=== PATIENT | male | born 1960 | race Caucasian/White ===

== ENCOUNTER 2023-08-21 11:34 | Inpatient (IN) | payer MEDICAID, MEDICARE, OTHER ==
--- NOTE | 2023-08-21 12:28 | ED ---
General Adult HPI - General Source: police Mode of arrival: ambulatory Limitations: no limitations <Rob Rey - Last Filed: 08/21/23 20:02> <Faraz Harvey - Last Filed: 08/24/23 04:43> - General Chief complaint: Psychiatric Symptoms Stated complaint: Petition Time Seen by Provider: 08/21/23 12:13 - History of Present Illness Initial comments: Dictation was produced using [employer] dictation software. please excuse any grammatical, word or spelling errors. Chief Complaint: 63-year-old male presents to the emergency department with for EPS evaluation History of Present Illness: Patient 63-year-old male he is an unreliable historian. Patient allegedly has history of psychiatric illness. He was picked up from a shelter by brought to the emergency department for psychiatric evaluation. Patient denies any complaints. According to petition signed by a dip unit operator patient has not been compliant with his psychiatric medications and has been displaying bizarre behavior. Patient [place] any complaints. The ROS documented in this emergency department record has been reviewed and confirmed by me. Those systems with pertinent positive or negative responses have been documented in the HPI. All other systems are other negative and/or noncontributory. (Rob Rey) - Related Data Home Medications Medication Instructions Recorded Confirmed Atorvastatin [Lipitor] 20 mg PO HS@209908/21/23 08/22/23 Carbidopa/Levodopa 2 tab PO TID@0800,1400,209908/21/23 08/22/23 [Carbidopa-Levodopa 25-100 Tab] Cyanocobalamin (Vitamin B-12) 1,000 mcg PO DAILY 08/21/23 08/22/23 [Vitamin B-12] Ergocalciferol (Vitamin D2) 1,250 mcg PO WE 08/21/23 08/22/23 [Drisdol (50,000 Iu)] Escitalopram Oxalate [Lexapro] 10 mg PO HS@209908/21/23 08/22/23 [place] Carbonate 900 mg PO HS@209908/21/23 08/22/23 Loratadine 10 mg PO DAILY@209908/21/23 08/22/23 Pantoprazole [Protonix] 40 mg PO HS@209908/21/23 08/22/23 QUEtiapine [SEROquel] 200 mg PO HS@2100 08/21/23 08/22/23 Allergies Allergy/AdvReac Type Severity Reaction Status Date / Time onion Allergy Unknown Verified 08/22/23 02:25 Review of Systems ROS Other: All systems not noted in ROS Statement are negative. <Rob Rey - Last Filed: 08/21/23 20:02> ROS Other: All systems not noted in ROS Statement are negative. <Faraz Harvey - Last Filed: 08/24/23 04:43> ROS Statement: Those systems with pertinent positive or pertinent negative responses have been documented in the HPI. Past Medical History Past Medical History: Chest Pain / Angina, Osteoarthritis (OA), Pneumonia Additional Past Medical History / Comment(s): 04/17/15 Pt presented to [facility] ER via EMS with chest discomfort and had similar symptoms 2 days ago. Pt states it hurts to laugh and take a deep breath. He is admitted with clinical impression of chest pain. Pt is a unreliable historian. He has legal gaurdian-rfp writer contacted [facility] [employer] and obtained full code status and permission to contact PCP. Six Sigma Black Belt Engineer did rosalindace Dr. Gray's office and obtained [facility] information and immunization record. 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 History of Any Multi-Drug Resistant Organisms: None Reported Past Surgical History: Cholecystectomy, Hernia Repair Past Anesthesia/Blood Transfusion Reactions: No Reported Reaction Past Psychological History: Anxiety, Bipolar, Depression, Schizoaffective Disorder Past Alcohol Use History: None Reported Past Drug Use History: None Reported - Past Family History Mother Family Medical History: Myocardial Infarction (HI) Additional Family Medical History / Comment(s): Mother of a HI at age 70 yrs. Father Family Medical History: Hypertension Additional Family Medical History / Comment(s): Father is alive and 76 yrs old. <Rob Rey - Last Filed: 08/21/23 20:02> General Exam Limitations: no limitations <Rob Rey - Last Filed: 08/21/23 20:02> - General Exam Comments Initial Comments: General: Well-appearing, nontoxic, no acute distress. Head: Normocephalic, atraumatic Eyes: PERRLA, EOMI ENT: Airway patent Chest: Nonlabored breathing Skin: No visual rash, normal skin tone Neuro: Alert and oriented 3 Musculoskeletal: No gross abnormalities (Rob Rey) Course Vital Signs 08/21/23 08/21/23 11:36 21:24 Temperature 98 F 98.9 F Pulse Rate 83 77 Respiratory 18 18 Rate Blood Pressure 165/98 129/77 O2 Sat by Pulse 100 95 Oximetry Procedures - Restraint - Face to Face Restraint Occurrence 1 Patient's Immediate Situation: Endangers self safety, Endangers others' safety, Endangers staff safety Patient's Reaction to the Intervention: Appropriate, Uncooperative Patient's Medical & Behavioral Condition: Awake, Agitated Need to Continue or Terminate Restraint or Seclusion: Continue Face to Face Eval of Restraint Date: 08/21/23 Face to Face Eval of Restraint Time: 17:15 <Rob Rey - Last Filed: 08/21/23 20:02> Medical Decision Making <Rob Rey - Last Filed: 08/21/23 20:02> <Faraz Harvey - Last Filed: 08/24/23 04:43> - Medical Decision Making Was pt. sent in by a medical professional or institution (GABRIELLE Lopez, GENERATOR OPERATOR STRAIGHT BEVEL GEAR, urgent care, hospital, or custodial...) When possible be specific @ -No Did you speak to anyone other than the patient for history (EMS, parent, family, police, friend...)? What history was obtained from this source @ -Police as described above Did you review nursing and triage notes (agree or disagree)? Why? @ -I reviewed and agree with nursing and triage notes Were old charts reviewed (outside hosp., previous admission, EMS record, old EKG, old radiological studies, urgent care reports/EKG's, custodial records)? Report findings @ -No old charts were reviewed Differential Diagnosis (chest pain, altered mental status, abdominal pain women, abdominal pain men, vaginal bleeding, musculoskeletal, weakness, fever, dyspnea, syncope, headache, dizziness, GI bleed, back pain, seizure, CVA, palpatations, mental health)? @ -Differential Mental Health: Depression, anxiety, bipolar, psychosis, schizophrenia, borderline personality, situational depression, adjustment disorder, behavioral disorder, brain tumor, malingering, substance abuse, encephalopathy, medication reaction, dementia, hypothyroidism, degenerative neurologic disorder, lupus.... This is not meant to be all-inclusive list EKG interpreted by me (3pts min.). @ -None done X-rays interpreted by me (1pt min.). @ -None done CT interpreted by me (1pt min.). @ -None done U/S interpreted by me (1pt. min.). @ -None done What testing was considered but not performed or refused? (CT, X-rays, U/S, labs)? Why? @ -None What meds were considered but not given or refused? Why? @ -None Did you discuss the management of the patient with other professionals (professionals i.e. , PA, GENERATOR OPERATOR STRAIGHT BEVEL GEAR, lab, RT, psych nurse, social media sr strategy manager, refrigeration houseman, teacher, airport operations officer, human services case manager)? Give summary @ -No Was smoking cessation discussed for >3mins.? @ -No Was critical care preformed (if so, how long)? @ -No Were there social determinants of health that impacted care today? How? (Homelessness, low income, unemployed, alcoholism, drug addiction, transportation, low edu. Level, literacy, decrease access to med. care, prison, rehab)? @ -No Was there de-escalation of care discussed even if they declined (Discuss DNR or withdrawal of care, Hospice)? DNR status @ -No What co-morbidities impacted this encounter? (DM, HTN, Smoking, COPD, CAD, Cancer, CVA, ARF, Chemo, Hep., AIDS, mental health diagnosis, sleep apnea, morbid obesity)? @ -None Was patient admitted / discharged? Hospital course, mention meds given and route, prescriptions, significant lab abnormalities, going to OR and other pertinent info. @ -63-year-old male presents to the emergency department for psychiatric evaluation. has petition and hand. Vital signs stable. Physical examination is benign. Patient no acute distress with out any medical complaints. Patient medically cleared for EPS evaluation Undiagnosed new problem with uncertain prognosis? @ -No Drug Therapy requiring intensive monitoring for toxicity (Heparin, Nitro, Insulin, Cardizem)? @ -No Were any procedures done? @ -No Diagnosis/symptom? Acute, or Chronic, or Acute on Chronic? Uncomplicated (without systemic symptoms) or Complicated (systemic symptoms)? @ -Medication noncompliance Side effects of treatment? @ -No Exacerbation, Progression, or Severe Exacerbation? @ -No Poses a threat to life or bodily function? How? (Chest pain, [place], HI, pneumonia, PE, COPD, DKA, ARF, appy, cholecystitis, CVA, Diverticulitis, Homicidal, Suicidal, threat to staff... and all critical care pts) @ -yes (Rob Rey) Saw the patient and completed the clinical certificate (Faraz Harvey) - Lab Data Lab Results 08/22/23 Range/Units 00:40 SARS-CoV-2 (PCR) Not Detected (Not Detectd) Disposition <Rob Rey - Last Filed: 08/21/23 20:02> Is patient prescribed a controlled substance at d/c from ED?: No <Faraz Harvey - Last Filed: 08/24/23 04:43> Clinical Impression: Psychosis Disposition: ADMITTED IP TO THIS HOSP Condition: Fair
[2023-08-21] MEDS: HALOPERIDOL LACTATE 5 MG/ML 1 ML VIAL IM STA (17:53)
[2023-08-22] MEDS ORDERED: ACETAMINOPHEN TAB 325 MG TAB PO PRN (02:15)
[2023-08-22] MEDS ORDERED: MAG HYDROX/AL HYDROX/SIMETH 355 ML BOTTLE PO PRN (02:15)
[2023-08-22] MEDS ORDERED: MAGNESIUM HYDROXIDE 2,400 MG/30 ML CUP PO PRN (02:15)
[2023-08-22] MEDS ORDERED: LORazepam 2 MG/ML INJ IM PRN (02:15)
[2023-08-22] MEDS ORDERED: IBUPROFEN 600 MG TAB PO PRN (02:15)
--- NOTE | 2023-08-22 05:14 | P.PN ---
Progress Note - Text Progress Note Date: 08/22/23 Notified of new consult by RN who advised patient is drowsy heavily medicated and currently sleeping
[2023-08-22] MEDS: CARBIDOPA-LEVODOPA 25-100 MG 1 EACH TAB PO SCH (08:18)
[2023-08-22] MEDS: NICOTINE 14MG/24HR PATCH TRANSDERM SCH (08:18)
--- NOTE | 2023-08-22 13:07 | P.HP ---
Psychiatric H&P - . H&P Date: 08/22/23 History & Physical: Allergies Allergy/AdvReac Type Severity Reaction Status Date / Time onion Allergy Unknown Verified 08/22/23 02:25 Vital Signs Temp 97.8 F 08/22/23 03:49 Pulse 102 H 08/22/23 08:19 Resp 14 08/22/23 03:49 BP 139/89 08/22/23 08:19 Pulse Ox 96 08/22/23 03:49 FiO2 Intake & Output 08/21/23 08/22/23 08/22/23 18:59 06:59 18:59 Weight 90.718 kg 90.718 kg Laboratory Last Values SARS-CoV-2 (PCR) Not Detected (Not Detectd) 08/22/23 00:40 08/22/23 13:03 This is a psychiatric assessment on this 63-year-old male who was brought in from a fdc Patient is a poor historian and continues to stare He continues to stay he is good and is unable to give any other answer or response Following is an excerpt from the assessment done in the ER which is included here for completeness: 63-year-old male presents to the emergency department with for EPS evaluation History of Present Illness: Patient 63-year-old male he is an unreliable histo kahtrine. Patient allegedly has history of psychiatric illness. He was picked up from a fdc by brought to the emergency department for psychiatric evaluation. Patient denies any complaints. According to petition signed by a vibration engineer patient has not been compliant with his psychiatric medications and has been displaying bizarre behavior. Past Medical History as noted in the chart: Past Medical History: Chest Pain / Angina, Osteoarthritis (OA), Pneumonia Additional Past Medical History / Comment(s): 04/17/15 Pt presented to [facility] ER via EMS with chest discomfort and had similar symptoms 2 days ago. Pt states it hurts to laugh and take a deep breath. He is admitted with clinical impression of chest pain. Pt is a unreliable historian. He has legal gaurdian-resume writer contacted [facility] [employer] and obtained full code status and permission to contact PCP. New Car Sales Manager did contace Dr. Gray's office and obtained [facility] information and immunization record. 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 History of Any Multi-Drug Resistant Organisms: None Reported Past Surgical History: Cholecystectomy, Hernia Repair Past Anesthesia/Blood Transfusion Reactions: No Reported Reaction Past Psychological History: Anxiety, Bipolar, Depression, Schizoaffective Disorder Past Alcohol Use History: None Reported Past Drug Use History: None Reported Mental status examination: Patient when seen today was laying in bed When his name was called patient did turn around and looked at this resume writer but did not respond Patient and can continue to repeat grade morning and was unable to give any other response Further mental State examination could not be completed due to patient not able to respond to any questions adequately and seems to be developmentally compromised Diagnostic impression: Schizoaffective disorder by history Major neurocognitive disorder moderate to severe Developmental disorder unspecified Plan: The patient will be hospitalized on the unit for further evaluation and treatment Therapy will be focused on providing supportive care improving his coping abilities with a multimodal treatment Patient will also participate in on the cornejo activities individual milieu group OT RT PT and pharmacotherapy to the best of his capacity Approximately length of stay would be 7-10 days Continue current home medications as prescribed Active Medications Generic Name Dose Route Start Last Admin Trade Name Freq PRN Reason Stop Dose Admin Acetaminophen 650 mg 08/22/23 02:15 Acetaminophen Tab 325 Mg Tab PO Q4HR PRN Mild Pain (Scale 1 to 3) Al Hydroxide/Mg Hydroxide 30 ml 08/22/23 02:15 Mag Hydrox/Al Hydrox/Simeth 355 Ml Bottle PO Q4HR PRN GI Upset Atorvastatin Calcium 20 mg 08/22/23 21:00 Atorvastatin 20 Mg Tab PO HS@2100 [facility] Carbidopa/Levodopa 2 each 08/22/23 08:00 08/22/23 08:18 Carbidopa-Levodopa 25-100 Mg 1 Each Tab PO 2 each TID@0800,1400,2100 [facility] Administration Escitalopram Oxalate 10 mg 08/22/23 21:00 Escitalopram 10 Mg Tab PO HS@2100 [facility] Ibuprofen 600 mg 08/22/23 02:15 Ibuprofen 600 Mg Tab PO Q6HR PRN Moderate Pain (Scale 4 to 6) [place] Carbonate 900 mg 08/22/23 21:00 [place] Carbonate 300 Mg Cap PO HS@2100 [facility] Loratadine 10 mg 08/22/23 21:00 Loratadine 10 Mg Tab PO DAILY@2100 [facility] Lorazepam 1 mg 08/22/23 02:15 Lorazepam 1 Mg Tab PO Q4HR PRN Anxiety Lorazepam 2 mg 08/22/23 02:15 Lorazepam 2 Mg/Ml Inj IM Q6HR PRN Severe Agitation Magnesium Hydroxide 2,400 mg 08/22/23 02:15 Magnesium Hydroxide 2,400 Mg/30 Ml Cup PO DAILY PRN Constipation Pantoprazole Sodium 40 mg 08/22/23 21:00 Pantoprazole 40 Mg Tablet PO HS@2100 [facility] Quetiapine Fumarate 200 mg 08/22/23 21:00 Quetiapine 200 Mg Tab PO HS@2100 [facility] Trazodone HCl 50 mg 08/22/23 02:15 Trazodone Hcl 50 Mg Tab PO HS PRN Insomnia learning support services director will be involved for appropriate discharge planning Yves Lara M.D.
[2023-08-22] MEDS: LORATADINE 10 MG TAB PO SCH (20:30)
[2023-08-22] MEDS: LITHIUM CARBONATE 300 MG CAP PO SCH (20:30)
[2023-08-22] MEDS: ATORVASTATIN 20 MG TAB PO SCH (20:30)
[2023-08-22] MEDS: ESCITALOPRAM 10 MG TAB PO SCH (20:30)
[2023-08-22] MEDS: PANTOPRAZOLE 40 MG TABLET PO SCH (20:30)
[2023-08-22] MEDS: QUEtiapine 200 MG TAB PO SCH (20:30)
--- NOTE | 2023-08-23 02:28 | P.PN ---
Progress Note - Text Progress Note Date: 08/23/23 Attempted to see the patient in the mental health unit on 08/21 at 2300. Informed by the mental health unit RN that the patient was agitated and inappropriate for evaluation at this time.
--- NOTE | 2023-08-23 08:50 | P.PN ---
Subjective Progress Note Date: 08/23/23 Principal diagnosis: Diagnostic impression: Schizoaffective disorder by history Major neurocognitive disorder moderate to severe Developmental disorder unspecified The patient was seen chart was reviewed and case discussed with nursing staff Patient at this time was laying in bed and did not seem to exhibit any interest in his interview Patient made some grunting sounds Patient tried to respond mainly by shaking his head either yes and nose but the sponsors were inconsistent and unreliable Affect remains flat Mental status examination: Mental status examination practically remains unchanged from the previous day Patient when seen today was laying in bed When his name was called patient did turn around and looked at this physician underwriter but did not respond Patient and can continue to repeat grade morning and was unable to give any other response Further mental State examination could not be completed due to patient not able to respond to any questions adequately and seems to be developmentally compromised Diagnostic impression: Schizoaffective disorder by history Major neurocognitive disorder moderate to severe Developmental disorder unspecified Plan: The patient will be hospitalized on the unit for further evaluation and treatment Therapy will be focused on providing supportive care improving his coping abilities with a multimodal treatment Patient will also participate in on the cornejo activities individual milieu group OT RT PT and pharmacotherapy to the best of his capacity Approximately length of stay would be 7-10 days Continue current home medications as prescribed Yves Lara MD Active Medications Generic Name Dose Route Start Last Admin Trade Name Freq PRN Reason Stop Dose Admin Acetaminophen 650 mg 08/22/23 02:15 Acetaminophen Tab 325 Mg Tab PO Q4HR PRN Mild Pain (Scale 1 to 3) Al Hydroxide/Mg Hydroxide 30 ml 08/22/23 02:15 Mag Hydrox/Al Hydrox/Simeth 355 Ml Bottle PO Q4HR PRN GI Upset Atorvastatin Calcium 20 mg 08/22/23 21:00 08/22/23 20:30 Atorvastatin 20 Mg Tab PO 20 mg HS@2100 [facility] Administration Carbidopa/Levodopa 2 each 08/22/23 08:00 08/22/23 20:30 Carbidopa-Levodopa 25-100 Mg 1 Each Tab PO 2 each TID@0800,1400,2100 [facility] Administration Escitalopram Oxalate 10 mg 08/22/23 21:00 08/22/23 20:30 Escitalopram 10 Mg Tab PO 10 mg HS@2100 [facility] Administration Ibuprofen 600 mg 08/22/23 02:15 Ibuprofen 600 Mg Tab PO Q6HR PRN Moderate Pain (Scale 4 to 6) [place] Carbonate 900 mg 08/22/23 21:00 08/22/23 20:30 [place] Carbonate 300 Mg Cap PO 900 mg HS@2100 [facility] Administration Loratadine 10 mg 08/22/23 21:00 08/22/23 20:30 Loratadine 10 Mg Tab PO 10 mg DAILY@2100 [facility] Administration Lorazepam 1 mg 08/22/23 02:15 Lorazepam 1 Mg Tab PO Q4HR PRN Anxiety Lorazepam 2 mg 08/22/23 02:15 Lorazepam 2 Mg/Ml Inj IM Q6HR PRN Severe Agitation Magnesium Hydroxide 2,400 mg 08/22/23 02:15 Magnesium Hydroxide 2,400 Mg/30 Ml Cup PO DAILY PRN Constipation Pantoprazole Sodium 40 mg 08/22/23 21:00 08/22/23 20:30 Pantoprazole 40 Mg Tablet PO 40 mg HS@2100 [facility] Administration Quetiapine Fumarate 200 mg 08/22/23 21:00 08/22/23 20:30 Quetiapine 200 Mg Tab PO 200 mg HS@2100 [facility] Administration Trazodone HCl 50 mg 08/22/23 02:15 Trazodone Hcl 50 Mg Tab PO HS PRN Insomnia Objective - Vital Signs Vital signs: Vital Signs Temp 97.8 F 08/22/23 03:49 Pulse 102 H 08/22/23 08:19 Resp 14 08/22/23 03:49 BP 139/89 08/22/23 08:19 Pulse Ox 96 08/22/23 03:49 FiO2
--- NOTE | 2023-08-24 03:24 | P.PN ---
Progress Note - Text Progress Note Date: 08/24/23 Attempted to see the patient in the mental health unit at 2200 on 08/22. The patient refused to be seen or be evaluated
[2023-08-24] MEDS ORDERED: HALOPERIDOL LACTATE 5 MG/ML 1 ML VIAL IM PRN (11:25)
[2023-08-24] MEDS ORDERED: OLANZapine 10 MG VIAL IM PRN ×2 (11:28→11:29)
--- NOTE | 2023-08-24 11:34 | P.PN ---
Progress Note - Text Progress Note Date: 08/24/23 Interval History: Patient was seen laying in bed today and was directable and agreeable to speak with bond underwriter. Patient appears to be mildly disheveled in appearance, patient has a noticeable stutter in his speech. He claims that he is doing "super" and denies any depression or anxiety. He is fairly concrete, focused on discharge. He claims that he is agreeable to trying new medications. He denies any problems with sleep at this time. Claims that he is eating fairly. Mainly keeping himself on the unit. At this time patient denies any suicidal or homical ideations, intent or plan. Patient denies any auditory, visual hallucinations and denies any paranoia or delusions. Patient denies any side effects from the medications and has been compliant with meds. Mental Status Exam: General Appearance: Patient appears to be stated age is alert, directable, and cooperative. Behavior: Patient is calmly seated without any agitated behavior. Attempts to cooperate Speech: Patient's speech is stuttering Mood/Affect: Mood is improving mildly, affect is congruent and improving mildly Suicidality/Homicidality: Patient denies having any suicidal or homicidal ideation intent or plan. Perceptions: Patient denies any visual hallucinations and denies any auditory hallucinations Though content/process: There is no evidence of any delusional thought content and thought process is linear and goal-directed. Focused on discharge. [place]. Memory and concentration: AOX3, grossly intact for the purposes of this session Judgment and insight: Likely poor, improving mildly Assessment Schizoaffective disorder Major neurocognitive disorder moderate to severe Developmental disorder unspecified Plan: -Patient continues to meet criteria for inpatient psychiatric admission for symptom stabilization and safety. Patient has not signed medication consent and was placed in patient's chart. -Medications: Continue with Seroquel 200 mg nightly for mood stabilization/insomnia/psychosis, added Abilify 5 mg p.o. daily for mood stabilization/psychosis. Plan to transition onto a long-acting injection. Continue with lithium and Lexapro as prescribed. -When necessary Ativan and Zyprexa for agitation/aggression. -NRT -non-smoker -SW on board for discharge planning. Encouraged the patient to participate in milieu. Patient is currently on a active treatment order which expires in May 2024. She currently lives at [facility], plan to return after discharge.
[2023-08-24 12:10] LABS: Anisocytosis Slight; Basophils % (A) 1 %; Eosinophils # (A) 0.2 k/uL (0-0.7); Eosinophils % (A) 3 %; HCT 36.2 % (39.0-53.0); HGB 12.3 gm/dL (13.0-17.5); Lymphocytes # (A) 1.4 k/uL (1.0-4.8); Lymphocytes % (A) 18 %; MCH 30.2 pg (25.0-35.0); MCHC 33.9 g/dL (31.0-37.0); Mean Platelet Volume 8.5; Monocytes # (A) 0.3 k/uL (0-1.0); Monocytes % (A) 4 %; Neutrophils # (A) 5.6 k/uL (1.3-7.7); Neutrophils % (A) 73 %; Platelet Count 133 k/uL (150-450); Poikilocytosis Moderate; RBC 4.07 m/uL (4.30-5.90); RDW 18.9 % (11.5-15.5); WBC 7.6 k/uL (3.8-10.6)
[2023-08-24 12:22] LABS: ALT 6 U/L (4-49); AST 20 U/L (17-59); African American GFR (CKD) >90 (>60 ml/min/1.73 sqM); Albumin 4.2 g/dL (3.5-5.0); Alkaline Phosphatase 60 U/L (38-126); Anion Gap 5 mmol/L; Bilirubin, Delta 0.4 mg/dL (0.0-0.2); Bilirubin,Unconjugated 1.8 mg/dL (0.0-1.1); Blood Urea Nitrogen 14 mg/dL (9-20); Calcium 8.8 mg/dL (8.4-10.2); Carbon Dioxide 27 mmol/L (22-30); Chloride 108 mmol/L (98-107); Glucose 87 mg/dL (74-99); Non-African American GFR(CKD) >90 (>60 ml/min/1.73 sqM); Potassium 4.2 mmol/L (3.5-5.1); Sodium 140 mmol/L (137-145); Total Bilirubin 2.2 mg/dL (0.2-1.3); Total Protein 6.1 g/dL (6.3-8.2)
[2023-08-24] MEDS: ARIPiprazole 5 MG TAB PO SCH (14:21)
[2023-08-24 15:58] LABS: Chol/HDL Ratio 1.88 Ratio; LDL Cholesterol,Calculated 25.1 mg/dL (0.0-131.0); VLDL Calculation 11.92 mg/dL (5.00-40.00)
[2023-08-24 16:42] LABS: Estimated Average Glucose <74 mg/dL
[2023-08-24] MEDS: QUEtiapine 200 MG TAB PO SCH (20:20)
[2023-08-24] MEDS ORDERED: PALIPERIDONE 6 MG TAB.ER.24 PO SCH (21:00)
--- NOTE | 2023-08-25 09:59 | P.PN ---
Progress Note - Text Progress Note Date: 08/25/23 Interval History: Patient was seen laying in bed today and was directable and agreeable to speak with marketing writer. Patient appeared to have improvement in his affect today. He was polite and directable with marketing writer, denying any irritability. Denying any problems with medications at this time. He continues to focus on discharge. patient has a noticeable stutter in his speech. He claims that he is doing "good" and denies any depression or anxiety. He is fairly concrete, focused on discharge. He claims that he is agreeable to trying new medications. He denies any problems with sleep at this time. Claims that he is eating fairly. Mainly keeping himself on the unit. At this time patient denies any suicidal or homicidal ideations, intent or plan. Patient denies any auditory, visual hallucinations and denies any paranoia or delusions. Patient denies any side effects from the medications and has been compliant with meds. Mental Status Exam: General Appearance: Patient appears to be stated age is alert, directable, and cooperative. Behavior: Patient is calmly seated without any agitated behavior. Attempts to cooperate Speech: Patient's speech is stuttering Mood/Affect: Mood is improving mildly, affect is congruent and improving mildly Suicidality/Homicidality: Patient denies having any suicidal or homicidal ideation intent or plan. Perceptions: Patient denies any visual hallucinations and denies any auditory hallucinations Though content/process: There is no evidence of any delusional thought content and thought process is linear and goal-directed. Focused on discharge. [place]. 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 Patient has not signed medication consent and was placed in patient's chart. -Medications: Continue with Seroquel 200 mg nightly for mood stabilization/insomnia/psychosis, increase Abilify 7.5 mg p.o. daily for mood stabilization/psychosis. Plan to transition onto a long-acting injection. Continue with lithium and Lexapro as prescribed -When necessary Ativan and Zyprexa for agitation/aggression -NRT -non-smoker -SW on board for discharge planning. Encouraged the patient to participate in milieu. Patient is currently on a active treatment order which expires in May 2024. She currently lives at [facility], plan to return after discharge. Hopeful for discharge thursday once patient is transitioned onto [facility].
--- NOTE | 2023-08-26 01:59 | P.CONS ---
History of Present Illness - Reason for Consult Consult date: 08/26/23 - History of Present Illness The patient is a 63-year-old male with a PMH of hyperlipidemia and multiple psychiatric conditions including schizoaffective disorder, bipolar disorder, depression who had presented to the emergency room for psychiatric evaluation due to bizarre behavior. The patient was admitted to the mental health unit where he was seen and evaluated. Patient states that he "misscounted my medications at home". He denied any physical complaints at the time of interview. Denied experiencing chest discomfort, shortness breath, fever, chills, cough, nausea, vomiting, abdominal pain, diarrhea. He denied alcohol, tobacco, or substance use. Review of systems: Pertinent positives and negatives as discussed in HPI, a complete review of systems was performed and all other systems are negative. Physical examination: General: non toxic, no distress, appears at stated age, overweight Derm: no unusual rashes/lesions, no unusual ecchymoses, warm, dry Head: atraumatic, normocephalic, symmetric Eyes: EOMI, no lid lag, anicteric sclera ENT: Nose and ears atraumatic, no thrush, no pharyngeal erythema Neck: trachea midline, supple Mouth: no lip lesion, mucus membranes moist Cardiovascular: S1S2 reg, no murmur, no edema Lungs: CTA bilateral, no rhonchi, no rales , no accessory muscle use Abdominal: soft, nontender to palpation, no guarding Ext: no gross muscle atrophy, no contractures, Neuro: No gross focal neuro deficits noted Psych: Alert, oriented, appropriate affect Assessment: Thrombocytopenia Hyperbilirubinemia Chronic conditions: Hyperlipidemia Psychosis Imaging: None performed Data Review: Reviewed with hemoglobin 12.3, platelet count 133, total bilirubin 2.2, unconjugated bili 1.8, with lithium level 0.6 Plan: Monitor CBC for now as patient has previously had intermittent thrombocytopenia which resolved spontaneously Obtain RUQ ultrasound and monitor CMP Resume patient's home Lipitor Defer management of psychosis to primary psychiatry service Thank you for allowing us to participate in the care of this patient. We will follow peripherally. Do not hesitate to contact us with questions. Someone can be reached from the [facility] hospitalist group at all hours of the day at [phone]. Past Medical History Past Medical History: Chest Pain / Angina, Osteoarthritis (OA), Pneumonia Additional Past Medical History / Comment(s): 04/17/15 Pt presented to [facility] ER via EMS with chest discomfort and had similar symptoms 2 days ago. Pt states it hurts to laugh and take a deep breath. He is admitted with clinical impression of chest pain. Pt is a unreliable historian. He has legal gaurdian-underwriter contacted [facility] and obtained full code status and permission to contact PCP. Jewel Diameter Gauger did rosalindace Dr. Gray's office and obtained [facility] information and immunization record. 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 History of Any Multi-Drug Resistant Organisms: None Reported Past Surgical History: Cholecystectomy, Hernia Repair Past Anesthesia/Blood Transfusion Reactions: No Reported Reaction Past Psychological History: Anxiety, Bipolar, Depression, Schizoaffective Disorder Additional Psychological History / Comment(s): Pt resides in [facility]. Pt has a legal gaurdian. He uses no assistive device. Smoking Status: Never smoker Past Alcohol Use History: None Reported Past Drug Use History: None Reported - Past Family History Mother Family Medical History: Myocardial Infarction (DC) Additional Family Medical History / Comment(s): Mother of a DC at age 70 yrs. Father Family Medical History: Hypertension Additional Family Medical History / Comment(s): Father is alive and 76 yrs old. Medications and Allergies Home Medications Medication Instructions Recorded Confirmed Type Atorvastatin [Lipitor] 20 mg PO HS@209908/21/23 08/22/23 History Carbidopa/Levodopa 2 tab PO TID@0800,1400,209908/21/23 08/22/23 History [Carbidopa-Levodopa 25-100 Tab] Cyanocobalamin (Vitamin B-12) 1,000 mcg PO DAILY 08/21/23 08/22/23 History [Vitamin B-12] Ergocalciferol (Vitamin D2) 1,250 mcg PO WE 08/21/23 08/22/23 History [Drisdol (50,000 Iu)] Escitalopram Oxalate [Lexapro] 10 mg PO HS@209908/21/23 08/22/23 History [place] Carbonate 900 mg PO HS@209908/21/23 08/22/23 History Loratadine 10 mg PO DAILY@209908/21/23 08/22/23 History Pantoprazole [Protonix] 40 mg PO HS@209908/21/23 08/22/23 History QUEtiapine [SEROquel] 200 mg PO HS@209908/21/23 08/22/23 History Allergies Allergy/AdvReac Type Severity Reaction Status Date / Time onion Allergy Unknown Verified 08/22/23 02:25 Physical Exam Vitals: Vital Signs Temp Pulse Resp BP Pulse Ox 08/25/23 06:56 96.7 F L 66 18 107/62 97 Results CBC & Chem 7: 08/24/23 11:23 08/24/23 11:22
[2023-08-26] MEDS: ARIPiprazole 5 MG TAB PO SCH (08:59)
--- NOTE | 2023-08-26 10:08 | P.PN ---
Progress Note - Text Progress Note Date: 08/26/23 Interval History: Patient was seen laying in bed today and was directable and agreeable to speak with ad writer. Patient was in good spirits today. He is excited about discharge. Patient states that he is sleeping well, and he is eating all meals. Mainly keeping himself on the unit, only coming out of his room for meals and medication. He has not attended any groups. Spoke with patient about transitioning onto a SEBASTIAN, patient agreeable. At this time patient denies any suicidal or homicidal ideations, intent or plan. Patient denies any auditory, visual hallucinations and denies any paranoia or delusions. Patient denies any side effects from the medications and has been compliant with meds. Mental Status Exam: General Appearance: Patient appears to be stated age is alert, directable, and cooperative. Behavior: Patient is calmly seated without any agitated behavior. Attempts to cooperate, improving Speech: Patient's speech is stuttering Mood/Affect: Mood is "a-ok" , affect is congruent and improving mildly Suicidality/Homicidality: Patient denies having any suicidal or homicidal id eation intent or plan. Perceptions: Patient denies any visual hallucinations and denies any auditory hallucinations Though content/process: There is no evidence of any delusional thought content and thought process is linear and goal-directed. Focused on discharge. [place]. 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 Patient has not signed medication consent and was placed in patient's chart. -Medications: Seroquel 200 mg nightly for mood stabilization/insom alexa/psychosis, increase Abilify 10 mg p.o. daily for mood stabilization/psychosis. Plan to transition onto a long-acting injection on Thursday, 08/27 Continue with lithium and Lexapro as prescribed -When necessary Ativan and Zyprexa for agitation/aggression -NRT - non-smoker -SW on board for discharge planning. Encouraged the patient to participate in milieu. Patient is currently on a active treatment order which expires in May 2024. he currently lives at [facility], plan to return after discharge if still approved to go back. Hopeful for discharge thursday once patient is transitioned onto SEBASTIAN.
[2023-08-26 13:39] LABS: Anisocytosis Slight; HCT 39.1 % (39.0-53.0); MCH 29.8 pg (25.0-35.0); MCHC 33.3 g/dL (31.0-37.0); MCV 89.4 fL (80.0-100.0); Mean Platelet Volume 8.4; Platelet Count 142 k/uL (150-450); Poikilocytosis Moderate; RBC 4.38 m/uL (4.30-5.90); RDW 18.6 % (11.5-15.5)
[2023-08-26 13:57] LABS: ALT <6 U/L (4-49); AST 18 U/L (17-59); African American GFR (CKD) >90 (>60 ml/min/1.73 sqM); Albumin 4.6 g/dL (3.5-5.0); Alkaline Phosphatase 80 U/L (38-126); Anion Gap 6 mmol/L; Blood Urea Nitrogen 11 mg/dL (9-20); Calcium 9.2 mg/dL (8.4-10.2); Carbon Dioxide 26 mmol/L (22-30); Chloride 106 mmol/L (98-107); Glucose 88 mg/dL (74-99); Non-African American GFR(CKD) >90 (>60 ml/min/1.73 sqM); Sodium 138 mmol/L (137-145); Total Bilirubin 2.5 mg/dL (0.2-1.3); Total Protein 6.6 g/dL (6.3-8.2)
[2023-08-26 14:52] LABS: Potassium 4.2 mmol/L (3.5-5.1)
[2023-08-27] MEDS: ARIPiprazole 10 MG TAB PO SCH (09:08)
--- NOTE | 2023-08-27 09:14 | US ---
EXAMINATION TYPE: US abdomen limited DATE OF EXAM: 08/27/2023 Exam done portable in U COMPARISON: US 2010 CLINICAL INDICATION: Male, 63 years old with history of RUQ - hyperbilirubinemia; TECHNIQUE: Multiple sonographic images of the right upper quadrant are obtained. FINDINGS: EXAM MEASUREMENTS: Liver Length: 16.1 cm CBD: 0.5 cm Right Kidney: 11.5 x 4.8 x 5.5 cm Pancreas: obscured by overlying midline bowel gas Liver: limited by overlying bowel gas, 1.2cm cyst seen right lobe Gallbladder: surgically absent Evidence for sonographic Calderón's sign: no CBD: visualized portions wnl Right Kidney: visualized portions wnl, inferior pole limited by overlying bowel gas IMPRESSION: 1. No evidence for acute abdominal process. 2. Simple appearing hepatic cyst.
[2023-08-27] MEDS: LORazepam 1 MG TAB PO PRN (10:21)
[2023-08-27] MEDS: OLANZapine 10 MG TAB PO PRN (10:21)
--- NOTE | 2023-08-27 11:03 | P.PN ---
Progress Note - Text Progress Note Date: 08/27/23 Interval History: Patient was seen laying in bed today and was directable and agreeable to speak with singer songwriter. Patient stated that he was good today. Patient was asking about discharge, singer songwriter told patient we are still waiting to hear back from the nursing home, to see if he is able to return there upon discharge. Patient became upset, and started crying. Patient was hear yelling loudly from his room after wrtier left. Patient stated that he is sleeping well, and he is eating all meals. Mainly keeping himself on the unit, only coming out of his room for meals and medication. He has not attended any groups. Will give patient SEBASTIAN on Thursday, 08/27. At this time patient denies any suicidal or homicidal ideations, intent or plan. encouraged showerting today as patient did appear to be discheveled in appearance. Patient denies any auditory, visual hallucinations and denies any paranoia or delusions. Patient denies any side effects from the medications and has been compliant with meds. Mental Status Exam: General Appearance: Patient appears to be stated age is alert, directable, and cooperative. Behavior: Patient is calmly seated without any agitated behavior. Attempts to cooperate, improving Speech: Patient's speech is stuttering Mood/Affect: Mood is "good" , affect is congruent and improving mildly Suicidality/Homicidality: Patient denies having any suicidal or homicidal ideation intent or plan. Perceptions: Patient denies any visual hallucinations and denies any auditory mario llucinations Though content/process: There is no evidence of any delusional thought content and thought process is linear and goal-directed. Focused on discharge. [place]. 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 Patient has not signed medication consent and was placed in patient's chart. -Medications: Seroquel 200 mg nightly for mood stabilization/insomnia/psychosis, Abilify 10 mg p.o. daily for mood stabilization/psychosis. add abilify maintena 400mg IM, Thursday, 08/27 Continue with lithium and Lexapro as prescribed -When necessary Ativan and Zyprexa for agitation/aggression -NRT - non-smoker -SW on board for discharge planning. Encouraged the patient to participate in milieu. Patient is currently on a active treatment order which expires in May 2024. he currently lives at [facility], however unsure at this time if he is allowed back. [facility] is meeting with guardian to discuss nursing home placement.
[2023-08-27] MEDS: traZODone HCL 50 MG TAB PO PRN (22:09)
--- NOTE | 2023-08-28 10:23 | P.PN ---
Progress Note - Text Progress Note Date: 08/28/23 Interval History: Patient was seen laying in bed today and was directable and agreeable to speak with publicity writer. Patient stated that he was ok today. Patient appeared to be in better spirits today. Steel Checker explained to the patient that we are waiting for [facility] and his guardian to set up placement for discharge. Patient accepts this explanation. Patient stated that he is sleeping well, and he is eating all meals. Mainly keeping himself on the unit. He states that he has gone to a couple groups. Patient given SEBASTIAN on today, 08/27. At this time patient denies any suicidal or homicidal ideations, intent or plan. Patient denies any auditory, visual hallucinations and denies any paranoia or delusions. Patient denies any side effects from the medications and has been compliant with meds. Mental Status Exam: General Appearance: Patient appears to be stated age is alert, directable, and cooperative. Behavior: Patient is calmly seated without any agitated behavior. Attempts to cooperate, improving Speech: Patient's speech is stuttering Mood/Affect: Mood is "ok" , affect is congruent and improving mildly Suicidality/Homicidality: Patient denies having any suicidal or homicidal ideation intent or plan. Perceptions: Patient denies any visual hallucinations and denies any auditory hallucinations Though content/process: There is no evidence of any delusional thought content and thought process is linear and goal-directed. Focused on discharge. [place]. 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 Patient has not signed medication consent and was placed in patient's chart. -Medications: Seroquel 200 mg nightly for mood stabilization/insomnia/psychosis, Abilify 10 mg p.o. daily for mood stabilization/psychosis. abilify maintena 400mg IM, 08/28/23. Continue with lithium and Lexapro as prescribed -When necessary Ativan and Zyprexa for agitation/aggression -NRT - non-smoker - on board for discharge planning. Encouraged the patient to participate in milieu. Patient is currently on a active treatment order which expires in May 2024. [facility] unsure at this time if he is allowed back. [facility] is meeting with guardian to discuss correction placement.
[2023-08-28] MEDS: ARIPiprazole IM SYRINGE 400 MG (NO CHARGE) PHARMACY STOCK IM SCH (10:30)
--- NOTE | 2023-08-29 08:53 | P.PN ---
Subjective Progress Note Date: 08/29/23 Principal diagnosis: Diagnostic impression: Schizoaffective disorder by history Major neurocognitive disorder moderate to severe Developmental disorder unspecified atient Name: Maulik Nichole Date of : 1960 Patient Status: Inpatient Attending Provider: Isma Riojas Date: Initialization Date: 08/28/23 08:56 The patient was seen chart was reviewed and case discussed with nursing staff Patient at this time was laying in bed and did not seem to exhibit any interest in his interview Patient made some grunting sounds Patient tried to respond mainly by shaking his head Patient stated that he is sleeping well, and he is eating all meals. Mainly keeping himself on the unit. He states that he has gone to a couple groups. Patient given SEBASTIAN on 08/27 . At this time patient denies any suicidal or homicidal ideations, intent or plan. Patient denies any auditory, visual hallucinations and denies any paranoia or delusions. Patient denies any side effects from the medications and has been compliant with meds. Mental status examination: Mental Status Exam: General Appearance: Patient appears to be stated age is alert, directable, and cooperative. Behavior: Patient is calmly laying down without any agitated behavior. Speech: Mostly response with grunts and shaking his head Mood/Affect: Mood is "ok" , affect is congruent and improving mildly Suicidality/Homicidality: Patient denies having any suicidal or homicidal ideation intent or plan. Perceptions: Patient denies any visual hallucinations and denies any auditory hallucinations Though content/process: There is no evidence of any delusional thought content and thought process is linear and goal-directed. Focused on discharge. [place]. 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 -Medications: Seroquel 200 mg nightly for mood stabilization/insomnia/psychosis, Abilify 10 mg p.o. daily for mood stabilization/psychosis. abilify maintena 400mg IM, 08/28/23. Continue with lithium and Lexapro as prescribed -When necessary Ativan and Zyprexa for agitation/aggression -NRT - non-smoker - on board for discharge planning. Encouraged the patient to participate in milieu. Patient is currently on a active treatment order which expires in May 2024. [facility] unsure at this time if he is allowed back. [facility] is meeting with guardian to discuss residential placement. Yves Lara MD Active Medications Generic Name Dose Route Start Last Admin Trade Name Freq PRN Reason Stop Dose Admin Acetaminophen 650 mg 08/22/23 02:15 Acetaminophen Tab 325 Mg Tab PO Q4HR PRN Mild Pain (Scale 1 to 3) Al Hydroxide/Mg Hydroxide 30 ml 08/22/23 02:15 Mag Hydrox/Al Hydrox/Simeth 355 Ml Bottle PO Q4HR PRN GI Upset Aripiprazole 10 mg 08/27/23 09:00 08/28/23 09:23 Aripiprazole 10 Mg Tab PO 10 mg DAILY CARINA Administration Aripiprazole 400 mg 08/28/23 09:00 08/28/23 10:30 Aripiprazole Im Syringe 400 Mg (No Charge) Pharmacy Stock IM 400 mg QMONTHLY CARINA Administration Atorvastatin Calcium 20 mg 08/22/23 21:00 08/28/23 21:18 Atorvastatin 20 Mg Tab PO 20 mg HS@2100 CARINA Administration Carbidopa/Levodopa 2 each 08/22/23 08:00 08/28/23 21:18 Carbidopa-Levodopa 25-100 Mg 1 Each Tab PO 2 each TID@0800,1400,2100 CARINA Administration Escitalopram Oxalate 10 mg 08/22/23 21:00 08/28/23 21:18 Escitalopram 10 Mg Tab PO 10 mg HS@2100 CARINA Administration Ibuprofen 600 mg 08/22/23 02:15 Ibuprofen 600 Mg Tab PO Q6HR PRN Moderate Pain (Scale 4 to 6) [place] Carbonate 900 mg 08/22/23 21:00 08/28/23 21:18 [place] Carbonate 300 Mg Cap PO 900 mg HS@2100 CARINA Administration Loratadine 10 mg 08/22/23 21:00 08/28/23 21:18 Loratadine 10 Mg Tab PO 10 mg DAILY@2100 CARINA Administration Lorazepam 1 mg 08/22/23 02:15 08/27/23 10:21 Lorazepam 1 Mg Tab PO 1 mg Q4HR PRN Administration Anxiety Magnesium Hydroxide 2,400 mg 08/22/23 02:15 Magnesium Hydroxide 2,400 Mg/30 Ml Cup PO DAILY PRN Constipation Olanzapine 10 mg 08/24/23 11:28 Olanzapine 10 Mg Vial IM DAILY PRN if pt refuses PO abilify Olanzapine 10 mg 08/24/23 11:28 08/27/23 10:21 Olanzapine 10 Mg Tab PO 10 mg TID PRN Administration Agitation Olanzapine 10 mg 08/24/23 11:29 Olanzapine 10 Mg Vial IM TID PRN Severe Agitation Pantoprazole Sodium 40 mg 08/22/23 21:00 08/28/23 21:18 Pantoprazole 40 Mg Tablet PO 40 mg HS@2100 CARINA Administration Quetiapine Fumarate 200 mg 08/24/23 21:00 08/28/23 21:18 Quetiapine 200 Mg Tab PO 200 mg HS CARINA Administration Trazodone HCl 50 mg 08/22/23 02:15 08/27/23 22:09 Trazodone Hcl 50 Mg Tab PO 50 mg HS PRN Administration Insomnia Objective - Vital Signs Vital signs: Vital Signs Temp 98.1 F 08/28/23 06:42 Pulse 75 08/29/23 06:41 Resp 18 08/28/23 06:42 BP 101/63 08/29/23 06:41 Pulse Ox 98 08/28/23 06:42 FiO2 - Labs CBC & Chem 7: 08/26/23 13:09 08/26/23 13:09
--- NOTE | 2023-08-30 08:55 | P.PN ---
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 Developmental disorder unspecified atient Name: Maulik Nichole Date of : 1960 Patient Status: Inpatient Attending Provider: Isma Riojas Date: 08/30/23 Initialization Date: 08/28/23 08:56 The patient was seen chart was reviewed and case discussed with nursing staff Patient was sitting up in bed and was wide awake Patient actually was much more cooperative and pleasant in today's interaction He states that he is doing well he asked when he could be going home and seemed to show some positive expression on his face Thought processes are concrete but goal directed Speech was somewhat impoverished but patient spoke in few words that were appropriate Mental status examination: Mental Status Exam: General Appearance: Patient appears to be stated age is alert, directable, and cooperative. Behavior: Patient is sitting up without any agitated behavior. Speech: Halting few words telegraphic Mood/Affect: Mood is "ok" , affect is congruent and improving mildly Suicidality/Homicidality: Patient denies having any suicidal or homicidal ideation intent or plan. Perceptions: Patient denies any visual hallucinations and denies any auditory hallucinations Though content/process: There is no evidence of any delusional thought content and thought process is linear and goal-directed. Focused on discharge. Lane. 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 -Medications: Seroquel 200 mg nightly for mood stabilization/insomnia/psychosis, Abilify 10 mg p.o. daily for mood stabilization/psychosis. abilify maintena 400mg IM, 08/28/23. Continue with lithium and Lexapro as prescribed -When necessary Ativan and Zyprexa for agitation/aggression -NRT - non-smoker -SW on board for discharge planning. Encouraged the patient to participate in milieu. Patient is currently on a active treatment order which expires in May 2024. he currently lives at [facility], however unsure at this time if he is allowed back. [facility] is meeting with guardian to discuss correction placement. Yves Lara MD Active Medications Generic Name Dose Route Start Last Admin Trade Name Freq PRN Reason Stop Dose Admin Acetaminophen 650 mg 08/22/23 02:15 Acetaminophen Tab 325 Mg Tab PO Q4HR PRN Mild Pain (Scale 1 to 3) Al Hydroxide/Mg Hydroxide 30 ml 08/22/23 02:15 Mag Hydrox/Al Hydrox/Simeth 355 Ml Bottle PO Q4HR PRN GI Upset Aripiprazole 10 mg 08/27/23 09:00 08/28/23 09:23 Aripiprazole 10 Mg Tab PO 10 mg DAILY CARINA Administration Aripiprazole 400 mg 08/28/23 09:00 08/28/23 10:30 Aripiprazole Im Syringe 400 Mg (No Charge) Pharmacy Stock IM 400 mg QMONTHLY CARINA Administration Atorvastatin Calcium 20 mg 08/22/23 21:00 08/28/23 21:18 Atorvastatin 20 Mg Tab PO 20 mg HS@2100 CARINA Administration Carbidopa/Levodopa 2 each 08/22/23 08:00 08/28/23 21:18 Carbidopa-Levodopa 25-100 Mg 1 Each Tab PO 2 each TID@0800,1400,2100 CARINA Administration Escitalopram Oxalate 10 mg 08/22/23 21:00 08/28/23 21:18 Escitalopram 10 Mg Tab PO 10 mg HS@2100 CARINA Administration Ibuprofen 600 mg 08/22/23 02:15 Ibuprofen 600 Mg Tab PO Q6HR PRN Moderate Pain (Scale 4 to 6) Ferris Carbonate 900 mg 08/22/23 21:00 08/28/23 21:18 Ferris Carbonate 300 Mg Cap PO 900 mg HS@2100 CARINA Administration Loratadine 10 mg 08/22/23 21:00 08/28/23 21:18 Loratadine 10 Mg Tab PO 10 mg DAILY@2100 CARINA Administration Lorazepam 1 mg 08/22/23 02:15 08/27/23 10:21 Lorazepam 1 Mg Tab PO 1 mg Q4HR PRN Administration Anxiety Magnesium Hydroxide 2,400 mg 08/22/23 02:15 Magnesium Hydroxide 2,400 Mg/30 Ml Cup PO DAILY PRN Constipation Olanzapine 10 mg 08/24/23 11:28 Olanzapine 10 Mg Vial IM DAILY PRN if pt refuses PO abilify Olanzapine 10 mg 08/24/23 11:28 08/27/23 10:21 Olanzapine 10 Mg Tab PO 10 mg TID PRN Administration Agitation Olanzapine 10 mg 08/24/23 11:29 Olanzapine 10 Mg Vial IM TID PRN Severe Agitation Pantoprazole Sodium 40 mg 08/22/23 21:00 08/28/23 21:18 Pantoprazole 40 Mg Tablet PO 40 mg HS@2100 CARINA Administration Quetiapine Fumarate 200 mg 08/24/23 21:00 08/28/23 21:18 Quetiapine 200 Mg Tab PO 200 mg HS CARINA Administration Trazodone HCl 50 mg 08/22/23 02:15 08/27/23 22:09 Trazodone Hcl 50 Mg Tab PO 50 mg HS PRN Administration Insomnia Objective - Vital Signs Vital signs: Vital Signs Temp 98.0 F 08/30/23 06:54 Pulse 75 08/29/23 06:41 Resp 18 08/30/23 06:54 BP 95/54 08/30/23 06:54 Pulse Ox 99 08/30/23 06:54 FiO2 - Labs CBC & Chem 7: 08/26/23 13:09 08/26/23 13:09
--- NOTE | 2023-08-31 11:36 | P.PN ---
Progress Note - Text Progress Note Date: 08/31/23 Interval History: Patient was seen laying in bed today and was directable and agreeable to speak with contract technical writer. Patient stated that he was ok today. Patient appeared to be in good spirits today. Language Instructor explained to the patient is able to return to his [facility] on [address], with a plan to transition him into his own place. Patient very excited about this, and gave contract technical writer a thumbs up, and states he is excited to watch the [employer]. Patient stated that he is sleeping well, and he is eating all meals. Patient given SEBASTIAN on 08/27. At this time patient denies any suicidal or homicidal ideations, intent or plan. Patient denies any auditory, visual hallucinations and denies any paranoia or delusions. Patient denies any side effects from the medications and has been compliant with meds. Mental Status Exam: General Appearance: Patient appears to be stated age is alert, directable, and c ooperative. Behavior: Patient is calmly seated without any agitated behavior. Attempts to cooperate, improving Speech: Patient's speech is stuttering Mood/Affect: Mood is "ok" , affect is congruent and improving mildly Suicidality/Homicidality: Patient denies having any suicidal or homicidal ideation intent or plan. Perceptions: Patient denies any visual hallucinations and denies any auditory hallucinations Though content/process: There is no evidence of any delusional thought content and thought process is linear and goal-directed. 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 Patient has not signed medication consent and was placed in patient's chart. -Medications: Seroquel 200 mg nightly for mood stabilization/insomnia/psychosis, Abilify 10 mg p.o. daily for mood stabilization/psychosis. abilify maintena 400mg IM qmonthly last dose given on 08/28/23. Next dose due 09/24. Continue with lithium and Lexapro as prescribed -When necessary Ativan and Zyprexa for agitation/aggression -NRT - non-smoker -SW on board for discharge planning. Encouraged the patient to participate in milieu. Patient is currently on a active treatment order which expires in May 2024. he currently lives at [facility], and will be able to return there upon discharge tomorrow.
--- NOTE | 2023-09-01 11:10 | P.PN ---
Progress Note - Text Progress Note Date: 09/01/23 Interval History: Patient was seen laying in bed today and was directable and agreeable to speak with teletypewriter installer. Patient appears very excited about discharge. Cut Lace Machine Operator received a message from KEVIN last night that the intermediate has to interview the other residents at [facility] to see if they are ok with patient returning there. Cut Lace Machine Operator will have [facility] speak with patient about the delay in discharge. Otherwise, patient states that he is great today, and that he is taking all his medicines like he should be. Patient stated that he is sleeping well, and he is eating all meals. Patient given SEBASTIAN on 08/27. At this time patient denies any suicidal or homicidal ideations, intent or plan. Patient denies any auditory, visual hallucinations and denies any paranoia or delusions. Patient denies any side effects from the medications and has been compliant with meds. Mental Status Exam: General Appearance: Patient appears to be stated age is alert, directable, and cooperative. Behavior: Patient is calmly seated without any agitated behavior. Attempts to cooperate, improving Speech: Patient's speech is stuttering Mood/Affect: Mood is "ok" , affect is congruent and improving mildly Suicidality/Homicidality: Patient denies having any suicidal or homicidal ideation intent or plan. Perceptions: Patient denies any visual hallucinations and denies any auditory hallucinations Though content/process: There is no evidence of any delusional thought content and thought process is linear and goal-directed. 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 Patient has not signed medication consent and was placed in patient's chart. -Medications: Seroquel 200 mg nightly for mood stabilization/insomnia/psychosis, Abilify 10 mg p.o. daily for mood stabilization/psychosis last day for PO 09/09. Abilify maintena 400mg IM qmonthly last dose given on 08/28/23. Next dose due 09/24. Continue with lithium and Lexapro as prescribed -When necessary Ativan and Zyprexa for agitation/aggression -NRT - non-smoker - on board for discharge planning. Encouraged the patient to participate in milieu. Patient is currently on a active treatment order which expires in May 2024. he currently lives at [facility], and will likely be able to return there upon discharge. [facility] will come in today to explain the discharge process and when they can take him.
[2023-09-02 06:48] VITALS: BP 100/59; PULSE 77; RESP 18; TEMP 97.7
--- NOTE | 2023-09-02 11:05 | P.DS ---
Providers Date of admission: 08/22/23 01:50 Expected date of discharge: 09/02/23 Attending physician: Isma Riojas MD Consults: 08/22/23 02:15 Consult Physician Routine Consulting Provider: [facility] Consult Reason/Comments: For H & P for Medical Follow Up Do you want consulting provider notified?: Yes Primary care physician: Stated None - Discharge Diagnosis(es) (1) Schizoaffective disorder Current Visit: Yes Status: Acute Priority: High (2) Intellectual disability Current Visit: Yes Status: Acute Priority: High Hospital Course: Admission HPI: Admission note was completed by Dr Lara "This is a psychiatric assessment on this 63-year-old male who was brought in from a fdc Patient is a poor historian and continues to stare. He continues to stay he is good and is unable to give any other answer or response. Following is an excerpt from the assessment done in the ER which is included here for completeness: 63-year-old male presents to the emergency department with for EPS evaluation History of Present Illness: Patient 63-year-old male he is an unreliable historian. Patient allegedly has history of psychiatric illness. He was picked up from a fdc by brought to the emergency department for psychiatric evaluation. Patient denies any complaints. According to petition signed by a mechanical design technician patient has not been compliant with his psychiatric medications and has been displaying bizarre behavior. " Hospital course: Upon admission to the unit patient was admitted involuntarily to the mental health unit on an active treatment order which expires May 2024. patient was initially fairly isolative however with time and treatment he eventually got along well with other patients on the unit and followed unit protocol. Patient was compliant with the medications and denied any side effects throughout hospital course. Patient was started on Abilify and increased to a dose of 10 mg daily p.o, patient was agreeable to be transitioned onto Abilify Maintenna given 400 mg IM on 08/27, next dose will be due on 09/24 at [facility]. Patient will continue the Abilify p.o. dose until 09/09 and then discontinue. Patient is also on Lexapro 10 mg daily for mood/anxiety, lithium 900 mg nightly for mood stabilization. Patient spoke of his stressors and engaged in therapy both group and individual. Patient was also seen by medical team for history and physical exam. Throughout the course of the hospitalization patient gradually improved with regards to mood, anxiety, agitation/psychosis, sleep and returned back to their baseline level of functioning. On the day of discharge patient denied any suicidal or homicidal ideations intent or plan denied any auditory or visual hallucinations. Patient endorsed wanting to live for his health and future. The patient denied any access to guns or weapons. Patient denied any paranoia and did not endorse any delusions. Patient does not have a significant history of substance abuse and was counseled on abstaining from all substances including alcohol and marijuana. Patient was also counseled on the medications and need for regular compliance and was encouraged to follow-up with their outpatient appointment for mental health and also for primary care. Patient will be going back to [facility] and continue close monitoring and follow-up with [facility]. Mental status exam: General Appearance: Patient appears to be stated age is tall, wearing glases, alert, pleasant, and cooperative. Patient is in no acute distress and has improved hygiene and grooming Behavior: Patient is calmly seated without any agitated behavior. Times to cooperate Speech: Patient's speech is stuttering. Mood/Affect: Patient reports their mood is "good", affect is congruent and eut hymic. Suicidality/Homicidality: Patient denies having any suicidal or homicidal ideation intent or plan. Perceptions: Patient denies any auditory or visual hallucinations. Though content/process: There is no evidence of any delusional thought content and thought process is linear and goal-directed. More future oriented. [place] Memory and concentration: AOX3, grossly intact for the purposes of this session. Can spell "WORLD" backwards correctly. Judgment and insight: Chronically poor/limited, however has improved with guarded prognosis Impression: Schizoaffective disorder intellectual disability Plan: -Continue with discharge today as patient has improved and stabilized psychiatrically and is not currently an imminent threat to himself and/or others. Patient will remain at chronically elevated risk for harm to self and/or others due to his impulsivity and severe mental illness -Continue medications: Continue with p.o. Abilify for 7 more days then discontinue. Patient was given Abilify Maintena 400 mg IM on 08/27, next dose will be due on 09/24 at [facility]. Continue with lithium 900 mg nightly for mood stabilization, Lexapro 10 mg daily for mood/anxiety -Patient was counseled on the need for medication compliance and appropriate follow-up at mental health and also primary care for medical issues. Patient verbalized understanding and agreed. -Social work to arrange discharge today, patient will be going back to [facility] with regular [facility] follow-up. Social work also to arrange for patients follow up appointments with [facility] for psychiatric care along with follow up with primary care provider. -Patient counseled on abstaining from recreational drugs and marijuana and alcohol. Was informed/educated on the adverse effects on their physical and mental health. Patient verbally agreed and understood. -Patient was instructed to return to the hospital or seek immediate medical care if their psychiatric or medical symptoms do worsen or reoccur. Allergies Allergy/AdvReac Type Severity Reaction Status Date / Time onion Allergy Unknown Verified 08/22/23 02:25 Laboratory Results WBC 12.0 k/uL (3.8-10.6) H 08/26/23 13:09 RBC 4.38 m/uL (4.30-5.90) 08/26/23 13:09 Hgb 13.0 gm/dL (13.0-17.5) 08/26/23 13:09 Hct 39.1 % (39.0-53.0) 08/26/23 13:09 MCV 89.4 fL (80.0-100.0) 08/26/23 13:09 MCH 29.8 pg (25.0-35.0) 08/26/23 13:09 MCHC 33.3 g/dL (31.0-37.0) 08/26/23 13:09 RDW 18.6 % (11.5-15.5) H 08/26/23 13:09 Plt Count 142 k/uL (150-450) L 08/26/23 13:09 MPV 8.4 08/26/23 13:09 Neutrophils % 73 % 08/24/23 11:23 Lymphocytes % 18 % 08/24/23 11:23 Monocytes % 4 % 08/24/23 11:23 Eosinophils % 3 % 08/24/23 11:23 Basophils % 1 % 08/24/23 11:23 Neutrophils # 5.6 k/uL (1.3-7.7) 08/24/23 11:23 Lymphocytes # 1.4 k/uL (1.0-4.8) 08/24/23 11:23 Monocytes # 0.3 k/uL (0-1.0) 08/24/23 11:23 Eosinophils # 0.2 k/uL (0-0.7) 08/24/23 11:23 Basophils # 0.0 k/uL (0-0.2) 08/24/23 11:23 Poikilocytosis Moderate 08/26/23 13:09 Anisocytosis Slight 08/26/23 13:09 Sodium 138 mmol/L (137-145) 08/26/23 13:09 Potassium 4.2 mmol/L (3.5-5.1) 08/26/23 13:09 Chloride 106 mmol/L (98-107) 08/26/23 13:09 Carbon Dioxide 26 mmol/L (22-30) 08/26/23 13:09 Anion Gap 6 mmol/L 08/26/23 13:09 BUN 11 mg/dL (9-20) 08/26/23 13:09 Creatinine 0.77 mg/dL (0.66-1.25) 08/26/23 13:09 Est GFR (CKD-EPI)AfAm >90 (>60 ml/min/1.73 sqM) 08/26/23 13:09 Est GFR (CKD-EPI)NonAf >90 (>60 ml/min/1.73 sqM) 08/26/23 13:09 Glucose 88 mg/dL (74-99) 08/26/23 13:[address] Glu mg/dL <74 mg/dL 08/24/23 11:23 Hemoglobin A1c <4.2 % (<=6.0) 08/24/23 11:23 Calcium 9.2 mg/dL (8.4-10.2) 08/26/23 13:09 Total Bilirubin 2.5 mg/dL (0.2-1.3) H 08/26/23 13:09 Conjugated Bilirubin 0.0 mg/dL (0.0-0.3) 08/24/23 11:22 Unconjugated Bilirubin 1.8 mg/dL (0.0-1.1) H 08/24/23 11:22 Delta Bilirubin 0.4 mg/dL (0.0-0.2) H 08/24/23 11:22 AST 18 U/L (17-59) 08/26/23 13:09 ALT <6 U/L (4-49) 08/26/23 13:09 Alkaline Phosphatase 80 U/L (38-126) 08/26/23 13:09 Total Protein 6.6 g/dL (6.3-8.2) 08/26/23 13:09 Albumin 4.6 g/dL (3.5-5.0) 08/26/23 13:09 Triglycerides 59.60 mg/dL (0.00-149.00) 08/24/23 11:22 Cholesterol 79.00 mg/dL (0.00-200.00) 08/24/23 11:22 LDL Cholesterol, Calc 25.1 mg/dL (0.0-131.0) 08/24/23 11:22 VLDL Cholesterol, Calc 11.92 mg/dL (5.00-40.00) 08/24/23 11:22 HDL Cholesterol 42.00 mg/dL (40.00-60.00) 08/24/23 11:22 Cholesterol/HDL Ratio 1.88 Ratio 08/24/23 11:22 TSH 0.784 mIU/L (0.465-4.680) 08/24/23 11:22 Thurmond 0.6 mmol/L 08/24/23 11:22 SARS-CoV-2 (PCR) Not Detected (Not Detectd) 08/22/23 00:40 Vital Signs Temp 97.7 F 09/02/23 06:47 Pulse 77 09/02/23 06:47 Resp 18 09/02/23 06:47 BP 100/59 09/02/23 06:47 Pulse Ox 98 09/01/23 04:05 FiO2 Patient Condition at Discharge: Stable Plan - Discharge Summary Discharge Rx Participant: Yes New Discharge Prescriptions: New ARIPiprazole [Abilify] 10 mg PO DAILY 7 Days #7 tab traZODone HCL [Desyrel] 50 mg PO HS PRN 30 Days #30 tab PRN Reason: Insomnia QUEtiapine [SEROquel] 200 mg PO HS 30 Days #30 tab ARIPiprazole IM SYRINGE [Abilify Maintena Syringe] 400 mg IM QMONTHLY #1 each Continue Ergocalciferol (Vitamin D2) [Drisdol (50,000 Iu)] 1,250 mcg PO WE Escitalopram Oxalate [Lexapro] 10 mg PO HS@2099 30 Days #30 tab Atorvastatin [Lipitor] 20 mg PO HS@2099 30 Days #30 tab Loratadine 10 mg PO DAILY@2099 30 Days #30 tab Cyanocobalamin (Vitamin B-12) [Vitamin B-12] 1,000 mcg PO DAILY 30 Days #30 tab Carbidopa/Levodopa [Carbidopa-Levodopa 25-100 Tab] 2 tab PO TID@0800,1400,2099 30 Days #30 tab Thurmond Carbonate 900 mg PO HS@2099 30 Days #90 cap Pantoprazole [Protonix] 40 mg PO HS@2099 30 Days #30 tab Discontinued QUEtiapine [SEROquel] 200 mg PO HS@2099 Discharge Medication List Ergocalciferol (Vitamin D2) [Drisdol (50,000 Iu)] 1,250 mcg PO WE 08/21/23 [History] ARIPiprazole IM SYRINGE [Abilify Maintena Syringe] 400 mg IM QMONTHLY #1 each 09/02/23 [Rx] ARIPiprazole [Abilify] 10 mg PO DAILY 7 Days #7 tab 09/02/23 [Rx] Atorvastatin [Lipitor] 20 mg PO HS@2099 30 Days #30 tab 09/02/23 [Rx] Carbidopa/Levodopa [Carbidopa-Levodopa 25-100 Tab] 2 tab PO TID@0800,1400,2099 30 Days #30 tab 09/02/23 [Rx] Cyanocobalamin (Vitamin B-12) [Vitamin B-12] 1,000 mcg PO DAILY 30 Days #30 tab 09/02/23 [Rx] Escitalopram Oxalate [Lexapro] 10 mg PO HS@2099 30 Days #30 tab 09/02/23 [Rx] Thurmond Carbonate 900 mg PO HS@2099 30 Days #90 cap 09/02/23 [Rx] Loratadine 10 mg PO DAILY@2099 30 Days #30 tab 09/02/23 [Rx] Pantoprazole [Protonix] 40 mg PO HS@2099 30 Days #30 tab 09/02/23 [Rx] QUEtiapine [SEROquel] 200 mg PO HS 30 Days #30 tab 09/02/23 [Rx] traZODone HCL [Desyrel] 50 mg PO HS PRN 30 Days #30 tab 09/02/23 [Rx] Follow up Appointment(s)/Referral(s): [facility] [Outside] - 09/02/23 12:30 pm (09/02/2023 12:30PM - 1:30PM DAISY PLASENCIA 09/04/2023 1:00PM - 1:30PM ASHLYN MONET ) None,Stated [Primary Care Provider] - 1-2 days Patient Instructions/Handouts: Schizoaffective Disorder (DC) Activity/Diet/Wound Care/Special Instructions: Avoid the use of street drugs and alcohol. Take all medications as prescribed. When you are in need of refills on your medications, please contact your medical provider and/or outpatient psychiatrist/provider to have this done. Please go to your scheduled outpatient appointment for aftercare treatment. If symptoms return or become worse, call the crisis line at and/or go to the nearest emergency room for evaluation. National Suicide Hotline 988 Discharge Disposition: OTHER INSTITUTION NOT DEFINED
== END 2023-09-02 12:45 | disposition home or self-care (01) | DRG 750 ==
LOC: EC 11:34 → 3MHU 08-22 01:50
PROVIDERS: ADMIT Psychiatry & Neurology Psychiatry; ATTEND Psychiatry & Neurology Psychiatry
DX: F25.9 Schizoaffective disorder, unspecified (principal); F31.9 Bipolar disorder, unspecified; D69.6 Thrombocytopenia, unspecified; F79 Unspecified intellectual disabilities; F03.B11 Unspecified dementia, moderate, with agitation; F03.B3 Unspecified dementia, moderate, with mood disturbance; F03.B18 Unspecified dementia, moderate, with other behavioral disturbance; F03.B4 Unspecified dementia, moderate, with anxiety; F89 Unspecified disorder of psychological development; T42.4X6A Underdosing of benzodiazepines, initial encounter; R41.89 Other symptoms and signs involving cognitive functions and awareness; E78.5 Hyperlipidemia, unspecified; E80.6 Other disorders of bilirubin metabolism; F80.81 Childhood onset fluency disorder; Z91.148 Patient's other noncompliance with medication regimen for other reason; Z91.018 Allergy to other foods; Z79.899 Other long term (current) drug therapy
CPT/HCPCS: 76705; 80053; 80061; 80178; 82075; 82248; 83036; 84443; 85025; 85027; 87635; 96372; 99285

== ENCOUNTER 2024-03-01 11:14 | Inpatient (IN) | payer MEDICARE, OTHER ==
--- NOTE | 2024-03-01 11:33 | ED ---
Dizziness HPI - General Source: patient, EMS, RN notes reviewed, Caregiver Mode of arrival: EMS Limitations: altered mental status - History of Present Illness MD Complaint: dizziness <Marge Christian - Last Filed: 03/01/24 11:29> - General Source: patient, EMS, RN notes reviewed Mode of arrival: EMS Limitations: altered mental status - History of Present Illness MD Complaint: dizziness, difficulty walking -: days(s) Timing: gradual onset, constant History of Same: No History of Trauma: No Severity: moderate Associated Symptoms: ataxia, confusion, weakness <Byran Verdin - Last Filed: 03/07/24 15:49> - General Chief Complaint: Dizziness Stated Complaint: loss of balance Time Seen by Provider: 03/01/24 11:25 - History of Present Illness Initial Comments: Quick Note: This is a 63-year-old male who presents to the emergency department for dizziness and loss of balance. Caregiver states that this morning the patient's gait seemed to be off and he was unsteady on his feet. Patient states that he felt dizzy then, however this has since resolved. He has a history of developmental delay but is able to answer questions. Denies any headaches, chest pain, shortness of breath, or dizziness at this time. (Marge Christian) This is a 63-year-old male with off balance losing his bowel bowel movements losing his urine and recently started on a new medication recently started on Abilify and since he has had uncontrollable shaking uncontrollable tremors unable to control his bodily functions, there is concern that this could be medi cation reaction he is he had no prior symptoms to starting this medication patient is a relatively poor historian secondary to developmental and cognitive delay (Bryan Verdin) - Related Data Home Medications Medication Instructions Recorded Confirmed Ergocalciferol (Vitamin D2) 1,250 mcg PO WE 08/21/23 03/01/24 [Drisdol (50,000 Iu)] Atorvastatin [Lipitor] 20 mg PO HS 03/01/24 03/01/24 Escitalopram Oxalate [Lexapro] 10 mg PO HS 03/01/24 03/01/24 Loratadine 10 mg PO HS 03/01/24 03/01/24 Pantoprazole [Protonix] 40 mg PO HS 03/01/24 03/01/24 Previous Rx's Medication Instructions Recorded Cyanocobalamin (Vitamin B-12) 1,000 mcg PO DAILY 30 Days #30 tab 09/02/23 [Vitamin B-12] QUEtiapine [SEROquel] 200 mg PO HS 30 Days #30 tab 09/02/23 traZODone HCL [Desyrel] 50 mg PO HS PRN 30 Days #30 tab 09/02/23 Carbidopa-Levodopa 25-100 mg 2 each PO QID #240 tab 03/07/24 [Sinemet 25-100 mg] Castine Carbonate 450 mg PO HS #30 cap 03/07/24 Allergies Allergy/AdvReac Type Severity Reaction Status Date / Time onion Allergy Unknown Verified 03/01/24 20:59 Review of Systems ROS Other: All systems not noted in ROS Statement are negative. <Marge Christian - Last Filed: 03/01/24 11:29> ROS Other: All systems not noted in ROS Statement are negative. <Bryan Verdin - Last Filed: 03/07/24 15:49> ROS Statement: Those systems with pertinent positive or pertinent negative responses have been documented in the HPI. Past Medical History Past Medical History: Chest Pain / Angina, Osteoarthritis (OA), Pneumonia Additional Past Medical History / Comment(s): 04/17/15 Pt presented to [facility] ER via EMS with chest discomfort and had similar symptoms 2 days ago. Pt states it hurts to laugh and take a deep breath. He is admitted with clinical impression of chest pain. Pt is a unreliable historian. 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 Top Icer did rosalindace Dr. Gray's office and obtained [facility] information and immunization record. 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 History of Any Multi-Drug Resistant Organisms: None Reported Past Surgical History: Cholecystectomy, Hernia Repair Past Anesthesia/Blood Transfusion Reactions: No Reported Reaction Past Psychological History: Anxiety, Bipolar, Depression, Schizoaffective Disorder Smoking Status: Never smoker Past Alcohol Use History: None Reported Past Drug Use History: None Reported - Past Family History Mother Family Medical History: Myocardial Infarction (NH) Additional Family Medical History / Comment(s): Mother of a NH at age 70 yrs. Father Family Medical History: Hypertension Additional Family Medical History / Comment(s): Father is alive and 76 yrs old. <Marge Christian - Last Filed: 03/01/24 11:29> General Exam Limitations: altered mental status <Marge Christian - Last Filed: 03/01/24 11:29> General appearance: alert, in no apparent distress Head exam: Present: atraumatic, normocephalic, normal inspection Eye exam: Present: normal appearance, PERRL, EOMI. Absent: scleral icterus, conjunctival injection, periorbital swelling ENT exam: Present: normal exam, mucous membranes moist Neck exam: Present: normal inspection. Absent: tenderness, meningismus, lymphadenopathy Respiratory exam: Present: normal lung sounds bilaterally. Absent: respiratory distress, wheezes, rales, rhonchi, stridor Cardiovascular Exam: Present: regular rate, normal rhythm, normal heart sounds. Absent: systolic murmur, diastolic murmur, rubs, gallop, clicks GI/Abdominal exam: Present: soft, normal bowel sounds. Absent: distended, tenderness, guarding, rebound, rigid Extremities exam: Present: normal inspection, full ROM, normal capillary refill. Absent: tenderness, pedal edema, joint swelling, calf tenderness Back exam: Present: normal inspection Neurological exam: Present: alert, oriented X3, CN II-XII intact Psychiatric exam: Present: normal affect, normal mood Skin exam: Present: warm, dry, intact, normal color. Absent: rash <Bryan Verdin - Last Filed: 03/07/24 15:49> - General Exam Comments Initial Comments: Visual Physical Exam Vital signs reviewed General: Well-appearing, nontoxic, no acute distress. Head: Normocephalic, atraumatic Eyes: PERRLA, EOMI ENT: Airway patent Chest: Nonlabored breathing Skin: No visual rash, normal skin tone Neuro: Alert and oriented 3 Musculoskeletal: No gross abnormalities (Marge Christian) Course <Bryan Verdin - Last Filed: 03/07/24 15:49> Vital Signs 03/01/24 03/02/24 03/02/24 21:55 01:00 04:00 Temperature Pulse Rate 81 94 64 Respiratory 18 16 16 Rate Blood Pressure 119/74 110/73 113/69 O2 Sat by Pulse 98 97 96 Oximetry 03/02/24 03/02/24 03/02/24 07:00 11:33 15:40 Temperature 98.6 F Pulse Rate 70 99 Respiratory 16 18 Rate Blood Pressure 110/62 108/60 112/70 O2 Sat by Pulse 95 100 Oximetry 03/02/24 19:24 Temperature 98.2 F Pulse Rate 76 Respiratory 18 Rate Blood Pressure 105/66 O2 Sat by Pulse 95 Oximetry - Reevaluation(s) Reevaluation #1: 03/01/24 19:09 Medical records reviewed (Bryan Verdin) Reevaluation #2: 03/01/24 19:09 Significant change in symptoms here in the ER (Bryan Verdin) Reevaluation #3: 03/01/24 19:09 Patient informed of results questions answered (Bryan Verdin) Reevaluation #4: Was pt. sent in by a medical professional or institution (, PA, CREDIT RATING INSPECTOR, urgent care, hospital, or prison...) When possible be specific @ -no Did you speak to anyone other than the patient for history (EMS, parent, family, police, friend...)? What history was obtained from this source @ -no Did you review nursing and triage notes (agree or disagree)? Why? @ -agree Are old charts reviewed (outside hosp., previous admission, EMS record, old EKG, old radiological studies, urgent care reports/EKG's, prison records)? Report findings @ -yes Differential Diagnosis (chest pain, altered mental status, abdominal pain women, abdominal pain men, vaginal bleeding, weakness, fever, dyspnea, syncope, headache, dizziness, GI bleed, back pain, seizure, CVA, palpatations, mental health, musculoskeletal)? @ -prior EKG interpreted by me (3pts min.). @ -yes X-rays interpreted by me (1pt min.). @ -no CT interpreted by me (1pt min.). @ -yes negative for acute disease U/S interpreted by me (1pt. min.). @ -no What testing was considered but not performed or refused? (CT, X-rays, U/S, labs)? Why? @ -none What meds were considered but not given or refused? Why? @ -none Did you discuss the management of the patient with other professionals (professionals i.e. , PA, CREDIT RATING INSPECTOR, lab, RT, psych nurse, vp digital marketing social media and crm, operations general agent, teacher, armed custom protection officer, pillowcase cleaner)? Give summary @ -no Was smoking cessation discussed for >3mins.? @ -no Was critical care preformed (if so, how long)? @ -no Were there social determinants of health that impacted care today? How? (Homelessness, low income, unemployed, alcoholism, drug addiction, transportation, low edu. Level, literacy, decrease access to med. care, fdc, rehab)? @ -none Was there de-escalation of care discussed even if they declined (Discuss DNR or withdrawal of care, Hospice)? DNR status @ -no What co-morbidities impacted this encounter? (DM, HTN, Smoking, COPD, CAD, Cancer, CVA, ARF, Chemo, Hep., AIDS, mental health diagnosis, sleep apnea, morbid obesity)? @ -none Was patient admitted / discharged? Hospital course, mention meds given and route, prescriptions, significant lab abnormalities, going to OR and other pertinent info. @ - 63 male will be admitted for possible medication reaction patient presents today for debility uncontrolled symptoms although he does live by himself, and on capable secondary to what they think may be medication reaction versus dystonia Admitted Undiagnosed new problem with uncertain prognosis? @ -no Drug Therapy requiring intensive monitoring for toxicity (Heparin, Nitro, Insulin, Cardizem)? @ -no Were any procedures done? @ -no Diagnosis/symptom? @ -Suspect medication reaction dystonic reaction Acute, or Chronic, or Acute on Chronic? @ -Acute Uncomplicated (without systemic symptoms) or Complicated (systemic symptoms)? @ -Complicated Side effects of treatment? @ -no Exacerbation, Progression, or Severe Exacerbation? @ -exacerbation Poses a threat to life or bodily function? How? (Chest pain, USA, NH, pneumonia, PE, COPD, DKA, ARF, appy, cholecystitis, CVA, Diverticulitis, Homicidal, Suicidal, threat to staff... and all critical care pts) @ -yes medication reaction dystonia (Bryan Verdin) Reevaluation #5: Differential Dizziness: Benign paroxysmal positional Vertigo, Meniere's disease, otitis media, acoustic neuroma, vertebrobasilar insufficiency, cerebellar stroke, encephalitis, hypovolemic, arrhythmia, coronary artery syndrome, anemia, this is not meant to be an all-inclusive list Differential Altered Mental Status: Hypoglycemia, DKA, hypercapnia, ETOH, overdose, CO poisoning, trauma, myxedema coma, HTN encephalopathy, infection, encephalitis, psychosis, intercranial hemorrhage, hepatic encephalopathy, meningitis, CVA, this is not meant to be an all-inclusive list (Bryan Verdin) - Consultations Consultation #1: Spoke with H who agrees to admit this patient (Bryan Verdin) EKG Findings - EKG Comments: EKG Findings:: EKG is sinus 84 MD 131 QRS 102 QTc 414 - EKG Results: EKG: interpreted by ERMD <Bryan Verdin - Last Filed: 03/07/24 15:49> Medical Decision Making <Marge Christian - Last Filed: 03/01/24 11:29> - Lab Data Result diagrams: 03/07/24 03:38 03/06/24 05:46 - EKG Data -: EKG Interpreted by Ia - Radiology Data Radiology results: report reviewed (CT brain is negative for acute disaese), image reviewed <Bryan Verdin - Last Filed: 03/07/24 15:49> - Medical Decision Making I performed the QuickNote portion of this chart. Signed Marge Christian PA-C. (Marge Christian) 63 male will be admitted for possible medication reaction patient presents today for debility uncontrolled symptoms although he does live by himself, and on capable secondary to what they think may be medication reaction versus dystonia (Bryan Verdin) - Lab Data Lab Results 03/01/24 03/01/24 03/01/24 Range/Units 12:40 12:40 12:40 WBC 8.6 (3.8-10.6) k/uL RBC 4.28 L (4.30-5.90) m/uL Hgb 12.4 L (13.0-17.5) gm/dL Hct 36.4 L (39.0-53.0) % MCV 85.2 (80.0-100.0) fL MCH 28.9 (25.0-35.0) pg MCHC 33.9 (31.0-37.0) g/dL RDW 19.0 H (11.5-15.5) % Plt Count 149 L (150-450) k/uL MPV 8.1 Neutrophils % 78 % Lymphocytes % 13 % Monocytes % 5 % Eosinophils % 3 % Basophils % 0 % Neutrophils # 6.7 (1.3-7.7) k/uL Lymphocytes # 1.1 (1.0-4.8) k/uL Monocytes # 0.4 (0-1.0) k/uL Eosinophils # 0.2 (0-0.7) k/uL Basophils # 0.0 (0-0.2) k/uL Hypochromasia Poikilocytosis Moderate Anisocytosis Slight PT 11.7 (10.0-12.5) sec INR 1.1 (<1.2) APTT 26.9 (22.0-30.0) sec Sodium 139 (137-145) mmol/L Potassium 4.3 (3.5-5.1) mmol/L Chloride 106 (98-107) mmol/L Carbon Dioxide 26 (22-30) mmol/L Anion Gap 7 mmol/L BUN 18 (9-20) mg/dL Creatinine 0.77 (0.66-1.25) mg/dL Est GFR (CKD-EPI)AfAm >90 (>60 ml/min/1.73 sqM) Est GFR (CKD-EPI)NonAf >90 (>60 ml/min/1.73 sqM) Glucose 83 (74-99) mg/dL Plasma Lactic Acid Burt (0.7-2.0) mmol/L Calcium 9.2 (8.4-10.2) mg/dL Phosphorus (2.5-4.5) mg/dL Magnesium 2.0 (1.6-2.3) mg/dL Total Bilirubin 3.8 H (0.2-1.3) mg/dL AST 38 (17-59) U/L ALT <6 (4-49) U/L Alkaline Phosphatase 79 (38-126) U/L Total Protein 6.7 (6.3-8.2) g/dL Albumin 4.8 (3.5-5.0) g/dL Urine Color Urine Appearance (Clear) Urine pH (5.0-8.0) Ur Specific Goodrich (1.001-1.035) Urine Protein (Negative) Urine Glucose (UA) (Negative) Urine Ketones (Negative) Urine Blood (Negative) Urine Nitrite (Negative) Urine Bilirubin (Negative) Urine Urobilinogen (<2.0) mg/dL Ur Leukocyte Esterase (Negative) 03/01/24 03/01/24 03/02/24 Range/Units 12:40 19:27 06:43 WBC 7.9 (3.8-10.6) k/uL RBC 3.77 L (4.30-5.90) m/uL Hgb 11.3 L (13.0-17.5) gm/dL Hct 32.6 L (39.0-53.0) % MCV 86.4 (80.0-100.0) fL MCH 29.9 (25.0-35.0) pg MCHC 34.6 (31.0-37.0) g/dL RDW 19.5 H (11.5-15.5) % Plt Count 135 L (150-450) k/uL MPV 7.9 Neutrophils % 71 % Lymphocytes % 19 % Monocytes % 5 % Eosinophils % 3 % Basophils % 0 % Neutrophils # 5.6 (1.3-7.7) k/uL Lymphocytes # 1.5 (1.0-4.8) k/uL Monocytes # 0.4 (0-1.0) k/uL Eosinophils # 0.2 (0-0.7) k/uL Basophils # 0.0 (0-0.2) k/uL Hypochromasia Slight Poikilocytosis Moderate Anisocytosis Slight PT (10.0-12.5) sec INR (<1.2) APTT (22.0-30.0) sec Sodium (137-145) mmol/L Potassium (3.5-5.1) mmol/L Chloride (98-107) mmol/L Carbon Dioxide (22-30) mmol/L Anion Gap mmol/L BUN (9-20) mg/dL Creatinine (0.66-1.25) mg/dL Est GFR (CKD-EPI)AfAm (>60 ml/min/1.73 sqM) Est GFR (CKD-EPI)NonAf (>60 ml/min/1.73 sqM) Glucose (74-99) mg/dL Plasma Lactic Acid Burt 0.7 (0.7-2.0) mmol/L Calcium (8.4-10.2) mg/dL Phosphorus (2.5-4.5) mg/dL Magnesium (1.6-2.3) mg/dL Total Bilirubin (0.2-1.3) mg/dL AST (17-59) U/L ALT (4-49) U/L Alkaline Phosphatase (38-126) U/L Total Protein (6.3-8.2) g/dL Albumin (3.5-5.0) g/dL Urine Color Yellow Urine Appearance Clear (Clear) Urine pH 6.5 (5.0-8.0) Ur Specific Goodrich 1.017 (1.001-1.035) Urine Protein Negative (Negative) Urine Glucose (UA) Negative (Negative) Urine Ketones Negative (Negative) Urine Blood Negative (Negative) Urine Nitrite Negative (Negative) Urine Bilirubin Negative (Negative) Urine Urobilinogen 4.0 (<2.0) mg/dL Ur Leukocyte Esterase Negative (Negative) 03/02/24 03/02/24 03/03/24 Range/Units 06:43 16:36 06:41 WBC 7.0 (3.8-10.6) k/uL RBC 3.34 L (4.30-5.90) m/uL Hgb 10.1 L (13.0-17.5) gm/dL Hct 29.0 L (39.0-53.0) % MCV 87.0 (80.0-100.0) fL MCH 30.3 (25.0-35.0) pg MCHC 34.9 (31.0-37.0) g/dL RDW 19.4 H (11.5-15.5) % Plt Count 117 L (150-450) k/uL MPV 7.8 Neutrophils % 67 % Lymphocytes % 23 % Monocytes % 6 % Eosinophils % 3 % Basophils % 0 % Neutrophils # 4.7 (1.3-7.7) k/uL Lymphocytes # 1.6 (1.0-4.8) k/uL Monocytes # 0.4 (0-1.0) k/uL Eosinophils # 0.2 (0-0.7) k/uL Basophils # 0.0 (0-0.2) k/uL Hypochromasia Poikilocytosis Moderate Anisocytosis Slight PT (10.0-12.5) sec INR (<1.2) APTT (22.0-30.0) sec Sodium 137 139 (137-145) mmol/L Potassium 3.9 4.0 (3.5-5.1) mmol/L Chloride 108 H 106 (98-107) mmol/L Carbon Dioxide 23 27 (22-30) mmol/L Anion Gap 6 6 mmol/L BUN 19 20 (9-20) mg/dL Creatinine 0.95 0.95 (0.66-1.25) mg/dL Est GFR (CKD-EPI)AfAm >90 >90 (>60 ml/min/1.73 sqM) Est GFR (CKD-EPI)NonAf 87 87 (>60 ml/min/1.73 sqM) Glucose 65 L 90 (74-99) mg/dL Plasma Lactic Acid Burt (0.7-2.0) mmol/L Calcium 8.7 8.4 (8.4-10.2) mg/dL Phosphorus 3.7 (2.5-4.5) mg/dL Magnesium 1.8 (1.6-2.3) mg/dL Total Bilirubin 3.7 H 2.0 H (0.2-1.3) mg/dL AST 26 22 (17-59) U/L ALT 17 19 (4-49) U/L Alkaline Phosphatase 63 67 (38-126) U/L Total Protein 5.4 L 5.3 L (6.3-8.2) g/dL Albumin 3.7 3.6 (3.5-5.0) g/dL Urine Color Urine Appearance (Clear) Urine pH (5.0-8.0) Ur Specific Goodrich (1.001-1.035) Urine Protein (Negative) Urine Glucose (UA) (Negative) Urine Ketones (Negative) Urine Blood (Negative) Urine Nitrite (Negative) Urine Bilirubin (Negative) Urine Urobilinogen (<2.0) mg/dL Ur Leukocyte Esterase (Negative) Disposition <Marge Christian - Last Filed: 03/01/24 11:29> Is patient prescribed a controlled substance at d/c from ED?: No Time of Disposition: 19:00 <Bryan Verdin - Last Filed: 03/07/24 15:49> Clinical Impression: Schizoaffective disorder, Major neurocognitive disorder, Intellectual disability, Dystonic drug reaction Disposition: ADMITTED IP TO THIS HOSP Condition: Stable
--- NOTE | 2024-03-01 12:38 | CT ---
EXAMINATION TYPE: CT brain wo con CT DLP: 1268.4 mGycm, Automated exposure control for dose reduction was used. DATE OF EXAM: 03/01/2024 12:27 PM COMPARISON: Prior CT Brain from 04/13/2013 . CLINICAL INDICATION:Male, 63 years old with history of Ataxia, dizziness, Ataxia, dizziness, unsteady gait TECHNIQUE: Brain: Multiple axial CT images of the brain were obtained without IV contrast. . Coronal and sagitta l reformats reviewed. FINDINGS: Brain: Extra-axial spaces: No abnormal extra-axial fluid collections. Ventricular system: Within normal limits Cerebral parenchyma: Mild diffuse cerebral atrophy. No acute intraparenchymal hemorrhage or mass effe ct. The tanner-white junction is well differentiated. Scattered hypoattenuating areas are seen within the periventricular white matter. Punctate nonspecific bilateral basal ganglia calcifications. Cerebellum: Unremarkable. Mass effect: No evidence of midline shift. Intracranial vasculature: Atherosclerotic calcifications of the intracranial vessels. Soft tissues: Normal. Calvarium/osseous structures: No depressed skull fracture. Paranasal sinuses and mastoid air cells: Clear Visualized orbits: Orbital contents are intact. IMPRESSION: 1. No acute intracranial process. 2. Nonspecific white matter changes, likely secondary to chronic small vessel ischemic disease. [facility], , 03/01/2024 12:35 PM
[2024-03-01 13:23] LABS: Anisocytosis Slight; Basophils % (A) 0 %; Eosinophils # (A) 0.2 k/uL (0-0.7); Eosinophils % (A) 3 %; HCT 36.4 % (39.0-53.0); HGB 12.4 gm/dL (13.0-17.5); Lymphocytes # (A) 1.1 k/uL (1.0-4.8); Lymphocytes % (A) 13 %; MCH 28.9 pg (25.0-35.0); MCHC 33.9 g/dL (31.0-37.0); MCV 85.2 fL (80.0-100.0); Mean Platelet Volume 8.1; Monocytes # (A) 0.4 k/uL (0-1.0); Monocytes % (A) 5 %; Neutrophils # (A) 6.7 k/uL (1.3-7.7); Neutrophils % (A) 78 %; Platelet Count 149 k/uL (150-450); Poikilocytosis Moderate; RBC 4.28 m/uL (4.30-5.90); WBC 8.6 k/uL (3.8-10.6)
[2024-03-01 13:31] LABS: INR 1.1 (<1.2); Partial Thromboplastin Time 26.9 sec (22.0-30.0); Prothrombin Time 11.7 sec (10.0-12.5)
[2024-03-01 13:37] LABS: ALT <6 U/L (4-49); African American GFR (CKD) >90 (>60 ml/min/1.73 sqM); Albumin 4.8 g/dL (3.5-5.0); Anion Gap 7 mmol/L; Blood Urea Nitrogen 18 mg/dL (9-20); Calcium 9.2 mg/dL (8.4-10.2); Carbon Dioxide 26 mmol/L (22-30); Chloride 106 mmol/L (98-107); Glucose 83 mg/dL (74-99); Non-African American GFR(CKD) >90 (>60 ml/min/1.73 sqM); Sodium 139 mmol/L (137-145); Total Bilirubin 3.8 mg/dL (0.2-1.3); Total Protein 6.7 g/dL (6.3-8.2)
[2024-03-01 13:47] LABS: AST 38 U/L (17-59); Alkaline Phosphatase 79 U/L (38-126); Potassium 4.3 mmol/L (3.5-5.1)
[2024-03-01] MEDS ORDERED: diphenhydrAMINE 50 MG/ML 1 ML VIAL IVP PRN (19:06)
[2024-03-01] MEDS ORDERED: ONDANSETRON 4 MG/2 ML VIAL IVP PRN (19:07)
[2024-03-01] MEDS ORDERED: NALOXONE 0.4 MG/ML 1 ML VIAL IV PRN (19:07)
[2024-03-01] MEDS ORDERED: LORazepam 2 MG/ML INJ IV PRN (19:08)
[2024-03-01] MEDS: diphenhydrAMINE 50 MG/ML 1 ML VIAL IVP STA (19:30)
[2024-03-01] MEDS: SODIUM CHLORIDE 0.9% 1,000 ML IV STA ×2 (19:30→22:01)
[2024-03-01] MEDS: SODIUM CHLORIDE 0.9% 500 ML 500 ML IV STA (19:31)
[2024-03-01] MEDS: BENZTROPINE MESYLATE 1 MG TAB PO SCH (21:59)
[2024-03-02 07:36] LABS: Anisocytosis Slight; Basophils % (A) 0 %; Eosinophils # (A) 0.2 k/uL (0-0.7); Eosinophils % (A) 3 %; HCT 32.6 % (39.0-53.0); HGB 11.3 gm/dL (13.0-17.5); Hypochromasia Slight; Lymphocytes # (A) 1.5 k/uL (1.0-4.8); Lymphocytes % (A) 19 %; MCH 29.9 pg (25.0-35.0); MCHC 34.6 g/dL (31.0-37.0); MCV 86.4 fL (80.0-100.0); Mean Platelet Volume 7.9; Monocytes # (A) 0.4 k/uL (0-1.0); Monocytes % (A) 5 %; Neutrophils # (A) 5.6 k/uL (1.3-7.7); Neutrophils % (A) 71 %; Platelet Count 135 k/uL (150-450); Poikilocytosis Moderate; RBC 3.77 m/uL (4.30-5.90); RDW 19.5 % (11.5-15.5); WBC 7.9 k/uL (3.8-10.6)
[2024-03-02 08:12] LABS: ALT 17 U/L (4-49); AST 26 U/L (17-59); African American GFR (CKD) >90 (>60 ml/min/1.73 sqM); Albumin 3.7 g/dL (3.5-5.0); Alkaline Phosphatase 63 U/L (38-126); Anion Gap 6 mmol/L; Blood Urea Nitrogen 19 mg/dL (9-20); Calcium 8.7 mg/dL (8.4-10.2); Carbon Dioxide 23 mmol/L (22-30); Chloride 108 mmol/L (98-107); Glucose 65 mg/dL (74-99); Magnesium 1.8 mg/dL (1.6-2.3); Non-African American GFR(CKD) 87 (>60 ml/min/1.73 sqM); Phosphorus 3.7 mg/dL (2.5-4.5); Potassium 3.9 mmol/L (3.5-5.1); Sodium 137 mmol/L (137-145); Total Bilirubin 3.7 mg/dL (0.2-1.3); Total Protein 5.4 g/dL (6.3-8.2)
--- NOTE | 2024-03-02 14:14 | P.CN ---
Psychiatric Consult - . Consult date: 03/02/24 Consult:: 03/02/24 14:05 IDENTIFYING DATA: This patient is a 63-year-old male with the public guardian REASON FOR REFERRAL: Psychiatry was consulted for medication prescription HISTORY OF PRESENT ILLNESS: The patient presented to the hospital with dizziness, weakness. Patient is currently living independently however has a caregiver that noticed patient's altered mental status and contacted the ambulance. Patient has a history of schizoaffective disorder and receives Abilify maintainer monthly injections, last given on 02/11. Patient's caregiver and his public guardian Naresh both feel as though this injection is causing worsen ing tremors and parkinsonism. Father Osman also at bedside who states the tremors, shuffling gait and slowed movements began after patient was started on Abilify earlier this year. He states patient recently had his lithium dose lowered for tremors however this only helped somewhat. Father states patient does not do well with others lithium was initially added for mood stabilization however since patient is living independently he questions the utility of this medication. At this time patient denies any suicidal or homical ideations, intent or plan. Patient denies any auditory, visual hallucinations and denies any paranoia or delusions. PAST PSYCHIATRIC HISTORY: Patient has a a history of affective disorder, intellectual disability. Patient is currently prescribed Abilify maintaina 400 mg IM every 4 weeks, last given on 02/11, lithium 600 mg at bedtime, Lexapro 10 mg at bedtime, Seroquel 200 mg at bedtime. Patient was recently hospitalized at this facility back in August 2023. He follows with [facility] outpatient. Patient denies any history of suicide attempts in the past. PAST MEDICAL HISTORY: OA. ALLERGIES: as per EMR. CHEMICAL DEPENDENCY HISTORY: as per HPI. FAMILY PSYCHIATRIC/SUBSTANCE USE HISTORY: Denies SOCIAL HISTORY: Patient is currently living independently. He has a public guardian named Naresh. He is single. MENTAL STATUS EXAM: General Appearance: Patient appears to be stated age is alert, pleasant, and cooperative. Patient appears to have fair hygiene and grooming wearing hospital gown with or eye contact. Behavior: Patient is calmly lying in bed without any agitated behavior. Speech: Patient's speech is fluent and nonpressured. Mood/Affect: Patient reports their mood is "okay", affect is congruent, constricted Suicidality/Homicidality: Patient denies having any suicidal or homicidal ideation intent or plan. Perceptions: Patient denies any visual hallucinations and denies any auditory hallucinations Though content/process: There is no evidence of any delusional thought content and thought process is linear. Memory and concentration: AOX3, grossly intact for the purposes of this session. Can spell "WORLD" backwards Judgment and insight: Poor IMPRESSIONS: Schizoaffective disorder, bipolar type Intellectual disability PLAN: -At this time patient DOES NOT meet criteria for inpatient psychiatric admission. -Would recommend the following medication changes/additions: Continue Seroquel 200 mg at bedtime, decrease lithium to 450 mg at bedtime given tremors, continue Cogentin 1 mg twice daily for EPS, Lexapro 10 mg at bedtime for depression. Patient is also on Abilify maintenna 400 mg IM, last dose on 02/11 however will defer this medication adjustment to patient's outpatient [facility] -Communicated plan to patient's nurse -Psychiatry will sign off at this time -Please contact with any questions.
--- NOTE | 2024-03-02 15:45 | P.HPIM ---
History of Present Illness H&P Date: 03/02/24 History of present illness; Patient is 67-year-old male with 63-year-old male with a PMH of hyperlipidemia and multiple psychiatric conditions including schizoaffective disorder, bipolar disorder, depression who presents with fall and incontinence. Patient is poor historian. Patient symptoms started yesterday with dizziness and difficulty walking. Patient recently started Abilify and since has uncontrollable tremors for years, and now unable to control bodily functions including bowel and urinar y incontinence. He does has history of intermittent incontinence. He is currently denying symptoms including chest pain, dyspnea, N/V/D and dysuria. Initial labs in ER WBC 8.6, hemoglobin 12.4, platelets 149, PT 11.7, sodium 139, potassium 4.3, bicarb 26, BUN 18, creatinine 0.77, total bilirubin 3.8, AST 38, ALT<6, ALP 79. EKG done in the ER independently interpreted showed heart rate of 84, no ST segment elevation or depression seen, no T-wave inversions seen. CT head done independently interpreted showed no acute intracranial process. Spoke with the ER physician, patient admission was accepted by internal medicine service for treatment. REVIEW OF SYSTEMS: Pertinent positives and negatives noted in HPI. PHYSICAL EXAMINATION: Vitals reviewed GENERAL: No acute distress. Well developed, well nourished. HEENT: Pupils are round and equally reacting to light. EOMI. No scleral icterus. Normocephalic, atraumatic CARDIOVASCULAR: S1 and S2 present. No murmurs, rubs, or gallops. PULMONARY: Chest is clear to auscultation, no wheezing, rhonchi, or crackles. ABDOMEN: Soft, nontender, nondistended, normoactive bowel sounds. No palpable organomegaly. MUSCULOSKELETAL: No apparent joint swelling and deformities. EXTREMITIES: No apparent cyanosis, clubbing, or pedal edema. NEUROLOGICAL: Resting tremor. The patient is alert. Gross neurological examination did not reveal any focal deficits. SKIN: No apparent rashes. Assessment and plan Patient is 67-year-old male with 63-year-old male with a PMH of hyperlipidemia and multiple psychiatric conditions including schizoaffective disorder, bipolar disorder, depression who presents with fall and incontinence. #Weakness with fall #Fecal and urinary incontinence #Schizoaffective disorder #Bipolar disorder #Depression -PT/OT evaluation -Urinalysis pending -Decrease lithium to 450 mg -Increase Sinemet 2 tabs, 25-100mg to QID -Resume Seroquel 200 mg HS, Cogentin 1 mg twice daily, Lexapro 10 mg -Psychiatry consulted, note reviewed #Hyperbilirubinemia - Initially 3.8 => 3.7 - Monitor CMP Chronic Medical Conditions #Hyperlidemia - Resume home Atorvastatin #GERD - Resume home Pantoprazole F: PO E: Replete as needed N: Regular DVT ppx: Subq Lovenox 40 meq daily Code status: Full code Anticipated discharge place: Pending clinical course Anticipated discharge time: Pending clinical course Dictation was produced using [employer] dictation software. Please excuse any gr ammatical, word or spelling errors. Past Medical History Past Medical History: Chest Pain / Angina, Osteoarthritis (OA), Pneumonia Additional Past Medical History / Comment(s): 04/17/15 Pt presented to [facility] ER via EMS with chest discomfort and had similar symptoms 2 days ago. Pt states it hurts to laugh and take a deep breath. He is admitted with clinical impression of chest pain. Pt is a unreliable historian. 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 [employer] Text[employer] Teacher did eli Gray's office and obtained [facility] information and immunization record. 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 History of Any Multi-Drug Resistant Organisms: None Reported Past Surgical History: Cholecystectomy, Hernia Repair Past Anesthesia/Blood Transfusion Reactions: No Reported Reaction Past Psychological History: Anxiety, Bipolar, Depression, Schizoaffective Disorder Smoking Status: Never smoker Past Alcohol Use History: None Reported Past Drug Use History: None Reported - Past Family History Mother Family Medical History: Myocardial Infarction (MO) Additional Family Medical History / Comment(s): Mother of a MO at age 70 yrs. Father Family Medical History: Hypertension Additional Family Medical History / Comment(s): Father is alive and 76 yrs old. Medications and Allergies Home Medications Medication Instructions Recorded Confirmed Type Ergocalciferol (Vitamin D2) 1,250 mcg PO WE 08/21/23 03/01/24 History [Drisdol (50,000 Iu)] ARIPiprazole IM SYRINGE [Abilify 400 mg IM QMONTHLY #1 each 09/02/23 03/01/24 Rx Maintena Syringe] Carbidopa/Levodopa 2 tab PO TID@0800,1400,2100 30 09/02/23 03/01/24 Rx [Carbidopa/Levodopa 25-100 Tab] Days #30 tab Cyanocobalamin (Vitamin B-12) 1,000 mcg PO DAILY 30 Days #30 tab 09/02/23 03/01/24 Rx [Vitamin B-12] QUEtiapine [SEROquel] 200 mg PO HS 30 Days #30 tab 09/02/23 03/01/24 Rx traZODone HCL [Desyrel] 50 mg PO HS PRN 30 Days #30 tab 09/02/23 03/01/24 Rx Atorvastatin [Lipitor] 20 mg PO HS 03/01/24 03/01/24 History Escitalopram Oxalate [Lexapro] 10 mg PO HS 03/01/24 03/01/24 History [place] Carbonate 600 mg PO HS 03/01/24 03/01/24 History Loratadine 10 mg PO HS 03/01/24 03/01/24 History Pantoprazole [Protonix] 40 mg PO HS 03/01/24 03/01/24 History Allergies Allergy/AdvReac Type Severity Reaction Status Date / Time onion Allergy Unknown Verified 03/01/24 20:59 Physical Exam Vitals: Vital Signs Pulse Resp BP Pulse Ox 03/02/24 07:00 70 16 110/62 95 03/02/24 04:00 64 16 113/69 96 03/02/24 01:00 94 16 110/73 97 03/01/24 21:55 81 18 119/74 98 Results CBC & Chem 7: 03/02/24 06:43 03/02/24 06:43 Labs: Abnormal Lab Results - Last 24 Hours (Table) 03/01/24 03/01/24 03/02/24 Range/Units 12:40 12:40 06:43 RBC 4.28 L 3.77 L (4.30-5.90) m/uL Hgb 12.4 L 11.3 L (13.0-17.5) gm/dL Hct 36.4 L 32.6 L (39.0-53.0) % RDW 19.0 H 19.5 H (11.5-15.5) % Plt Count 149 L 135 L (150-450) k/uL Total Bilirubin 3.8 H (0.2-1.3) mg/dL
[2024-03-02 17:04] LABS: ALT 19 U/L (4-49); AST 22 U/L (17-59); African American GFR (CKD) >90 (>60 ml/min/1.73 sqM); Albumin 3.6 g/dL (3.5-5.0); Alkaline Phosphatase 67 U/L (38-126); Anion Gap 6 mmol/L; Blood Urea Nitrogen 20 mg/dL (9-20); Calcium 8.4 mg/dL (8.4-10.2); Carbon Dioxide 27 mmol/L (22-30); Chloride 106 mmol/L (98-107); Glucose 90 mg/dL (74-99); Non-African American GFR(CKD) 87 (>60 ml/min/1.73 sqM); Sodium 139 mmol/L (137-145); Total Protein 5.3 g/dL (6.3-8.2)
[2024-03-02] MEDS: CARBIDOPA-LEVODOPA 25-100 MG 1 EACH TAB PO SCH (17:07)
[2024-03-02 19:32] LABS: Appearance,Urine Clear (Clear); Bilirubin,Urine Negative (Negative); Blood,Urine Negative (Negative); Color,Urine Yellow; Glucose,Urine (UA) Negative (Negative); Ketones,Urine Negative (Negative); Leukocyte Esterase,Urine Negative (Negative); Nitrite,Urine Negative (Negative); PH, Urine 6.5 (5.0-8.0); Protein,Urine Negative (Negative); Specific Gravity,Urine 1.017 (1.001-1.035)
[2024-03-02] MEDS: LORATADINE 10 MG TAB PO SCH (20:24)
[2024-03-02] MEDS: PANTOPRAZOLE 40 MG TABLET PO SCH (20:24)
[2024-03-02] MEDS: QUEtiapine 200 MG TAB PO SCH (20:24)
[2024-03-02] MEDS: ATORVASTATIN 20 MG TAB PO SCH (20:24)
[2024-03-02] MEDS: ESCITALOPRAM 10 MG TAB PO SCH (20:24)
[2024-03-02] MEDS ORDERED: CARBIDOPA-LEVODOPA 25-100 MG 1 EACH TAB PO SCH (21:00)
[2024-03-02] MEDS: LITHIUM CARBONATE 150 MG CAP PO SCH (21:39)
[2024-03-03 07:29] LABS: Anisocytosis Slight; Basophils % (A) 0 %; Eosinophils # (A) 0.2 k/uL (0-0.7); Eosinophils % (A) 3 %; HGB 10.1 gm/dL (13.0-17.5); Lymphocytes # (A) 1.6 k/uL (1.0-4.8); Lymphocytes % (A) 23 %; MCH 30.3 pg (25.0-35.0); MCHC 34.9 g/dL (31.0-37.0); Mean Platelet Volume 7.8; Monocytes # (A) 0.4 k/uL (0-1.0); Monocytes % (A) 6 %; Neutrophils # (A) 4.7 k/uL (1.3-7.7); Neutrophils % (A) 67 %; Platelet Count 117 k/uL (150-450); Poikilocytosis Moderate; RBC 3.34 m/uL (4.30-5.90); RDW 19.4 % (11.5-15.5)
[2024-03-03] MEDS: ENOXAPARIN 40 MG/0.4 ML SYRINGE SQ SCH (08:46)
--- NOTE | 2024-03-03 13:13 | P.PN ---
Subjective Progress Note Date: 03/03/24 History of present illness; Patient is 67-year-old male with 63-year-old male with a PMH of hyperlipidemia and multiple psychiatric conditions including schizoaffective disorder, bipolar disorder, depression who presents with fall and incontinence. Patient is poor historian. Patient symptoms started yesterday with dizziness and difficulty walking. Patient recently started Abilify and since has uncontrollable tremors for years, and now unable to control bodily functions including bowel and urinary incontinence. He does has history of intermittent incontinence. He is currently denying symptoms including chest pain, dyspnea, N/V/D and dysuria. Initial labs in ER WBC 8.6, hemoglobin 12.4, platelets 149, PT 11.7, sodium 139, potassium 4.3, bicarb 26, BUN 18, creatinine 0.77, total bilirubin 3.8, AST 38, ALT<6, ALP 79. EKG done in the ER independently interpreted showed heart rate of 84, no ST seg ment elevation or depression seen, no T-wave inversions seen. CT head done independently interpreted showed no acute intracranial process. 03/03/2024 Patient seen and examined sitting up in chair. No events overnight, patient with no complaints. Patient seems to have flat affect and is slow to respond to questions, but cooperative. He states he does have intermittent incontinence at baseline. No clear improvement in tremors. He was seen and evaluated by PT recommend subacute rehab. Labs WBC 7.0, hemoglobin 10.1, platelets 117. REVIEW OF SYSTEMS: Pertinent positives and negatives noted in HPI. PHYSICAL EXAMINATION: Vitals reviewed GENERAL: No acute distress. Well developed, well nourished. HEENT: Pupils are round and equally reacting to light. EOMI. No scleral icterus. Normocephalic, atraumatic CARDIOVASCULAR: S1 and S2 present. No murmurs, rubs, or gallops. PULMONARY: Chest is clear to auscultation, no wheezing, rhonchi, or crackles. ABDOMEN: Soft, nontender, nondistended, normoactive bowel sounds. No palpable organomegaly. MUSCULOSKELETAL: No apparent joint swelling and deformities. EXTREMITIES: No apparent cyanosis, clubbing, or pedal edema. NEUROLOGICAL: Resting tremor. The patient is alert. Gross neurological examination did not reveal any focal deficits. SKIN: No apparent rashes. Assessment and plan Patient is 67-year-old male with 63-year-old male with a PMH of hyperlipidemia and multiple psychiatric conditions including schizoaffective disorder, bipolar disorder, depression who presents with fall and incontinence. #Weakness with fall #Fecal and urinary incontinence #Schizoaffective disorder #Bipolar disorder #Depression #Cognitive impairment -Decrease lithium to 450 mg -Increase Sinemet 2 tabs, 25-100mg to QID -Resume Seroquel 200 mg HS, Cogentin 1 mg twice daily, Lexapro 10 mg [place] pending -PT/OT recc sub-acute rehab -Psychiatry note reviewed #Hyperbilirubinemia - Initially 3.8 => 3.7 => 2.0 - Monitor CMP #Thrombocytopenia Initially 149 => 117 Monitor CBC Chronic Medical Conditions #Hyperlidemia - Resume home Atorvastatin #GERD - Resume home Pantoprazole F: PO E: Replete as needed N: Regular DVT ppx: Subq Lovenox 40 meq daily Code status: Full code Anticipated discharge place: sub-acute rehab Anticipated discharge time: 3-4 days Dictation was produced using [employer] dictation software. Please excuse any grammatical, word or spelling errors. Objective - Vital Signs Vital signs: Vital Signs Temp 98.4 F 03/03/24 08:40 Pulse 78 03/03/24 08:40 Resp 16 03/03/24 08:40 BP 102/65 03/03/24 08:40 Pulse Ox 97 03/03/24 08:40 FiO2 Intake & Output 03/02/24 03/03/24 03/03/24 18:59 06:59 18:59 Intake Total 360 Output Total 0 700 Balance 0 -340 Weight 86 kg Intake: Oral 360 Output: Urine 0 700 Other: Voiding Method External Catheter - Labs CBC & Chem 7: 03/03/24 06:41 03/02/24 16:36 Labs: Abnormal Lab Results - Last 24 Hours (Table) 03/02/24 03/03/24 Range/Units 16:36 06:41 RBC 3.34 L (4.30-5.90) m/uL Hgb 10.1 L (13.0-17.5) gm/dL Hct 29.0 L (39.0-53.0) % RDW 19.4 H (11.5-15.5) % Plt Count 117 L (150-450) k/uL Total Bilirubin 2.0 H (0.2-1.3) mg/dL Total Protein 5.3 L (6.3-8.2) g/dL
[2024-03-04 05:05] LABS: Anisocytosis Slight; Basophils % (A) 0 %; Eosinophils # (A) 0.2 k/uL (0-0.7); Eosinophils % (A) 3 %; HCT 27.2 % (39.0-53.0); HGB 9.5 gm/dL (13.0-17.5); Hyperchromasia Slight; Lymphocytes # (A) 1.7 k/uL (1.0-4.8); Lymphocytes % (A) 27 %; MCH 29.6 pg (25.0-35.0); MCHC 34.9 g/dL (31.0-37.0); MCV 84.8 fL (80.0-100.0); Mean Platelet Volume 8.2; Microcytosis Slight; Monocytes # (A) 0.4 k/uL (0-1.0); Monocytes % (A) 6 %; Neutrophils # (A) 3.8 k/uL (1.3-7.7); Neutrophils % (A) 62 %; Platelet Count 107 k/uL (150-450); Poikilocytosis Moderate; RBC 3.21 m/uL (4.30-5.90); RDW 19.9 % (11.5-15.5); WBC 6.2 k/uL (3.8-10.6)
[2024-03-04 05:25] LABS: ALT <6 U/L (4-49); AST 18 U/L (17-59); African American GFR (CKD) >90 (>60 ml/min/1.73 sqM); Albumin 3.3 g/dL (3.5-5.0); Alkaline Phosphatase 62 U/L (38-126); Anion Gap 1 mmol/L; Blood Urea Nitrogen 18 mg/dL (9-20); Calcium 8.3 mg/dL (8.4-10.2); Carbon Dioxide 24 mmol/L (22-30); Chloride 110 mmol/L (98-107); Glucose 88 mg/dL (74-99); Lithium 0.6 mmol/L; Non-African American GFR(CKD) >90 (>60 ml/min/1.73 sqM); Potassium 3.7 mmol/L (3.5-5.1); Sodium 135 mmol/L (137-145); Total Bilirubin 1.8 mg/dL (0.2-1.3)
--- NOTE | 2024-03-04 16:43 | P.PN ---
Subjective Progress Note Date: 03/04/24 History of present illness; Patient is 67-year-old male with 63-year-old male with a PMH of hyperlipidemia and multiple psychiatric conditions including schizoaffective disorder, bipolar disorder, depression who presents with fall and incontinence. Patient is poor historian. Patient symptoms started yesterday with dizziness and difficulty walking. Patient recently started Abilify and since has uncontrollable tremors for years, and now unable to control bodily functions including bowel and urinary incontinence. He does has history of intermittent incontinence. He is currently denying symptoms including chest pain, dyspnea, N/V/D and dysuria. Initial labs in ER WBC 8.6, hemoglobin 12.4, platelets 149, PT 11.7, sodium 139, potassium 4.3, bicarb 26, BUN 18, creatinine 0.77, total bilirubin 3.8, AST 38, ALT<6, ALP 79. EKG done in the ER independently interpreted showed heart rate of 84, no ST seg ment elevation or depression seen, no T-wave inversions seen. CT head done independently interpreted showed no acute intracranial process. 03/03/2024 Patient seen and examined sitting up in chair. No events overnight, patient with no complaints. Patient seems to have flat affect and is slow to respond to questions, but cooperative. He states he does have intermittent incontinence at baseline. No clear improvement in tremors. He was seen and evaluated by PT recommend subacute rehab. Labs WBC 7.0, hemoglobin 10.1, platelets 117. 03/04/2024 Patient seen and examined sitting up in bed. No events overnight, patient with no complaints. He states he feels his tremors have improved slightly. Patient is cooperative with questioning. He is awaiting placement for subacute rehab. Today's labs WBC 6.2 hemoglobin 9.5, sodium 135, potassium 3.7, bicarb 24, total bilirubin 1.8. REVIEW OF SYSTEMS: Pertinent positives and negatives noted in HPI. PHYSICAL EXAMINATION: Vitals reviewed GENERAL: No acute distress. Well developed, well nourished. HEENT: Pupils are round and equally reacting to light. EOMI. No scleral icterus. Normocephalic, atraumatic CARDIOVASCULAR: S1 and S2 present. No murmurs, rubs, or gallops. PULMONARY: Chest is clear to auscultation, no wheezing, rhonchi, or crackles. ABDOMEN: Soft, nontender, nondistended, normoactive bowel sounds. No palpable organomegaly. MUSCULOSKELETAL: No apparent joint swelling and deformities. EXTREMITIES: No apparent cyanosis, clubbing, or pedal edema. NEUROLOGICAL: Resting tremor. The patient is alert. Gross neurological examination did not reveal any focal deficits. SKIN: No apparent rashes. Assessment and plan Patient is 67-year-old male with 63-year-old male with a PMH of hyperlipidemia and multiple psychiatric conditions including schizoaffective disorder, bipolar disorder, depression who presents with fall and incontinence. #Weakness with fall #Fecal and urinary incontinence #Schizoaffective disorder #Bipolar disorder #Depression #Cognitive impairment -Decrease lithium to 450 mg -Increase Sinemet 2 tabs, 25-100mg to QID -Resume Seroquel 200 mg HS, Cogentin 1 mg twice daily, Lexapro 10 mg [place] 0.6 -PT/OT recc sub-acute rehab -Psychiatry note reviewed #Hyperbilirubinemia - Initially 3.8 => 3.7 => 2.0 => 1.8 - Monitor CMP #Thrombocytopenia Initially 149 => 117 => 107 Monitor CBC Chronic Medical Conditions #Hyperlidemia - Resume home Atorvastatin #GERD - Resume home Pantoprazole F: PO E: Replete as needed N: Regular DVT ppx: Subq Lovenox 40 meq daily Code status: Full code Anticipated discharge place: sub-acute rehab Anticipated discharge time: 2-3 days Dictation was produced using [employer] dictation software. Please excuse any grammatical, word or spelling errors. Attestation I have seen and examined this patient with my resident , discussed the same with the resident/ERMELINDA, and agree with the dictator's assessment and plan as written Dr. Beau ortiz Objective - Vital Signs Vital signs: Vital Signs Temp 98.9 F 03/04/24 14:38 Pulse 87 03/04/24 14:38 Resp 18 03/04/24 14:38 BP 108/67 03/04/24 14:38 Pulse Ox 100 03/04/24 14:38 FiO2 Intake & Output 03/03/24 03/04/24 03/04/24 18:59 06:59 18:59 Intake Total 540 Output Total 700 450 Balance -160 -450 Intake: Oral 540 Output: Urine 700 450 Other: Voiding Method External Catheter External Catheter External Catheter # Voids 0 - Labs CBC & Chem 7: 03/05/24 02:28 03/05/24 02:28 Labs: Abnormal Lab Results - Last 24 Hours (Table) 03/04/24 03/04/24 Range/Units 04:38 04:38 RBC 3.21 L (4.30-5.90) m/uL Hgb 9.5 L (13.0-17.5) gm/dL Hct 27.2 L (39.0-53.0) % RDW 19.9 H (11.5-15.5) % Plt Count 107 L (150-450) k/uL Sodium 135 L (137-145) mmol/L Chloride 110 H (98-107) mmol/L Calcium 8.3 L (8.4-10.2) mg/dL Total Bilirubin 1.8 H (0.2-1.3) mg/dL Total Protein 5.0 L (6.3-8.2) g/dL Albumin 3.3 L (3.5-5.0) g/dL
[2024-03-04] MEDS: SODIUM CHLORIDE 0.9% 500 ML 500 ML IV ONE (20:06)
[2024-03-05 09:26] LABS: ALT <5 U/L (10-49); AST 19 U/L (14-35); Albumin 3.7 g/dL (3.8-4.9); Albumin/Globulin Ratio 2.64 Ratio (1.60-3.17); Alkaline Phosphatase 60 U/L (41-126); BUN/Creat Ratio 17.75 Ratio (12.00-20.00); Blood Urea Nitrogen 14.2 mg/dL (9.0-27.0); Calcium 8.2 mg/dL (8.7-10.3); Carbon Dioxide 21.8 mmol/L (21.6-31.8); Chloride 109 mmol/L (96-109); Globulin 1.4 g/dL (1.6-3.3); Glucose 86 mg/dL (70-110); Potassium 3.8 mmol/L (3.5-5.5); Sodium 140 mmol/L (135-145); Total Bilirubin 1.1 mg/dL (0.3-1.2); Total Protein 5.1 g/dL (6.2-8.2)
[2024-03-05 09:39] LABS: HCT 30.1 % (39.6-50.0); HGB 9.6 g/dL (13.0-17.0); MCH 29.4 pg (27.0-32.0); MCHC 31.9 g/dL (32.0-37.0); MCV 92.3 FL (80.0-97.0); Mean Platelet Volume 11.5 FL (9.5-12.2); NRBC Per 100 WBC 0 X 10*3/uL (0.00-0.01); Platelet Count 111 X 10*3/uL (140-440); RBC 3.26 X 10*6/uL (4.40-5.60); RDW 20.5 % (11.5-14.5); WBC 5.92 X 10*3/uL (4.50-10.00)
--- NOTE | 2024-03-05 17:47 | P.PN ---
Subjective Progress Note Date: 03/05/24 History of present illness; Patient is 67-year-old male with 63-year-old male with a PMH of hyperlipidemia and multiple psychiatric conditions including schizoaffective disorder, bipolar disorder, depression who presents with fall and incontinence. Patient is poor historian. Patient symptoms started yesterday with dizziness and difficulty walking. Patient recently started Abilify and since has uncontrollable tremors for years, and now unable to control bodily functions including bowel and urinary incontinence. He does has history of intermittent incontinence. He is currently denying symptoms including chest pain, dyspnea, N/V/D and dysuria. Initial labs in ER WBC 8.6, hemoglobin 12.4, platelets 149, PT 11.7, sodium 139, potassium 4.3, bicarb 26, BUN 18, creatinine 0.77, total bilirubin 3.8, AST 38, ALT<6, ALP 79. EKG done in the ER independently interpreted showed heart rate of 84, no ST seg ment elevation or depression seen, no T-wave inversions seen. CT head done independently interpreted showed no acute intracranial process. 03/03/2024 Patient seen and examined sitting up in chair. No events overnight, patient with no complaints. Patient seems to have flat affect and is slow to respond to questions, but cooperative. He states he does have intermittent incontinence at baseline. No clear improvement in tremors. He was seen and evaluated by PT recommend subacute rehab. Labs WBC 7.0, hemoglobin 10.1, platelets 117. 03/04/2024 Patient seen and examined sitting up in bed. No events overnight, patient with no complaints. He states he feels his tremors have improved slightly. Patient is cooperative with questioning. He is awaiting placement for subacute rehab. Today's labs WBC 6.2 hemoglobin 9.5, sodium 135, potassium 3.7, bicarb 24, total bilirubin 1.8. 03/05/2024 Patient seen and examined sitting up in bed. No events overnight. Tremors are noticeably improved. No changes to psychiatric medications. He is awaiting placement for subacute rehab. Today's labs hemoglobin 9.6, platelets 111, sodium 140, glucose 86, total bilirubin 1.1 REVIEW OF SYSTEMS: Pertinent positives and negatives noted in HPI. PHYSICAL EXAMINATION: Vitals reviewed GENERAL: No acute distress. Well developed, well nourished. HEENT: Pupils are round and equally reacting to light. EOMI. No scleral icterus. Normocephalic, atraumatic CARDIOVASCULAR: S1 and S2 present. No murmurs, rubs, or gallops. PULMONARY: Chest is clear to auscultation, no wheezing, rhonchi, or crackles. ABDOMEN: Soft, nontender, nondistended, normoactive bowel sounds. No palpable organomegaly. MUSCULOSKELETAL: No apparent joint swelling and deformities. EXTREMITIES: No apparent cyanosis, clubbing, or pedal edema. NEUROLOGICAL: Resting tremor. The patient is alert. Gross neurological examination did not reveal any focal deficits. SKIN: No apparent rashes. Assessment and plan Patient is 67-year-old male with 63-year-old male with a PMH of hyperlipidemia and multiple psychiatric conditions including schizoaffective disorder, bipolar disorder, depression who presents with fall and incontinence. #Weakness with fall #Fecal and urinary incontinence #Schizoaffective disorder #Bipolar disorder #Depression #Cognitive impairment -Decrease lithium to 450 mg -Increase Sinemet 2 tabs, 25-100mg to QID -Resume Seroquel 200 mg HS, Cogentin 1 mg twice daily, Lexapro 10 mg [place] 0.6 -PT/OT recc sub-acute rehab #Thrombocytopenia Initially 149 => 117 => 107 => 111 Monitor CBC #Hyperbilirubinemia, resolved - Initially 3.8 => 3.7 => 2.0 => 1.8 => 1.1 - Monitor CMP Chronic Medical Conditions #Hyperlidemia - Resume home Atorvastatin #GERD - Resume home Pantoprazole F: PO E: Replete as needed N: Regular DVT ppx: Subq Lovenox 40 meq daily Code status: Full code Anticipated discharge place: sub-acute rehab Anticipated discharge time: 1-2 days Dictation was produced using [employer] dictation software. Please excuse any grammatical, word or spelling errors. Attestation I have seen and examined this patient with my resident , discussed the same with the resident/ERMELINDA, and agree with the dictator's assessment and plan as written Dr. Beau ortiz Objective - Vital Signs Vital signs: Vital Signs Temp 98.0 F 03/05/24 13:08 Pulse 64 03/05/24 13:08 Resp 20 03/05/24 13:08 BP 107/57 03/05/24 13:08 Pulse Ox 95 03/05/24 13:08 FiO2 Intake & Output 03/04/24 03/05/24 03/05/24 18:59 06:59 18:59 Output Total 300 1350 400 Balance -300 -1350 -400 Output: Urine 300 1350 400 Other: Voiding Method External Catheter Incontinent Incontinent External Catheter External Catheter - Labs CBC & Chem 7: 03/05/24 02:28 03/05/24 02:28 Labs: Abnormal Lab Results - Last 24 Hours (Table) 03/05/24 03/05/24 Range/Units 02:28 02:28 RBC 3.26 L (4.40-5.60) X 10*6/uL Hgb 9.6 L (13.0-17.0) g/dL Hct 30.1 L (39.6-50.0) % MCHC 31.9 L (32.0-37.0) g/dL RDW 20.5 H (11.5-14.5) % Plt Count 111 L (140-440) X 10*3/uL Calcium 8.2 L (8.7-10.3) mg/dL ALT <5 L (10-49) U/L Total Protein 5.1 L (6.2-8.2) g/dL Albumin 3.7 L (3.8-4.9) g/dL Globulin 1.4 L (1.6-3.3) g/dL
[2024-03-06 09:23] VITALS: RESP 18
[2024-03-06 09:57] LABS: ALT <5 U/L (10-49); AST 19 U/L (14-35); Alkaline Phosphatase 62 U/L (41-126); BUN/Creat Ratio 18.62 Ratio (12.00-20.00); Blood Urea Nitrogen 14.9 mg/dL (9.0-27.0); Calcium 8.6 mg/dL (8.7-10.3); Carbon Dioxide 25.9 mmol/L (21.6-31.8); Chloride 108 mmol/L (96-109); Globulin 1.6 g/dL (1.6-3.3); Glucose 89 mg/dL (70-110); Potassium 4.1 mmol/L (3.5-5.5); Sodium 141 mmol/L (135-145); Total Bilirubin 1.3 mg/dL (0.3-1.2); Total Protein 5.6 g/dL (6.2-8.2)
[2024-03-06 09:59] LABS: HGB 10.4 g/dL (13.0-17.0); MCH 29.1 pg (27.0-32.0); MCHC 31.5 g/dL (32.0-37.0); MCV 92.4 FL (80.0-97.0); Mean Platelet Volume 10.8 FL (9.5-12.2); NRBC Per 100 WBC 0 X 10*3/uL (0.00-0.01); Platelet Count 113 X 10*3/uL (140-440); RBC 3.57 X 10*6/uL (4.40-5.60); RDW 20.4 % (11.5-14.5); WBC 6.46 X 10*3/uL (4.50-10.00)
--- NOTE | 2024-03-06 11:56 | P.PN ---
Subjective Progress Note Date: 03/06/24 History of present illness; Patient is 67-year-old male with 63-year-old male with a PMH of hyperlipidemia and multiple psychiatric conditions including schizoaffective disorder, bipolar disorder, depression who presents with fall and incontinence. Patient is poor historian. Patient symptoms started yesterday with dizziness and difficulty walking. Patient recently started Abilify and since has uncontrollable tremors for years, and now unable to control bodily functions including bowel and urinary incontinence. He does has history of intermittent incontinence. He is currently denying symptoms including chest pain, dyspnea, N/V/D and dysuria. Initial labs in ER WBC 8.6, hemoglobin 12.4, platelets 149, PT 11.7, sodium 139, potassium 4.3, bicarb 26, BUN 18, creatinine 0.77, total bilirubin 3.8, AST 38, ALT<6, ALP 79. EKG done in the ER independently interpreted showed heart rate of 84, no ST seg ment elevation or depression seen, no T-wave inversions seen. CT head done independently interpreted showed no acute intracranial process. 03/03/2024 Patient seen and examined sitting up in chair. No events overnight, patient with no complaints. Patient seems to have flat affect and is slow to respond to questions, but cooperative. He states he does have intermittent incontinence at baseline. No clear improvement in tremors. He was seen and evaluated by PT recommend subacute rehab. Labs WBC 7.0, hemoglobin 10.1, platelets 117. 03/04/2024 Patient seen and examined sitting up in bed. No events overnight, patient with no complaints. He states he feels his tremors have improved slightly. Patient is cooperative with questioning. He is awaiting placement for subacute rehab. Today's labs WBC 6.2 hemoglobin 9.5, sodium 135, potassium 3.7, bicarb 24, total bilirubin 1.8. 03/06. Patient seen and examined. No acute issues overnight. Currently waiting on rehab placement REVIEW OF SYSTEMS: Pertinent positives and negatives noted in HPI. PHYSICAL EXAMINATION: Vitals reviewed GENERAL: No acute distress. Well developed, well nourished. HEENT: Pupils are round and equally reacting to light. EOMI. No scleral icterus. Normocephalic, atraumatic CARDIOVASCULAR: S1 and S2 present. No murmurs, rubs, or gallops. PULMONARY: Chest is clear to auscultation, no wheezing, rhonchi, or crackles. ABDOMEN: Soft, nontender, nondistended, normoactive bowel sounds. No palpable organomegaly. MUSCULOSKELETAL: No apparent joint swelling and deformities. EXTREMITIES: No apparent cyanosis, clubbing, or pedal edema. NEUROLOGICAL: Resting tremor. The patient is alert. Gross neurological examination did not reveal any focal deficits. SKIN: No apparent rashes. Assessment and plan Patient is 67-year-old male with 63-year-old male with a PMH of hyperlipidemia and multiple psychiatric conditions including schizoaffective disorder, bipolar disorder, depression who presents with fall and incontinence. #Weakness with fall #Fecal and urinary incontinence #Schizoaffective disorder #Bipolar disorder #Depression #Cognitive impairment -Decrease lithium to 450 mg -Increase Sinemet 2 tabs, 25-100mg to QID -Resume Seroquel 200 mg HS, Cogentin 1 mg twice daily, Lexapro 10 mg [place] 0.6 -PT/OT recc sub-acute rehab, waiting on placement -Psychiatry note reviewed #Hyperbilirubinemia - Initially 3.8 => 3.7 => 2.0 => 1.8 - Monitor CMP #Thrombocytopenia Initially 149 => 117 => 107 Monitor CBC Chronic Medical Conditions #Hyperlidemia - Resume home Atorvastatin #GERD - Resume home Pantoprazole F: PO E: Replete as needed N: Regular DVT ppx: Subq Lovenox 40 meq daily Code status: Full code Anticipated discharge place: sub-acute rehab Anticipated discharge time:1days Dictation was produced using [employer] dictation software. Please excuse any grammatical, word or spelling errors. Objective - Vital Signs Vital signs: Vital Signs Temp 97.6 F 03/06/24 07:13 Pulse 62 03/06/24 07:13 Resp 18 03/06/24 07:13 BP 113/68 03/06/24 07:13 Pulse Ox 98 03/06/24 07:13 FiO2 Intake & Output 03/05/24 03/06/24 03/06/24 18:59 06:59 18:59 Output Total 700 400 600 Balance -700 -400 -600 Output: Urine 700 400 600 Other: Voiding Method Incontinent Incontinent Incontinent External Catheter External Catheter External Catheter # Voids 1 2 - Labs CBC & Chem 7: 03/06/24 05:46 03/06/24 05:46 Labs: Abnormal Lab Results - Last 24 Hours (Table) 03/06/24 03/06/24 Range/Units 05:46 05:46 RBC 3.57 L (4.40-5.60) X 10*6/uL Hgb 10.4 L (13.0-17.0) g/dL Hct 33.0 L (39.6-50.0) % MCHC 31.5 L (32.0-37.0) g/dL RDW 20.4 H (11.5-14.5) % Plt Count 113 L (140-440) X 10*3/uL Calcium 8.6 L (8.7-10.3) mg/dL Total Bilirubin 1.3 H (0.3-1.2) mg/dL ALT <5 L (10-49) U/L Total Protein 5.6 L (6.2-8.2) g/dL
[2024-03-06] MEDS: traZODone HCL 50 MG TAB PO PRN (21:32)
[2024-03-07 03:21] VITALS: TEMP 98.1
[2024-03-07 08:44] LABS: HCT 30.2 % (39.6-50.0); HGB 9.9 g/dL (13.0-17.0); MCHC 32.8 g/dL (32.0-37.0); MCV 88.6 FL (80.0-97.0); NRBC Per 100 WBC 0 X 10*3/uL (0.00-0.01); Platelet Count 109 X 10*3/uL (140-440); RBC 3.41 X 10*6/uL (4.40-5.60); RDW 20.3 % (11.5-14.5)
[2024-03-07] MEDS: SODIUM CHLORIDE 0.9% 500 ML 500 ML IV ONE (09:35)
[2024-03-07 13:46] VITALS: BP 107/68; PULSE 82
--- NOTE | 2024-03-07 14:24 | P.DS ---
Providers Date of admission: 03/03/24 12:25 Expected date of discharge: 03/07/24 Attending physician: Rasheeda Valerio Consults: 03/01/24 19:07 Consult Physician Routine Consulting Provider: Isma Riojas Consult Reason/Comments: medRxn Do you want consulting provider notified?: Yes Primary care physician: [facility] Course: Discharge diagnoses; #Weakness with fall #Fecal and urinary incontinence #Schizoaffective disorder #Bipolar disorder #Depression #Cognitive impairment #Hyperbilirubinemia #Thrombocytopenia #Hyperlidemia #GERD Hospital course; [facility] medications adjusted by psychiatry, will decrease lithium to 450 nightly, and increase Sinemet 2 pills p.o. 4 times daily. Cogentin discontinued for now but may be restarted by CM as needed. He is to follow-up with his PCP and [facility]. Patient is 67-year-old male with 63-year-old male with a PMH of hyperlipidemia and multiple psychiatric conditions including schizoaffective disorder, bipolar disorder, depression who presents with fall and incontinence. Patient is poor historian. Patient symptoms started yesterday with dizziness and difficulty walking. Patient recently started Abilify and since has uncontrollable tremors for years, and now unable to control bodily functions including bowel and urina ry incontinence. He does has history of intermittent incontinence. He is currently denying symptoms including chest pain, dyspnea, N/V/D and dysuria. Initial labs in ER WBC 8.6, hemoglobin 12.4, platelets 149, PT 11.7, sodium 139, potassium 4.3, bicarb 26, BUN 18, creatinine 0.77, total bilirubin 3.8, AST 38, ALT<6, ALP 79. EKG done in the ER independently interpreted showed heart rate of 84, no ST segment elevation or depression seen, no T-wave inversions seen. CT head done independently interpreted showed no acute intracranial process. 03/03/2024 Patient seen and examined sitting up in chair. No events overnight, patient with no complaints. Patient seems to have flat affect and is slow to respond to questions, but cooperative. He states he does have intermittent incontinence at baseline. No clear improvement in tremors. He was seen and evaluated by PT recommend subacute rehab. Labs WBC 7.0, hemoglobin 10.1, platelets 117. 03/04/2024 Patient seen and examined sitting up in bed. No events overnight, patient with no complaints. He states he feels his tremors have improved slightly. Patient is cooperative with questioning. He is awaiting placement for subacute rehab. Today's labs WBC 6.2 hemoglobin 9.5, sodium 135, potassium 3.7, bicarb 24, total bilirubin 1.8. 03/06. Patient seen and examined. No acute issues overnight. Currently waiting on rehab placement PHYSICAL EXAMINATION: Vitals reviewed GENERAL: No acute distress. Well developed, well nourished. HEENT: Pupils are round and equally reacting to light. EOMI. No scleral icterus. Normocephalic, atraumatic CARDIOVASCULAR: S1 and S2 present. No murmurs, rubs, or gallops. PULMONARY: Chest is clear to auscultation, no wheezing, rhonchi, or crackles. ABDOMEN: Soft, nontender, nondistended, normoactive bowel sounds. No palpable organomegaly. MUSCULOSKELETAL: No apparent joint swelling and deformities. EXTREMITIES: No apparent cyanosis, clubbing, or pedal edema. NEUROLOGICAL: Resting tremor. The patient is alert. Gross neurological examination did not reveal any focal deficits. SKIN: No apparent rashes. Dictation was produced using [employer] dictation software. please excuse any grammatical, word or spelling errors. Patient Condition at Discharge: Stable Plan - Discharge Summary Discharge Rx Participant: No New Discharge Prescriptions: New [place] Carbonate 450 mg PO HS #30 cap Carbidopa-Levodopa 25-100 mg [Sinemet 25-100 mg] 2 each PO QID #240 tab Continue Ergocalciferol (Vitamin D2) [Drisdol (50,000 Iu)] 1,250 mcg PO WE traZODone HCL [Desyrel] 50 mg PO HS PRN 30 Days #30 tab PRN Reason: Insomnia QUEtiapine [SEROquel] 200 mg PO HS 30 Days #30 tab Cyanocobalamin (Vitamin B-12) [Vitamin B-12] 1,000 mcg PO DAILY 30 Days #30 tab Escitalopram Oxalate [Lexapro] 10 mg PO HS ARIPiprazole IM SYRINGE [Abilify Maintena Syringe] 400 mg IM QMONTHLY #1 each Atorvastatin [Lipitor] 20 mg PO HS Loratadine 10 mg PO HS Pantoprazole [Protonix] 40 mg PO HS Discontinued Carbidopa/Levodopa [Carbidopa/Levodopa 25-100 Tab] 2 tab PO TID@0800,1400,2100 30 Days #30 tab Gray Carbonate 600 mg PO HS Discharge Medication List Ergocalciferol (Vitamin D2) [Drisdol (50,000 Iu)] 1,250 mcg PO WE 08/21/23 [History] ARIPiprazole IM SYRINGE [Abilify Maintena Syringe] 400 mg IM QMONTHLY #1 each 09/02/23 [Rx] Cyanocobalamin (Vitamin B-12) [Vitamin B-12] 1,000 mcg PO DAILY 30 Days #30 tab 09/02/23 [Rx] QUEtiapine [SEROquel] 200 mg PO HS 30 Days #30 tab 09/02/23 [Rx] traZODone HCL [Desyrel] 50 mg PO HS PRN 30 Days #30 tab 09/02/23 [Rx] Atorvastatin [Lipitor] 20 mg PO HS 03/01/24 [History] Escitalopram Oxalate [Lexapro] 10 mg PO HS 03/01/24 [History] Loratadine 10 mg PO HS 03/01/24 [History] Pantoprazole [Protonix] 40 mg PO HS 03/01/24 [History] Carbidopa-Levodopa 25-100 mg [Sinemet 25-100 mg] 2 each PO QID #240 tab 03/07/24 [Rx] Gray Carbonate 450 mg PO HS #30 cap 03/07/24 [Rx] Follow up Appointment(s)/Referral(s): Lian Houser MD [Primary Care Provider] - 1-2 days Activity/Diet/Wound Care/Special Instructions: Hold Abilify until after follow up with [facility] Discharge Disposition: TRANSFER TO SNF/ECF
== END 2024-03-07 16:28 | DRG 885 ==
LOC: EC 11:14 → 1SOBS 19:07 → 3SCARD 21:06 → OBSVTOIN 03-03 12:25 → 4SSUR 03-04 03:13
PROVIDERS: ADMIT Hospitalist; ATTEND Hospitalist
DX: F25.0 Schizoaffective disorder, bipolar type (principal); F02.84 Dementia in other diseases classified elsewhere, unspecified severity, with anxiety; R17 Unspecified jaundice; F79 Unspecified intellectual disabilities; E78.5 Hyperlipidemia, unspecified; D64.9 Anemia, unspecified; K21.9 Gastro-esophageal reflux disease without esophagitis; D69.6 Thrombocytopenia, unspecified; G20.C Parkinsonism, unspecified; R32 Unspecified urinary incontinence; Z79.899 Other long term (current) drug therapy; Z82.49 Family history of ischemic heart disease and other diseases of the circulatory system; Z91.018 Allergy to other foods; Z90.49 Acquired absence of other specified parts of digestive tract
CPT/HCPCS: 36415; 51702; 70450; 80053; 80178; 81003; 83605; 83735; 84100; 85025; 85027; 85610; 85730; 93005; 96361; 96374; 99285

== ENCOUNTER 2024-08-30 15:34 | Inpatient (IN) | payer MEDICARE, OTHER ==
--- NOTE | 2024-08-30 16:18 | ED ---
Chest Pain HPI - General Chief Complaint: Chest Pain Stated Complaint: chest pain Time Seen by Provider: 08/30/24 15:41 Source: patient, EMS, RN notes reviewed, old records reviewed Mode of arrival: EMS Limitations: no limitations, altered mental status, physical limitation - History of Present Illness Initial Comments: This is a 64-year-old male to the ER today for evaluation. Patient is a poor historian presenting for suspected chest pain elevated heart rate epigastric pain abdominal pain the patient again remains a poor historian from our 1 side for evaluation today MD Complaint: chest pain, other (Possibly abdominal pain) -: unknown Onset: during rest, awoke with symptoms Pain Location: substernal, epigastric Pain Radiation: abdomen Severity: moderate Severity scale (1-10): 7 Quality: tightness Consistency: constant Improves With: nothing Worsens With: nothing Context: recent illness Other Symptoms: palpitations Treatments Prior to Arrival: none - Related Data Home Medications Medication Instructions Recorded Confirmed Ergocalciferol (Vitamin D2) 1,250 mcg PO WE@0800 08/21/23 08/30/24 [Drisdol (50,000 Iu)] Atorvastatin [Lipitor] 20 mg PO HS@209903/01/24 08/30/24 Escitalopram Oxalate [Lexapro] 10 mg PO HS@209903/01/24 08/30/24 Loratadine 10 mg PO HS@209903/01/24 08/30/24 Pantoprazole [Protonix] 40 mg PO HS@209903/01/24 08/30/24 Acetaminophen Tab [Tylenol] 650 mg PO Q4H PRN 08/30/24 08/30/24 Carbidopa-Levodopa 25-100 mg 2 tab PO QID 08/30/24 08/30/24 [Sinemet 25-100 mg] Cyanocobalamin [Vitamin B-12] 1,000 mcg PO DAILY@0800 08/30/24 08/30/24 Lactulose [Constulose] 10 gm PO Q12H PRN 08/30/24 08/30/24 [place] Carbonate ER [Lithobid] 450 mg PO HS@209908/30/24 08/30/24 Mag Hydrox/Al Hydrox/Simeth 15 ml PO Q6H PRN 08/30/24 08/30/24 [Maalox] Magnesium Hydroxide [Milk of 7,200 mg PO DAILY PRN 08/30/24 08/30/24 Magnesia Concentrate] Na Phos,M-B/Na Phos,Di-Ba [Fleet 133 ml RECTAL DAILY PRN 08/30/24 08/30/24 Adult] QUEtiapine FUMARATE [SEROquel] 300 mg PO HS@2100 08/30/24 08/30/24 bisacodyL [Dulcolax] 10 mg RECTAL DAILY PRN 08/30/24 08/30/24 guaiFENesin SYRUP 100MG/5ML 200 mg PO Q4H PRN 08/30/24 08/30/24 [Robitussin] Allergies Allergy/AdvReac Type Severity Reaction Status Date / Time onion Allergy Unknown Verified 08/30/24 18:13 Review of Systems ROS Statement: Those systems with pertinent positive or pertinent negative responses have been documented in the HPI. ROS Other: All systems not noted in ROS Statement are negative. 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 History of Any Multi-Drug Resistant Organisms: None Reported Past Surgical History: Cholecystectomy, Hernia Repair Past Anesthesia/Blood Transfusion Reactions: No Reported Reaction Past Psychological History: Anxiety, Bipolar, Depression, Schizoaffective Disorder Smoking Status: Never smoker Past Alcohol Use History: None Reported Past Drug Use History: None Reported - Past Family History Mother Family Medical History: Myocardial Infarction ([place]) Additional Family Medical History / Comment(s): Mother of a [place] at age 70 yrs. Father Family Medical History: Hypertension Additional Family Medical History / Comment(s): Father is alive and 76 yrs old. General Exam Limitations: altered mental status, physical limitation General appearance: alert, anxious, lethargic, obtunded Head exam: Present: atraumatic, normocephalic, normal inspection Eye exam: Present: normal appearance, PERRL, EOMI. Absent: scleral icterus, conjunctival injection, periorbital swelling ENT exam: Present: normal exam, mucous membranes moist Neck exam: Present: normal inspection. Absent: tenderness, meningismus, lymphadenopathy Respiratory exam: Present: respiratory distress, accessory muscle use, decreased breath sounds, prolonged expiratory. Absent: wheezes, rales, rhonchi, stridor Cardiovascular Exam: Present: regular rate, tachycardia, normal heart sounds. Absent: systolic murmur, diastolic murmur, rubs, gallop, clicks GI/Abdominal exam: Present: soft, normal bowel sounds. Absent: distended, tenderness, guarding, rebound, rigid Extremities exam: Present: normal inspection, full ROM, normal capillary refill. Absent: tenderness, pedal edema, joint swelling, calf tenderness Back exam: Present: normal inspection Neurological exam: Present: alert, oriented X3, CN II-XII intact Psychiatric exam: Present: normal affect, normal mood Skin exam: Present: warm, dry, intact, normal color. Absent: rash Course Vital Signs 08/30/24 08/30/24 08/30/24 15:37 17:51 19:54 Temperature 100.8 F H 99.5 F Pulse Rate 154 H 112 H 115 H Respiratory 30 H 16 20 Rate Blood Pressure 147/100 111/81 138/81 O2 Sat by Pulse 91 L 93 L Oximetry 08/30/24 08/30/24 08/31/24 22:33 23:01 01:38 Temperature 98.3 F Pulse Rate 109 H 105 H 155 H Respiratory 18 18 24 Rate Blood Pressure 135/91 119/78 166/112 O2 Sat by Pulse 95 96 95 Oximetry 08/31/24 08/31/24 08/31/24 01:47 01:52 02:30 Temperature 98.9 F Pulse Rate 156 H 137 H Respiratory Rate Blood Pressure 147/65 143/80 O2 Sat by Pulse Oximetry 08/31/24 08/31/24 08/31/24 03:00 04:18 05:30 Temperature 98.7 F Pulse Rate 99 92 101 H Respiratory 18 Rate Blood Pressure 142/61 79/57 85/74 O2 Sat by Pulse 94 L Oximetry - Reevaluation(s) Reevaluation #1: 08/30/24 18:00 Medical records reviewed Reevaluation #2: 08/30/24 18:00 Patient heart rate improving with fever control and hydration Blood pressure remaining elevated Reevaluation #3: 08/30/24 18:00 Patient informed of results questions answered Reevaluation #4: Was pt. sent in by a medical professional or institution (GABRIELLE Lopez, NEUROLOGICAL SURGERY TEACHER, urgent care, hospital, or alf...) When possible be specific @ -no Did you speak to anyone other than the patient for history (EMS, parent, family, police, friend...)? What history was obtained from this source @ -no Did you review nursing and triage notes (agree or disagree)? Why? @ -agree Are old charts reviewed (outside hosp., previous admission, EMS record, old EKG, old radiological studies, urgent care reports/EKG's, alf records)? Report findings @ -yes Differential Diagnosis (chest pain, altered mental status, abdominal pain women, abdominal pain men, vaginal bleeding, weakness, fever, dyspnea, syncope, headache, dizziness, GI bleed, back pain, seizure, CVA, palpatations, mental health, musculoskeletal)? @ -prior EKG interpreted by me (3pts min.). @ -yes X-rays interpreted by me (1pt min.). @ -yes likely pneumonia CT interpreted by me (1pt min.). @ -yes positive for large fecal burden U/S interpreted by me (1pt. min.). @ -no What testing was considered but not performed or refused? (CT, X-rays, U/S, labs)? Why? @ -none What meds were considered but not given or refused? Why? @ -none Did you discuss the management of the patient with other professionals (professionals i.e. GABRIELLE Lopez, NEUROLOGICAL SURGERY TEACHER, lab, RT, psych nurse, social security specialist, mold shaker, teacher, chief school finance officer, case management rn)? Give summary @ -no Was smoking cessation discussed for >3mins.? @ -no Was critical care preformed (if so, how long)? @ -[id number] Were there social determinants of health that impacted care today? How? (Homelessness, low income, unemployed, alcoholism, drug addiction, transportat ion, low edu. Level, literacy, decrease access to med. care, group home, rehab)? @ -none Was there de-escalation of care discussed even if they declined (Discuss DNR or withdrawal of care, Hospice)? DNR status @ -no What co-morbidities impacted this encounter? (DM, HTN, Smoking, COPD, CAD, Cancer, CVA, ARF, Chemo, Hep., AIDS, mental health diagnosis, sleep apnea, morbid obesity)? @ -none Was patient admitted / discharged? Hospital course, mention meds given and route, prescriptions, significant lab abnormalities, going to OR and other pertinent info. @ - 64 male to ER with chest pain abdominal pain patient will admit with fever sepsis pneumonia Admitted Undiagnosed new problem with uncertain prognosis? @ -no Drug Therapy requiring intensive monitoring for toxicity (Heparin, Nitro, Insulin, Cardizem)? @ -no Were any procedures done? @ -no Diagnosis/symptom? @ -Fever pneumonia sepsis Acute, or Chronic, or Acute on Chronic? @ -Acute Uncomplicated (without systemic symptoms) or Complicated (systemic symptoms)? @ -Complicated Side effects of treatment? @ -no Exacerbation, Progression, or Severe Exacerbation? @ -exacerbation Poses a threat to life or bodily function? How? (Chest pain, [place], [place], pneumonia, PE, COPD, DKA, ARF, appy, cholecystitis, CVA, Diverticulitis, Homicidal, Suicidal, threat to staff... and all critical care pts) @ -yes significant sepsis Reevaluation #5: Differential Chest Pain: Stable Angina, Unstable Angina, STEMI, NSTEMI Aortic Dissection, Pneumothorax, Musculoskeletal, Esophageal Spasm GERD, Cholecystitis, Pancreatitis, Zoster, this is not meant to be an all-inclusive list. Differential Fever: Pneumonia, viral URI, endocarditis, myocarditis, pericarditis, otitis, sinusitis, peritonsillar Abscess, retropharyngeal Abscess, epiglottitis, peritonitis, appendicitis, Candice cystitis, diverticulitis, hepatitis, colitis, UTI, PID, TOA, pyelonephritis, prostatitis, epididymitis, meningitis, encephalitis, pulmonary embolism, CVA, thyroid storm, pancreatitis, adrenal crisis, cavernous sinus thrombosis, this is not meant to be an all-inclusive list. - Consultations Consultation #1: Spoke with Dr. Gray to admit this patient Chest Pain MDM - MDM 64 male to ER with chest pain abdominal pain patient will admit with fever seps is pneumonia Critical Care Time Critical Care Time: Yes Total Critical Care Time: 31 Disposition Clinical Impression: Pneumonia, Acute bronchitis, Sepsis, Fever, Chest pain, Abdominal pain, Major neurocognitive disorder, Psychosis Disposition: ADMITTED IP TO THIS HOSP Condition: Critical Is patient prescribed a controlled substance at d/c from ED?: No Time of Disposition: 17:30
[2024-08-30 16:20] LABS: HCT 39.5 % (39.6-50.0); HGB 13.5 g/dL (13.0-17.0); MCH 27.9 pg (27.0-32.0); MCHC 34.2 g/dL (32.0-37.0); MCV 81.6 fL (80.0-97.0); Mean Platelet Volume 10.5 fL (9.5-12.2); Platelet Count 322 10*3/uL (140-440); RBC 4.84 10*6/uL (4.40-5.60)
[2024-08-30] MEDS: SODIUM CHLORIDE 0.9% 1,000 ML IV SCH ×2 (16:26→23:06)
[2024-08-30] MEDS: DILTIAZEM 5 MG/ML 5 ML VIAL IVP STA (16:27)
--- NOTE | 2024-08-30 16:28 | XR ---
EXAMINATION TYPE: XR chest 2V DATE OF EXAM: 08/30/2024 4:24 PM COMPARISON: Chest radiographs from 09/11/2015 TECHNIQUE: XR chest 2V Frontal and lateral views of the chest. CLINICAL INDICATION:Male, 64 years old with history of Chest Pain; FINDINGS: Lungs/Pleura: No pneumothorax. The left lung is clear. Moderate right pleural effusion with airspace opacities. Pulmonary vascularity: Unremarkable. Heart/mediastinum: Cardiomediastinal silhouette is partially obscured due to overlying and adjacent o pacities. Musculoskeletal: No acute osseous pathology. IMPRESSION: Moderate right pleural effusion with airspace opacities concerning for atelectasis versus pneumonia. Underlying mass is not excluded. Continued follow-up is recommended. [facility], , 08/30/2024 4:26 PM
[2024-08-30 16:31] LABS: INR 1.2 (<1.2); Partial Thromboplastin Time 27.8 sec (22.0-30.0); Prothrombin Time 13.1 sec (10.0-12.5)
[2024-08-30 16:35] LABS: Chloride 98 mmol/L (98-107); Glucose 163 mg/dL (74-99)
[2024-08-30 16:36] LABS: ALT 8 U/L (4-49); African American GFR (CKD) >90 (>60 ml/min/1.73 sqM); Anion Gap 12 mmol/L; Blood Urea Nitrogen 24 mg/dL (9-20); Calcium 9.1 mg/dL (8.4-10.2); Carbon Dioxide 23 mmol/L (22-30); Lipase 16 U/L (23-300); Non-African American GFR(CKD) >90 (>60 ml/min/1.73 sqM); Sodium 133 mmol/L (137-145); Total Bilirubin 3.6 mg/dL (0.2-1.3)
[2024-08-30 16:44] LABS: NT-Pro-B-Type Natriuretic Pept 457 pg/mL
[2024-08-30] MEDS: ACETAMINOPHEN IV (For NPO) 1,000 MG in EMPTY BAG 1 BAG IVPB STA (16:49)
[2024-08-30 17:02] LABS: AST 39 U/L (17-59); Albumin 4.5 g/dL (3.5-5.0); Alkaline Phosphatase 60 U/L (38-126); Magnesium 1.7 mg/dL (1.6-2.3); Potassium 5.1 mmol/L (3.5-5.1); Total Protein 7.2 g/dL (6.3-8.2)
[2024-08-30 17:15] LABS: Band Neutrophils % 1 %; Monocytes # (M) 4.85 k/uL (0-1.0); Neutrophils # (M) 35.14 k/uL (1.3-7.7); Neutrophils % (M) 86 %; Nucleated Red Blood Cells 0 /100 WBC (0-0); Total Cells Counted 100
[2024-08-30 17:16] LABS: Large Platelets Present; Polychromasia Present
[2024-08-30] MEDS: IBUPROFEN IV 800 MG in SODIUM CHLORIDE 0.9% 250 ML IV ONE (17:17)
[2024-08-30] MEDS: DILTIAZEM 125 MG in DEXTROSE 5% IN WATER 100 ML IV SCH (17:22)
[2024-08-30] MEDS ORDERED: VANCOMYCIN IV PER PHARMACY 1 EACH MISC MISCELLANE PRN (17:45)
[2024-08-30] MEDS ORDERED: ACETAMINOPHEN TAB 325 MG TAB PO PRN (17:56)
[2024-08-30] MEDS ORDERED: NALOXONE 0.4 MG/ML 1 ML VIAL IV PRN (17:56)
[2024-08-30] MEDS: LACTATED RINGERS 1,000 ML IV SCH (18:04)
[2024-08-30] MEDS: PIPERACILLIN-TAZOBACTAM 3.375 GM in SODIUM CHLORIDE 0.9% 100 ML IVPB STA (18:25)
[2024-08-30] MEDS: PANTOPRAZOLE 40 MG/10 ML VIAL IV SCH (18:26)
[2024-08-30] MEDS: VANCOMYCIN 1,500 MG in SODIUM CHLORIDE 0.9% 500 ML 500 ML IVPB STA (19:01)
[2024-08-30 19:03] LABS: Appearance,Urine Cloudy (Clear); Bacteria,Urine Rare /hpf; Bilirubin,Urine Negative (Negative); Blood,Urine Large (Negative); Color,Urine Yellow; Glucose,Urine (UA) Negative (Negative); Ketones,Urine Negative (Negative); Leukocyte Esterase,Urine Negative (Negative); Mucus,Urine Few /hpf; Nitrite,Urine Negative (Negative); PH, Urine 5.5 (5.0-8.0); Protein,Urine 1+ (Negative); RBC,Urine >182 /hpf (0-5); Specific Gravity,Urine 1.025 (1.001-1.035); Squamous Epithelial Cell,Urine 1 /hpf (0-4); WBC,Urine 7 /hpf (0-5)
--- NOTE | 2024-08-30 21:02 | CT ---
EXAMINATION TYPE: CT ChestAbdPelvis w con DATE OF EXAM: 08/30/2024 8:01 PM COMPARISON: 08/13/2014 CLINICAL INDICATION: Male, 64 years old with history of pain, C/o chest/epigastric pain, from [place] . Pain is reproducable, Hx sci TECHNIQUE: CT ChestAbdPelvis w con , with sagittal coronal reformats. If MIP/3-D images were created, there are created on a separate workstation. Contrast used:100ml mL of Isovue 300 with IV Contrast, (none if empty) Oral contrast used: without Oral Contrast (none if empty) CT DLP: 1489.5 mGycm, Automated exposure control for dose reduction was used. FINDINGS: CT CHEST: Portion of the thyroid visualized is normal. There is a moderate large right pleural effusion. Some adjacent compressive atelectasis is present. No enlarged mediastinal or hilar adenopathy is evident. No significant coronary artery calcification s. The ascending aorta diameter at the level of the main pulmonary artery is 3.7 cm. The main pulmonary artery diameter at the bifurcation is 3.[address] ABDOMEN: Liver: Scattered small hypodensities within the liver. These are faintly visualized previously. No si gnificant interval growth Spleen: Normal Pancreas: Normal Adrenal glands: The adrenal glands are normal. Gallbladder: Normal Kidneys: No masses are evident. No hydronephrosis is present. No cysts are present. Punctate calci fication without obstruction may be within the left kidney Aorta: Vascular calcification is within the aorta. Inferior vena cava: Normal. CT PELVIS: There is a very large apical bullous at the rectum. Correlate for fecal impaction. There is air-fille d colon with some additional fecal debris in the ascending colon region There are loops of bowel whic h are incompletely distended or lack oral contrast limiting their evaluation. Appendix: Normal as visualized. Urinary bladder: Decompressed with [place] catheter. Genitourinary structures: Prostate appears unremarkable Osseous structures: No suspicious lytic or sclerotic lesions. There is mild compression deformity of L1. No posterior wall displacement is evident. This is an interval finding from comparison IMPRESSION: 1. Large fecal bolus within the rectum. Correlate for fecal impaction. 2. Large right pleural fluid with compressive atelectasis in the right lung. [facility], , 08/30/2024 8:59 PM
[2024-08-31 01:16] LABS: Glucose,Whole Blood 136 mg/dL (70-110)
[2024-08-31] MEDS: MORPHINE SULFATE 4 MG/ML SYRINGE IV PRN (01:21)
[2024-08-31] MEDS: DILTIAZEM 5 MG/ML 5 ML VIAL IVP STA (01:25)
[2024-08-31] MEDS: DILTIAZEM 125 MG in DEXTROSE 5% IN WATER 100 ML IV SCH (01:26)
[2024-08-31] MEDS: METOPROLOL TARTRATE 25 MG TAB PO SCH (01:49)
[2024-08-31] MEDS: PIPERACILLIN-TAZOBACTAM 3.375 GM in SODIUM CHLORIDE 0.9% 100 ML IVPB SCH (02:04)
[2024-08-31] MEDS ORDERED: guaiFENesin SYRUP 100MG/5ML 200 MG/10 ML CUP PO PRN (02:41)
[2024-08-31] MEDS ORDERED: LACTULOSE 20 GM/30 ML CUP PO PRN (02:41)
[2024-08-31] MEDS ORDERED: MAG HYDROX/AL HYDROX/SIMETH 30 ML CUP PO PRN (02:41)
[2024-08-31] MEDS ORDERED: NA PHOS,M-B/NA PHOS,DI-BA 133 ML ENEMA RECTAL PRN (02:41)
[2024-08-31] MEDS ORDERED: bisacodyL 10 MG SUPP RECTAL PRN (02:41)
[2024-08-31] MEDS: QUEtiapine 100 MG TAB PO STA (02:55)
[2024-08-31] MEDS: CARBIDOPA-LEVODOPA 25-100 MG 1 EACH TAB PO SCH (02:56)
[2024-08-31 04:51] LABS: Glucose,Whole Blood 138 mg/dL (70-110)
--- NOTE | 2024-08-31 05:06 | XR ---
EXAM: XR Chest, 1 View CLINICAL HISTORY: ITS.REASON XR Reason: chest pain TECHNIQUE: Frontal view of the chest. COMPARISON: Chest x-ray and CT dated 08/30/2024 FINDINGS: See Impression. IMPRESSION: 1. No significant interval change. 2. Large right pleural effusion with minimal aeration of the right lung. Mild leftward mediastinal shift.
[2024-08-31 05:21] LABS: Glucose,Whole Blood 120 mg/dL (70-110)
[2024-08-31 05:24] LABS: ALT <6 U/L (4-49); AST 19 U/L (17-59); African American GFR (CKD) >90 (>60 ml/min/1.73 sqM); Albumin 2.7 g/dL (3.5-5.0); Alkaline Phosphatase 41 U/L (38-126); Anion Gap 8 mmol/L; Blood Urea Nitrogen 23 mg/dL (9-20); Calcium 8.1 mg/dL (8.4-10.2); Carbon Dioxide 20 mmol/L (22-30); Chloride 105 mmol/L (98-107); Glucose 118 mg/dL (74-99); Magnesium 1.6 mg/dL (1.6-2.3); Non-African American GFR(CKD) >90 (>60 ml/min/1.73 sqM); Phosphorus 3.4 mg/dL (2.5-4.5); Potassium 4.2 mmol/L (3.5-5.1); Sodium 133 mmol/L (137-145); Total Bilirubin 2.5 mg/dL (0.2-1.3); Total Protein 4.9 g/dL (6.3-8.2)
[2024-08-31] MEDS: NOREPINEPHRINE 8 MG in SODIUM CHLORIDE 0.9% 250 ML IV SCH (05:31)
[2024-08-31 05:45] LABS: Basophils # (A) 0.05 10*3/uL (0.00-0.10); Basophils % (A) 0.2 %; Eosinophils # (A) 0.02 10*3/uL (0.04-0.35); Eosinophils % (A) 0.1 %; HCT 27.1 % (39.6-50.0); Lymphocytes # (A) 0.63 10*3/uL (0.90-5.00); Lymphocytes % (A) 2.7 %; MCH 28.7 pg (27.0-32.0); MCHC 33.9 g/dL (32.0-37.0); MCV 84.4 fL (80.0-97.0); Mean Platelet Volume 9.9 fL (9.5-12.2); Monocytes # (A) 2.31 10*3/uL (0.20-1.00); Monocytes % (A) 9.8 %; Neutrophils # (A) 20.13 10*3/uL (1.80-7.70); Neutrophils % (A) 85.8 %; Platelet Count 184 10*3/uL (140-440); RBC 3.21 10*6/uL (4.40-5.60); RDW 19.9 % (11.5-14.5); WBC 23.48 10*3/uL (4.50-10.00)
[2024-08-31 05:46] LABS: HGB 9.2 g/dL (13.0-17.0)
[2024-08-31] MEDS: VANCOMYCIN 1,500 MG in SODIUM CHLORIDE 0.9% 500 ML 500 ML IVPB SCH ×2 (06:24→06:40)
--- NOTE | 2024-08-31 06:38 | P.CNPUL ---
History of Present Illness Consult date: 08/31/24 Requesting physician: Aleks Gray Reason for consult: other (Hypotension, ICU management) Chief complaint: Altered mental status, abdominal pain History of present illness: Patient is a 64-year-old male with past medical history significant for schizoaffective disorder, bipolar disorder, hyperlipidemia. Patient is a poor historian. He has a public guardian and resides at an [facility]. I am seeing this patient in new consultation today 08/31/2024 following rapid response called earlier this morning for hypotension and tachycardia. Patient actually brought into the emergency department yesterday afternoon from by EMS. He was confused. Complaining of abdominal/chest pain. Patient was hypotensive, tachycardic, tachypneic, and febrile. He was fluid bolused with a total of 2 L of normal saline and 2 L of lactated Ringer's. Normal saline continues at 130 mL/hr. Previously, started on a Cardizem infusion, but then became hypotensive. Heart rate recorded as high as 156 bpm. Cardizem infusion has since been discontinued. He was also given 25 mg of metoprolol. Now, patient is less tachycardic and remains hypotensive. Recommending the patient be started on norepinephrine infusion for blood pressure support and transferred to the intensive care unit. Previously started on antibiotics in the form of Zosyn and vancomycin. Following a rapid response, patient was transferred to the intensive care unit. He is in a moderate amount of distress. Tachypneic breathing in 30s to 40s. On 3 L/min nasal cannula. He has since been started on norepinephrine which is infusing at 0.03 mcg/kg/min. Current blood pressure 117/79 mmHg. Heart rhythm appears sinus tachycardia on bedside monitor, with a rate of 109 bpm. Abdomen is firm and distended. Does not appear particularly tender. No nausea or vomiting. CT of chest, abdomen, pelvis remarkable for large fecal bolus and fecal impaction. Also, large right pleural effusion with compressive atelectasis. Labs including a CBC with a WBC count of 40.4, hemoglobin 13.5, platelets 322. CMP: Sodium 133, potassium 4.2, chloride 105, serum bicarb 20, BUN 23, creatinine 0.73, glucose 118. LFTs not elevated. Total bilirubin 3.6. Lactic was 2.6 and is down to 0.9. Serial troponins less than 0.012 x 2. EKG: sinus tachycardia, rate 148 bpm. NT proBNP 457. Urinalysis fairly unremarkable. 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 History of Any Multi-Drug Resistant Organisms: None Reported Past Surgical History: Cholecystectomy, Hernia Repair Past Anesthesia/Blood Transfusion Reactions: No Reported Reaction Past Psychological History: Anxiety, Bipolar, Depression, Schizoaffective Disorder Smoking Status: Never smoker Past Alcohol Use History: None Reported Past Drug Use History: None Reported - Past Family History Mother Family Medical History: Myocardial Infarction ([place]) Additional Family Medical History / Comment(s): Mother of a [place] at age 70 yrs. Father Family Medical History: Hypertension Additional Family Medical History / Comment(s): Father is alive and 76 yrs old. Medications and Allergies Home Medications Medication Instructions Recorded Confirmed Type Ergocalciferol (Vitamin D2) 1,250 mcg PO WE@0808/21/23 08/30/24 History [Drisdol (50,000 Iu)] Atorvastatin [Lipitor] 20 mg PO HS@209903/01/24 08/30/24 History Escitalopram Oxalate [Lexapro] 10 mg PO HS@209903/01/24 08/30/24 History Loratadine 10 mg PO HS@209903/01/24 08/30/24 History Pantoprazole [Protonix] 40 mg PO HS@209903/01/24 08/30/24 History Acetaminophen Tab [Tylenol] 650 mg PO Q4H PRN 08/30/24 08/30/24 History Carbidopa-Levodopa 25-100 mg 2 tab PO QID 08/30/24 08/30/24 History [Sinemet 25-100 mg] Cyanocobalamin [Vitamin B-12] 1,000 mcg PO DAILY@0800 08/30/24 08/30/24 History Lactulose [Constulose] 10 gm PO Q12H PRN 08/30/24 08/30/24 History [place] Carbonate ER [Lithobid] 450 mg PO HS@209908/30/24 08/30/24 History Mag Hydrox/Al Hydrox/Simeth 15 ml PO Q6H PRN 08/30/24 08/30/24 History [Maalox] Magnesium Hydroxide [Milk of 7,200 mg PO DAILY PRN 08/30/24 08/30/24 History Magnesia Concentrate] Na Phos,M-B/Na Phos,Di-Ba [Fleet 133 ml RECTAL DAILY PRN 08/30/24 08/30/24 History Adult] QUEtiapine FUMARATE [SEROquel] 300 mg PO HS@209908/30/24 08/30/24 History bisacodyL [Dulcolax] 10 mg RECTAL DAILY PRN 08/30/24 08/30/24 History guaiFENesin SYRUP 100MG/5ML 200 mg PO Q4H PRN 08/30/24 08/30/24 History [Robitussin] Allergies Allergy/AdvReac Type Severity Reaction Status Date / Time onion Allergy Unknown Verified 08/30/24 18:13 Physical Exam Vitals: Vital Signs Temp Pulse Resp BP Pulse Ox 08/31/24 04:18 92 79/57 08/31/24 03:00 99 142/61 08/31/24 02:30 137 H 143/80 08/31/24 01:52 98.9 F 08/31/24 01:47 156 H 147/65 08/31/24 01:38 155 H 24 166/112 95 08/30/24 23:01 105 H 18 119/78 96 08/30/24 22:33 98.3 F 109 H 18 135/91 95 08/30/24 19:54 115 H 20 138/81 93 L 08/30/24 17:51 99.5 F 112 H 16 111/81 08/30/24 15:37 100.8 F H 154 H 30 H 147/100 91 L Intake and Output 08/30/24 08/30/24 08/31/24 14:59 22:59 06:59 Intake Total 24.917 Output Total 100 300 Balance -100 -275.083 Intake: Intake, IV Titration 24.917 Amount Diltiazem 125 mg In 24.917 Dextrose 5% in Water 100 ml @ 10 MG/HR 10 mls/hr IV .[id number] [facility] Rx#: [id number] Output: Urine 100 300 Uretheral ([place]) 100 300 Other: Weight 88.451 kg GENERAL EXAM: Anxious, 64-year-old male, tachypneic, and in a moderate amount of respiratory distress. HEAD: Normocephalic and atraumatic EYES: Normal reaction of pupils, equal size. NOSE: Clear with pink turbinates. THROAT: No erythema or exudates. Poor dentition. NECK: No masses, no JVD. CHEST: No chest wall deformity. LUNGS: Equal air entry with diminished right basilar lung sounds. On 3 L/min nasal cannula. Tachypneic. Speaking in short phrases. CVS: S1 and S2 normal with no audible murmur, regular rhythm. No extra heart sounds ABDOMEN: Abdomen is distended and firm, active bowel sounds, no appreciated organomegaly, no guarding or rigidity. SPINE: No scoliosis or deformity SKIN: No rashes CENTRAL NERVOUS SYSTEM: No focal deficits, tone is normal in all 4 extremities. EXTREMITIES: There is no peripheral edema, clubbing, or cyanosis. Peripheral pulses are intact. Results - Laboratory Findings CBC and BMP: 08/31/24 04:52 08/31/24 04:52 PT/INR, D-dimer PT 13.1 sec (10.0-12.5) H 08/30/24 16:11 INR 1.2 (<1.2) H 08/30/24 16:11 Abnormal lab findings: Abnormal Labs 08/30/24 08/30/24 08/30/24 16:04 16:11 16:11 WBC 40.40 H Hct 39.5 L Immature Gran # 0.35 H Neutrophils # (Manual) 35.14 H Lymphocytes # (Manual) 0.40 L Monocytes # (Manual) 4.85 H PT 13.1 H INR 1.2 H Sodium Carbon Dioxide BUN Glucose POC Glucose (mg/dL) Plasma Lactic Acid Burt 2.6 H* Calcium Total Bilirubin Total Protein Albumin Lipase Urine Protein Urine Blood Urine RBC Urine WBC Urine Bacteria Urine Mucus 08/30/24 08/30/24 08/31/24 16:11 18:43 01:14 WBC Hct Immature Gran # Neutrophils # (Manual) Lymphocytes # (Manual) Monocytes # (Manual) PT INR Sodium 133 L Carbon Dioxide BUN 24 H Glucose 163 H POC Glucose (mg/dL) 136 H Plasma Lactic Acid Burt Calcium Total Bilirubin 3.6 H Total Protein Albumin Lipase 16 L Urine Protein 1+ H Urine Blood Large H Urine RBC >182 H Urine WBC 7 H Urine Bacteria Rare H Urine Mucus Few H 08/31/24 08/31/24 08/31/24 04:50 04:52 05:19 WBC Hct Immature Gran # Neutrophils # (Manual) Lymphocytes # (Manual) Monocytes # (Manual) PT INR Sodium 133 L Carbon Dioxide 20 L BUN 23 H Glucose 118 H POC Glucose (mg/dL) 138 H 120 H Plasma Lactic Acid Burt Calcium 8.1 L Total Bilirubin 2.5 H Total Protein 4.9 L Albumin 2.7 L Lipase Urine Protein Urine Blood Urine RBC Urine WBC Urine Bacteria Urine Mucus - Diagnostic Findings Chest x-ray: image reviewed CT scan - chest: image reviewed Assessment and Plan Assessment: Right-sided pleural effusion with associated compressive atelectasis Acute hypoxemic respiratory failure, currently on 3 L/min nasal cannula, secondary to above Abdominal pain and fecal impaction; CT of abdomen, pelvis remarkable for large fecal bolus and fecal impaction. Hypotension and shock, suspect sepsis/septic shock Sinus tachycardia Acute leukocytosis SIRS/sepsis criteria met History of schizoaffective disorder, bipolar disorder History of hyperlipidemia Plan: Blood pressure hypotensive despite aggressive fluid resuscitation, a total of 4 L crystalloid fluids bolus so far. Transferred to the intensive care unit, started on norepinephrine to maintain MAP 65 mmHg or greater Continue empiric antibiotics Blood cultures are pending Obtain ultrasound of chest for right-sided thoracentesis Continue supplemental oxygen Transthoracic echocardiogram ordered General Surgery consulted Condition currently critical, prognosis is guarded secondary to above-mentioned comorbidities. I have personally seen and examined the patient, performed the documentation and the assessment and plan as written. Number of minutes spent on the visit:20 Time with Patient: Greater than 30
[2024-08-31] MEDS ORDERED: PIPERACILLIN-TAZOBACTAM 3.375 GM in SODIUM CHLORIDE 0.9% 100 ML IVPB SCH (08:00)
[2024-08-31] MEDS: HEPARIN SODIUM,PORCINE 5,000 UNIT/ML 1 ML VIAL SQ SCH (08:24)
[2024-08-31] MEDS: CYANOCOBALAMIN 500 MCG TAB PO SCH (08:25)
--- NOTE | 2024-08-31 08:27 | US ---
EXAMINATION TYPE: US chest DATE OF EXAM: 08/31/2024 COMPARISON: None CLINICAL INDICATION: Male, 64 years old with history of right pleural effusion; TECHNIQUE: Grayscale imaging of the chest. Targeted ultrasound of the posterior lower right hemithor ax FINDINGS: EXAM MEASUREMENTS: Right Pleural Effusion pocket size: 11.8 cm Right skin surface to fluid distance: 3.7 cm Septations/loculated fluid collection Right side marked for possible thoracentesis outside the dept. Pulmonologists are able to review the images in the patient?s EMR. IMPRESSIONS: 1. Complex right pleural effusion [facility] Juan Francisco Vazquez, , 08/31/2024 8:24 AM
[2024-08-31 11:04] LABS: Total Protein 5.2 g/dL (6.3-8.2)
[2024-08-31] MEDS: ERGOCALCIFEROL 1,250 MCG (50,000 IU) CAPSULE PO SCH (11:08)
--- NOTE | 2024-08-31 11:14 | P.CRDCN ---
History of Present Illness History of present illness: HISTORY OF PRESENTING ILLNESS This is a pleasant 64-year-old male past medical history significant for dyslipidemia and schizophrenia. He denies prior history of coronary artery disease and does not follow with a rd project manager. We have been asked to see in consultation for atrial fibs. She presented to the hospital with shortness of breath and was found to have a significant right pleural effusion and sepsis. EKGs and telemetry tracings reviewed. There is no atrial fibrillation all sinus tachycardia. He is in the intensive care unit and having a chest tube inserted today. He takes no antihypertensive medication. He is somewhat of a poor historian but does answer questions appropriately when prompted. Echocardiogram obtained and will be reviewed. He is on a small dose of Levophed. REVIEW OF SYSTEMS At the time of my exam: CONSTITUTIONAL: Denies fever or chills. CARDIOVASCULAR: Denies chest pain, shortness of breath, orthopnea, PND or palpitations. RESPIRATORY: Denies cough. GASTROINTESTINAL: Denies abdominal pain, diarrhea, constipation, nausea or vomiting. MUSCULOSKELETAL: Denies myalgias. NEUROLOGIC: Denies numbness, tingling, headache or weakness. ENDOCRINE: Denies fatigue, weight change, polydipsia or polyurina. GENITOURINARY: Denies burning, hematuria or urgency with micturation. HEMATOLOGIC: Denies history of anemia or bleeding. PHYSICAL EXAMINATION Blood pressure 105/60 heart rate 147 afebrile and maintaining oxygen saturation on nasal cannula. CONSTITUTIONAL: Anxious. HEENT: Head is normocephalic. Pupils are equal, round. Sclerae anicteric. Mucous membranes of the mouth are moist. No JVD. No carotid bruit. CHEST EXAMINATION: Right lung sounds diminished with rales, no wheezes or rhonchi. No chest wall tenderness is noted on palpation or with deep breathing. HEART EXAMINATION: Regular rate and rhythm. Tachycardic. S1, S2 heard. No murmurs, gallops or rub. ABDOMEN: Soft, nontender. EXTREMITIES: 2+ peripheral pulses, no lower extremity edema and no calf tenderness. NEUROLOGIC EXAMINATION: Patient is awake, alert. ASSESSMENT Sinus tachycardia Right pleural effusion PLAN Wean Levophed as tolerated. Initiate metoprolol succinate 25 mg daily to start this afternoon after chest tube insertion. Echocardiogram will be reviewed. Thank you kindly for this consultation we will continue to follow as needed. Please call with further questions or concerns. Nurse Practitioner note has been reviewed, I agree with a documented findings and plan of care. Patient was seen and examined. 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 History of Any Multi-Drug Resistant Organisms: None Reported Past Surgical History: Cholecystectomy, Hernia Repair Past Anesthesia/Blood Transfusion Reactions: No Reported Reaction Past Psychological History: Anxiety, Bipolar, Depression, Schizoaffective Disorder Smoking Status: Never smoker Past Alcohol Use History: None Reported Past Drug Use History: None Reported - Past Family History Mother Family Medical History: Myocardial Infarction ([place]) Additional Family Medical History / Comment(s): Mother of a [place] at age 70 yrs. Father Family Medical History: Hypertension Additional Family Medical History / Comment(s): Father is alive and 76 yrs old. Medications and Allergies Home Medications Medication Instructions Recorded Confirmed Type Ergocalciferol (Vitamin D2) 1,250 mcg PO WE@0808/21/23 08/30/24 History [Drisdol (50,000 Iu)] Atorvastatin [Lipitor] 20 mg PO HS@209903/01/24 08/30/24 History Escitalopram Oxalate [Lexapro] 10 mg PO HS@209903/01/24 08/30/24 History Loratadine 10 mg PO HS@209903/01/24 08/30/24 History Pantoprazole [Protonix] 40 mg PO HS@209903/01/24 08/30/24 History Acetaminophen Tab [Tylenol] 650 mg PO Q4H PRN 08/30/24 08/30/24 History Carbidopa-Levodopa 25-100 mg 2 tab PO QID 08/30/24 08/30/24 History [Sinemet 25-100 mg] Cyanocobalamin [Vitamin B-12] 1,000 mcg PO DAILY@0800 08/30/24 08/30/24 History Lactulose [Constulose] 10 gm PO Q12H PRN 08/30/24 08/30/24 History [place] Carbonate ER [Lithobid] 450 mg PO HS@209908/30/24 08/30/24 History Mag Hydrox/Al Hydrox/Simeth 15 ml PO Q6H PRN 08/30/24 08/30/24 History [Maalox] Magnesium Hydroxide [Milk of 7,200 mg PO DAILY PRN 08/30/24 08/30/24 History Magnesia Concentrate] Na Phos,M-B/Na Phos,Di-Ba [Fleet 133 ml RECTAL DAILY PRN 08/30/24 08/30/24 History Adult] QUEtiapine FUMARATE [SEROquel] 300 mg PO HS@2100 08/30/24 08/30/24 History bisacodyL [Dulcolax] 10 mg RECTAL DAILY PRN 08/30/24 08/30/24 History guaiFENesin SYRUP 100MG/5ML 200 mg PO Q4H PRN 08/30/24 08/30/24 History [Robitussin] Allergies Allergy/AdvReac Type Severity Reaction Status Date / Time onion Allergy Unknown Verified 08/30/24 18:13 Physical Exam Vitals: Vital Signs Temp Pulse Pulse Resp BP Pulse Ox 08/31/24 09:30 147 H 30 H 105/60 97 08/31/24 09:15 131 H 28 H 97/67 98 08/31/24 09:00 129 H 31 H 118/72 96 08/31/24 08:45 129 H 37 H 96/69 95 08/31/24 08:30 130 H 24 96/68 95 08/31/24 08:15 118 H 18 89/65 98 08/31/24 08:00 97.5 F L 115 H 18 105/74 95 08/31/24 07:45 120 H 10 L 96/67 08/31/24 07:30 118 H 37 H 94/81 08/31/24 07:15 128 H 28 H 91/58 96 08/31/24 07:00 112 H 30 H 89/62 97 08/31/24 06:45 112 H 28 H 95/64 96 08/31/24 06:30 112 H 28 H 90/68 96 08/31/24 06:15 108 H 28 H 87/68 95 08/31/24 06:08 110 H 32 H 08/31/24 06:00 106 H 18 117/76 94 L 08/31/24 05:45 112 H 20 85/60 92 L 08/31/24 05:30 98.7 F 101 H 18 85/74 94 L 08/31/24 04:18 92 79/57 08/31/24 03:00 99 142/61 08/31/24 02:30 137 H 143/80 08/31/24 01:52 98.9 F 08/31/24 01:47 156 H 147/65 08/31/24 01:38 155 H 24 166/112 95 08/30/24 23:01 105 H 18 119/78 96 08/30/24 22:33 98.3 F 109 H 18 135/91 95 08/30/24 19:54 115 H 20 138/81 93 L 08/30/24 17:51 99.5 F 112 H 16 111/81 08/30/24 15:37 100.8 F H 154 H 30 H 147/100 91 L Intake and Output 08/30/24 08/31/24 08/31/24 22:59 06:59 14:59 Intake Total 124.917 17.887 Output Total 100 350 85 Balance -100 -225.083 -67.113 Intake: Intake, IV Titration 124.917 17.887 Amount Diltiazem 125 mg In 24.917 Dextrose 5% in Water 100 ml @ 10 MG/HR 10 mls/hr IV .[id number] [facility] Rx#: [id number] Norepinephrine 8 mg In 17.887 Sodium Chloride 0.9% 250 ml @ 0.03 MCG/KG/MIN 5. 135 mls/hr IV .Q24H [facility] Rx#:[id number] Piperacillin-Tazobactam 3 100 .375 gm In Sodium Chloride 0.9% 100 ml @ 25 mls/hr IVPB Q8H [facility] Rx#: [id number] Output: Urine 100 350 85 Uretheral ([place]) 100 300 Other: Voiding Method Indwelling Catheter Indwelling Catheter Weight 88.451 kg 88.451 kg Results 08/31/24 04:52 08/31/24 04:52 Cardiac Enzymes 08/30/24 08/30/24 08/31/24 Range/Units 16:11 16:11 01:30 AST 39 (17-59) U/L Lactate Dehydrogenase (120-246) U/L Troponin I <0.012 <0.012 (0.000-0.034) ng/mL 08/31/24 08/31/24 Range/Units 04:52 10:23 AST 19 (17-59) U/L Lactate Dehydrogenase 183 (120-246) U/L Troponin I (0.000-0.034) ng/mL Coagulation 08/30/24 Range/Units 16:11 PT 13.1 H (10.0-12.5) sec APTT 27.8 (22.0-30.0) sec CBC 08/30/24 08/31/24 Range/Units 16:11 04:52 WBC 40.40 H 23.48 H (4.50-10.00) 10*3/uL RBC 4.84 3.21 L (4.40-5.60) 10*6/uL Hgb 13.5 9.2 L D (13.0-17.0) g/dL Hct 39.5 L 27.1 L (39.6-50.0) % Plt Count 322 184 (140-440) 10*3/uL Comprehensive Metabolic Panel 08/30/24 08/31/24 08/31/24 Range/Units 16:11 04:52 10:23 Sodium 133 L 133 L (137-145) mmol/L Potassium 5.1 4.2 (3.5-5.1) mmol/L Chloride 98 105 (98-107) mmol/L Carbon Dioxide 23 20 L (22-30) mmol/L BUN 24 H 23 H (9-20) mg/dL Creatinine 0.68 0.73 (0.66-1.25) mg/dL Glucose 163 H 118 H (74-99) mg/dL Calcium 9.1 8.1 L (8.4-10.2) mg/dL AST 39 19 (17-59) U/L ALT 8 <6 (4-49) U/L Alkaline Phosphatase 60 41 (38-126) U/L Total Protein 7.2 4.9 L 5.2 L (6.3-8.2) g/dL Albumin 4.5 2.7 L (3.5-5.0) g/dL Current Medications Generic Name Dose Route Start Last Admin Trade Name Freq PRN Reason Stop Dose Admin Acetaminophen 650 mg 08/31/24 02:41 Acetaminophen Tab 325 Mg Tab PO Q6HR PRN Fever Al Hydroxide/Mg Hydroxide 15 ml 08/31/24 02:41 Mag Hydrox/Al Hydrox/Simeth 30 Ml Cup PO Q6H PRN Heartburn/Indigestion Atorvastatin Calcium 20 mg 08/31/24 21:00 Atorvastatin 20 Mg Tab PO HS [facility] Bisacodyl 10 mg 08/31/24 02:41 Bisacodyl 10 Mg Supp RECTAL DAILY PRN Constipation Carbidopa/Levodopa 2 each 08/31/24 02:45 08/31/24 08:25 Carbidopa-Levodopa 25-100 Mg 1 Each Tab PO 2 each QID [facility] Administration Cyanocobalamin 1,000 mcg 08/31/24 09:00 08/31/24 08:25 Cyanocobalamin 500 Mcg Tab PO 1,000 mcg DAILY [facility] Administration Ergocalciferol 1,250 mcg 08/31/24 09:00 Ergocalciferol 1,250 Mcg (50,000 Iu) Capsule PO We [facility] Escitalopram Oxalate 10 mg 08/31/24 21:00 Escitalopram 10 Mg Tab PO HS [facility] Guaifenesin 200 mg 08/31/24 02:41 Guaifenesin Syrup 100mg/5ml 200 Mg/10 Ml Cup PO Q4H PRN Cough Heparin Sodium (Porcine) 5,000 unit 08/31/24 09:00 08/31/24 08:24 Heparin Sodium,Porcine 5,000 Unit/Ml 1 Ml Vial SQ 5,000 unit Q12HR [facility] Administration Sodium Chloride 1,000 mls @ 75 mls/hr 08/30/24 18:00 08/31/24 11:07 Saline 0.9% IV 75 mls/hr .[id number] [facility] Administration Piperacillin Sod/Tazobactam 100 mls @ 25 mls/hr 08/31/24 02:00 08/31/24 02:04 Sod 3.375 gm/ Sodium Chloride IVPB 25 mls/hr Q8H [facility] Administration Protocol Diltiazem HCl 125 mg/ Dextrose 125 mls @ 10 mls/hr 08/31/24 01:30 08/31/24 04:15 /Water IV 0 mg/hr .[id number] [facility] 0 mls/hr Titration Protocol 10 MG/HR Norepinephrine Bitartrate 8 mg 258 mls @ 5.135 mls/hr 08/31/24 05:15 08/31/24 09:00 / Sodium Chloride IV 0.02 mcg/kg/min .Q24H [facility] 3.423 mls/hr Titration Protocol 0.03 MCG/KG/MIN Vancomycin HCl 1,500 mg/ 500 mls @ 167 mls/hr 08/31/24 07:00 08/31/24 06:40 Sodium Chloride IVPB 167 mls/hr Q8H [facility] Administration Ibuprofen 400 mg 08/30/24 17:56 Ibuprofen 400 Mg Tab PO Q6HR PRN Mild Pain or Fever > 100.5 Lactulose 10 gm 08/31/24 02:41 Lactulose 20 Gm/30 Ml Cup PO Q12H PRN Constipation [place] Carbonate 450 mg 08/31/24 21:00 [place] Carbonate Er 450 Mg Tablet.Er PO HS [facility] Loratadine 10 mg 08/31/24 21:00 Loratadine 10 Mg Tab PO HS [facility] Magnesium Hydroxide 4,800 mg 08/31/24 02:41 Magnesium Hydroxide 2,400 Mg/30 Ml Cup PO DAILY PRN 2 days no bm Metoprolol Tartrate 25 mg 08/31/24 02:00 08/31/24 08:21 Metoprolol Tartrate 25 Mg Tab PO Not Given BID [facility] Morphine Sulfate 4 mg 08/30/24 17:56 08/31/24 01:21 Morphine Sulfate 4 Mg/Ml Syringe IV 4 mg Q4HR PRN Administration Severe Pain (Scale 7 to 10) Naloxone HCl 0.2 mg 08/30/24 17:56 Naloxone 0.4 Mg/Ml 1 Ml Vial IV Q2M PRN Opioid Reversal Ondansetron HCl 4 mg 08/30/24 17:56 Ondansetron 4 Mg/2 Ml Vial IVP Q8HR PRN Nausea And Vomiting Pantoprazole Sodium 40 mg 08/31/24 21:00 Pantoprazole 40 Mg Tablet PO HS [facility] Quetiapine Fumarate 300 mg 08/31/24 21:00 Quetiapine 100 Mg Tab PO HS [facility] Sodium Biphosphate/Sodium Phosphate 133 ml 08/31/24 02:41 Na Phos,M-B/Na Phos,Di-Ba 133 Ml Enema RECTAL DAILY PRN Constipation Intake and Output 08/30/24 08/31/24 08/31/24 22:59 06:59 14:59 Intake Total 124.917 17.887 Output Total 100 350 85 Balance -100 -225.083 -67.113 Intake: Intake, IV Titration 124.917 17.887 Amount Diltiazem 125 mg In 24.917 Dextrose 5% in Water 100 ml @ 10 MG/HR 10 mls/hr IV .[id number] [facility] Rx#: [id number] Norepinephrine 8 mg In 17.887 Sodium Chloride 0.9% 250 ml @ 0.03 MCG/KG/MIN 5. 135 mls/hr IV .Q24H [facility] Rx#:[id number] Piperacillin-Tazobactam 3 100 .375 gm In Sodium Chloride 0.9% 100 ml @ 25 mls/hr IVPB Q8H [facility] Rx#: [id number] Output: Urine 100 350 85 Uretheral ([place]) 100 300 Other: Voiding Method Indwelling Catheter Indwelling Catheter Weight 88.451 kg 88.451 kg 08/31/24 04:52 08/31/24 04:52
--- NOTE | 2024-08-31 11:28 | P.GSCN ---
History of Present Illness Consult date: 08/31/24 History of present illness: CHIEF COMPLAINT: Chest pain HISTORY OF PRESENT ILLNESS: This is a 64-year-old male with history of cognitive deficits. He is a poor historian. He is currently in the ICU with sepsis. He is on a small amount of Levophed. He did have A-fib and was evaluated by cardiology service. Surgical service has been consulted for possible fecal im paction. Patient does have a distended abdomen. A CT scan abdomen pelvis was completed reporting large fecal bolus within the rectum. Correlate for fecal impaction. Also noted a large right pleural effusion with compressive atelectasis in the right lung. Nursing staff reports that patient may have received an enema in the ER with a small bowel movement. 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 anxiety, Bipolar, Depression, Schizoaffective Disorder PAST SURGICAL HISTORY: Cholecystectomy, Hernia Repair MEDICATIONS: See below ALLERGIES: See below SOCIAL HISTORY: No illicit drug use. REVIEW OF SYSTEMS: CONSTITUTIONAL: Denies fever or chills. HEENT: Denies blurred vision, vision changes, or eye pain. Denies hemoptysis CARDIOVASCULAR: Denies chest pain or pressure. RESPIRATORY: No shortness of breath. GASTROINTESTINAL: See HPI for pertinent findings HEMATOLOGIC: Denies bleeding disorders. GENITOURINARY: Denies any blood in urine or increased urinary frequency. SKIN: Denies pruitis. Denies rash. PHYSICAL EXAM: VITAL SIGNS: Reviewed GENERAL: Well-developed in no acute distress. HEENT: No sclera icterus. Extraocular movements grossly intact. Moist buccal mucosa. Head is atraumatic, normocephalic. No nasal drainage. ABDOMEN: Distended. Diffuse tenderness. NEUROLOGIC: awake and alert LABORATORY DATA: WBC 40 down to 23 Hgb 13.5 down to 9.2 platelets 184 Sodium 133 potassium 4.2 creatinine 0.73 Lactic acid 2.6-0.9 IMAGING: CT scan abdomen pelvis was completed reporting large fecal bolus within the rectum. Correlate for fecal impaction. Also noted a large right pleural effusion with compressive atelectasis in the right lung. ASSESSMENT: 1. Fecal impaction PLAN: - Soapsuds enemas x 2 ordered - Plan for sigmoidoscopy tomorrow with Dr. Lazcano - Keep patient n.p.o. Physician Electronic [employer] As[employer] T[employer] note has been reviewed by physician. Signing provider agrees with the documented findings, assessment, and plan of care. 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 History of Any Multi-Drug Resistant Organisms: None Reported Past Surgical History: Cholecystectomy, Hernia Repair Past Anesthesia/Blood Transfusion Reactions: No Reported Reaction Past Psychological History: Anxiety, Bipolar, Depression, Schizoaffective Disorder Smoking Status: Never smoker Past Alcohol Use History: None Reported Past Drug Use History: None Reported - Past Family History Mother Family Medical History: Myocardial Infarction (IA) Additional Family Medical History / Comment(s): Mother of a IA at age 70 yrs. Father Family Medical History: Hypertension Additional Family Medical History / Comment(s): Father is alive and 76 yrs old. Medications and Allergies Home Medications Medication Instructions Recorded Confirmed Type Ergocalciferol (Vitamin D2) 1,250 mcg PO WE@0808/21/23 08/30/24 History [Drisdol (50,000 Iu)] Atorvastatin [Lipitor] 20 mg PO HS@209903/01/24 08/30/24 History Escitalopram Oxalate [Lexapro] 10 mg PO HS@209903/01/24 08/30/24 History Loratadine 10 mg PO HS@209903/01/24 08/30/24 History Pantoprazole [Protonix] 40 mg PO HS@209903/01/24 08/30/24 History Acetaminophen Tab [Tylenol] 650 mg PO Q4H PRN 08/30/24 08/30/24 History Carbidopa-Levodopa 25-100 mg 2 tab PO QID 08/30/24 08/30/24 History [Sinemet 25-100 mg] Cyanocobalamin [Vitamin B-12] 1,000 mcg PO DAILY@0800 08/30/24 08/30/24 History Lactulose [Constulose] 10 gm PO Q12H PRN 08/30/24 08/30/24 History [place] Carbonate ER [Lithobid] 450 mg PO HS@2100 08/30/24 08/30/24 History Mag Hydrox/Al Hydrox/Simeth 15 ml PO Q6H PRN 08/30/24 08/30/24 History [Maalox] Magnesium Hydroxide [Milk of 7,200 mg PO DAILY PRN 08/30/24 08/30/24 History Magnesia Concentrate] Na Phos,M-B/Na Phos,Di-Ba [Fleet 133 ml RECTAL DAILY PRN 08/30/24 08/30/24 History Adult] QUEtiapine FUMARATE [SEROquel] 300 mg PO HS@2100 08/30/24 08/30/24 History bisacodyL [Dulcolax] 10 mg RECTAL DAILY PRN 08/30/24 08/30/24 History guaiFENesin SYRUP 100MG/5ML 200 mg PO Q4H PRN 08/30/24 08/30/24 History [Robitussin] Allergies Allergy/AdvReac Type Severity Reaction Status Date / Time onion Allergy Unknown Verified 08/30/24 18:13 Surgical - Exam Vital Signs Temp Pulse Resp BP Pulse Ox 100.8 F H 154 H 30 H 147/100 91 L 08/30/24 15:37 08/30/24 15:37 08/30/24 15:37 08/30/24 15:37 08/30/24 15:37 Results - Labs 08/31/24 04:52 08/31/24 04:52 Abnormal Lab Results - Last 24 Hours (Table) 08/30/24 08/30/24 08/30/24 Range/Units 16:04 16:11 16:11 WBC 40.40 H (4.50-10.00) 10*3/uL RBC (4.40-5.60) 10*6/uL Hgb (13.0-17.0) g/dL Hct 39.5 L (39.6-50.0) % Immature Gran # 0.35 H (0.00-0.04) 10*3/uL Neutrophils # (1.80-7.70) 10*3/uL Neutrophils # (Manual) 35.14 H (1.3-7.7) k/uL Lymphocytes # (0.90-5.00) 10*3/uL Lymphocytes # (Manual) 0.40 L (1.0-4.8) k/uL Monocytes # (0.20-1.00) 10*3/uL Monocytes # (Manual) 4.85 H (0-1.0) k/uL Eosinophils # (0.04-0.35) 10*3/uL PT 13.1 H (10.0-12.5) sec INR 1.2 H (<1.2) Sodium (137-145) mmol/L Carbon Dioxide (22-30) mmol/L BUN (9-20) mg/dL Glucose (74-99) mg/dL POC Glucose (mg/dL) (70-110) mg/dL Plasma Lactic Acid Burt 2.6 H* (0.7-2.0) mmol/L Calcium (8.4-10.2) mg/dL Total Bilirubin (0.2-1.3) mg/dL Total Protein (6.3-8.2) g/dL Albumin (3.5-5.0) g/dL Lipase (23-300) U/L Urine Protein (Negative) Urine Blood (Negative) Urine RBC (0-5) /hpf Urine WBC (0-5) /hpf Urine Bacteria (None) /hpf Urine Mucus (None) /hpf 08/30/24 08/30/24 08/31/24 Range/Units 16:11 18:43 01:14 WBC (4.50-10.00) 10*3/uL RBC (4.40-5.60) 10*6/uL Hgb (13.0-17.0) g/dL Hct (39.6-50.0) % Immature Gran # (0.00-0.04) 10*3/uL Neutrophils # (1.80-7.70) 10*3/uL Neutrophils # (Manual) (1.3-7.7) k/uL Lymphocytes # (0.90-5.00) 10*3/uL Lymphocytes # (Manual) (1.0-4.8) k/uL Monocytes # (0.20-1.00) 10*3/uL Monocytes # (Manual) (0-1.0) k/uL Eosinophils # (0.04-0.35) 10*3/uL PT (10.0-12.5) sec INR (<1.2) Sodium 133 L (137-145) mmol/L Carbon Dioxide (22-30) mmol/L BUN 24 H (9-20) mg/dL Glucose 163 H (74-99) mg/dL POC Glucose (mg/dL) 136 H (70-110) mg/dL Plasma Lactic Acid Burt (0.7-2.0) mmol/L Calcium (8.4-10.2) mg/dL Total Bilirubin 3.6 H (0.2-1.3) mg/dL Total Protein (6.3-8.2) g/dL Albumin (3.5-5.0) g/dL Lipase 16 L (23-300) U/L Urine Protein 1+ H (Negative) Urine Blood Large H (Negative) Urine RBC >182 H (0-5) /hpf Urine WBC 7 H (0-5) /hpf Urine Bacteria Rare H (None) /hpf Urine Mucus Few H (None) /hpf 08/31/24 08/31/24 08/31/24 Range/Units 04:50 04:52 04:52 WBC 23.48 H (4.50-10.00) 10*3/uL RBC 3.21 L (4.40-5.60) 10*6/uL Hgb 9.2 L D (13.0-17.0) g/dL Hct 27.1 L (39.6-50.0) % Immature Gran # 0.34 H (0.00-0.04) 10*3/uL Neutrophils # 20.13 H (1.80-7.70) 10*3/uL Neutrophils # (Manual) (1.3-7.7) k/uL Lymphocytes # 0.63 L (0.90-5.00) 10*3/uL Lymphocytes # (Manual) (1.0-4.8) k/uL Monocytes # 2.31 H (0.20-1.00) 10*3/uL Monocytes # (Manual) (0-1.0) k/uL Eosinophils # 0.02 L (0.04-0.35) 10*3/uL PT (10.0-12.5) sec INR (<1.2) Sodium 133 L (137-145) mmol/L Carbon Dioxide 20 L (22-30) mmol/L BUN 23 H (9-20) mg/dL Glucose 118 H (74-99) mg/dL POC Glucose (mg/dL) 138 H (70-110) mg/dL Plasma Lactic Acid Burt (0.7-2.0) mmol/L Calcium 8.1 L (8.4-10.2) mg/dL Total Bilirubin 2.5 H (0.2-1.3) mg/dL Total Protein 4.9 L (6.3-8.2) g/dL Albumin 2.7 L (3.5-5.0) g/dL Lipase (23-300) U/L Urine Protein (Negative) Urine Blood (Negative) Urine RBC (0-5) /hpf Urine WBC (0-5) /hpf Urine Bacteria (None) /hpf Urine Mucus (None) /hpf 08/31/24 08/31/24 Range/Units 05:19 10:23 WBC (4.50-10.00) 10*3/uL RBC (4.40-5.60) 10*6/uL Hgb (13.0-17.0) g/dL Hct (39.6-50.0) % Immature Gran # (0.00-0.04) 10*3/uL Neutrophils # (1.80-7.70) 10*3/uL Neutrophils # (Manual) (1.3-7.7) k/uL Lymphocytes # (0.90-5.00) 10*3/uL Lymphocytes # (Manual) (1.0-4.8) k/uL Monocytes # (0.20-1.00) 10*3/uL Monocytes # (Manual) (0-1.0) k/uL Eosinophils # (0.04-0.35) 10*3/uL PT (10.0-12.5) sec INR (<1.2) Sodium (137-145) mmol/L Carbon Dioxide (22-30) mmol/L BUN (9-20) mg/dL Glucose (74-99) mg/dL POC Glucose (mg/dL) 120 H (70-110) mg/dL Plasma Lactic Acid Burt (0.7-2.0) mmol/L Calcium (8.4-10.2) mg/dL Total Bilirubin (0.2-1.3) mg/dL Total Protein 5.2 L (6.3-8.2) g/dL Albumin (3.5-5.0) g/dL Lipase (23-300) U/L Urine Protein (Negative) Urine Blood (Negative) Urine RBC (0-5) /hpf Urine WBC (0-5) /hpf Urine Bacteria (None) /hpf Urine Mucus (None) /hpf Diabetes panel 08/30/24 08/31/24 08/31/24 Range/Units 16:11 04:52 10:23 Sodium 133 L 133 L (137-145) mmol/L Potassium 5.1 4.2 (3.5-5.1) mmol/L Chloride 98 105 (98-107) mmol/L Carbon Dioxide 23 20 L (22-30) mmol/L BUN 24 H 23 H (9-20) mg/dL Creatinine 0.68 0.73 (0.66-1.25) mg/dL Glucose 163 H 118 H (74-99) mg/dL Calcium 9.1 8.1 L (8.4-10.2) mg/dL AST 39 19 (17-59) U/L ALT 8 <6 (4-49) U/L Alkaline Phosphatase 60 41 (38-126) U/L Total Protein 7.2 4.9 L 5.2 L (6.3-8.2) g/dL Albumin 4.5 2.7 L (3.5-5.0) g/dL Calcium panel 08/30/24 08/31/24 Range/Units 16:11 04:52 Calcium 9.1 8.1 L (8.4-10.2) mg/dL Phosphorus 3.4 (2.5-4.5) mg/dL Albumin 4.5 2.7 L (3.5-5.0) g/dL Pituitary panel 08/30/24 08/31/24 Range/Units 16:11 04:52 Sodium 133 L 133 L (137-145) mmol/L Potassium 5.1 4.2 (3.5-5.1) mmol/L Chloride 98 105 (98-107) mmol/L Carbon Dioxide 23 20 L (22-30) mmol/L BUN 24 H 23 H (9-20) mg/dL Creatinine 0.68 0.73 (0.66-1.25) mg/dL Glucose 163 H 118 H (74-99) mg/dL Calcium 9.1 8.1 L (8.4-10.2) mg/dL Adrenal panel 08/30/24 08/31/24 08/31/24 Range/Units 16:11 04:52 10:23 Sodium 133 L 133 L (137-145) mmol/L Potassium 5.1 4.2 (3.5-5.1) mmol/L Chloride 98 105 (98-107) mmol/L Carbon Dioxide 23 20 L (22-30) mmol/L BUN 24 H 23 H (9-20) mg/dL Creatinine 0.68 0.73 (0.66-1.25) mg/dL Glucose 163 H 118 H (74-99) mg/dL Calcium 9.1 8.1 L (8.4-10.2) mg/dL Total Bilirubin 3.6 H 2.5 H (0.2-1.3) mg/dL AST 39 19 (17-59) U/L ALT 8 <6 (4-49) U/L Alkaline Phosphatase 60 41 (38-126) U/L Total Protein 7.2 4.9 L 5.2 L (6.3-8.2) g/dL Albumin 4.5 2.7 L (3.5-5.0) g/dL
[2024-08-31] MEDS: HYDROmorphone 1 MG/ML 1 ML SYRINGE IVP STA (12:30)
--- NOTE | 2024-08-31 12:56 | XR ---
EXAMINATION TYPE: XR chest 1V portable DATE OF EXAM: 08/31/2024 12:39 PM COMPARISON: 08/31/2024 CLINICAL INDICATION: Male, 64 years old with history of post chest tube insertion, TECHNIQUE: XR chest 1V portable view(s) obtained. FINDINGS: The heart size is prominent. The pulmonary vasculature is normal. There is a small amount of residual airspace on the right. Large pleural effusion likely present. Reina st tube is in place at the right lung base. IMPRESSION: 1. Placement of a chest tube in the right lower thorax. 2. Large opacification of the right lung likely a large effusion or empyema. Follow-up recommended. [facility], , 08/31/2024 12:54 PM
--- NOTE | 2024-08-31 15:45 | US ---
EXAMINATION TYPE: US guided chest tube insertion DATE OF EXAM: 08/31/2024 11:36 AM CLINICAL INDICATION:Male, 64 years old with history of right pleural effusion or pleural fluid collec tion COMPARISON: CT August 30, 2024. Chest ultrasound today. TECHNIQUE: Ultrasound-guided chest tube insertion. PROCEDURE: Informed consent was obtained. Safe access in the right pleural effusion was identified via ultrasoun d after reviewing recent CT and ultrasound. The safest allowable access to the right posterior pleura l space. The patient was then prepped and draped in the usual sterile fashion. Local anesthesia was p rovided with lidocaine. Trocar technique was used with a pigtail catheter placed into right-sided pl eural fluid collection. Placement was confirmed with ultrasound guidance. Approximately 10 mL was drained and sent to the lab for analysis. A container was then hooked up by interventional nurse. The tubing was affixed to the skin. There was no blood loss and post-procedure hemostasis was achieved. The patient tolerated the procedure well without complication. Patient re mained in the ICU in stable condition. IMPRESSION: Successful pigtail drainage catheter placement within the pleural space which was left in place. [facility], , 08/31/2024 3:43 PM
--- NOTE | 2024-08-31 15:59 | P.GSCN ---
History of Present Illness Consult date: 08/31/24 Reason for Consult: Lytic instillation Requesting physician: Bailey Bains History of present illness: This is a 64 year old gentleman who follows with Dr. Gray for primary care, and he has a public guardian. He has a previous medical history of CAD, HLD, schizophrenia, cognitive deficits, and pneumonia. Patient presented to [facility]/ complaints of shortness of breath. He was found to have a large right sided pleural effusion on chest x-ray and CAT scan. He was tachycardic and hypotensive with elevated WBC of 40 demonstrating signs of sepsis. He was admitted for evaluation and treatment, cardiology infectious disease, and pulmonology were placed on consult. Dr. Wolf ordered a pigtail catheter to be inserted by interventional radiology with consultation to cardiothoracic surgery for lytic installation. 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 History of Any Multi-Drug Resistant Organisms: None Reported Past Surgical History: Cholecystectomy, Hernia Repair Past Anesthesia/Blood Transfusion Reactions: No Reported Reaction Past Psychological History: Anxiety, Bipolar, Depression, Schizoaffective Disorder Smoking Status: Never smoker Past Alcohol Use History: None Reported Past Drug Use History: None Reported - Past Family History Mother Family Medical History: Myocardial Infarction (PR) Additional Family Medical History / Comment(s): Mother of a PR at age 70 yrs. Father Family Medical History: Hypertension Additional Family Medical History / Comment(s): Father is alive and 76 yrs old. Medications and Allergies Home Medications Medication Instructions Recorded Confirmed Type Ergocalciferol (Vitamin D2) 1,250 mcg PO WE@0800 08/21/23 08/30/24 History [Drisdol (50,000 Iu)] Atorvastatin [Lipitor] 20 mg PO HS@2100 03/01/24 08/30/24 History Escitalopram Oxalate [Lexapro] 10 mg PO HS@2100 03/01/24 08/30/24 History Loratadine 10 mg PO HS@209903/01/24 08/30/24 History Pantoprazole [Protonix] 40 mg PO HS@209903/01/24 08/30/24 History Acetaminophen Tab [Tylenol] 650 mg PO Q4H PRN 08/30/24 08/30/24 History Carbidopa-Levodopa 25-100 mg 2 tab PO QID 08/30/24 08/30/24 History [Sinemet 25-100 mg] Cyanocobalamin [Vitamin B-12] 1,000 mcg PO DAILY@0808/30/24 08/30/24 History Lactulose [Constulose] 10 gm PO Q12H PRN 08/30/24 08/30/24 History [place] Carbonate ER [Lithobid] 450 mg PO HS@209908/30/24 08/30/24 History Mag Hydrox/Al Hydrox/Simeth 15 ml PO Q6H PRN 08/30/24 08/30/24 History [Maalox] Magnesium Hydroxide [Milk of 7,200 mg PO DAILY PRN 08/30/24 08/30/24 History Magnesia Concentrate] Na Phos,M-B/Na Phos,Di-Ba [Fleet 133 ml RECTAL DAILY PRN 08/30/24 08/30/24 Hi story Adult] QUEtiapine FUMARATE [SEROquel] 300 mg PO HS@209908/30/24 08/30/24 History bisacodyL [Dulcolax] 10 mg RECTAL DAILY PRN 08/30/24 08/30/24 History guaiFENesin SYRUP 100MG/5ML 200 mg PO Q4H PRN 08/30/24 08/30/24 History [Robitussin] Allergies Allergy/AdvReac Type Severity Reaction Status Date / Time onion Allergy Unknown Verified 08/30/24 18:13 Surgical - Exam Vital Signs Temp Pulse Resp BP Pulse Ox 100.8 F H 154 H 30 H 147/100 91 L 08/30/24 15:37 08/30/24 15:37 08/30/24 15:37 08/30/24 15:37 08/30/24 15:37 CONSTITUTIONAL: Awake and alert, appears comfortable, cooperative, well- developed, well-nourished, no pain, no acute distress EYES: Pupils equal, round, reactive to light, normal ocular movement ENT: Moist mucous membranes without oral lesions present, poor dentition NECK: No masses, no bruits, trachea midline RESPIRATORY: Lungs sounds coarse on the right. Respirations even, nonlabored. Currently on 4 L nasal cannula with oxygen saturation 97%. Strong cough. Right-sided pigtail catheter present to continuous wall suction, 1400 mL serous drainage with sediment CARDIOVASCULAR: S1, S2 present. Regular rate and rhythm, sinus tach on telemetry. Palpable peripheral pulses bilaterally. No edema present. No calf pain or tenderness noted GASTROINTESTINAL: Abdomen soft, nontender, nondistended without masses or organomegaly noted. There is no rebound or guarding present. Active bowel sounds present 4 quadrants. GENITOURINARY: Deferred INTEGUMENTARY: Skin is warm and dry NEUROLOGIC: Cranial nerves II through XII intact MUSKULOSKELETAL: Able to move all extremities, strength equal bilaterally, normal posture PSYCHIATRIC: Alert and oriented to person place, thinks it is 1998 Results - Labs 08/31/24 04:52 08/31/24 04:52 Abnormal Lab Results - Last 24 Hours (Table) 08/30/24 08/30/24 08/30/24 Range/Units 16:04 16:11 16:11 WBC 40.40 H (4.50-10.00) 10*3/uL RBC (4.40-5.60) 10*6/uL Hgb (13.0-17.0) g/dL Hct 39.5 L (39.6-50.0) % Immature Gran # 0.35 H (0.00-0.04) 10*3/uL Neutrophils # (1.80-7.70) 10*3/uL Neutrophils # (Manual) 35.14 H (1.3-7.7) k/uL Lymphocytes # (0.90-5.00) 10*3/uL Lymphocytes # (Manual) 0.40 L (1.0-4.8) k/uL Monocytes # (0.20-1.00) 10*3/uL Monocytes # (Manual) 4.85 H (0-1.0) k/uL Eosinophils # (0.04-0.35) 10*3/uL PT 13.1 H (10.0-12.5) sec INR 1.2 H (<1.2) Sodium (137-145) mmol/L Carbon Dioxide (22-30) mmol/L BUN (9-20) mg/dL Glucose (74-99) mg/dL POC Glucose (mg/dL) (70-110) mg/dL Plasma Lactic Acid Burt 2.6 H* (0.7-2.0) mmol/L Calcium (8.4-10.2) mg/dL Total Bilirubin (0.2-1.3) mg/dL Total Protein (6.3-8.2) g/dL Albumin (3.5-5.0) g/dL Lipase (23-300) U/L Procalcitonin (0.02-0.50) ng/mL Urine Protein (Negative) Urine Blood (Negative) Urine RBC (0-5) /hpf Urine WBC (0-5) /hpf Urine Bacteria (None) /hpf Urine Mucus (None) /hpf 08/30/24 08/30/24 08/31/24 Range/Units 16:11 18:43 01:14 WBC (4.50-10.00) 10*3/uL RBC (4.40-5.60) 10*6/uL Hgb (13.0-17.0) g/dL Hct (39.6-50.0) % Immature Gran # (0.00-0.04) 10*3/uL Neutrophils # (1.80-7.70) 10*3/uL Neutrophils # (Manual) (1.3-7.7) k/uL Lymphocytes # (0.90-5.00) 10*3/uL Lymphocytes # (Manual) (1.0-4.8) k/uL Monocytes # (0.20-1.00) 10*3/uL Monocytes # (Manual) (0-1.0) k/uL Eosinophils # (0.04-0.35) 10*3/uL PT (10.0-12.5) sec INR (<1.2) Sodium 133 L (137-145) mmol/L Carbon Dioxide (22-30) mmol/L BUN 24 H (9-20) mg/dL Glucose 163 H (74-99) mg/dL POC Glucose (mg/dL) 136 H (70-110) mg/dL Plasma Lactic Acid Burt (0.7-2.0) mmol/L Calcium (8.4-10.2) mg/dL Total Bilirubin 3.6 H (0.2-1.3) mg/dL Total Protein (6.3-8.2) g/dL Albumin (3.5-5.0) g/dL Lipase 16 L (23-300) U/L Procalcitonin (0.02-0.50) ng/mL Urine Protein 1+ H (Negative) Urine Blood Large H (Negative) Urine RBC >182 H (0-5) /hpf Urine WBC 7 H (0-5) /hpf Urine Bacteria Rare H (None) /hpf Urine Mucus Few H (None) /hpf 08/31/24 08/31/24 08/31/24 Range/Units 04:50 04:52 04:52 WBC 23.48 H (4.50-10.00) 10*3/uL RBC 3.21 L (4.40-5.60) 10*6/uL Hgb 9.2 L D (13.0-17.0) g/dL Hct 27.1 L (39.6-50.0) % Immature Gran # 0.34 H (0.00-0.04) 10*3/uL Neutrophils # 20.13 H (1.80-7.70) 10*3/uL Neutrophils # (Manual) (1.3-7.7) k/uL Lymphocytes # 0.63 L (0.90-5.00) 10*3/uL Lymphocytes # (Manual) (1.0-4.8) k/uL Monocytes # 2.31 H (0.20-1.00) 10*3/uL Monocytes # (Manual) (0-1.0) k/uL Eosinophils # 0.02 L (0.04-0.35) 10*3/uL PT (10.0-12.5) sec INR (<1.2) Sodium 133 L (137-145) mmol/L Carbon Dioxide 20 L (22-30) mmol/L BUN 23 H (9-20) mg/dL Glucose 118 H (74-99) mg/dL POC Glucose (mg/dL) 138 H (70-110) mg/dL Plasma Lactic Acid Burt (0.7-2.0) mmol/L Calcium 8.1 L (8.4-10.2) mg/dL Total Bilirubin 2.5 H (0.2-1.3) mg/dL Total Protein 4.9 L (6.3-8.2) g/dL Albumin 2.7 L (3.5-5.0) g/dL Lipase (23-300) U/L Procalcitonin (0.02-0.50) ng/mL Urine Protein (Negative) Urine Blood (Negative) Urine RBC (0-5) /hpf Urine WBC (0-5) /hpf Urine Bacteria (None) /hpf Urine Mucus (None) /hpf 08/31/24 08/31/24 08/31/24 Range/Units 04:52 05:19 10:23 WBC (4.50-10.00) 10*3/uL RBC (4.40-5.60) 10*6/uL Hgb (13.0-17.0) g/dL Hct (39.6-50.0) % Immature Gran # (0.00-0.04) 10*3/uL Neutrophils # (1.80-7.70) 10*3/uL Neutrophils # (Manual) (1.3-7.7) k/uL Lymphocytes # (0.90-5.00) 10*3/uL Lymphocytes # (Manual) (1.0-4.8) k/uL Monocytes # (0.20-1.00) 10*3/uL Monocytes # (Manual) (0-1.0) k/uL Eosinophils # (0.04-0.35) 10*3/uL PT (10.0-12.5) sec INR (<1.2) Sodium (137-145) mmol/L Carbon Dioxide (22-30) mmol/L BUN (9-20) mg/dL Glucose (74-99) mg/dL POC Glucose (mg/dL) 120 H (70-110) mg/dL Plasma Lactic Acid Burt (0.7-2.0) mmol/L Calcium (8.4-10.2) mg/dL Total Bilirubin (0.2-1.3) mg/dL Total Protein 5.2 L (6.3-8.2) g/dL Albumin (3.5-5.0) g/dL Lipase (23-300) U/L Procalcitonin 2.21 H (0.02-0.50) ng/mL Urine Protein (Negative) Urine Blood (Negative) Urine RBC (0-5) /hpf Urine WBC (0-5) /hpf Urine Bacteria (None) /hpf Urine Mucus (None) /hpf Diabetes panel 08/30/24 08/31/24 08/31/24 Range/Units 16:11 04:52 10:23 Sodium 133 L 133 L (137-145) mmol/L Potassium 5.1 4.2 (3.5-5.1) mmol/L Chloride 98 105 (98-107) mmol/L Carbon Dioxide 23 20 L (22-30) mmol/L BUN 24 H 23 H (9-20) mg/dL Creatinine 0.68 0.73 (0.66-1.25) mg/dL Glucose 163 H 118 H (74-99) mg/dL Calcium 9.1 8.1 L (8.4-10.2) mg/dL AST 39 19 (17-59) U/L ALT 8 <6 (4-49) U/L Alkaline Phosphatase 60 41 (38-126) U/L Total Protein 7.2 4.9 L 5.2 L (6.3-8.2) g/dL Albumin 4.5 2.7 L (3.5-5.0) g/dL Calcium panel 08/30/24 08/31/24 Range/Units 16:11 04:52 Calcium 9.1 8.1 L (8.4-10.2) mg/dL Phosphorus 3.4 (2.5-4.5) mg/dL Albumin 4.5 2.7 L (3.5-5.0) g/dL Pituitary panel 08/30/24 08/31/24 Range/Units 16:11 04:52 Sodium 133 L 133 L (137-145) mmol/L Potassium 5.1 4.2 (3.5-5.1) mmol/L Chloride 98 105 (98-107) mmol/L Carbon Dioxide 23 20 L (22-30) mmol/L BUN 24 H 23 H (9-20) mg/dL Creatinine 0.68 0.73 (0.66-1.25) mg/dL Glucose 163 H 118 H (74-99) mg/dL Calcium 9.1 8.1 L (8.4-10.2) mg/dL Adrenal panel 08/30/24 08/31/24 08/31/24 Range/Units 16:11 04:52 10:23 Sodium 133 L 133 L (137-145) mmol/L Potassium 5.1 4.2 (3.5-5.1) mmol/L Chloride 98 105 (98-107) mmol/L Carbon Dioxide 23 20 L (22-30) mmol/L BUN 24 H 23 H (9-20) mg/dL Creatinine 0.68 0.73 (0.66-1.25) mg/dL Glucose 163 H 118 H (74-99) mg/dL Calcium 9.1 8.1 L (8.4-10.2) mg/dL Total Bilirubin 3.6 H 2.5 H (0.2-1.3) mg/dL AST 39 19 (17-59) U/L ALT 8 <6 (4-49) U/L Alkaline Phosphatase 60 41 (38-126) U/L Total Protein 7.2 4.9 L 5.2 L (6.3-8.2) g/dL Albumin 4.5 2.7 L (3.5-5.0) g/dL - Imaging Chest x-ray: report reviewed, image reviewed CT scan - chest: report reviewed, image reviewed Assessment and Plan Assessment: Large right-sided pleural effusion, status postplacement of pigtail catheter by interventional radiology Pneumonia Sepsis (tachycardia, hypotension, leukocytosis) Acute hypoxic respiratory failure Shortness of breath, secondary to above History of CAD HLD Schizophrenia Cognitive deficits Pneumonia Plan: The patient was seen and examined lying in bed on the intensive care unit in no acute distress. Chart/diagnostics reviewed with Dr. Christian. Pigtail catheter was placed by interventional radiology, currently there is 1400 mL output in chest atrium. First dose of lytics instilled today. Will monitor daily x-rays. Wean oxygen as tolerated. Encourage pulmonary toileting. Antibiotic management per infectious disease. Medical management of other comorbidities per internal medicine, infectious disease, pulmonology, cardiology. Thank you Dr. Bains for this consult, we will continue to follow along with you and make further recommendations as appropriate. I have personally seen and examined the patient, performed the documentation and the assessment and plan as written. Number of minutes spent on the visit: 30. BHAVNA Churchill
[2024-08-31 16:38] LABS: Appearance,BF Slightly Hazy (Clear)
[2024-08-31] MEDS: DORNASE ALFA 5 MG in SODIUM CHLORIDE 0.9% 50 ML IRRIGATION ONE (17:05)
[2024-08-31] MEDS: HYDROmorphone 1 MG/ML 1 ML SYRINGE IVP PRN (17:06)
[2024-08-31] MEDS: ALTEPLASE 10 MG in SODIUM CHLORIDE 0.9% 50 ML IRRIGATION ONE (17:06)
[2024-08-31] MEDS: CEFEPIME 2 GM in SODIUM CHLORIDE 0.9% 100 ML IVPB SCH (17:06)
[2024-08-31] MEDS: METOPROLOL SUCCINATE (ER) 25 MG TAB.ER.24H PO SCH (17:12)
[2024-08-31 18:16] LABS: Amylase, Fluid Source Pleural Fluid; Amylase,Body Fluid 22 U/L; Glucose, BF Source Pleural Fluid; Glucose, Body Fluid 4 mg/dL; T. Protein, Body Fluid Source Pleural Fluid; Total Protein, Body Fluid >3600 mg/dL
--- NOTE | 2024-08-31 18:29 | CA ---
Transthoracic Echo Report Name: Maulik Nichole Age: 64 Gender: M : 1960 Exam Date: 08/31/2024 08:40 Exam Location: [facility] Ht (in): 72 Wt (lb): 195 Ordering Physician: Aleks Gray MD Attending/Referring Phys: Marina NORIEGA Peer Financial Counselor Angela Lau, FORREST Procedure CPT: Indications: ordered by PCP Cardiac Hx: Technical Quality: Fair Contrast 1: Total Dose (mL): Contrast 2: Total Dose (mL): MEASUREMENTS (Male / Female) Normal Values 2D ECHO LV Diastolic Diameter PLAX 4.1 cm 4.2 - 5.9 / 3.9 - 5.3 cm LV Systolic Diameter PLAX 2.4 cm IVS Diastolic Thickness 1.1 cm 0.6 - 1.0 / 0.6 - 0.9 cm LVPW Diastolic Thickness 1.1 cm 0.6 - 1.0 / 0.6 - 0.9 cm LV Relative Wall Thickness 0.5 RV Internal Dim ED PLAX 2.6 cm LA Systolic Diameter LX 3.7 cm 3.0 - 4.0 / 2.7 - 3.8 cm LV Diastolic Volume MOD 4C 131.9 cm??? LV Systolic Volume MOD 4C 60.2 cm??? LV Ejection Fraction MOD 4C 54.3 % LV Cardiac Index MOD 4C 4306.2 cm???/min???m??? LV Diastolic Length 4C 9.5 cm LV Systolic Length 4C 7.6 cm LV Diastolic Volume MOD 2C 125.1 cm??? LV Systolic Volume MOD 2C 35.5 cm??? LV Ejection Fraction MOD 2C 71.6 % LV Cardiac Index MOD 2C 5376.6 cm???/min???m??? LV Diastolic Length 2C 8.4 cm LV Systolic Length 2C 7.1 cm LA Volume 51.4 cm??? 18 - 58 / 22 - 52 cm??? LA Volume Index 24.1 cm???/m??? 16 - 28 cm???/m??? M-MODE Aortic Root Diameter MM 3.1 cm AV Cusp Separation MM 2.0 cm DOPPLER AV Peak Velocity 152.0 cm/s AV Peak Gradient 9.2 mmHg MV E' Velocity 7.9 cm/s TR Peak Velocity 271.9 cm/s TR Peak Gradient 29.6 mmHg Right Ventricular Systolic Press 34.4 mmHg FINDINGS Left Ventricle Left ventricular ejection fraction is estimated at 55-60 %. Left ventricular cavity size normal. Normal left ventricular systolic function with no obvious regional wall motion abnormalities. Right Ventricle Normal right ventricular size. Right Atrium Normal right atrial size. No right atrial thrombus or mass seen. Left Atrium Normal left atrial size. No left atrial thrombus or mass present. Mitral Valve Structurally normal mitral valve. Mitral annular calcification. No mitral stenosis, regurgitation or prolapse. Aortic Valve Trileaflet aortic valve. No aortic valve stenosis or regurgitation. Tricuspid Valve Structurally normal tricuspid valve. Mild tricuspid regurgitation. Pulmonic Valve No pulmonic regurgitation.pulmonic valve not well visualized. Pericardium No pericardial effusion. Aorta Normal size aortic root and proximal ascending aorta. CONCLUSIONS Technically difficult study. Normal left ventricular size and systolic function Very limited Doppler study with mild tricuspid regurgitation Previewed by: Dr. Shawna Arnett MD (Electronically Signed) Final Date: 31 August 2024 18:28
[2024-08-31 18:32] LABS: LDH, Body Fluid Source Pleural fluid
[2024-08-31] MEDS: ATORVASTATIN 20 MG TAB PO SCH (20:17)
[2024-08-31] MEDS: LITHIUM CARBONATE ER 450 MG TABLET.ER PO SCH (20:17)
[2024-08-31] MEDS: PANTOPRAZOLE 40 MG TABLET PO SCH (20:17)
[2024-08-31] MEDS: QUEtiapine 100 MG TAB PO SCH (20:17)
[2024-08-31] MEDS: LORATADINE 10 MG TAB PO SCH (20:17)
[2024-08-31] MEDS: ESCITALOPRAM 10 MG TAB PO SCH (20:40)
[2024-08-31 21:23] LABS: Basophils # (A) 0.04 10*3/uL (0.00-0.10); Basophils % (A) 0.2 %; Eosinophils # (A) 0.01 10*3/uL (0.04-0.35); HCT 31.8 % (39.6-50.0); HGB 10.3 g/dL (13.0-17.0); Lymphocytes # (A) 0.54 10*3/uL (0.90-5.00); Lymphocytes % (A) 2.5 %; MCH 27.8 pg (27.0-32.0); MCHC 32.4 g/dL (32.0-37.0); MCV 85.9 fL (80.0-97.0); Mean Platelet Volume 10.5 fL (9.5-12.2); Monocytes # (A) 2.13 10*3/uL (0.20-1.00); Monocytes % (A) 9.9 %; Neutrophils % (A) 86.2 %; Platelet Count 212 10*3/uL (140-440); RDW 19.6 % (11.5-14.5); WBC 21.48 10*3/uL (4.50-10.00)
[2024-08-31] MEDS: DEXMEDETOMIDINE/0.9% NACL(PMX) 400 MCG in EMPTY BAG 1 BAG IV SCH (21:58)
[2024-08-31 22:01] LABS: African American GFR (CKD) >90 (>60 ml/min/1.73 sqM); Anion Gap 13 mmol/L; Blood Urea Nitrogen 26 mg/dL (9-20); Calcium 8.4 mg/dL (8.4-10.2); Carbon Dioxide 20 mmol/L (22-30); Chloride 105 mmol/L (98-107); Glucose 103 mg/dL (74-99); Magnesium 1.9 mg/dL (1.6-2.3); Non-African American GFR(CKD) >90 (>60 ml/min/1.73 sqM); Sodium 138 mmol/L (137-145)
--- NOTE | 2024-08-31 22:46 | P.CONS ---
History of Present Illness - Reason for Consult Consult date: 08/31/24 Sepsis Requesting physician: Bryan Verdin - Chief Complaint Shortness of breath and cough x days - History of Present Illness Patient is a 64-year-old male with a past medical history significant for coronary disease ,HLD, schizophrenia, cognitive deficits, and pneumonia. Patient has been brought to the hospital concerning for increasing shortness of breath the pain has been getting worse over the last few days patient also have a cough started very clear about bringing up any sputum no history of any nausea vomiting or diarrhea or presentation to the hospital patient did have a temperature of 100.8 F patient was tachycardic mildly hyortensive and hypoxic requiring supplemental oxygen, patient blood work did shows elevated white count of 23.48 with a left shift creatinine 0.73 patient did have abnormal chest CT which shows moderate large right effusion and some adjacent compressive atelectasis CT of abdominal pelvis showed large fecal bolus within the rectum correlate for fecal impaction patient has been admitted to ICU he was empirical ly started on vancomycin and Zosyn infectious he was consulted for further management of antibiotic therapy most information has been obtained from review of the chart as the patient was alert with good historian Review of Systems Positive points has been mentioned in HPI complete review could not be obtained because of his underlying mental status Past Medical History Past Medical History: Chest Pain / Angina, Osteoarthritis (OA), Pneumonia Additional Past Medical History / Comment(s): Other HX: speech impediment, cognitive deficits, 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 History of Any Multi-Drug Resistant Organisms: None Reported Past Surgical History: Cholecystectomy, Hernia Repair Past Anesthesia/Blood Transfusion Reactions: No Reported Reaction Past Psychological History: Anxiety, Bipolar, Depression, Schizoaffective Disorder Smoking Status: Never smoker Past Alcohol Use History: None Reported Past Drug Use History: None Reported - Past Family History Mother Family Medical History: Myocardial Infarction (LA) Additional Family Medical History / Comment(s): Mother of a LA at age 70 yrs. Father Family Medical History: Hypertension Additional Family Medical History / Comment(s): Father is alive and 76 yrs old. Medications and Allergies Home Medications Medication Instructions Recorded Confirmed Type Ergocalciferol (Vitamin D2) 1,250 mcg PO WE@0800 08/21/23 08/30/24 History [Drisdol (50,000 Iu)] Atorvastatin [Lipitor] 20 mg PO HS@209903/01/24 08/30/24 History Escitalopram Oxalate [Lexapro] 10 mg PO HS@209903/01/24 08/30/24 History Loratadine 10 mg PO HS@209903/01/24 08/30/24 History Pantoprazole [Protonix] 40 mg PO HS@209903/01/24 08/30/24 History Acetaminophen Tab [Tylenol] 650 mg PO Q4H PRN 08/30/24 08/30/24 History Carbidopa-Levodopa 25-100 mg 2 tab PO QID 08/30/24 08/30/24 History [Sinemet 25-100 mg] Cyanocobalamin [Vitamin B-12] 1,000 mcg PO DAILY@0808/30/24 08/30/24 History Lactulose [Constulose] 10 gm PO Q12H PRN 08/30/24 08/30/24 History [place] Carbonate ER [Lithobid] 450 mg PO HS@209908/30/24 08/30/24 History Mag Hydrox/Al Hydrox/Simeth 15 ml PO Q6H PRN 08/30/24 08/30/24 History [Maalox] Magnesium Hydroxide [Milk of 7,200 mg PO DAILY PRN 08/30/24 08/30/24 History Magnesia Concentrate] Na Phos,M-B/Na Phos,Di-Ba [Fleet 133 ml RECTAL DAILY PRN 08/30/24 08/30/24 History Adult] QUEtiapine FUMARATE [SEROquel] 300 mg PO HS@209908/30/24 08/30/24 History bisacodyL [Dulcolax] 10 mg RECTAL DAILY PRN 08/30/24 08/30/24 History guaiFENesin SYRUP 100MG/5ML 200 mg PO Q4H PRN 08/30/24 08/30/24 History [Robitussin] Allergies Allergy/AdvReac Type Severity Reaction Status Date / Time onion Allergy Unknown Verified 08/30/24 18:13 Physical Exam Vitals: Vital Signs Temp Pulse Pulse Resp BP Pulse Ox 08/31/24 09:30 147 H 30 H 105/60 97 08/31/24 09:15 131 H 28 H 97/67 98 08/31/24 09:00 129 H 31 H 118/72 96 08/31/24 08:45 129 H 37 H 96/69 95 08/31/24 08:30 130 H 24 96/68 95 08/31/24 08:15 118 H 18 89/65 98 08/31/24 08:00 97.5 F L 115 H 18 105/74 95 08/31/24 07:45 120 H 10 L 96/67 08/31/24 07:30 118 H 37 H 94/81 08/31/24 07:15 128 H 28 H 91/58 96 08/31/24 07:00 112 H 30 H 89/62 97 08/31/24 06:45 112 H 28 H 95/64 96 08/31/24 06:30 112 H 28 H 90/68 96 08/31/24 06:15 108 H 28 H 87/68 95 08/31/24 06:08 110 H 32 H 08/31/24 06:00 106 H 18 117/76 94 L 08/31/24 05:45 112 H 20 85/60 92 L 08/31/24 05:30 98.7 F 101 H 18 85/74 94 L 08/31/24 04:18 92 79/57 08/31/24 03:00 99 142/61 08/31/24 02:30 137 H 143/80 08/31/24 01:52 98.9 F 08/31/24 01:47 156 H 147/65 08/31/24 01:38 155 H 24 166/112 95 08/30/24 23:01 105 H 18 119/78 96 08/30/24 22:33 98.3 F 109 H 18 135/91 95 08/30/24 19:54 115 H 20 138/81 93 L 08/30/24 17:51 99.5 F 112 H 16 111/81 08/30/24 15:37 100.8 F H 154 H 30 H 147/100 91 L Intake and Output 08/30/24 08/31/24 08/31/24 22:59 06:59 14:59 Intake Total 124.917 Output Total 100 350 85 Balance -100 -225.083 -85 Intake: Intake, IV Titration 124.917 Amount Diltiazem 125 mg In 24.917 Dextrose 5% in Water 100 ml @ 10 MG/HR 10 mls/hr IV .[id number] [facility] Rx#: [id number] Piperacillin-Tazobactam 3 100 .375 gm In Sodium Chloride 0.9% 100 ml @ 25 mls/hr IVPB Q8H [facility] Rx#: [id number] Output: Urine 100 350 85 Uretheral ([place]) 100 300 Other: Voiding Method Indwelling Catheter Indwelling Catheter Weight 88.451 kg 88.451 kg GENERAL DESCRIPTION: Middle-age male lying in bed, no distress. No tachypnea or accessory muscle of respiration use. HEENT: Shows Pallor , no scleral icterus. Oral mucous membrane is dry. No pharyngeal erythema or thrush NECK: Trachea central, no thyromegaly. LUNGS: Unlabored breathing. Decreased breath sound at the base HEART: S1, S2, regular rate and rhythm. No loud murmur ABDOMEN: Soft, no tenderness , guarding or rigidity, no organomegaly EXTREMITIES: No edema of feet. SKIN: No rash, no masses palpable. NEUROLOGICAL: The patient is lethargic but arousable mood and affect normal. Results CBC & Chem 7: 08/31/24 21:11 08/31/24 21:11 Labs: Abnormal Lab Results - Last 24 Hours (Table) 08/30/24 08/30/24 08/30/24 Range/Units 16:04 16:11 16:11 WBC 40.40 H (4.50-10.00) 10*3/uL RBC (4.40-5.60) 10*6/uL Hgb (13.0-17.0) g/dL Hct 39.5 L (39.6-50.0) % Immature Gran # 0.35 H (0.00-0.04) 10*3/uL Neutrophils # (1.80-7.70) 10*3/uL Neutrophils # (Manual) 35.14 H (1.3-7.7) k/uL Lymphocytes # (0.90-5.00) 10*3/uL Lymphocytes # (Manual) 0.40 L (1.0-4.8) k/uL Monocytes # (0.20-1.00) 10*3/uL Monocytes # (Manual) 4.85 H (0-1.0) k/uL Eosinophils # (0.04-0.35) 10*3/uL PT 13.1 H (10.0-12.5) sec INR 1.2 H (<1.2) Sodium (137-145) mmol/L Carbon Dioxide (22-30) mmol/L BUN (9-20) mg/dL Glucose (74-99) mg/dL POC Glucose (mg/dL) (70-110) mg/dL Plasma Lactic Acid Burt 2.6 H* (0.7-2.0) mmol/L Calcium (8.4-10.2) mg/dL Total Bilirubin (0.2-1.3) mg/dL Total Protein (6.3-8.2) g/dL Albumin (3.5-5.0) g/dL Lipase (23-300) U/L Urine Protein (Negative) Urine Blood (Negative) Urine RBC (0-5) /hpf Urine WBC (0-5) /hpf Urine Bacteria (None) /hpf Urine Mucus (None) /hpf 08/30/24 08/30/24 08/31/24 Range/Units 16:11 18:43 01:14 WBC (4.50-10.00) 10*3/uL RBC (4.40-5.60) 10*6/uL Hgb (13.0-17.0) g/dL Hct (39.6-50.0) % Immature Gran # (0.00-0.04) 10*3/uL Neutrophils # (1.80-7.70) 10*3/uL Neutrophils # (Manual) (1.3-7.7) k/uL Lymphocytes # (0.90-5.00) 10*3/uL Lymphocytes # (Manual) (1.0-4.8) k/uL Monocytes # (0.20-1.00) 10*3/uL Monocytes # (Manual) (0-1.0) k/uL Eosinophils # (0.04-0.35) 10*3/uL PT (10.0-12.5) sec INR (<1.2) Sodium 133 L (137-145) mmol/L Carbon Dioxide (22-30) mmol/L BUN 24 H (9-20) mg/dL Glucose 163 H (74-99) mg/dL POC Glucose (mg/dL) 136 H (70-110) mg/dL Plasma Lactic Acid Burt (0.7-2.0) mmol/L Calcium (8.4-10.2) mg/dL Total Bilirubin 3.6 H (0.2-1.3) mg/dL Total Protein (6.3-8.2) g/dL Albumin (3.5-5.0) g/dL Lipase 16 L (23-300) U/L Urine Protein 1+ H (Negative) Urine Blood Large H (Negative) Urine RBC >182 H (0-5) /hpf Urine WBC 7 H (0-5) /hpf Urine Bacteria Rare H (None) /hpf Urine Mucus Few H (None) /hpf 08/31/24 08/31/24 08/31/24 Range/Units 04:50 04:52 04:52 WBC 23.48 H (4.50-10.00) 10*3/uL RBC 3.21 L (4.40-5.60) 10*6/uL Hgb 9.2 L D (13.0-17.0) g/dL Hct 27.1 L (39.6-50.0) % Immature Gran # 0.34 H (0.00-0.04) 10*3/uL Neutrophils # 20.13 H (1.80-7.70) 10*3/uL Neutrophils # (Manual) (1.3-7.7) k/uL Lymphocytes # 0.63 L (0.90-5.00) 10*3/uL Lymphocytes # (Manual) (1.0-4.8) k/uL Monocytes # 2.31 H (0.20-1.00) 10*3/uL Monocytes # (Manual) (0-1.0) k/uL Eosinophils # 0.02 L (0.04-0.35) 10*3/uL PT (10.0-12.5) sec INR (<1.2) Sodium 133 L (137-145) mmol/L Carbon Dioxide 20 L (22-30) mmol/L BUN 23 H (9-20) mg/dL Glucose 118 H (74-99) mg/dL POC Glucose (mg/dL) 138 H (70-110) mg/dL Plasma Lactic Acid Burt (0.7-2.0) mmol/L Calcium 8.1 L (8.4-10.2) mg/dL Total Bilirubin 2.5 H (0.2-1.3) mg/dL Total Protein 4.9 L (6.3-8.2) g/dL Albumin 2.7 L (3.5-5.0) g/dL Lipase (23-300) U/L Urine Protein (Negative) Urine Blood (Negative) Urine RBC (0-5) /hpf Urine WBC (0-5) /hpf Urine Bacteria (None) /hpf Urine Mucus (None) /hpf 08/31/24 Range/Units 05:19 WBC (4.50-10.00) 10*3/uL RBC (4.40-5.60) 10*6/uL Hgb (13.0-17.0) g/dL Hct (39.6-50.0) % Immature Gran # (0.00-0.04) 10*3/uL Neutrophils # (1.80-7.70) 10*3/uL Neutrophils # (Manual) (1.3-7.7) k/uL Lymphocytes # (0.90-5.00) 10*3/uL Lymphocytes # (Manual) (1.0-4.8) k/uL Monocytes # (0.20-1.00) 10*3/uL Monocytes # (Manual) (0-1.0) k/uL Eosinophils # (0.04-0.35) 10*3/uL PT (10.0-12.5) sec INR (<1.2) Sodium (137-145) mmol/L Carbon Dioxide (22-30) mmol/L BUN (9-20) mg/dL Glucose (74-99) mg/dL POC Glucose (mg/dL) 120 H (70-110) mg/dL Plasma Lactic Acid Burt (0.7-2.0) mmol/L Calcium (8.4-10.2) mg/dL Total Bilirubin (0.2-1.3) mg/dL Total Protein (6.3-8.2) g/dL Albumin (3.5-5.0) g/dL Lipase (23-300) U/L Urine Protein (Negative) Urine Blood (Negative) Urine RBC (0-5) /hpf Urine WBC (0-5) /hpf Urine Bacteria (None) /hpf Urine Mucus (None) /hpf Assessment and Plan (1) Pneumonia Current Visit: Yes Status: Acute Code(s): J18.9 - PNEUMONIA, UNSPECIFIED ORGANISM SNOMED Code(s): 098733576 (2) Sepsis Current Visit: Yes Status: Acute Code(s): A41.9 - SEPSIS, UNSPECIFIED ORGANISM SNOMED Code(s): 96807300 Plan: 1patient presented hospital with sepsis in this patient who did have fever tachycardia hypotension elevated white count meeting criteria for SIRS/sepsis source likely complicated pneumonia right-sided with large effusion and question of parapneumonic effusion/empyema in this patient who is facility resident will need to cover for resistant gram-positive as well as gram-negative pathogen 2-patient is scheduled for IR placement of a chest tube fluid should be sent for Gram stain and culture 3-patient will be treated with vancomycin pharmacy to dose while watching his kidney function closely however switch Zosyn to cefepime to decrease risk of nephrotoxicity We will follow on clinical condition and cultures to further adjust medication if needed Thank you for this consultation we will follow the patient along with you Dictation was produced using Antidot dictation software. please excuse any grammatical, word or spelling errors. Time with Patient: Greater than 30
--- NOTE | 2024-08-31 22:57 | XR ---
EXAMINATION TYPE: XR chest 1V portable DATE OF EXAM: 08/31/2024 9:22 PM CLINICAL INDICATION:Male, 64 years old with history of sob, pleural effusions; [facility] COMPARISON: Chest radiographs from the same day. TECHNIQUE: XR chest 1V portable Frontal view of the chest. FINDINGS: There is interval improvement in aeration of the right hemithorax with residual pleural effusion and patchy airspace opacity seen. The right-sided pigtail catheter is stable in position. The left lung d emonstrates similar patchy airspace opacities. Gaseous distention of the bowel in the left upper quad rant of the abdomen. Patient is slightly rotated on exam limiting evaluation of mediastinal structure s. Cardiac silhouette is again obscured but overall appears somewhat stable. IMPRESSION: Interval improvement in aeration of the right hemithorax with residual pleural fluid and patchy airsp vera disease in the right lung. Stable position of the right lower hemithorax pigtail catheter. Simila r patchy airspace disease in the left lung. The mediastinal evaluation is limited on this x-ray limit ed by patient's positioning. Consider short-term CT chest to rule out any underlying abnormality. [facility], , 08/31/2024 10:55 PM
--- NOTE | 2024-08-31 23:28 | XR ---
EXAM: XR Chest, 1 View CLINICAL HISTORY: ITS.REASON XR Reason: NGT placement TECHNIQUE: Frontal view of the chest. COMPARISON: No relevant prior studies available. FINDINGS: Lungs: Central pulmonary vascular congestion with cardiomegaly. No consolidation. Pleural space: Large right pleural effusion. No pneumothorax. Heart: See above. Mediastinum: Unremarkable. Normal mediastinal contour. Bones/joints: Unremarkable. No acute fracture. Tubes, lines and devices: Esophageal catheter with its tip at the gastroesophageal junction. IMPRESSION: CHF with large right pleural effusion
--- NOTE | 2024-08-31 23:39 | HP ---
HISTORY AND PHYSICAL CHIEF COMPLAINT: Fever, chills, tachycardia, and hypotension. HISTORY OF PRESENT ILLNESS: This is the first known admission for this 64-year-old mentally debilitated gentleman. He has not been in my office since 2014. He presented to the emergency room with fever, chills, delirium, hypotension, and leukocytosis. No history can be obtained from this gentleman. He seems to be having a little bit of difficulty talking. He denies chest pain or abdominal pain. He is tachycardiac with a rate of 140 and his blood pressure has been unstable. Lactic acid is elevated. This probably represents sepsis. He does have right pleural effusion and probably at least pneumonitis in the right lung. REVIEW OF SYSTEMS: Otherwise unobtainable. Past Medical History, Family History, and Personal and Social Histories are otherwise unobtainable and unknown. When he was seen in 2014, he was on Depakote and Zoloft. Remainder of his history is unremarkable and unobtainable. PHYSICAL EXAMINATION: VITAL SIGNS: Blood pressure was initially 147/100 with a pulse of 154 and that dropped to 96/79. Temperature was 100.8. HEAD, EARS, EYES, NOSE, MOUTH, AND THROAT: Appeared to be normal. NECK: There did not seem to be any abnormality of the neck. Nuchal rigidity could not be assessed. LUNGS: Breath sounds were difficult to hear on both sides. CARDIAC: Auscultation revealed tachycardia of almost 150 beats per minute. It was regular. There was no auscultative murmur or extra sounds. ABDOMEN: Seemed to be slightly distended. It was difficult to tell if there is any tenderness. EXTREMITIES: Normal. LABORATORY STUDIES: Reveal a lactic acid 2.6 and white count of 40,000. Kidney function was normal. There was a small amount of blood in the urine. IMPRESSION: 1. Sepsis. 2. Right pleural effusion. 3. Probable right lower lobe pneumonitis. 4. Unstable blood pressure with hypotension. 5. Leukocytosis. PLAN: 1. Bedrest. 2. IV fluids. 3. Frequent monitoring of his neurologic status and vital signs. 4. Blood cultures. 5. Consult with Intensive Medicine, Cardiology, and Infectious Disease. MMODL / IJN: [id number] /
--- NOTE | 2024-09-01 03:11 | PN ---
PROGRESS NOTE DATE OF SERVICE: 08/30/2024 CHIEF COMPLAINT: Pneumonitis, right pleural effusion and sepsis. HISTORY OF PRESENT ILLNESS: This gentleman became quite unstable overnight and A-team had to be called. His respiratory rate and particularly his blood pressure became very unstable and he was moved to ICU. PHYSICAL EXAMINATION: GENERAL: It is difficult to understand what he speaks. It is not clear if he has delirium or not. LUNGS: Breath sounds are heard bilaterally. CARDIAC: Normal. IMPRESSION: 1. Right-sided lower lobe pneumonitis. 2. Pleural effusion. 3. Sepsis. PLAN: Continue with ICU management and with antibiotics and circulatory support. MMODL / IJN: [id number] /
--- NOTE | 2024-09-01 03:28 | XR ---
EXAM: XR Chest, 1 View CLINICAL HISTORY: ITS.REASON XR Reason: NGT placement TECHNIQUE: Frontal view of the chest. COMPARISON: Exam performed earlier on the same date FINDINGS: Lungs: See below. Pleural space: Large right pleural effusion with right lower lobe atelectasis. No pneumothorax. Heart: Unremarkable. No cardiomegaly. Mediastinum: Unremarkable. Normal mediastinal contour. Bones/joints: Unremarkable. No acute fracture. Tubes, lines and devices: Esophageal catheter with its tip in the gastric fundus. IMPRESSION: Well-positioned esophageal catheter Persistent right pleural effusion
[2024-09-01 06:18] LABS: Basophils # (A) 0.02 10*3/uL (0.00-0.10); Basophils % (A) 0.1 %; Eosinophils # (A) 0.02 10*3/uL (0.04-0.35); Eosinophils % (A) 0.1 %; HCT 27.2 % (39.6-50.0); Lymphocytes # (A) 0.56 10*3/uL (0.90-5.00); Lymphocytes % (A) 4.1 %; MCHC 31.6 g/dL (32.0-37.0); MCV 85.5 fL (80.0-97.0); Monocytes # (A) 1.19 10*3/uL (0.20-1.00); Monocytes % (A) 8.8 %; Neutrophils # (A) 11.72 10*3/uL (1.80-7.70); Neutrophils % (A) 86.5 %; Platelet Count 178 10*3/uL (140-440); RBC 3.18 10*6/uL (4.40-5.60); RDW 19.4 % (11.5-14.5); WBC 13.57 10*3/uL (4.50-10.00)
[2024-09-01 06:23] LABS: HGB 8.6 g/dL (13.0-17.0)
[2024-09-01 06:34] LABS: African American GFR (CKD) >90 (>60 ml/min/1.73 sqM); Anion Gap 9 mmol/L; Blood Urea Nitrogen 24 mg/dL (9-20); Calcium 8.3 mg/dL (8.4-10.2); Carbon Dioxide 19 mmol/L (22-30); Chloride 107 mmol/L (98-107); Glucose 91 mg/dL (74-99); Non-African American GFR(CKD) >90 (>60 ml/min/1.73 sqM); Potassium 4.1 mmol/L (3.5-5.1); Sodium 135 mmol/L (137-145)
--- NOTE | 2024-09-01 06:54 | XR ---
EXAMINATION TYPE: XR chest 1V portable DATE OF EXAM: 09/01/2024 6:36 AM COMPARISON: 08/31/2024 CLINICAL INDICATION: Male, 64 years old with history of empyema, TECHNIQUE: XR chest 1V portable view(s) obtained. FINDINGS: The heart size is normal. The pulmonary vasculature is normal. Right sided collection is present. Catheter is present. Nasogastric tube is present with the tip in t he left upper quadrant of the abdomen. Small opacity may be at the left costophrenic angle. Correlate for atelectasis. IMPRESSION: 1. Small to moderate right lower lung field pleural collection with catheter. Finding is stable. 2. May be a small infiltrate at the left costophrenic angle. [facility], , 09/01/2024 6:52 AM
[2024-09-01] MEDS: VANCOMYCIN TROUGH DUE 1 EACH MISC MISCELLANE ONE (07:06)
[2024-09-01] MEDS: LACTATED RINGERS 1,000 ML IV ONE (09:41)
--- NOTE | 2024-09-01 09:47 | P.PN ---
Subjective Progress Note Date: 09/01/24 Principal diagnosis: Large right-sided pleural effusion, pneumonia, sepsis, and acute hypoxic respiratory failure. Past medical history significant for coronary artery disease, hyperlipidemia, anemia, schizophrenia, anxiety, depression, cognitive deficits, speech impediment, is a lifetime non-smoker and pneumonia. POD #1 ultrasound-guided chest tube insertion performed by interventional radiology. Patient was seen and examined in follow-up today September 01, 2024 at his bedside in the intensive care unit. The patient is communicating that he is having some pain to his right chest. Oxygen saturations are 99% currently. Right chest pigtail catheter was infused with alteplase/dornase first dose yesterday. No airleak is present. Draining thin serosanguineous drainage with 100 mL output in the last 8 hours and 3.4 L output in the last 24 hours. Chest x-ray and laboratory results were reviewed. He has been afebrile in the last 24 hours. Blood cultures show no growth after 24 hours. Pleural fluid cultures showed no growth after 24 hours. He remains on norepinephrine drip at 0.06 mcg/kg/min for blood pressure support. And he is also on vancomycin for IV antibiotic coverage. Laboratory and chest x-ray results reviewed. Objective - Vital Signs Vital signs: Vital Signs Temp 98.8 F 09/01/24 04:00 Pulse 126 H 09/01/24 07:00 Resp 17 09/01/24 07:00 BP 101/62 09/01/24 07:00 Pulse Ox 99 09/01/24 07:00 FiO2 Intake & Output 08/31/24 09/01/24 09/01/24 18:59 06:59 18:59 Intake Total 7927.154 1684.765 75 Output Total 2855 1925 75 Balance -1456.978 -589.235 0 Weight 88.7 kg Intake: IV 1375 1250 75 Cefepime 2 gm In Sodium 100 Chloride 0.9% 100 ml @ 25 mls/hr IVPB Q8HR [facility] Rx# :[id number] Piperacillin-Tazobactam 3 100 .375 gm In Sodium Chloride 0.9% 100 ml @ 25 mls/hr IVPB Q8H [facility] Rx#: [id number] Sodium Chloride 0.9% 1, 675 750 75 000 ml @ 75 mls/hr IV . [id number] [facility] Rx#:[id number] Vancomycin 1,500 mg In 500 Sodium Chloride 0.9% 500 ml 500 ml @ 167 mls/hr IVPB [facility] Rx#: [id number] Vancomycin 1,500 mg In 500 Sodium Chloride 0.9% 500 ml 500 ml @ 167 mls/hr IVPB Q8H [facility] Rx#: [id number] Intake, IV Titration 23.022 85.765 Amount Dexmedetomidine/0.9% NaCl 48.648 (Pmx) 400 mcg In Empty Bag 1 bag @ 0.2 MCG/KG/HR 4.423 mls/hr IV .[id number] [facility] Rx#:[id number] Norepinephrine 8 mg In 23.022 37.117 Sodium Chloride 0.9% 250 ml @ 0.03 MCG/KG/MIN 5. 135 mls/hr IV .Q24H [facility] Rx#:[id number] Output: Chest Tube Drainage 2500 1110 Pleural Catheter Right 2500 1110 Posterior Chest Urine 355 815 75 Other: Voiding Method Indwelling Catheter Indwelling Catheter # Bowel Movements 1 - Exam CONSTITUTIONAL: Appears comfortable, cooperative, no acute distress RESPIRATORY: Lungs sounds diminished bilaterally, right greater than left. Respirations symmetrical, nonlabored. Currently on room air with oxygen saturation 97%. Weak cough. CARDIOVASCULAR: S1, S2 present. Regular rate and rhythm, sinus rhythm on telemetry. Palpable peripheral pulses bilaterally. No edema present. No calf pain or tenderness noted. SCDs present. GASTROINTESTINAL: Abdomen soft, nontender, nondistended. Active bowel sounds present [address] GENITOURINARY: Salcido catheter in place. Urine output 495 mL on the last 8 hours. INTEGUMENTARY: Skin is warm and dry with with no clubbing or cyanosis present. NEUROLOGIC: Speech impediment. MUSKULOSKELETAL: Able to move all extremities, strength equal bilaterally PSYCHIATRIC: Alert and oriented to person. INVASIVE LINES AND TUBES: Right pleural pigtail chest tube present and connected to wall suction, no air leaks present. Draining thin serosanguineous drainage with 100 mL output in the last 8 hours and 3.4 L output in the last 24 hours. - Allied health notes Allied health notes reviewed: nursing - Labs CBC & Chem 7: 09/01/24 05:53 09/01/24 05:53 Labs: Abnormal Lab Results - Last 24 Hours (Table) 08/31/24 08/31/24 08/31/24 Range/Units 04:52 10:23 11:40 WBC (4.50-10.00) 10*3/uL RBC (4.40-5.60) 10*6/uL Hgb (13.0-17.0) g/dL Hct (39.6-50.0) % MCHC (32.0-37.0) g/dL Immature Gran # (0.00-0.04) 10*3/uL Neutrophils # (1.80-7.70) 10*3/uL Lymphocytes # (0.90-5.00) 10*3/uL Monocytes # (0.20-1.00) 10*3/uL Eosinophils # (0.04-0.35) 10*3/uL Sodium (137-145) mmol/L Carbon Dioxide (22-30) mmol/L BUN (9-20) mg/dL Creatinine (0.66-1.25) mg/dL Glucose (74-99) mg/dL Calcium (8.4-10.2) mg/dL Total Protein 5.2 L (6.3-8.2) g/dL Procalcitonin 2.21 H (0.02-0.50) ng/mL Fluid Appearance Slightly Hazy A (Clear) 08/31/24 08/31/24 09/01/24 Range/Units 21:11 21:11 05:53 WBC 21.48 H 13.57 H (4.50-10.00) 10*3/uL RBC 3.70 L 3.18 L (4.40-5.60) 10*6/uL Hgb 10.3 L 8.6 L D (13.0-17.0) g/dL Hct 31.8 L 27.2 L (39.6-50.0) % MCHC 31.6 L (32.0-37.0) g/dL Immature Gran # 0.26 H 0.06 H (0.00-0.04) 10*3/uL Neutrophils # 18.50 H 11.72 H (1.80-7.70) 10*3/uL Lymphocytes # 0.54 L 0.56 L (0.90-5.00) 10*3/uL Monocytes # 2.13 H 1.19 H (0.20-1.00) 10*3/uL Eosinophils # 0.01 L 0.02 L (0.04-0.35) 10*3/uL Sodium (137-145) mmol/L Carbon Dioxide 20 L (22-30) mmol/L BUN 26 H (9-20) mg/dL Creatinine (0.66-1.25) mg/dL Glucose 103 H (74-99) mg/dL Calcium (8.4-10.2) mg/dL Total Protein (6.3-8.2) g/dL Procalcitonin (0.02-0.50) ng/mL Fluid Appearance (Clear) 09/01/24 Range/Units 05:53 WBC (4.50-10.00) 10*3/uL RBC (4.40-5.60) 10*6/uL Hgb (13.0-17.0) g/dL Hct (39.6-50.0) % MCHC (32.0-37.0) g/dL Immature Gran # (0.00-0.04) 10*3/uL Neutrophils # (1.80-7.70) 10*3/uL Lymphocytes # (0.90-5.00) 10*3/uL Monocytes # (0.20-1.00) 10*3/uL Eosinophils # (0.04-0.35) 10*3/uL Sodium 135 L (137-145) mmol/L Carbon Dioxide 19 L (22-30) mmol/L BUN 24 H (9-20) mg/dL Creatinine 0.62 L (0.66-1.25) mg/dL Glucose (74-99) mg/dL Calcium 8.3 L (8.4-10.2) mg/dL Total Protein (6.3-8.2) g/dL Procalcitonin (0.02-0.50) ng/mL Fluid Appearance (Clear) Microbiology - Last 24 Hours (Table) 08/31/24 11:40 Gram Stain - Preliminary Pleural Fluid Body Fluid Culture - Preliminary 08/30/24 16:55 Blood Culture - Preliminary Blood - Imaging and Cardiology Chest x-ray: report reviewed, image reviewed Assessment and Plan Assessment: Large right-sided pleural effusion, status postplacement of pigtail catheter by interventional radiology, status post 1 alteplase/dornase lytic treatment Pneumonia Sepsis (tachycardia, hypotension, leukocytosis) Acute hypoxic respiratory failure Shortness of breath, secondary to above Fecal impaction, NG tube in place History of CAD HLD Schizophrenia Cognitive deficits Pneumonia Plan: We will instill alteplase/dornase through his pigtail catheter today, this will be his second dose of lytics. Continue to monitor strict output from the right pigtail catheter. Encourage use of incentive spirometry 10 times every hour while awake as tolerated. Medical management of other comorbidities per internal medicine, pulmonary/critical care medicine, infectious disease and general surgery. Continue to monitor daily chest x-rays. More recommendations to follow based on patient's clinical course. Time with Patient: Greater than 30
[2024-09-01] MEDS: DORNASE ALFA 5 MG in SODIUM CHLORIDE 0.9% 50 ML IRRIGATION ONE (10:21)
[2024-09-01] MEDS: ALTEPLASE 10 MG in SODIUM CHLORIDE 0.9% 50 ML IRRIGATION ONE (10:22)
[2024-09-01] MEDS ORDERED: PROPOFOL 10 MG/ML 20 ML VIAL IV ONE (11:15)
[2024-09-01] MEDS: IV FLUID CONTINUATION 1,000 ML IV ONE (11:16)
--- NOTE | 2024-09-01 11:18 | P.PN ---
Subjective Progress Note Date: 09/01/24 SURGICAL PROGRESS NOTE CHIEF COMPLAINT: Chest pain HISTORY OF PRESENT ILLNESS: Patient sitting in bed comfortably. He is status post chest tube placement by IR service for large right sided pleural effusion. Surgical service following in regards to fecal impaction. He did have a subset enemas given yesterday with 4 bowel movements that were liquidy consistency. Patient pulled out his NG tube. He has been tachycardic. Afebrile. WBC is down from 21-13 Hgb 8.6 PHYSICAL EXAM: VITAL SIGNS: Reviewed. GENERAL: in no acute distress. HEENT: No sclera icterus. Extraocular movements grossly intact. Moist buccal mucosa. Head is atraumatic, normocephalic. ABDOMEN: Still distended but less than yesterday. Nontender with palpation. NEUROLOGIC: Awake and alert ASSESSMENT: 1. Fecal impaction PLAN: - Patient scheduled for sigmoidoscopy with disimpaction today with Dr. Lazcano Physician Press Operator Automatic note has been reviewed by physician. Signing provider agrees with the documented findings, assessment, and plan of care. Objective - Vital Signs Vital signs: Vital Signs Temp 98.2 F 09/01/24 08:00 Pulse 126 H 09/01/24 10:00 Resp 37 H 09/01/24 10:00 BP 106/66 09/01/24 10:00 Pulse Ox 96 09/01/24 10:00 FiO2 Intake & Output 08/31/24 09/01/24 09/01/24 18:59 06:59 18:59 Intake Total 6043.958 5827.765 658.692 Output Total 2855 1925 570 Balance -1456.978 -589.235 88.692 Weight 88.7 kg Intake: IV 1375 1250 575 Cefepime 2 gm In Sodium 100 Chloride 0.9% 100 ml @ 25 mls/hr IVPB Q8HR [facility] Rx# :[id number] Piperacillin-Tazobactam 3 100 .375 gm In Sodium Chloride 0.9% 100 ml @ 25 mls/hr IVPB Q8H [facility] Rx#: [id number] Sodium Chloride 0.9% 1, 675 750 75 000 ml @ 100 mls/hr IV . Q10H [facility] Rx#:[id number] Vancomycin 1,500 mg In 500 500 Sodium Chloride 0.9% 500 ml 500 ml @ 167 mls/hr IVPB ONCE [facility] Rx#: [id number] Vancomycin 1,500 mg In 500 Sodium Chloride 0.9% 500 ml 500 ml @ 167 mls/hr IVPB Q8H [facility] Rx#: [id number] Intake, IV Titration 23.022 85.765 83.692 Amount Dexmedetomidine/0.9% NaCl 48.648 (Pmx) 400 mcg In Empty Bag 1 bag @ 0.2 MCG/KG/HR 4.423 mls/hr IV .[id number] [facility] Rx#:[id number] Norepinephrine 8 mg In 23. 37.117 83.692 Sodium Chloride 0.9% 250 ml @ 0.03 MCG/KG/MIN 5. 135 mls/hr IV .Q24H [facility] Rx#:[id number] Output: Chest Tube Drainage 2500 1110 180 Pleural Catheter Right 2500 1110 180 Posterior Chest Urine 355 815 390 Other: Voiding Method Indwelling Catheter Indwelling Catheter # Bowel Movements 1 - Labs CBC & Chem 7: 09/01/24 05:53 09/01/24 05:53 Labs: Abnormal Lab Results - Last 24 Hours (Table) 08/31/24 08/31/24 08/31/24 Range/Units 04:52 11:40 21:11 WBC 21.48 H (4.50-10.00) 10*3/uL RBC 3.70 L (4.40-5.60) 10*6/uL Hgb 10.3 L (13.0-17.0) g/dL Hct 31.8 L (39.6-50.0) % MCHC (32.0-37.0) g/dL Immature Gran # 0.26 H (0.00-0.04) 10*3/uL Neutrophils # 18.50 H (1.80-7.70) 10*3/uL Lymphocytes # 0.54 L (0.90-5.00) 10*3/uL Monocytes # 2.13 H (0.20-1.00) 10*3/uL Eosinophils # 0.01 L (0.04-0.35) 10*3/uL Sodium (137-145) mmol/L Carbon Dioxide (22-30) mmol/L BUN (9-20) mg/dL Creatinine (0.66-1.25) mg/dL Glucose (74-99) mg/dL Calcium (8.4-10.2) mg/dL Procalcitonin 2.21 H (0.02-0.50) ng/mL Fluid Appearance Slightly Hazy A (Clear) 08/31/24 09/01/24 09/01/24 Range/Units 21:11 05:53 05:53 WBC 13.57 H (4.50-10.00) 10*3/uL RBC 3.18 L (4.40-5.60) 10*6/uL Hgb 8.6 L D (13.0-17.0) g/dL Hct 27.2 L (39.6-50.0) % MCHC 31.6 L (32.0-37.0) g/dL Immature Gran # 0.06 H (0.00-0.04) 10*3/uL Neutrophils # 11.72 H (1.80-7.70) 10*3/uL Lymphocytes # 0.56 L (0.90-5.00) 10*3/uL Monocytes # 1.19 H (0.20-1.00) 10*3/uL Eosinophils # 0.02 L (0.04-0.35) 10*3/uL Sodium 135 L (137-145) mmol/L Carbon Dioxide 20 L 19 L (22-30) mmol/L BUN 26 H 24 H (9-20) mg/dL Creatinine 0.62 L (0.66-1.25) mg/dL Glucose 103 H (74-99) mg/dL Calcium 8.3 L (8.4-10.2) mg/dL Procalcitonin (0.02-0.50) ng/mL Fluid Appearance (Clear) Microbiology - Last 24 Hours (Table) 08/31/24 11:40 Gram Stain - Preliminary Pleural Fluid Body Fluid Culture - Preliminary 08/30/24 16:55 Blood Culture - Preliminary Blood
--- NOTE | 2024-09-01 11:34 | P.OP ---
Date of Procedure: 09/01/24 Preoperative Diagnosis: Fecal impaction Postoperative Diagnosis: Fecal impaction Procedure(s) Performed: Disimpaction Sigmoidoscopy Anesthesia: MAC Surgeon: Malvin Lazcano Pathology: none sent Condition: stable Disposition: PACU Description of Procedure: The patient was placed on the endoscopy table in the lateral position. He received IV sedation. Digital rectal exam was performed. This revealed a large amount of soft stool in the rectum. This was disimpacted. The flexible colonoscope was then placed patient anus passed the rectum. There was a large amount of stool was prevented progression of the scope. This point scope was drawn. Patient was sent to the ICU in stable condition.
[2024-09-01] MEDS: ALBUTEROL NEBULIZED 2.5 MG/3 ML INHALATION PRN (12:03)
--- NOTE | 2024-09-01 12:39 | XR ---
EXAMINATION TYPE: XR chest 1V DATE OF EXAM: 09/01/2024 12:20 PM COMPARISON: 09/01/2024 CLINICAL INDICATION: Male, 64 years old with history of course breath sounds, TECHNIQUE: XR chest 1V view(s) obtained. FINDINGS: The heart size is normal. The pulmonary vasculature is normal. There is a small to moderate right pleural effusion. Bibasilar infiltrates are present. Correlate for atelectasis and pneumonia. IMPRESSION: 1. Small to moderate right pleural effusion. 2. Bibasilar infiltrates. Correlate for right lower lobe pneumonia. Bibasilar atelectasis could be co nsidered. [facility], , 09/01/2024 12:37 PM
--- NOTE | 2024-09-01 13:34 | P.PN ---
Subjective Progress Note Date: 09/01/24 Principal diagnosis: Complicated pleural effusion suspected empyema Patient is a 64-year-old male with past medical history significant for schizoaffective disorder, bipolar disorder, hyperlipidemia. Patient is a poor historian. He has a public guardian and resides at an [facility]. I am seeing this patient in new consultation today 08/31/2024 following rapid response called earlier this morning for hypotension and tachycardia. Patient actually brought into the emergency department yesterday afternoon from by EMS. He was confused. Complaining of abdominal/chest pain. Patient was hypotensive, tachycardic, tachypneic, and febrile. He was fluid bolused with a total of 2 L of normal saline and 2 L of lactated Ringer's. Normal saline continues at 130 mL/hr. Previously, started on a Cardizem infusion, but then became hypotensive. Heart rate recorded as high as 156 bpm. Cardizem infusion has since been discontinued. He was also given 25 mg of metoprolol. Now, patient is less tachycardic and remains hypotensive. Recommending the patient be started on norepinephrine infusion for blood pressure support and transferred to the intensive care unit. Previously started on antibiotics in the form of Zosyn and vancomycin. Following a rapid response, patient was transferred to the intensive care unit. He is in a moderate amount of distress. Tachypneic breathing in 30s to 40s. On 3 L/min nasal cannula. He has since been started on norepinephrine which is infusing at 0.03 mcg/kg/min. Current blood pressure 117/79 mmHg. Heart rhythm appears sinus tachycardia on bedside monitor, with a rate of 109 bpm. Abdomen is firm and distended. Does not appear particularly tender. No nausea or vomiting. CT of chest, abdomen, pelvis remarkable for large fecal bolus and fecal impaction. Also, large right pleural effusion with compressive atelectasis. Labs including a CBC with a WBC count of 40.4, hemoglobin 13.5, platelets 322. CMP: Sodium 133, potassium 4.2, chloride 105, serum bicarb 20, BUN 23, creatinine 0.73, glucose 118. LFTs not elevated. Total bilirubin 3.6. Lactic was 2.6 and is down to 0.9. Serial troponins less than 0.012 x 2. EKG: sinus tachycardia, rate 148 bpm. NT proBNP 457. Urinalysis fairly unremarkable. Patient was seen today on 09/01/2024, patient remains in the ICU, on 4 L nasal cannula, continues to have significant drainage of serosanguineous pleural effusion, patient has been receiving lytic therapy for his likely pleural effusion so far drained 3.7 L since the pigtail catheter placement. Patient remains on cefepime and vancomycin, he is requiring a bit of norepinephrine at 0.05 mcg/kg/min and that being titrated hopefully will be discontinued today IV fluid is 0.9 normal saline at 100 cc/h and he will receive fluid bolus. Patient remains constipated, bloated, supposed to have colonoscopy today. WBC count is 13.5 hemoglobin 8.6 electrolytes are normal BUN is 24 creatinine 0.62 pleural effusion cultures are negative so far but the pleural effusion is quite exudative with protein of more than 3600 and LDH 1210. Objective - Vital Signs Vital signs: Vital Signs Temp 98 F 09/01/24 11:46 Pulse 138 H 09/01/24 12:45 Resp 45 H 09/01/24 12:45 BP 99/70 09/01/24 12:45 Pulse Ox 96 09/01/24 12:45 FiO2 80 09/01/24 12:45 Intake & Output 08/31/24 09/01/24 09/01/24 18:59 06:59 18:59 Intake Total 1744.820 6635.765 1758.692 Output Total 2855 1925 570 Balance -1456.978 -265.532 5990.692 Weight 88.7 kg Intake: IV 1375 1250 1675 Cefepime 2 gm In Sodium 100 Chloride 0.9% 100 ml @ 25 mls/hr IVPB Q8HR [facility] Rx# :[id number] Lactated Ringers 1,000 ml 1000 @ 999 mls/hr IV .Q1H1M [facility] Rx#:[id number] Piperacillin-Tazobactam 3 100 .375 gm In Sodium Chloride 0.9% 100 ml @ 25 mls/hr IVPB Q8H [facility] Rx#: [id number] Sodium Chloride 0.9% 1, 675 750 75 000 ml @ 100 mls/hr IV . Q10H [facility] Rx#:[id number] Vancomycin 1,500 mg In 500 500 Sodium Chloride 0.9% 500 ml 500 ml @ 167 mls/hr IVPB ONCE [facility] Rx#: [id number] Vancomycin 1,500 mg In 500 Sodium Chloride 0.9% 500 ml 500 ml @ 167 mls/hr IVPB Q8H [facility] Rx#: [id number] Intake, IV Titration 23.022 85.765 83.692 Amount Dexmedetomidine/0.9% NaCl 48.648 (Pmx) 400 mcg In Empty Bag 1 bag @ 0.2 MCG/KG/HR 4.423 mls/hr IV .[id number] [facility] Rx#:[id number] Norepinephrine 8 mg In 23.022 37.117 83.692 Sodium Chloride 0.9% 250 ml @ 0.03 MCG/KG/MIN 5. 135 mls/hr IV .Q24H [facility] Rx#:[id number] Output: Chest Tube Drainage 2500 1110 180 Pleural Catheter Right 2500 1110 180 Posterior Chest Urine 355 815 390 Other: Voiding Method Indwelling Catheter Indwelling Catheter Indwelling Catheter # Bowel Movements 1 - Exam GENERAL EXAM: Anxious, 64-year-old male,, in no distress seems to be anxious. HEAD: Normocephalic and atraumatic EYES: Normal reaction of pupils, equal size. NOSE: Clear with pink turbinates. THROAT: No erythema or exudates. Poor dentition. NECK: No masses, no JVD. CHEST: No chest wall deformity. LUNGS: Equal air entry with diminished right basilar lung sounds. Right-sided chest tube is noted/pigtail catheter CVS: S1 and S2 normal with no audible murmur, regular rhythm. No extra heart sounds patient is relatively tachycardic ABDOMEN: Abdomen is slightly distended and firm, and active bowel sounds, no appreciated organomegaly, no guarding or rigidity. SKIN: No rashes CENTRAL NERVOUS SYSTEM: Patient seems to be confused, nonverbal./Baseline EXTREMITIES: No clubbing edema or cyanosis - Labs CBC & Chem 7: 09/01/24 05:53 09/01/24 05:53 Labs: Abnormal Lab Results - Last 24 Hours (Table) 08/31/24 08/31/24 08/31/24 Range/Units 11:40 21:11 21:11 WBC 21.48 H (4.50-10.00) 10*3/uL RBC 3.70 L (4.40-5.60) 10*6/uL Hgb 10.3 L (13.0-17.0) g/dL Hct 31.8 L (39.6-50.0) % MCHC (32.0-37.0) g/dL Immature Gran # 0.26 H (0.00-0.04) 10*3/uL Neutrophils # 18.50 H (1.80-7.70) 10*3/uL Lymphocytes # 0.54 L (0.90-5.00) 10*3/uL Monocytes # 2.13 H (0.20-1.00) 10*3/uL Eosinophils # 0.01 L (0.04-0.35) 10*3/uL Sodium (137-145) mmol/L Carbon Dioxide 20 L (22-30) mmol/L BUN 26 H (9-20) mg/dL Creatinine (0.66-1.25) mg/dL Glucose 103 H (74-99) mg/dL Calcium (8.4-10.2) mg/dL Fluid Appearance Slightly Hazy A (Clear) 09/01/24 09/01/24 Range/Units 05:53 05:53 WBC 13.57 H (4.50-10.00) 10*3/uL RBC 3.18 L (4.40-5.60) 10*6/uL Hgb 8.6 L D (13.0-17.0) g/dL Hct 27.2 L (39.6-50.0) % MCHC 31.6 L (32.0-37.0) g/dL Immature Gran # 0.06 H (0.00-0.04) 10*3/uL Neutrophils # 11.72 H (1.80-7.70) 10*3/uL Lymphocytes # 0.56 L (0.90-5.00) 10*3/uL Monocytes # 1.19 H (0.20-1.00) 10*3/uL Eosinophils # 0.02 L (0.04-0.35) 10*3/uL Sodium 135 L (137-145) mmol/L Carbon Dioxide 19 L (22-30) mmol/L BUN 24 H (9-20) mg/dL Creatinine 0.62 L (0.66-1.25) mg/dL Glucose (74-99) mg/dL Calcium 8.3 L (8.4-10.2) mg/dL Fluid Appearance (Clear) Microbiology - Last 24 Hours (Table) 08/31/24 11:40 Acid Fast Bacilli Smear - Preliminary Pleural Fluid 08/31/24 11:40 Gram Stain - Preliminary Pleural Fluid Body Fluid Culture - Preliminary 08/30/24 16:55 Blood Culture - Preliminary Blood Assessment and Plan Assessment: Impression: Complicated right-sided pleural effusion with associated compressive atelectasis, status post pigtail catheter placement on 08/31/2024, drained 3.7 L so far since pigtail catheter placement in the last 2 days fluid is exudative a nd cultures are negative so far Acute hypoxemic respiratory failure, currently on 3 L/min nasal cannula, secondary to above Abdominal pain and fecal impaction; CT of abdomen, pelvis remarkable for large fecal bolus and fecal impaction. Hypotension and shock, suspect sepsis/septic shock Sinus tachycardia Acute leukocytosis SIRS/sepsis criteria met History of schizoaffective disorder, bipolar disorder History of hyperlipidemia Recommendation: Continue to monitor in the ICU for now Continue antibiotics for presumptive empyema Continue pigtail catheter to chest wall suction and continue lytic therapy General Surgery is addressing his abdominal distention going for colonoscopy today Continue IV fluids and monitor daily labs Prognosis remains guarded, patient is relatively quite ill Will continue to follow Time with Patient: Less than 30
[2024-09-01] MEDS: ACETAMINOPHEN IV (For NPO) 1,000 MG in EMPTY BAG 1 BAG IVPB PRN (14:20)
--- NOTE | 2024-09-01 16:16 | P.PN ---
Subjective Progress Note Date: 09/01/24 Principal diagnosis: Reason for follow-up is pneumonia/empyema/effusion Patient is a 64-year-old male with a past medical history significant for coronary disease ,HLD, schizophrenia, cognitive deficits, and pneumonia. Patient has been brought to the hospital concerning for increasing shortness of breath and cough did have a CT with a large right-sided effusion status post chest tube placement. On today's evaluation that is 09/01/2024,the patient remains to be afebrile, patient is on BiPAP requiring 50% FiO2 patient try to communicate but it is hard to understand no vomiting or diarrhea reported by the sitter at the bedside. Patient white count is down to 13.57, creatinine 0.62 cultures are currently pending Objective - Vital Signs Vital signs: Vital Signs Temp 101.3 F H 09/01/24 13:15 Pulse 112 H 09/01/24 15:00 Resp 20 09/01/24 15:00 BP 90/51 09/01/24 15:00 Pulse Ox 99 09/01/24 15:00 FiO2 50 09/01/24 15:00 Intake & Output 08/31/24 09/01/24 09/01/24 18:59 06:59 18:59 Intake Total 7662.600 8151.765 1958.692 Output Total 2855 1925 1485 Balance -1456.978 -589.235 473.692 Weight 88.7 kg Intake: IV 1375 1250 1875 Cefepime 2 gm In Sodium 100 Chloride 0.9% 100 ml @ 25 mls/hr IVPB Q8HR [facility] Rx# :[id number] Lactated Ringers 1,000 ml 1000 @ 999 mls/hr IV .Q1H1M [facility] Rx#:[id number] Piperacillin-Tazobactam 3 100 .375 gm In Sodium Chloride 0.9% 100 ml @ 25 mls/hr IVPB Q8H [facility] Rx#: [id number] Sodium Chloride 0.9% 1, 675 750 275 000 ml @ 100 mls/hr IV . Q10H [facility] Rx#:[id number] Vancomycin 1,500 mg In 500 500 Sodium Chloride 0.9% 500 ml 500 ml @ 167 mls/hr IVPB ONCE [facility] Rx#: [id number] Vancomycin 1,500 mg In 500 Sodium Chloride 0.9% 500 ml 500 ml @ 167 mls/hr IVPB Q8H [facility] Rx#: [id number] Intake, IV Titration 23.022 85.765 83.692 Amount Dexmedetomidine/0.9% NaCl 48.648 0 (Pmx) 400 mcg In Empty Bag 1 bag @ 0.2 MCG/KG/HR 4.423 mls/hr IV .[id number] [facility] Rx#:[id number] Norepinephrine 8 mg In 23.022 37.117 83.692 Sodium Chloride 0.9% 250 ml @ 0.03 MCG/KG/MIN 5. 135 mls/hr IV .Q24H [facility] Rx#:[id number] Output: Chest Tube Drainage 2500 1110 860 Pleural Catheter Right 2500 1110 860 Posterior Chest Urine 355 815 625 Other: Voiding Method Indwelling Catheter Indwelling Catheter Indwelling Catheter # Bowel Movements 1 - Exam GENERAL DESCRIPTION: An elderly male up in bed in no distress RESPIRATORY SYSTEM: Unlabored breathing , coarse breath sounds bilaterally HEART: S1 S2 regular rate and rhythm , ABDOMEN: Soft , no tenderness EXTREMITIES: No edema feet - Labs CBC & Chem 7: 09/01/24 05:53 09/01/24 05:53 Labs: Abnormal Lab Results - Last 24 Hours (Table) 08/31/24 08/31/24 08/31/24 Range/Units 11:40 21:11 21:11 WBC 21.48 H (4.50-10.00) 10*3/uL RBC 3.70 L (4.40-5.60) 10*6/uL Hgb 10.3 L (13.0-17.0) g/dL Hct 31.8 L (39.6-50.0) % MCHC (32.0-37.0) g/dL Immature Gran # 0.26 H (0.00-0.04) 10*3/uL Neutrophils # 18.50 H (1.80-7.70) 10*3/uL Lymphocytes # 0.54 L (0.90-5.00) 10*3/uL Monocytes # 2.13 H (0.20-1.00) 10*3/uL Eosinophils # 0.01 L (0.04-0.35) 10*3/uL Sodium (137-145) mmol/L Carbon Dioxide 20 L (22-30) mmol/L BUN 26 H (9-20) mg/dL Creatinine (0.66-1.25) mg/dL Glucose 103 H (74-99) mg/dL Calcium (8.4-10.2) mg/dL Fluid Appearance Slightly Hazy A (Clear) 09/01/24 09/01/24 Range/Units 05:53 05:53 WBC 13.57 H (4.50-10.00) 10*3/uL RBC 3.18 L (4.40-5.60) 10*6/uL Hgb 8.6 L D (13.0-17.0) g/dL Hct 27.2 L (39.6-50.0) % MCHC 31.6 L (32.0-37.0) g/dL Immature Gran # 0.06 H (0.00-0.04) 10*3/uL Neutrophils # 11.72 H (1.80-7.70) 10*3/uL Lymphocytes # 0.56 L (0.90-5.00) 10*3/uL Monocytes # 1.19 H (0.20-1.00) 10*3/uL Eosinophils # 0.02 L (0.04-0.35) 10*3/uL Sodium 135 L (137-145) mmol/L Carbon Dioxide 19 L (22-30) mmol/L BUN 24 H (9-20) mg/dL Creatinine 0.62 L (0.66-1.25) mg/dL Glucose (74-99) mg/dL Calcium 8.3 L (8.4-10.2) mg/dL Fluid Appearance (Clear) Microbiology - Last 24 Hours (Table) 08/31/24 02:30 Nasal Screen MRSA/MSSA - Final Nasal Swab 08/31/24 11:40 Acid Fast Bacilli Smear - Preliminary Pleural Fluid 08/31/24 11:40 Gram Stain - Preliminary Pleural Fluid Body Fluid Culture - Preliminary 08/30/24 16:55 Blood Culture - Preliminary Blood Assessment and Plan (1) Pneumonia Current Visit: Yes Status: Acute Code(s): J18.9 - PNEUMONIA, UNSPECIFIED ORGANISM SNOMED Code(s): 960005518 (2) Sepsis Current Visit: Yes Status: Acute Code(s): A41.9 - SEPSIS, UNSPECIFIED ORGANISM SNOMED Code(s): 16941186 Plan: 1patient presented hospital with sepsis in this patient who did have fever tachycardia hypotension elevated white count meeting criteria for SIRS/sepsis source likely complicated pneumonia right-sided with large effusion and question of parapneumonic effusion/empyema in this patient who is facility resident will need to cover for resistant gram-positive as well as gram-negative pathogen 2-patient is status post IR placement of a chest tube and fluid has been sent for Gram stain and culture 3-patient is afebrile and the patient white count is trending down , currently being treated with vancomycin pharmacy to dose and and cefepime while waiting for the culture to finalize Dictation was produced using [employer] dictation software. please excuse any grammatical, word or spelling errors. Time with Patient: Less than 30
[2024-09-01] MEDS: HYDROmorphone 1 MG/ML 1 ML SYRINGE IVP PRN (18:52)
--- NOTE | 2024-09-01 22:17 | PN ---
PROGRESS NOTE DATE OF SERVICE: 09/01/2024 CHIEF COMPLAINT: Sepsis with septic shock and right pleural effusion. HISTORY OF PRESENT ILLNESS: This gentleman is currently stable. Vital signs have been more stable. He is going for the procedure today because apparently, there was a large rectosigmoid impaction. PHYSICAL EXAMINATION: LUNGS: Breath sounds are heard bilaterally. CARDIAC: Reveals tachycardia. The. ABDOMEN: Soft and slightly protuberant. IMPRESSION: 1. Septic shock. 2. Right pleural effusion. 3. Fecal impaction. 4. Chronic schizophrenia. 5. Mental debility. PLAN: ICU management continues and his surgical procedure in the abdomen will be later today. MMODL / IJN: [id number] /
[2024-09-02 07:07] LABS: Basophils # (A) 0.03 10*3/uL (0.00-0.10); Basophils % (A) 0.3 %; HCT 30.1 % (39.6-50.0); HGB 9.4 g/dL (13.0-17.0); Lymphocytes # (A) 0.65 10*3/uL (0.90-5.00); Lymphocytes % (A) 6.6 %; MCH 27.5 pg (27.0-32.0); MCHC 31.2 g/dL (32.0-37.0); Mean Platelet Volume 9.7 fL (9.5-12.2); Monocytes % (A) 12.2 %; Neutrophils # (A) 7.78 10*3/uL (1.80-7.70); Neutrophils % (A) 79.5 %; Platelet Count 181 10*3/uL (140-440); RBC 3.42 10*6/uL (4.40-5.60); RDW 19.1 % (11.5-14.5)
[2024-09-02 07:24] LABS: African American GFR (CKD) >90 (>60 ml/min/1.73 sqM); Anion Gap 9 mmol/L; Blood Urea Nitrogen 17 mg/dL (9-20); Calcium 8.1 mg/dL (8.4-10.2); Carbon Dioxide 19 mmol/L (22-30); Chloride 112 mmol/L (98-107); Glucose 94 mg/dL (74-99); Non-African American GFR(CKD) >90 (>60 ml/min/1.73 sqM); Potassium 4.1 mmol/L (3.5-5.1); Sodium 140 mmol/L (137-145)
--- NOTE | 2024-09-02 07:56 | XR ---
EXAMINATION TYPE: XR chest 1V portable DATE OF EXAM: 09/02/2024 5:38 AM COMPARISON: 09/01/2020 CLINICAL INDICATION: Male, 64 years old with history of Right-sided pleural effusion, TECHNIQUE: XR chest 1V portable view(s) obtained. FINDINGS: The heart size is mildly prominent. The pulmonary vasculature is mildly prominent. Right lower lobe infiltrate is present. A small effusion may be present. Minimal infiltrate at the le ft base. IMPRESSION: 1. Basilar infiltrates greater right. Correlate for pneumonia or atelectasis. [facility], , 09/02/2024 7:54 AM
--- NOTE | 2024-09-02 08:02 | XR ---
EXAMINATION TYPE: XR chest 1V portable DATE OF EXAM: 09/02/2024 7:08 AM COMPARISON: Earlier exam CLINICAL INDICATION: Male, 64 years old with history of ngt placement, TECHNIQUE: XR chest 1V portable view(s) obtained. FINDINGS: The heart size is enlarged. The pulmonary vasculature is prominent. Diffuse increased lung markings are present. The right lower lobe Select appears stable. There is placement of a nasogastric tube with the tip in the proximal abdomen. This follows a tortuous course. IMPRESSION: 1. Clinical correlation recommended for developing congestive heart failure. 2. Persistent right lower lobe infiltrate. Atelectasis. 3. Placement of a nasogastric tube with tip in the proximal abdomen. [facility], , 09/02/2024 8:00 AM
--- NOTE | 2024-09-02 08:05 | XR ---
EXAMINATION TYPE: XR chest 1V portable DATE OF EXAM: 09/02/2024 7:16 AM COMPARISON: Earlier exam. CLINICAL INDICATION: Male, 64 years old with history of NG, TECHNIQUE: XR chest 1V portable view(s) obtained. FINDINGS: The heart size is enlarged. The pulmonary vasculature is prominent. Right lower lobe infiltrate remains present. Nasogastric tube has been straightened, the tip remains within the proximal epigastric region. This s hould be advanced approximately 9 cm. IMPRESSION: 1. Straightening of the nasogastric tube. Tip remains within the proximal epigastric region and shoul d be advanced approximately 9 cm. 2. Congestive heart failure. 3. Right lower lobe infiltrate. Correlate for atelectasis [facility], , 09/02/2024 8:03 AM
--- NOTE | 2024-09-02 08:23 | P.PN ---
Subjective Progress Note Date: 09/02/24 Principal diagnosis: Large right-sided pleural effusion, pneumonia, sepsis, and acute hypoxic respiratory failure. Past medical history significant for coronary artery disease, hyperlipidemia, anemia, schizophrenia, anxiety, depression, cognitive deficits, speech impediment, is a lifetime non-smoker and pneumonia. POD #2 ultrasound-guided chest tube insertion performed by interventional radiology. The patient was seen and examined this morning laying in bed in the ICU. C urrently sinus tach, blood pressure stable on IV levo, currently on 4 LPM NC with oxygen saturation in the mid 90s. Right sided pigtail remains present, second dose of lytics instilled yesterday with 1620 mL return. Patient did go to endo yesterday with disimpaction and flex sig completed by Dr. Lazcano. Patient more calm/less fidgety on precedex. CXR, labs reviewed. Objective - Vital Signs Vital signs: Vital Signs Temp 99.0 F 09/02/24 00:00 Pulse 134 H 09/02/24 07:00 Resp 19 09/02/24 07:00 BP 138/75 09/02/24 07:00 Pulse Ox 94 L 09/02/24 07:00 FiO2 50 09/01/24 15:00 Intake & Output 09/01/24 09/02/24 09/02/24 18:59 06:59 18:59 Intake Total 2422.401 1271.142 103.765 Output Total 1790 1305 255 Balance 632.401 -33.858 -151.235 Weight 89.7 kg Intake: IV 2275 900 100 Lactated Ringers 1,000 ml 1000 @ 999 mls/hr IV .Q1H1M [facility] Rx#:[id number] Sodium Chloride 0.9% 1, 675 900 100 000 ml @ 100 mls/hr IV . Q10H [facility] Rx#:[id number] Vancomycin 1,500 mg In 500 Sodium Chloride 0.9% 500 ml 500 ml @ 167 mls/hr IVPB ONCE [facility] Rx#: [id number] Intake, IV Titration 97.401 371.142 3.765 Amount Dexmedetomidine/0.9% NaCl 13.709 132.343 (Pmx) 400 mcg In Empty Bag 1 bag @ 0.2 MCG/KG/HR 4.423 mls/hr IV .[id number] [facility] Rx#:[id number] Norepinephrine 8 mg In 83.692 238.799 3.765 Sodium Chloride 0.9% 250 ml @ 0.03 MCG/KG/MIN 5. 135 mls/hr IV .Q24H [facility] Rx#:[id number] Oral 50 Output: Chest Tube Drainage 970 650 200 Pleural Catheter Right 970 650 200 Posterior Chest Urine 820 655 55 Other: Voiding Method Indwelling Catheter Indwelling Catheter - Exam CONSTITUTIONAL: Appears calm RESPIRATORY: Lungs sounds coarse bilaterally, diminished in the right base. Respirations even but shallow and tachypneic. Currently on 4 LPM NC with oxygen saturation 95% CARDIOVASCULAR: S1, S2 present. Regular rate and rhythm, sinus rhythm on telemetry. Palpable peripheral pulses bilaterally. No edema present. No calf pain or tenderness noted. SCDs present. GASTROINTESTINAL: Abdomen somewhat firm, nontender, slightly distended. Hypoactive bowel sounds present 4 quadrants. NGT present to [facility] GENITOURINARY: [place] present draining clear yellow urine, output 30-60 mL/hr overnight, 1475 mL in the last 24 hours INTEGUMENTARY: Skin is warm and dry NEUROLOGIC: Cranial nerves II through XII intact MUSKULOSKELETAL: Able to move all extremities, strength equal bilaterally PSYCHIATRIC: Alert and oriented to person place INVASIVE LINES AND TUBES: Right pigtail catheter present to continuous wall suction, no air leak present, 610 mL output overnight, 1620 mL in the last 24 hours - Allied health notes Allied health notes reviewed: nursing - Labs CBC & Chem 7: 09/02/24 06:16 09/02/24 06:16 Labs: Abnormal Lab Results - Last 24 Hours (Table) 09/02/24 09/02/24 Range/Units 06:16 06:16 RBC 3.42 L (4.40-5.60) 10*6/uL Hgb 9.4 L (13.0-17.0) g/dL Hct 30.1 L (39.6-50.0) % MCHC 31.2 L (32.0-37.0) g/dL Neutrophils # 7.78 H (1.80-7.70) 10*3/uL Lymphocytes # 0.65 L (0.90-5.00) 10*3/uL Monocytes # 1.20 H (0.20-1.00) 10*3/uL Chloride 112 H (98-107) mmol/L Carbon Dioxide 19 L (22-30) mmol/L Creatinine 0.56 L (0.66-1.25) mg/dL Calcium 8.1 L (8.4-10.2) mg/dL Microbiology - Last 24 Hours (Table) 08/31/24 11:40 Gram Stain - Preliminary Pleural Fluid Body Fluid Culture - Preliminary 08/30/24 16:55 Blood Culture - Preliminary Blood 08/31/24 02:30 Nasal Screen MRSA/MSSA - Final Nasal Swab 08/31/24 11:40 Acid Fast Bacilli Smear - Preliminary Pleural Fluid - Imaging and Cardiology Chest x-ray: report reviewed, image reviewed Assessment and Plan Assessment: Large right-sided pleural effusion, status postplacement of pigtail catheter by interventional radiology Pneumonia Sepsis (tachycardia, hypotension, leukocytosis) Acute hypoxic respiratory failure Shortness of breath, secondary to above History of CAD HLD Schizophrenia Cognitive deficits Pneumonia Plan: Will instill 3rd dose alteplase/dornase through his pigtail catheter today Continue to monitor strict output from the right pigtail catheter. Wean oxygen as tolerated, ncourage use of incentive spirometry 10 times every hour while awake as tolerated. Medical management of other comorbidities per internal medicine, pulmonary/critical care medicine, infectious disease and general surgery. Continue to monitor daily chest x-rays. More recommendations to follow based on patient's clinical course.
--- NOTE | 2024-09-02 10:15 | XR ---
EXAMINATION TYPE: XR chest 1V portable DATE OF EXAM: 09/02/2024 10:11 AM COMPARISON: None. CLINICAL INDICATION: Male, 64 years old with history of NASOGATRIC TUBE PLACEMENT, TECHNIQUE: XR chest 1V portable view(s) obtained. FINDINGS: The heart size is enlarged. The pulmonary vasculature is normal. Bibasilar infiltrates are present greater on the right. Small effusions are present this may be incre asing on the right. Nasogastric tube is been advanced and is in good position with the tip in left upper quadrant of the abdomen. Multiple air-filled loops of bowel within the abdomen. IMPRESSION: 1. Bibasilar infiltrates greater on the right. 2. Increasing right pleural effusion. 3. Nasogastric tube in satisfactory position [facility], , 09/02/2024 10:13 AM
[2024-09-02] MEDS: LACTULOSE 20 GM/30 ML CUP PO SCH (10:36)
--- NOTE | 2024-09-02 10:59 | P.PN ---
Subjective Progress Note Date: 09/02/24 SURGICAL PROGRESS NOTE CHIEF COMPLAINT: Chest pain HISTORY OF PRESENT ILLNESS: Patient is status post flex sigmoidoscopy for disimpaction yesterday. Patient on Precedex for agitation. They are weaning d own the Precedex. She still has chest tube in place for pleural effusion. He had some respiratory issues and tachycardia yesterday. He is 2 L of oxygen. And is mildly tachycardic. Fever of 101.3 yesterday afternoon. Patient does have pneumonia. They are concerned that he might be aspirating. Speech therapy is evaluating him today. PHYSICAL EXAM: VITAL SIGNS: Reviewed. GENERAL: in no acute distress. HEENT: No sclera icterus. Extraocular movements grossly intact. Moist buccal mucosa. Head is atraumatic, normocephalic. ABDOMEN: Softer. Mildly distended. Nontender with palpation. NEUROLOGIC: Lethargic ASSESSMENT: 1. Fecal impaction status post flexible sigmoidoscopy with disimpaction PLAN: - 2 soapsuds enemas ordered and lactulose twice daily to continue to help clean out the fecal impaction - Lactulose can be placed down NG tube. - Awaiting speech therapy evaluation for swallow eval - Continue ICU management - Continue supportive care Physician Technology Project Manager note has been reviewed by physician. Signing provider agrees with the documented findings, assessment, and plan of care. Objective - Vital Signs Vital signs: Vital Signs Temp 100.8 F H 09/02/24 08:00 Pulse 105 H 09/02/24 10:45 Resp 16 09/02/24 10:45 BP 95/59 09/02/24 10:45 Pulse Ox 96 09/02/24 10:45 FiO2 50 09/01/24 15:00 Intake & Output 09/01/24 09/02/24 09/02/24 18:59 06:59 18:59 Intake Total 2422.401 1271.142 583.597 Output Total 1790 1305 715 Balance 632.401 -33.858 -131.403 Weight 89.7 kg Intake: IV 2275 900 400 Lactated Ringers 1,000 ml 1000 @ 999 mls/hr IV .Q1H1M [facility] Rx#:[id number] Sodium Chloride 0.9% 1, 675 900 400 000 ml @ 100 mls/hr IV . Q10H [facility] Rx#:[id number] Vancomycin 1,500 mg In 500 Sodium Chloride 0.9% 500 ml 500 ml @ 167 mls/hr IVPB ONCE STA Rx#: [id number] Intake, IV Titration 97.401 371.142 123.597 Amount Dexmedetomidine/0.9% NaCl 13.709 132.343 40.246 (Pmx) 400 mcg In Empty Bag 1 bag @ 0.2 MCG/KG/HR 4.423 mls/hr IV .[id number] [facility] Rx#:[id number] Norepinephrine 8 mg In 83.692 238.799 83.351 Sodium Chloride 0.9% 250 ml @ 0.03 MCG/KG/MIN 5. 135 mls/hr IV .Q24H [facility] Rx#:[id number] Oral 50 Other 60 Output: Chest Tube Drainage 970 650 410 Pleural Catheter Right 970 650 410 Posterior Chest Urine 820 655 305 Other: Voiding Method Indwelling Catheter Indwelling Catheter - Labs CBC & Chem 7: 09/02/24 06:16 09/02/24 06:16 Labs: Abnormal Lab Results - Last 24 Hours (Table) 09/02/24 09/02/24 Range/Units 06:16 06:16 RBC 3.42 L (4.40-5.60) 10*6/uL Hgb 9.4 L (13.0-17.0) g/dL Hct 30.1 L (39.6-50.0) % MCHC 31.2 L (32.0-37.0) g/dL Neutrophils # 7.78 H (1.80-7.70) 10*3/uL Lymphocytes # 0.65 L (0.90-5.00) 10*3/uL Monocytes # 1.20 H (0.20-1.00) 10*3/uL Chloride 112 H (98-107) mmol/L Carbon Dioxide 19 L (22-30) mmol/L Creatinine 0.56 L (0.66-1.25) mg/dL Calcium 8.1 L (8.4-10.2) mg/dL Microbiology - Last 24 Hours (Table) 08/31/24 11:40 Gram Stain - Preliminary Pleural Fluid Body Fluid Culture - Preliminary 08/30/24 16:55 Blood Culture - Preliminary Blood 08/31/24 02:30 Nasal Screen MRSA/MSSA - Final Nasal Swab 06/11/25 11:40 Acid Fast Bacilli Smear - Preliminary Pleural Fluid
[2024-09-02] MEDS: ALTEPLASE 10 MG in SODIUM CHLORIDE 0.9% 50 ML IRRIGATION ONE (12:34)
[2024-09-02] MEDS: DORNASE ALFA 5 MG in SODIUM CHLORIDE 0.9% 50 ML IRRIGATION ONE (12:34)
--- NOTE | 2024-09-02 14:38 | P.PN ---
Subjective Progress Note Date: 09/02/24 Principal diagnosis: Complicated pleural effusion suspected empyema Patient is a 64-year-old male with past medical history significant for schizoaffective disorder, bipolar disorder, hyperlipidemia. Patient is a poor historian. He has a public guardian and resides at an [facility]. I am seeing this patient in new consultation today 08/31/2024 following rapid response called earlier this morning for hypotension and tachycardia. Patient actually brought into the emergency department yesterday afternoon from by EMS. He was confused. Complaining of abdominal/chest pain. Patient was hypotensive, tachycardic, tachypneic, and febrile. He was fluid bolused with a total of 2 L of normal saline and 2 L of lactated Ringer's. Normal saline continues at 130 mL/hr. Previously, started on a Cardizem infusion, but then became hypotensive. Heart rate recorded as high as 156 bpm. Cardizem infusion has since been discontinued. He was also given 25 mg of metoprolol. Now, patient is less tachycardic and remains hypotensive. Recommending the patient be started on norepinephrine infusion for blood pressure support and transferred to the intensive care unit. Previously started on antibiotics in the form of Zosyn and vancomycin. Following a rapid response, patient was transferred to the intensive care unit. He is in a moderate amount of distress. Tachypneic breathing in 30s to 40s. On 3 L/min nasal cannula. He has since been started on norepinephrine which is infusing at 0.03 mcg/kg/min. Current blood pressure 117/79 mmHg. Heart rhythm appears sinus tachycardia on bedside monitor, with a rate of 109 bpm. Abdomen is firm and distended. Does not appear particularly tender. No nausea or vomiting. CT of chest, abdomen, pelvis remarkable for large fecal bolus and fecal impaction. Also, large right pleural effusion with compressive atelectasis. Labs including a CBC with a WBC count of 40.4, hemoglobin 13.5, platelets 322. CMP: Sodium 133, potassium 4.2, chloride 105, serum bicarb 20, BUN 23, creatinine 0.73, glucose 118. LFTs not elevated. Total bilirubin 3.6. Lactic was 2.6 and is down to 0.9. Serial troponins less than 0.012 x 2. EKG: sinus tachycardia, rate 148 bpm. NT proBNP 457. Urinalysis fairly unremarkable. Patient was seen today on 09/01/2024, patient remains in the ICU, on 4 L nasal cannula, continues to have significant drainage of serosanguineous pleural effusion, patient has been receiving lytic therapy for his likely pleural effusion so far drained 3.7 L since the pigtail catheter placement. Patient remains on cefepime and vancomycin, he is requiring a bit of norepinephrine at 0.05 mcg/kg/min and that being titrated hopefully will be discontinued today IV fluid is 0.9 normal saline at 100 cc/h and he will receive fluid bolus. Patient remains constipated, bloated, supposed to have colonoscopy today. WBC count is 13.5 hemoglobin 8.6 electrolytes are normal BUN is 24 creatinine 0.62 pleural effusion cultures are negative so far but the pleural effusion is quite exudative with protein of more than 3600 and LDH 1210. Patient was seen today on 09/02/2024, remains in the ICU, continues to have intermittent episodes of shortness of breath, anxiety, remains constipated until earlier today he was given lactulose and SS enema then he had a significant bowel movement. Patient felt much better after his bowel movement. Remains on Precedex for agitation 0.5 mcg/kg/h he is also on norepinephrine at 0.07 and he is receiving fluids and fluid boluses. Antibiotics hernandez remains on Vanco and cefepime. Blood pressure remains marginal requiring norepinephrine, I am recommending today possibly a PICC line placement as the patient may need to be on antibiotics for a long period of time. Cultures of the right pleural effusion remains nondiagnostic patient continues to receive lytic therapy, and chest x-ray continues to show improvement. His abdominal films continue to show dilated bowel loops. But hopefully that will get better as he had a large bowel movement earlier today. Labs today show WBC count of 9.8 hemoglobin 9.4 electrolytes are normal renal profile is normal bicarb is 19. Objective - Vital Signs Vital signs: Vital Signs Temp 100.3 F H 09/02/24 12:00 Pulse 116 H 09/02/24 12:45 Resp 25 H 09/02/24 12:45 BP 100/61 09/02/24 12:45 Pulse Ox 95 09/02/24 12:45 FiO2 50 09/01/24 15:00 Intake & Output 09/01/24 09/02/24 09/02/24 18:59 06:59 18:59 Intake Total 2422.401 1204.578 0279.721 Output Total 1790 1305 925 Balance 632.401 -33.858 119.721 Weight 89.7 kg Intake: IV 2275 900 800 Lactated Ringers 1,000 ml 1000 @ 999 mls/hr IV .Q1H1M [facility] Rx#:[id number] Sodium Chloride 0.9% 1, 675 900 800 000 ml @ 100 mls/hr IV . Q10H [facility] Rx#:[id number] Vancomycin 1,500 mg In 500 Sodium Chloride 0.9% 500 ml 500 ml @ 167 mls/hr IVPB ONCE [facility] Rx#: [id number] Intake, IV Titration 97.401 371.142 184.721 Amount Dexmedetomidine/0.9% NaCl 13.709 132.343 51.351 (Pmx) 400 mcg In Empty Bag 1 bag @ 0.2 MCG/KG/HR 4.423 mls/hr IV .[id number] [facility] Rx#:[id number] Norepinephrine 8 mg In 83.692 238.799 133.370 Sodium Chloride 0.9% 250 ml @ 0.03 MCG/KG/MIN 5. 135 mls/hr IV .Q24H [facility] Rx#:[id number] Oral 50 Other 60 Output: Chest Tube Drainage 970 650 410 Pleural Catheter Right 970 650 410 Posterior Chest Urine 820 655 515 Other: Voiding Method Indwelling Catheter Indwelling Catheter - Exam GENERAL EXAM: Anxious, 64-year-old male,, in no distress patient has intermittent episodes of anxiety HEAD: Normocephalic and atraumatic EYES: Normal reaction of pupils, equal size. NOSE: Clear with pink turbinates. THROAT: No erythema or exudates. Poor dentition. NECK: No masses, no JVD. CHEST: No chest wall deformity. LUNGS: Equal air entry with diminished right basilar lung sounds. Right-sided chest tube is noted/pigtail catheter CVS: S1 and S2 normal with no audible murmur, regular rhythm. Intermittently tachycardic ABDOMEN: Abdomen is slightly distended and firm, and active bowel sounds, no appreciated organomegaly, no guarding or rigidity. SKIN: No rashes CENTRAL NERVOUS SYSTEM: Patient seems to be confused, nonverbal./Baseline EXTREMITIES: No clubbing edema or cyanosis - Labs CBC & Chem 7: 09/02/24 06:16 09/02/24 06:16 Labs: Abnormal Lab Results - Last 24 Hours (Table) 09/02/24 09/02/24 Range/Units 06:16 06:16 RBC 3.42 L (4.40-5.60) 10*6/uL Hgb 9.4 L (13.0-17.0) g/dL Hct 30.1 L (39.6-50.0) % MCHC 31.2 L (32.0-37.0) g/dL Neutrophils # 7.78 H (1.80-7.70) 10*3/uL Lymphocytes # 0.65 L (0.90-5.00) 10*3/uL Monocytes # 1.20 H (0.20-1.00) 10*3/uL Chloride 112 H (98-107) mmol/L Carbon Dioxide 19 L (22-30) mmol/L Creatinine 0.56 L (0.66-1.25) mg/dL Calcium 8.1 L (8.4-10.2) mg/dL Microbiology - Last 24 Hours (Table) 08/31/24 11:40 Gram Stain - Preliminary Pleural Fluid Body Fluid Culture - Preliminary 08/30/24 16:55 Blood Culture - Preliminary Blood 08/31/24 02:30 Nasal Screen MRSA/MSSA - Final Nasal Swab 08/31/24 11:40 Acid Fast Bacilli Smear - Preliminary Pleural Fluid Assessment and Plan Assessment: Impression: Complicated right-sided pleural effusion with associated compressive atelect asis, status post pigtail catheter placement on 08/31/2024, drained 3.7 L so far since pigtail catheter placement in the last 2 days fluid is exudative and cultures are negative so far Acute hypoxemic respiratory failure, currently on 3 L/min nasal cannula, secondary to above Abdominal pain and fecal impaction; CT of abdomen, pelvis remarkable for large fecal bolus and fecal impaction. Hypotension and shock, suspect sepsis/septic shock Sinus tachycardia Acute leukocytosis SIRS/sepsis criteria met History of schizoaffective disorder, bipolar disorder History of hyperlipidemia Constipation/obstipation improved today after a large bowel movement following lactulose and assess and emesis. Recommendation: Continue to monitor in the ICU for now, as long as he is requiring norepinephrine Continue IV fluids Continue antibiotics for presumptive empyema Continue pigtail catheter to chest wall suction and continue lytic therapy General Surgery is addressing his obstipation which seems to be improving Continue IV fluids and monitor daily labs Prognosis remains guarded at the patient remains relatively ill Will continue to follow Time with Patient: Less than 30
--- NOTE | 2024-09-02 18:17 | P.PN ---
Subjective Progress Note Date: 09/02/24 This is a 64-year-old male with history of developmental delay, anemia, anxiety/bipolar/depression/schizoaffective disorder. Patient has a legal guardian and [facility]. He comes into the hospital because of chest pain and elevated heart rate. Patient is a poor historian and has been minimally verbal. He is currently in the intensive care unit. He has a pigtail catheter in place chest x-ray today showing the bibasilar infiltrates greater on the right with a improving right sided pleural effusion. Patient also has NG tube in place. He had fecal impaction which was surgically treated. He is now having bowel movements. Blood work today reveals a white blood cell count 9.0, hemoglobin 9.4, sodium of 140 potassium 4.1, BUN of 17 creatinine 0.56 and a magnesium level of 1.9. Patient has been febrile today with a Tmax of 100.8 he is tachycardic heart rate of 135. He is being followed closely by infectious disease and remains on a combination of IV cefepime and IV vancomycin. Patient has received an instillation of alteplase and dornase today through the pigtail catheter. Unable to complete a review of systems secondary to patient's mentation PHYSICAL EXAMINATION: GENERAL: The patient is alert and oriented x1, not in any acute distress. Well developed, well nourished. HEENT: Pupils are round and equally reacting to light. EOMI. No scleral icterus. No conjunctival pallor. Normocephalic, atraumatic. No pharyngeal erythema. No thyromegaly. CARDIOVASCULAR: S1 and S2 present. No murmurs, rubs, or gallops. PULMONARY: Chest is clear to auscultation, no wheezing or crackles. ABDOMEN: Soft, nontender, nondistended, normoactive bowel sounds. No palpable organomegaly. NG tube in place; pigtail catheter in place. MUSCULOSKELETAL: No joint swelling or deformity. EXTREMITIES: No cyanosis, clubbing, or pedal edema. NEUROLOGICAL: Gross neurological examination did not reveal any focal deficits. SKIN: No rashes. Assessment Right sided pleural effusion/empyema status post pigtail catheter Septic shock requiring vasopressor support Acute hypoxemic respiratory failure secondary to above Sinus tachycardia Leukocytosis , improved Fecal impaction, resolved Anxiety/bipolar/depression/schizoaffective disorder Cognitive delay GI prophylaxis DVT prophylaxis Full Code Plan Patient remains in the ICU Continue pigtail catheter CT surgery following and patient received lytics today Chest tube remains to suction Continue IV antibiotics per ID Continue cardiac telemetry Normal saline at 100mls/hr Currently on IV precedex which continues Monitor electrolytes and renal function The impression and plan of care has been dictated by Hazel Waite, Nurse Practitioner as directed. Dr. Brayden MD I have performed a history and physical examination and medical decision making of this patient, discussed the same with the dictator, and agree with the dic tators assessment and plan as written, documented as a scribe. Based on total visit time, I have performed more than 50% of this visit. Objective - Vital Signs Vital signs: Vital Signs Temp 100.3 F H 09/02/24 16:00 Pulse 135 H 09/02/24 18:00 Resp 37 H 09/02/24 18:00 BP 142/92 09/02/24 18:00 Pulse Ox 92 L 09/02/24 18:00 FiO2 50 09/01/24 15:00 Intake & Output 09/01/24 09/02/24 09/02/24 18:59 06:59 18:59 Intake Total 2422.401 7215.512 2432.721 Output Total 1790 1305 1075 Balance 632.401 -33.858 169.721 Weight 89.7 kg Intake: IV 2275 900 1000 Lactated Ringers 1,000 ml 1000 @ 999 mls/hr IV .Q1H1M [facility] Rx#:[id number] Sodium Chloride 0.9% 1, 670 170 2608 000 ml @ 100 mls/hr IV . Q10H [facility] Rx#:[id number] Vancomycin 1,500 mg In 500 Sodium Chloride 0.9% 500 ml 500 ml @ 167 mls/hr IVPB ONCE STA Rx#: [id number] Intake, IV Titration 97.401 371.142 184.721 Amount Dexmedetomidine/0.9% NaCl 13.709 132.343 51.351 (Pmx) 400 mcg In Empty Bag 1 bag @ 0.2 MCG/KG/HR 4.423 mls/hr IV .[id number] [facility] Rx#:[id number] Norepinephrine 8 mg In 83.692 238.799 133.370 Sodium Chloride 0.9% 250 ml @ 0.03 MCG/KG/MIN 5. 135 mls/hr IV .Q24H [facility] Rx#:[id number] Oral 50 Other 60 Output: Chest Tube Drainage 970 650 410 Pleural Catheter Right 970 650 410 Posterior Chest Urine 820 655 665 Other: Voiding Method Indwelling Catheter Indwelling Catheter - Labs CBC & Chem 7: 09/02/24 06:16 09/02/24 06:16 Labs: Abnormal Lab Results - Last 24 Hours (Table) 09/02/24 09/02/24 Range/Units 06:16 06:16 RBC 3.42 L (4.40-5.60) 10*6/uL Hgb 9.4 L (13.0-17.0) g/dL Hct 30.1 L (39.6-50.0) % MCHC 31.2 L (32.0-37.0) g/dL Neutrophils # 7.78 H (1.80-7.70) 10*3/uL Lymphocytes # 0.65 L (0.90-5.00) 10*3/uL Monocytes # 1.20 H (0.20-1.00) 10*3/uL Chloride 112 H (98-107) mmol/L Carbon Dioxide 19 L (22-30) mmol/L Creatinine 0.56 L (0.66-1.25) mg/dL Calcium 8.1 L (8.4-10.2) mg/dL Microbiology - Last 24 Hours (Table) 08/31/24 11:40 Gram Stain - Preliminary Pleural Fluid Body Fluid Culture - Preliminary 08/30/24 16:55 Blood Culture - Preliminary Blood 08/31/24 02:30 Nasal Screen MRSA/MSSA - Final Nasal Swab Assessment and Plan Time with Patient: Less than 30
[2024-09-03 05:59] LABS: Basophils # (A) 0.03 10*3/uL (0.00-0.10); Basophils % (A) 0.5 %; Eosinophils # (A) 0.18 10*3/uL (0.04-0.35); Lymphocytes # (A) 0.66 10*3/uL (0.90-5.00); Lymphocytes % (A) 10.9 %; MCH 26.3 pg (27.0-32.0); MCHC 30.8 g/dL (32.0-37.0); MCV 85.5 fL (80.0-97.0); Mean Platelet Volume 9.7 fL (9.5-12.2); Monocytes # (A) 0.73 10*3/uL (0.20-1.00); Monocytes % (A) 12.1 %; Neutrophils # (A) 4.41 10*3/uL (1.80-7.70); Neutrophils % (A) 72.8 %; Platelet Count 164 10*3/uL (140-440); RBC 3.04 10*6/uL (4.40-5.60); RDW 18.7 % (11.5-14.5); WBC 6.05 10*3/uL (4.50-10.00)
[2024-09-03 06:21] LABS: African American GFR (CKD) >90 (>60 ml/min/1.73 sqM); Anion Gap 5 mmol/L; Blood Urea Nitrogen 12 mg/dL (9-20); Calcium 7.6 mg/dL (8.4-10.2); Carbon Dioxide 22 mmol/L (22-30); Chloride 112 mmol/L (98-107); Glucose 118 mg/dL (74-99); Non-African American GFR(CKD) >90 (>60 ml/min/1.73 sqM); Potassium 3.7 mmol/L (3.5-5.1); Sodium 139 mmol/L (137-145)
--- NOTE | 2024-09-03 07:06 | P.PN ---
Subjective Progress Note Date: 09/03/24 Patient is stooling g. There is no acute changes. He will continue supportive care. Objective - Vital Signs Vital signs: Vital Signs Temp 99.0 F 09/03/24 04:00 Pulse 120 H 09/03/24 05:30 Resp 23 09/03/24 05:30 BP 102/61 09/03/24 05:30 Pulse Ox 98 09/03/24 05:30 FiO2 50 09/01/24 15:00 Intake & Output 09/02/24 09/03/24 09/03/24 18:59 06:59 18:59 Intake Total 2184.721 1077.397 Output Total 1265 1030 Balance 919.721 47.397 Weight 89.9 kg Intake: IV 1700 1000 Sodium Chloride 0.9% 1, 1200 1000 000 ml @ 100 mls/hr IV . Q10H [facility] Rx#:[id number] Vancomycin 1,500 mg In 500 Sodium Chloride 0.9% 500 ml 500 ml @ 167 mls/hr IVPB ONCE STA Rx#: [id number] Intake, IV Titration 184.721 77.397 Amount Dexmedetomidine/0.9% NaCl 51.351 77.397 (Pmx) 400 mcg In Empty Bag 1 bag @ 0.2 MCG/KG/HR 4.423 mls/hr IV .[id number] [facility] Rx#:[id number] Norepinephrine 8 mg In 133.370 Sodium Chloride 0.9% 250 ml @ 0.03 MCG/KG/MIN 5. 135 mls/hr IV .Q24H [facility] Rx#:[id number] Oral 240 Other 60 Output: Chest Tube Drainage 440 450 Pleural Catheter Right 440 450 Posterior Chest Urine 825 580 Other: Voiding Method Indwelling Catheter Indwelling Catheter - Labs CBC & Chem 7: 09/03/24 05:22 09/03/24 05:22 Labs: Abnormal Lab Results - Last 24 Hours (Table) 09/02/24 09/02/24 09/03/24 Range/Units 06:16 06:16 05:22 RBC 3.42 L 3.04 L (4.40-5.60) 10*6/uL Hgb 9.4 L 8.0 L (13.0-17.0) g/dL Hct 30.1 L 26.0 L (39.6-50.0) % MCH 26.3 L (27.0-32.0) pg MCHC 31.2 L 30.8 L (32.0-37.0) g/dL Neutrophils # 7.78 H (1.80-7.70) 10*3/uL Lymphocytes # 0.65 L 0.66 L (0.90-5.00) 10*3/uL Monocytes # 1.20 H (0.20-1.00) 10*3/uL Chloride 112 H (98-107) mmol/L Carbon Dioxide 19 L (22-30) mmol/L Creatinine 0.56 L (0.66-1.25) mg/dL Glucose (74-99) mg/dL Calcium 8.1 L (8.4-10.2) mg/dL 09/03/24 Range/Units 05:22 RBC (4.40-5.60) 10*6/uL Hgb (13.0-17.0) g/dL Hct (39.6-50.0) % MCH (27.0-32.0) pg MCHC (32.0-37.0) g/dL Neutrophils # (1.80-7.70) 10*3/uL Lymphocytes # (0.90-5.00) 10*3/uL Monocytes # (0.20-1.00) 10*3/uL Chloride 112 H (98-107) mmol/L Carbon Dioxide (22-30) mmol/L Creatinine 0.47 L (0.66-1.25) mg/dL Glucose 118 H (74-99) mg/dL Calcium 7.6 L (8.4-10.2) mg/dL Microbiology - Last 24 Hours (Table) 08/30/24 16:55 Blood Culture - Preliminary Blood 08/31/24 11:40 Gram Stain - Preliminary Pleural Fluid Body Fluid Culture - Preliminary
--- NOTE | 2024-09-03 07:21 | XR ---
EXAMINATION TYPE: XR chest 1V portable DATE OF EXAM: 09/03/2024 5:50 AM COMPARISON: Chest radiograph from one day prior. CLINICAL INDICATION: Male, 64 years old with history of empyema; [facility] TECHNIQUE: XR chest 1V portable Frontal view of the chest. FINDINGS: Lungs/Pleura: No evidence of focal consolidation or pneumothorax. Blunting of the costophrenic angles is present. Pulmonary vascularity: Unremarkable. Heart/mediastinum: Cardiomediastinal silhouette is unremarkable. Musculoskeletal: No acute osseous pathology. Other findings: None IMPRESSION: Bilateral pleural effusions right greater than left. [facility], , 09/03/2024 7:19 AM
--- NOTE | 2024-09-03 07:30 | P.PN ---
Subjective Progress Note Date: 09/03/24 Principal diagnosis: Large right-sided pleural effusion, pneumonia, sepsis, and acute hypoxic respiratory failure. Past medical history significant for coronary artery disease, hyperlipidemia, anemia, schizophrenia, anxiety, depression, cognitive deficits, speech impediment, is a lifetime non-smoker and pneumonia. POD #3 ultrasound-guided chest tube insertion performed by interventional radiology. The patient was seen and examined this morning laying in bed in the ICU. C urrently sinus tach, blood pressure stable off levo, currently on 3 LPM NC with oxygen saturation in the high 90s. Right sided pigtail remains present, third dose of lytics instilled yesterday with 890 mL in the last 24 hours. CXR, labs reviewed. Objective - Vital Signs Vital signs: Vital Signs Temp 99.0 F 09/03/24 04:00 Pulse 115 H 09/03/24 07:00 Resp 16 09/03/24 07:00 BP 93/56 09/03/24 07:00 Pulse Ox 98 09/03/24 07:00 FiO2 50 09/01/24 15:00 Intake & Output 09/02/24 09/03/24 09/03/24 18:59 06:59 18:59 Intake Total 2184.721 1177.397 100 Output Total 1265 1090 340 Balance 919.721 87.397 -240 Weight 89.9 kg Intake: IV 1700 1100 100 Sodium Chloride 0.9% 1, 1200 1100 100 000 ml @ 100 mls/hr IV . Q10H [facility] Rx#:[id number] Vancomycin 1,500 mg In 500 Sodium Chloride 0.9% 500 ml 500 ml @ 167 mls/hr IVPB ONCE STA Rx#: [id number] Intake, IV Titration 184.721 77.397 Amount Dexmedetomidine/0.9% NaCl 51.351 77.397 (Pmx) 400 mcg In Empty Bag 1 bag @ 0.2 MCG/KG/HR 4.423 mls/hr IV .[id number] [facility] Rx#:[id number] Norepinephrine 8 mg In 133.370 Sodium Chloride 0.9% 250 ml @ 0.03 MCG/KG/MIN 5. 135 mls/hr IV .Q24H [facility] Rx#:[id number] Oral 240 Other 60 Output: Chest Tube Drainage 440 450 300 Pleural Catheter Right 440 450 300 Posterior Chest Urine 825 640 40 Other: Voiding Method Indwelling Catheter Indwelling Catheter - Exam CONSTITUTIONAL: Appears calm RESPIRATORY: Lungs sounds coarse bilaterally, diminished in the right base. Respirations even, non labored. Currently on 3 LPM NC with oxygen saturation 98% CARDIOVASCULAR: S1, S2 present. Regular rate and rhythm, sinus tach on telemetry. Palpable peripheral pulses bilaterally. No edema present. No calf pain or tenderness noted. SCDs present. GASTROINTESTINAL: Abdomen somewhat firm, nontender, slightly distended. Hypoactive bowel sounds present 4 quadrants. NGT present to LIS GENITOURINARY: [place] present draining clear yellow urine, output 30-80 mL/hr overnight, 1465 mL in the last 24 hours INTEGUMENTARY: Skin is warm and dry NEUROLOGIC: Cranial nerves II through XII intact MUSKULOSKELETAL: Able to move all extremities, strength equal bilaterally PSYCHIATRIC: Alert and oriented to person place INVASIVE LINES AND TUBES: Right pigtail catheter present to continuous wall suction, no air leak present, 450 mL output overnight, 890 mL in the last 24 hours - Allied health notes Allied health notes reviewed: nursing - Labs CBC & Chem 7: 09/03/24 05:22 09/03/24 05:22 Labs: Abnormal Lab Results - Last 24 Hours (Table) 09/03/24 09/03/24 Range/Units 05:22 05:22 RBC 3.04 L (4.40-5.60) 10*6/uL Hgb 8.0 L (13.0-17.0) g/dL Hct 26.0 L (39.6-50.0) % MCH 26.3 L (27.0-32.0) pg MCHC 30.8 L (32.0-37.0) g/dL Lymphocytes # 0.66 L (0.90-5.00) 10*3/uL Chloride 112 H (98-107) mmol/L Creatinine 0.47 L (0.66-1.25) mg/dL Glucose 118 H (74-99) mg/dL Calcium 7.6 L (8.4-10.2) mg/dL Microbiology - Last 24 Hours (Table) 08/30/24 16:55 Blood Culture - Preliminary Blood 08/31/24 11:40 Gram Stain - Preliminary Pleural Fluid Body Fluid Culture - Preliminary - Imaging and Cardiology Chest x-ray: report reviewed, image reviewed Assessment and Plan Assessment: Large right-sided pleural effusion, status postplacement of pigtail catheter by interventional radiology Pneumonia Sepsis (tachycardia, hypotension, leukocytosis) Acute hypoxic respiratory failure Shortness of breath, secondary to above History of CAD HLD Schizophrenia Cognitive deficits Pneumonia Plan: Will instill 4th dose alteplase/dornase through his pigtail catheter today Continue to monitor strict output from the right pigtail catheter No surgical intervention at this point Wean oxygen as tolerated, ncourage use of incentive spirometry 10 times every hour while awake as tolerated. Medical management of other comorbidities per internal medicine, pulmonary/critical care medicine, infectious disease and general surgery. Continue to monitor daily chest x-rays. More recommendations to follow based on patient's clinical course.
[2024-09-03] MEDS: DORNASE ALFA 5 MG in SODIUM CHLORIDE 0.9% 50 ML IRRIGATION ONE (09:45)
[2024-09-03] MEDS: ALTEPLASE 10 MG in SODIUM CHLORIDE 0.9% 50 ML IRRIGATION ONE (09:45)
--- NOTE | 2024-09-03 12:41 | P.PN ---
Subjective Progress Note Date: 09/03/24 Principal diagnosis: Complicated pleural effusion suspected empyema Patient is a 64-year-old male with past medical history significant for schizoaffective disorder, bipolar disorder, hyperlipidemia. Patient is a poor historian. He has a public guardian and resides at an [facility]. I am seeing this patient in new consultation today 08/31/2024 following rapid response called earlier this morning for hypotension and tachycardia. Patient actually brought into the emergency department yesterday afternoon from by EMS. He was confused. Complaining of abdominal/chest pain. Patient was hypotensive, tachycardic, tachypneic, and febrile. He was fluid bolused with a total of 2 L of normal saline and 2 L of lactated Ringer's. Normal saline continues at 130 mL/hr. Previously, started on a Cardizem infusion, but then became hypotensive. Heart rate recorded as high as 156 bpm. Cardizem infusion has since been discontinued. He was also given 25 mg of metoprolol. Now, patient is less tachycardic and remains hypotensive. Recommending the patient be started on norepinephrine infusion for blood pressure support and transferred to the intensive care unit. Previously started on antibiotics in the form of Zosyn and vancomycin. Following a rapid response, patient was transferred to the intensive care unit. He is in a moderate amount of distress. Tachypneic breathing in 30s to 40s. On 3 L/min nasal cannula. He has since been started on norepinephrine which is infusing at 0.03 mcg/kg/min. Current blood pressure 117/79 mmHg. Heart rhythm appears sinus tachycardia on bedside monitor, with a rate of 109 bpm. Abdomen is firm and distended. Does not appear particularly tender. No nausea or vomiting. CT of chest, abdomen, pelvis remarkable for large fecal bolus and fecal impaction. Also, large right pleural effusion with compressive atelectasis. Labs including a CBC with a WBC count of 40.4, hemoglobin 13.5, platelets 322. CMP: Sodium 133, potassium 4.2, chloride 105, serum bicarb 20, BUN 23, creatinine 0.73, glucose 118. LFTs not elevated. Total bilirubin 3.6. Lactic was 2.6 and is down to 0.9. Serial troponins less than 0.012 x 2. EKG: sinus tachycardia, rate 148 bpm. NT proBNP 457. Urinalysis fairly unremarkable. Patient was seen today on 09/01/2024, patient remains in the ICU, on 4 L nasal cannula, continues to have significant drainage of serosanguineous pleural effusion, patient has been receiving lytic therapy for his likely pleural effusion so far drained 3.7 L since the pigtail catheter placement. Patient remains on cefepime and vancomycin, he is requiring a bit of norepinephrine at 0.05 mcg/kg/min and that being titrated hopefully will be discontinued today IV fluid is 0.9 normal saline at 100 cc/h and he will receive fluid bolus. Patient remains constipated, bloated, supposed to have colonoscopy today. WBC count is 13.5 hemoglobin 8.6 electrolytes are normal BUN is 24 creatinine 0.62 pleural effusion cultures are negative so far but the pleural effusion is quite exudative with protein of more than 3600 and LDH 1210. Patient was seen today on 09/02/2024, remains in the ICU, continues to have intermittent episodes of shortness of breath, anxiety, remains constipated until earlier today he was given lactulose and SS enema then he had a significant bowel movement. Patient felt much better after his bowel movement. Remains on Precedex for agitation 0.5 mcg/kg/h he is also on norepinephrine at 0.07 and he is receiving fluids and fluid boluses. Antibiotics hernandez remains on Vanco and cefepime. Blood pressure remains marginal requiring norepinephrine, I am recommending today possibly a PICC line placement as the patient may need to be on antibiotics for a long period of time. Cultures of the right pleural effusion remains nondiagnostic patient continues to receive lytic therapy, and chest x-ray continues to show improvement. His abdominal films continue to show dilated bowel loops. But hopefully that will get better as he had a large bowel movement earlier today. Labs today show WBC count of 9.8 hemoglobin 9.4 electrolytes are normal renal profile is normal bicarb is 19. Seen today on 09/03/2024, patient remains in the ICU, marginal at best patient remains on nasal cannula at 2 L, continues to have significant drainage/output from his right sided pigtail catheter. Remains on lytic therapy for loculated pleural effusion remains on antibiotics, patient continues to have intermittent episodes of constipation, still receiving lactulose and as enemas. His abdomen is less distended, patient did have few bowel movements yesterday. And he does not seem to be in any distress today. WBC count is 6.05 hemoglobin is 8 electrolytes are normal renal profile is normal Objective - Vital Signs Vital signs: Vital Signs Temp 100.1 F H 09/03/24 08:00 Pulse 112 H 09/03/24 08:00 Resp 15 09/03/24 08:00 BP 91/52 09/03/24 08:00 Pulse Ox 96 09/03/24 09:02 FiO2 50 09/01/24 15:00 Intake & Output 09/02/24 09/03/24 09/03/24 18:59 06:59 18:59 Intake Total 2184.721 1177.397 200 Output Total 1265 1090 665 Balance 919.721 87.397 -465 Weight 89.9 kg Intake: IV 1700 1100 200 Sodium Chloride 0.9% 1, 1200 1100 200 000 ml @ 100 mls/hr IV . Q10H [facility] Rx#:[id number] Vancomycin 1,500 mg In 500 Sodium Chloride 0.9% 500 ml 500 ml @ 167 mls/hr IVPB ONCE STA Rx#: [id number] Intake, IV Titration 184.721 77.397 Amount Dexmedetomidine/0.9% NaCl 51.351 77.397 (Pmx) 400 mcg In Empty Bag 1 bag @ 0.2 MCG/KG/HR 4.423 mls/hr IV .[id number] [facility] Rx#:[id number] Norepinephrine 8 mg In 133.370 Sodium Chloride 0.9% 250 ml @ 0.03 MCG/KG/MIN 5. 135 mls/hr IV .Q24H [facility] Rx#:[id number] Oral 240 Other 60 Output: Chest Tube Drainage 440 450 550 Pleural Catheter Right 440 450 550 Posterior Chest Urine 825 640 115 Other: Voiding Method Indwelling Catheter Indwelling Catheter - Exam GENERAL EXAM: Anxious, 64-year-old male,, in no distress on 2 L nasal cannula seems to be calm today. HEAD: Normocephalic and atraumatic EYES: Normal reaction of pupils, equal size. NOSE: Clear with pink turbinates. THROAT: No erythema or exudates. Poor dentition. NECK: No masses, no JVD. CHEST: No chest wall deformity. LUNGS: Equal air entry with diminished right basilar lung sounds. Right-sided chest tube is noted/pigtail catheter CVS: S1 and S2 normal with no audible murmur, regular rhythm. Intermittently tachycardic ABDOMEN: Abdomen is slightly distended and firm, and active bowel sounds, no appreciated organomegaly, no guarding or rigidity. SKIN: No rashes CENTRAL NERVOUS SYSTEM: Calm, confused, no gross focal deficits otherwise. EXTREMITIES: No clubbing edema or cyanosis - Labs CBC & Chem 7: 09/03/24 05:22 09/03/24 05:22 Labs: Abnormal Lab Results - Last 24 Hours (Table) 09/03/24 09/03/24 Range/Units 05:22 05:22 RBC 3.04 L (4.40-5.60) 10*6/uL Hgb 8.0 L (13.0-17.0) g/dL Hct 26.0 L (39.6-50.0) % MCH 26.3 L (27.0-32.0) pg MCHC 30.8 L (32.0-37.0) g/dL Lymphocytes # 0.66 L (0.90-5.00) 10*3/uL Chloride 112 H (98-107) mmol/L Creatinine 0.47 L (0.66-1.25) mg/dL Glucose 118 H (74-99) mg/dL Calcium 7.6 L (8.4-10.2) mg/dL Microbiology - Last 24 Hours (Table) 08/31/24 11:40 Gram Stain - Preliminary Pleural Fluid Body Fluid Culture - Preliminary 08/30/24 16:55 Blood Culture - Preliminary Blood Assessment and Plan Assessment: Impression: Complicated right-sided pleural effusion with associated compressive atelectasis, status post pigtail catheter placement on 08/31/2024, fluid is exudative and cultures are negative so far patient is still receiving lytic therapy for loculated pleural effusion Acute hypoxemic respiratory failure, currently on 3 L/min nasal cannula, secondary to above Obstipation, improving Hypotension and shock, suspect sepsis/septic shock, resolved Sinus tachycardia Acute leukocytosis SIRS/sepsis criteria met History of schizoaffective disorder, bipolar disorder History of hyperlipidemia Constipation/obstipation improved today after a large bowel movement following lactulose and assess and emesis. Recommendation: Continue to monitor in the ICU Continue IV fluids Continue laxatives as needed Continue antibiotics for presumptive empyema Continue pigtail catheter to chest wall suction and continue lytic therapy Continue IV fluids and monitor daily labs Prognosis remains guarded Will continue to follow Time with Patient: Less than 30
--- NOTE | 2024-09-03 13:40 | P.PN ---
Subjective Progress Note Date: 09/03/24 This is a 64-year-old male with history of developmental delay, anemia, anxiety/bipolar/depression/schizoaffective disorder. Patient has a legal guardian and resides in a [facility]. He comes into the hospital because of chest pain and elevated heart rate. Patient is a poor historian and has been minimally verbal. He is currently in the intensive care unit. He has a pigtail catheter in place chest x-ray today showing the bibasilar infiltrates greater on the right with a improving right sided pleural effusion. Patient also has NG tube in place. He had fecal impaction which was surgically treated. He is now having bowel movements. Blood work today reveals a white blood cell count 9.0, hemoglobin 9.4, sodium of 140 potassium 4.1, BUN of 17 creatinine 0.56 and a magnesium level of 1.9. Patient has been febrile today with a Tmax of 100.8 he is tachycardic heart rate of 135. He is being followed closely by infectious disease and remains on a combination of IV cefepime and IV vancomycin. Patient has received an instillation of alteplase and dornase today through the pigtail catheter. 09/03/2024 Patient evaluated today in the intensive care unit. He continues on combination of IV cefepime and IV vancomycin. Pigtail catheter remains in place. Patient has received lytic installation again this morning. Chest x-ray reveals bilateral pleural effusions right greater than left. Labs today reveal a white blood cell count of 6.05, hemoglobin 8.0, sodium of 139 potassium 3.7, BUN of 12 creatinine of 0.47, calcium level of 7.6. Cultures from the pleural fluid remain negative so far. He is having episodes of tachpnea and tachycardia. Noted to have a weak cough and difficulty clearing secretions. Unable to complete a review of systems secondary to patient's mentation PHYSICAL EXAMINATION: GENERAL: The patient is alert and oriented x1, not in any acute distress. Well developed, well nourished. HEENT: Pupils are round and equally reacting to light. EOMI. No scleral icterus. No conjunctival pallor. Normocephalic, atraumatic. No pharyngeal erythema. No thyromegaly. CARDIOVASCULAR: S1 and S2 present. No murmurs, rubs, or gallops. Tachycardic. PULMONARY: Coarse congested ronchi ABDOMEN: Soft, nontender, nondistended, normoactive bowel sounds. No palpable organomegaly. NG tube in place; pigtail catheter in place. MUSCULOSKELETAL: No joint swelling or deformity. EXTREMITIES: No cyanosis, clubbing, or pedal edema. NEUROLOGICAL: Gross neurological examination did not reveal any focal deficits. Diffuse weakness. SKIN: No rashes. Assessment Right sided pleural effusion/empyema status post pigtail catheter Septic shock requiring vasopressor support Acute hypoxemic respiratory failure secondary to above Sinus tachycardia Leukocytosis , improved Fecal impaction, resolved Anxiety/bipolar/depression/schizoaffective disorder Cognitive delay GI prophylaxis DVT prophylaxis Full Code Plan Patient remains in the ICU Continue pigtail catheter CT surgery following and patient received lytics today Chest tube remains to suction Continue IV antibiotics per ID Continue cardiac telemetry Normal saline at 100mls/hr Patient is being weaned off precedex. Has been resumed on all home medications Monitor electrolytes and renal function The impression and plan of care has been dictated by Hazel Waite, Nurse Practitioner as directed. Dr. Brayden MD I have performed a history and physical examination and medical decision making of this patient, discussed the same with the dictator, and agree with the dictators assessment and plan as written, documented as a scribe. Based on total visit time, I have performed more than 50% of this visit. Objective - Vital Signs Vital signs: Vital Signs Temp 100.1 F H 09/03/24 08:00 Pulse 112 H 09/03/24 08:00 Resp 15 09/03/24 08:00 BP 91/52 09/03/24 08:00 Pulse Ox 96 09/03/24 09:02 FiO2 50 09/01/24 15:00 Intake & Output 09/02/24 09/03/24 09/03/24 18:59 06:59 18:59 Intake Total 2184.721 1177.397 200 Output Total 1265 1090 665 Balance 919.721 87.397 -465 Weight 89.9 kg Intake: IV 1700 1100 200 Sodium Chloride 0.9% 1, 1200 1100 200 000 ml @ 100 mls/hr IV . Q10H [facility] Rx#:[id number] Vancomycin 1,500 mg In 500 Sodium Chloride 0.9% 500 ml 500 ml @ 167 mls/hr IVPB ONCE STA Rx#: [id number] Intake, IV Titration 184.721 77.397 Amount Dexmedetomidine/0.9% NaCl 51.351 77.397 (Pmx) 400 mcg In Empty Bag 1 bag @ 0.2 MCG/KG/HR 4.423 mls/hr IV .[id number] [facility] Rx#:[id number] Norepinephrine 8 mg In 133.370 Sodium Chloride 0.9% 250 ml @ 0.03 MCG/KG/MIN 5. 135 mls/hr IV .Q24H [facility] Rx#:[id number] Oral 240 Other 60 Output: Chest Tube Drainage 440 450 550 Pleural Catheter Right 440 450 550 Posterior Chest Urine 825 640 115 Other: Voiding Method Indwelling Catheter Indwelling Catheter - Labs CBC & Chem 7: 09/03/24 05:22 09/03/24 05:22 Labs: Abnormal Lab Results - Last 24 Hours (Table) 09/03/24 09/03/24 Range/Units 05:22 05:22 RBC 3.04 L (4.40-5.60) 10*6/uL Hgb 8.0 L (13.0-17.0) g/dL Hct 26.0 L (39.6-50.0) % MCH 26.3 L (27.0-32.0) pg MCHC 30.8 L (32.0-37.0) g/dL Lymphocytes # 0.66 L (0.90-5.00) 10*3/uL Chloride 112 H (98-107) mmol/L Creatinine 0.47 L (0.66-1.25) mg/dL Glucose 118 H (74-99) mg/dL Calcium 7.6 L (8.4-10.2) mg/dL Microbiology - Last 24 Hours (Table) 08/31/24 11:40 Gram Stain - Preliminary Pleural Fluid Body Fluid Culture - Preliminary 08/30/24 16:55 Blood Culture - Preliminary Blood Assessment and Plan Time with Patient: Less than 30
--- NOTE | 2024-09-03 14:08 | P.PN ---
Subjective Progress Note Date: 09/02/24 Principal diagnosis: Reason for follow-up is pneumonia/empyema/effusion Patient is a 64-year-old male with a past medical history significant for coronary disease ,HLD, schizophrenia, cognitive deficits, and pneumonia. Patient has been brought to the hospital concerning for increasing shortness of breath and cough did have a CT with a large right-sided effusion status post chest tube placement. On today's evaluation that is 09/02/2024, the patient continues to be afebrile, the patient is on 2 L current oxygen and breathing slightly comfortably, the Pt complaining of right-sided chest pain no vomiting or diarrhea has been reported. Patient white count is 9.80 creatinine 0.56 cultures currently pending Objective - Vital Signs Vital signs: Vital Signs Temp 100.3 F H 09/02/24 12:00 Pulse 117 H 09/02/24 14:45 Resp 15 09/02/24 14:45 BP 124/69 09/02/24 14:45 Pulse Ox 96 09/02/24 14:45 FiO2 50 09/01/24 15:00 Intake & Output 09/01/24 09/02/24 09/02/24 18:59 06:59 18:59 Intake Total 2422.401 5735.722 6361.721 Output Total 1790 1305 925 Balance 632.401 -33.858 119.721 Weight 89.7 kg Intake: IV 2275 900 800 Lactated Ringers 1,000 ml 1000 @ 999 mls/hr IV .Q1H1M [facility] Rx#:[id number] Sodium Chloride 0.9% 1, 675 900 800 000 ml @ 100 mls/hr IV . Q10H [facility] Rx#:[id number] Vancomycin 1,500 mg In 500 Sodium Chloride 0.9% 500 ml 500 ml @ 167 mls/hr IVPB ONCE STA Rx#: [id number] Intake, IV Titration 97.401 371.142 184.721 Amount Dexmedetomidine/0.9% NaCl 13.709 132.343 51.351 (Pmx) 400 mcg In Empty Bag 1 bag @ 0.2 MCG/KG/HR 4.423 mls/hr IV .[id number] [facility] Rx#:[id number] Norepinephrine 8 mg In 83.692 238.799 133.370 Sodium Chloride 0.9% 250 ml @ 0.03 MCG/KG/MIN 5. 135 mls/hr IV .Q24H [facility] Rx#:[id number] Oral 50 Other 60 Output: Chest Tube Drainage 970 650 410 Pleural Catheter Right 970 650 410 Posterior Chest Urine 820 655 515 Other: Voiding Method Indwelling Catheter Indwelling Catheter - Exam GENERAL DESCRIPTION: An elderly male up in bed in no distress RESPIRATORY SYSTEM: Unlabored breathing , coarse breath sounds bilaterally HEART: S1 S2 regular rate and rhythm , ABDOMEN: Soft , no tenderness EXTREMITIES: No edema feet - Labs CBC & Chem 7: 09/03/24 05:22 09/03/24 05:22 Labs: Abnormal Lab Results - Last 24 Hours (Table) 09/02/24 09/02/24 Range/Units 06:16 06:16 RBC 3.42 L (4.40-5.60) 10*6/uL Hgb 9.4 L (13.0-17.0) g/dL Hct 30.1 L (39.6-50.0) % MCHC 31.2 L (32.0-37.0) g/dL Neutrophils # 7.78 H (1.80-7.70) 10*3/uL Lymphocytes # 0.65 L (0.90-5.00) 10*3/uL Monocytes # 1.20 H (0.20-1.00) 10*3/uL Chloride 112 H (98-107) mmol/L Carbon Dioxide 19 L (22-30) mmol/L Creatinine 0.56 L (0.66-1.25) mg/dL Calcium 8.1 L (8.4-10.2) mg/dL Microbiology - Last 24 Hours (Table) 08/31/24 11:40 Gram Stain - Preliminary Pleural Fluid Body Fluid Culture - Preliminary 08/30/24 16:55 Blood Culture - Preliminary Blood 08/31/24 02:30 Nasal Screen MRSA/MSSA - Final Nasal Swab 08/31/24 11:40 Acid Fast Bacilli Smear - Preliminary Pleural Fluid Assessment and Plan (1) Pneumonia Current Visit: Yes Status: Acute Code(s): J18.9 - PNEUMONIA, UNSPECIFIED ORGANISM SNOMED Code(s): 528792011 (2) Sepsis Current Visit: Yes Status: Acute Code(s): A41.9 - SEPSIS, UNSPECIFIED ORGANISM SNOMED Code(s): 51707737 Plan: 1patient presented hospital with sepsis in this patient who did have fever tachycardia hypotension elevated white count meeting criteria for SIRS/sepsis source likely complicated pneumonia right-sided with large effusion and question of parapneumonic effusion/empyema in this patient who is facility resident will need to cover for resistant gram-positive as well as gram-negative pathogen 2-patient is status post IR placement of a chest tube and fluid has been sent for Gram stain and culture 3-patient is afebrile and the patient white count has normalized 4patient to continue with vancomycin pharmacy to dose and and cefepime while waiting for the culture to finalize Dictation was produced using [employer] dictation software. please excuse any grammatical, word or spelling errors. Time with Patient: Less than 30
--- NOTE | 2024-09-03 14:09 | P.PN ---
Subjective Progress Note Date: 09/03/24 Principal diagnosis: Reason for follow-up is pneumonia/empyema/effusion Patient is a 64-year-old male with a past medical history significant for coronary disease ,HLD, schizophrenia, cognitive deficits, and pneumonia. Patient has been brought to the hospital concerning for increasing shortness of breath and cough did have a CT with a large right-sided effusion status post chest tube placement. On today's evaluation that is 09/03/2024, the patient remains to be afebrile, the patient is breathing comfortably currently on 2 L nasal cannula oxygen he is slightly more awake and alert chest pain is currently controlled no worsening cough no abdominal pain or diarrhea. Patient white count 6.05, creatinine 0.47 Objective - Vital Signs Vital signs: Vital Signs Temp 98.9 F 09/03/24 12:00 Pulse 124 H 09/03/24 13:00 Resp 17 09/03/24 13:00 BP 131/81 09/03/24 13:00 Pulse Ox 93 L 09/03/24 13:00 FiO2 50 09/01/24 15:00 Intake & Output 09/02/24 09/03/24 09/03/24 18:59 06:59 18:59 Intake Total 2184.721 7588.090 5250 Output Total 1265 1090 1465 Balance 919.721 87.397 128 Weight 89.9 kg Intake: IV 1700 1100 973 Cefepime 2 gm In Sodium 75 Chloride 0.9% 100 ml @ 25 mls/hr IVPB Q8H [facility] Rx#: [id number] Sodium Chloride 0.9% 1, 1200 1100 400 000 ml @ 100 mls/hr IV . Q10H [facility] Rx#:[id number] Vancomycin 1,500 mg In 500 Sodium Chloride 0.9% 500 ml 500 ml @ 167 mls/hr IVPB ONCE STA Rx#: [id number] Vancomycin 1,500 mg In 498 Sodium Chloride 0.9% 500 ml 500 ml @ 167 mls/hr IVPB Q8H [facility] Rx#: [id number] Intake, IV Titration 184.721 77.397 Amount Dexmedetomidine/0.9% NaCl 51.351 77.397 (Pmx) 400 mcg In Empty Bag 1 bag @ 0.2 MCG/KG/HR 4.423 mls/hr IV .[id number] [facility] Rx#:[id number] Norepinephrine 8 mg In 133.370 Sodium Chloride 0.9% 250 ml @ 0.03 MCG/KG/MIN 5. 135 mls/hr IV .Q24H [facility] Rx#:[id number] Oral 240 620 Other 60 Output: Chest Tube Drainage 587 587 0424 Pleural Catheter Right 991 955 7142 Posterior Chest Urine 825 640 465 Other: Voiding Method Indwelling Catheter Indwelling Catheter - Exam GENERAL DESCRIPTION: An elderly male up in bed in no distress RESPIRATORY SYSTEM: Unlabored breathing , coarse breath sounds bilaterally HEART: S1 S2 regular rate and rhythm , ABDOMEN: Soft , no tenderness EXTREMITIES: No edema feet - Labs CBC & Chem 7: 09/03/24 05:22 09/03/24 05:22 Labs: Abnormal Lab Results - Last 24 Hours (Table) 09/03/24 09/03/24 Range/Units 05:22 05:22 RBC 3.04 L (4.40-5.60) 10*6/uL Hgb 8.0 L (13.0-17.0) g/dL Hct 26.0 L (39.6-50.0) % MCH 26.3 L (27.0-32.0) pg MCHC 30.8 L (32.0-37.0) g/dL Lymphocytes # 0.66 L (0.90-5.00) 10*3/uL Chloride 112 H (98-107) mmol/L Creatinine 0.47 L (0.66-1.25) mg/dL Glucose 118 H (74-99) mg/dL Calcium 7.6 L (8.4-10.2) mg/dL Microbiology - Last 24 Hours (Table) 08/31/24 11:40 Gram Stain - Preliminary Pleural Fluid Body Fluid Culture - Preliminary 08/30/24 16:55 Blood Culture - Preliminary Blood Assessment and Plan (1) Pneumonia Current Visit: Yes Status: Acute Code(s): J18.9 - PNEUMONIA, UNSPECIFIED O RGANISM SNOMED Code(s): 613592438 (2) Sepsis Current Visit: Yes Status: Acute Code(s): A41.9 - SEPSIS, UNSPECIFIED ORGANISM SNOMED Code(s): 50825651 Plan: 1patient presented hospital with sepsis in this patient who did have fever tachycardia hypotension elevated white count meeting criteria for SIRS/sepsis source likely complicated pneumonia right-sided with large effusion and question of parapneumonic effusion/empyema in this patient who is facility resident will need to cover for resistant gram-positive as well as gram-negative pathogen 2-patient is status post IR placement of a chest tube and fluid has been sent for Gram stain and culture 3-patient is afebrile and the patient white count has normalized 4patient currently being treated with vancomycin pharmacy to dose and cefepime while waiting for the culture to finalize and monitor clinical course closely Dictation was produced using [employer] dictation software. please excuse any grammatical, word or spelling errors. Time with Patient: Less than 30
[2024-09-03] MEDS: VANCOMYCIN 1,500 MG in SODIUM CHLORIDE 0.9% 500 ML 500 ML IVPB SCH (18:12)
[2024-09-03] MEDS: CEFEPIME 2 GM in SODIUM CHLORIDE 0.9% 100 ML IVPB SCH (20:30)
[2024-09-03 21:24] LABS: Influenza A Not Detected (Not Detectd); Influenza B Not Detected (Not Detectd); RSV Not Detected (Not Detectd)
[2024-09-04 06:10] LABS: Basophils # (A) 0.04 10*3/uL (0.00-0.10); Basophils % (A) 0.5 %; Eosinophils # (A) 0.26 10*3/uL (0.04-0.35); HCT 26.5 % (39.6-50.0); HGB 8.3 g/dL (13.0-17.0); Lymphocytes # (A) 1.02 10*3/uL (0.90-5.00); Lymphocytes % (A) 11.8 %; MCH 26.5 pg (27.0-32.0); MCHC 31.3 g/dL (32.0-37.0); MCV 84.7 fL (80.0-97.0); Mean Platelet Volume 9.5 fL (9.5-12.2); Monocytes # (A) 1.07 10*3/uL (0.20-1.00); Monocytes % (A) 12.4 %; Neutrophils # (A) 6.22 10*3/uL (1.80-7.70); Neutrophils % (A) 71.7 %; Platelet Count 229 10*3/uL (140-440); RBC 3.13 10*6/uL (4.40-5.60); RDW 18.9 % (11.5-14.5); WBC 8.66 10*3/uL (4.50-10.00)
[2024-09-04 06:28] LABS: African American GFR (CKD) >90 (>60 ml/min/1.73 sqM); Anion Gap 2 mmol/L; Blood Urea Nitrogen 8 mg/dL (9-20); Calcium 7.9 mg/dL (8.4-10.2); Carbon Dioxide 27 mmol/L (22-30); Chloride 108 mmol/L (98-107); Glucose 109 mg/dL (74-99); Magnesium 1.8 mg/dL (1.6-2.3); Non-African American GFR(CKD) >90 (>60 ml/min/1.73 sqM); Potassium 3.3 mmol/L (3.5-5.1); Sodium 137 mmol/L (137-145)
[2024-09-04] MEDS ORDERED: Potassium Replacement Protocol 1 EACH MISC MISCELLANE PRN (06:37)
[2024-09-04] MEDS ORDERED: Magnesium Replacement Protocol 1 EACH MISC MISCELLANE PRN (06:39)
[2024-09-04] MEDS: MAGNESIUM SULFATE-D5W PMX 1 GM in DEXTROSE/WATER 1 100ML.BAG IVPB ONE (06:44)
[2024-09-04] MEDS: POTASSIUM CHLORIDE ER 20 MEQ TAB.ER PO SCH (06:44)
--- NOTE | 2024-09-04 07:28 | XR ---
EXAMINATION TYPE: XR chest 1V portable DATE OF EXAM: 09/04/2024 4:57 AM COMPARISON: Chest radiograph from one day prior. CLINICAL INDICATION: Male, 64 years old with history of Empyema; LOCATED [facility]IN [facility] TECHNIQUE: XR chest 1V portable Frontal view of the chest. FINDINGS: Lungs/Pleura: Decrease in right pleural effusion with persistent blunting of the costophrenic angles. No evidence of focal consolidation or pneumothorax. Pulmonary vascularity: Unremarkable. Heart/mediastinum: Cardiomediastinal silhouette is enlarged. Musculoskeletal: No acute osseous pathology. IMPRESSION: Interval decrease in right pleural effusion with persistent Bilateral pleural effusions are greater i n left with cardiomegaly. [facility], , 09/04/2024 7:25 AM
--- NOTE | 2024-09-04 07:45 | P.PN ---
Subjective Progress Note Date: 09/04/24 Principal diagnosis: Large right-sided pleural effusion, pneumonia, sepsis, and acute hypoxic respiratory failure. Past medical history significant for coronary artery disease, hyperlipidemia, anemia, schizophrenia, anxiety, depression, cognitive deficits, speech impediment, is a lifetime non-smoker and pneumonia. POD #4 ultrasound-guided chest tube insertion performed by interventional radiology. The patient was seen and examined this morning sitting up in bed in the ICU being fed his breakfast. Currently sinus tach, blood pressure stable off levo>24 hours, currently on room air with oxygen saturation in the mid 90s. Right sided pigtail remains present, fourth dose of lytics instilled yesterday with 1500 mL in the last 24 hours. CXR, labs reviewed. Objective - Vital Signs Vital signs: Vital Signs Temp 98.9 F 09/03/24 20:00 Pulse 112 H 09/04/24 07:00 Resp 16 09/04/24 07:00 BP 100/64 09/04/24 07:00 Pulse Ox 96 09/04/24 07:00 FiO2 50 09/01/24 15:00 Intake & Output 09/03/24 09/04/24 09/04/24 18:59 06:59 18:59 Intake Total 2488 1164.502 Output Total 2055 900 50 Balance 433 264.502 -50 Weight 95.2 kg Intake: IV 1498 1100 Cefepime 2 gm In Sodium 100 200 Chloride 0.9% 100 ml @ 25 mls/hr IVPB Q8H [facility] Rx#: [id number] Sodium Chloride 0.9% 1, 400 300 000 ml @ 100 mls/hr IV . Q10H [facility] Rx#:[id number] Vancomycin 1,500 mg In 998 600 Sodium Chloride 0.9% 500 ml 500 ml @ 167 mls/hr IVPB Q8H [facility] Rx#: [id number] Intake, IV Titration 64.502 Amount Dexmedetomidine/0.9% NaCl 64.502 (Pmx) 400 mcg In Empty Bag 1 bag @ 0.2 MCG/KG/HR 4.423 mls/hr IV .[id number] [facility] Rx#:[id number] Oral 990 Output: Chest Tube Drainage 1300 200 Pleural Catheter Right 1300 200 Posterior Chest Urine 755 700 50 Other: Voiding Method Indwelling Catheter Indwelling Catheter # Bowel Movements 2 - Exam CONSTITUTIONAL: Appears calm, cooperative RESPIRATORY: Lungs sounds coarse bilaterally, diminished in the bases. Respirations even, non labored. Currently on room air with oxygen saturation 95% CARDIOVASCULAR: S1, S2 present. Regular rate and rhythm, sinus tach on telemetry. Palpable peripheral pulses bilaterally. No edema present. No calf pain or tenderness noted. SCDs present. GASTROINTESTINAL: Abdomen somewhat firm, nontender, slightly distended. Active bowel sounds present 4 quadrants. Positive bowel movement this morning x 5 GENITOURINARY: Salcido present draining clear yellow urine, output 40-80 mL/hr overnight, 1455 mL in the last 24 hours INTEGUMENTARY: Skin is warm and dry NEUROLOGIC: Cranial nerves II through XII intact MUSKULOSKELETAL: Able to move all extremities, strength equal bilaterally PSYCHIATRIC: Alert and oriented to person place INVASIVE LINES AND TUBES: Right pigtail catheter present to continuous wall suction, no air leak present, 200 mL output overnight, 1500 mL in the last 24 hours - Allied health notes Allied health notes reviewed: nursing - Labs CBC & Chem 7: 09/04/24 05:32 09/04/24 05:32 Labs: Abnormal Lab Results - Last 24 Hours (Table) 09/04/24 09/04/24 Range/Units 05:32 05:32 RBC 3.13 L (4.40-5.60) 10*6/uL Hgb 8.3 L (13.0-17.0) g/dL Hct 26.5 L (39.6-50.0) % MCH 26.5 L (27.0-32.0) pg MCHC 31.3 L (32.0-37.0) g/dL Immature Gran # 0.05 H (0.00-0.04) 10*3/uL Monocytes # 1.07 H (0.20-1.00) 10*3/uL Potassium 3.3 L (3.5-5.1) mmol/L Chloride 108 H (98-107) mmol/L BUN 8 L (9-20) mg/dL Creatinine 0.43 L (0.66-1.25) mg/dL Glucose 109 H (74-99) mg/dL Calcium 7.9 L (8.4-10.2) mg/dL Microbiology - Last 24 Hours (Table) 08/31/24 11:40 Gram Stain - Preliminary Pleural Fluid Body Fluid Culture - Preliminary 08/30/24 16:55 Blood Culture - Preliminary Blood - Imaging and Cardiology Chest x-ray: report reviewed, image reviewed Assessment and Plan Assessment: Large right-sided pleural effusion, status postplacement of pigtail catheter by interventional radiology Pneumonia Sepsis (tachycardia, hypotension, leukocytosis) Acute hypoxic respiratory failure Shortness of breath, secondary to above History of CAD HLD Schizophrenia Cognitive deficits Pneumonia Plan: Will instill 5th dose alteplase/dornase through his pigtail catheter today, continue to instill lytics as long as patient has significant output Continue to monitor strict output from the right pigtail catheter No surgical intervention at this point Encourage use of incentive spirometry 10 times every hour while awake as tolerated. Medical management of other comorbidities per internal medicine, pulmonary/critical care medicine, infectious disease and general surgery. Continue to monitor daily chest x-rays. More recommendations to follow based on patient's clinical course.
--- NOTE | 2024-09-04 09:40 | P.PN ---
Subjective Progress Note Date: 09/04/24 Patient had 2 bowel movements yesterday reported in the chart. Abdomen soft. Continue supportive care. Objective - Vital Signs Vital signs: Vital Signs Temp 98.9 F 09/03/24 20:00 Pulse 112 H 09/04/24 07:00 Resp 16 09/04/24 07:00 BP 100/64 09/04/24 07:00 Pulse Ox 96 09/04/24 08:41 FiO2 50 09/01/24 15:00 Intake & Output 09/03/24 09/04/24 09/04/24 18:59 06:59 18:59 Intake Total 2488 1164.502 Output Total 2055 900 50 Balance 433 264.502 -50 Weight 95.2 kg Intake: IV 1498 1100 Cefepime 2 gm In Sodium 100 200 Chloride 0.9% 100 ml @ 25 mls/hr IVPB Q8H [facility] Rx#: [id number] Sodium Chloride 0.9% 1, 400 300 000 ml @ 100 mls/hr IV . Q10H [facility] Rx#:[id number] Vancomycin 1,500 mg In 998 600 Sodium Chloride 0.9% 500 ml 500 ml @ 167 mls/hr IVPB Q8H [facility] Rx#: [id number] Intake, IV Titration 64.502 Amount Dexmedetomidine/0.9% NaCl 64.502 (Pmx) 400 mcg In Empty Bag 1 bag @ 0.2 MCG/KG/HR 4.423 mls/hr IV .[id number] [facility] Rx#:[id number] Oral 990 Output: Chest Tube Drainage 1300 200 Pleural Catheter Right 1300 200 Posterior Chest Urine 755 700 50 Other: Voiding Method Indwelling Catheter Indwelling Catheter # Bowel Movements 2 - Labs CBC & Chem 7: 09/04/24 05:32 09/04/24 05:32 Labs: Abnormal Lab Results - Last 24 Hours (Table) 09/04/24 09/04/24 Range/Units 05:32 05:32 RBC 3.13 L (4.40-5.60) 10*6/uL Hgb 8.3 L (13.0-17.0) g/dL Hct 26.5 L (39.6-50.0) % MCH 26.5 L (27.0-32.0) pg MCHC 31.3 L (32.0-37.0) g/dL Immature Gran # 0.05 H (0.00-0.04) 10*3/uL Monocytes # 1.07 H (0.20-1.00) 10*3/uL Potassium 3.3 L (3.5-5.1) mmol/L Chloride 108 H (98-107) mmol/L BUN 8 L (9-20) mg/dL Creatinine 0.43 L (0.66-1.25) mg/dL Glucose 109 H (74-99) mg/dL Calcium 7.9 L (8.4-10.2) mg/dL Microbiology - Last 24 Hours (Table) 08/31/24 11:40 Gram Stain - Final Pleural Fluid Body Fluid Culture - Final
[2024-09-04 10:12] LABS: African American GFR (CKD) >90 (>60 ml/min/1.73 sqM); Non-African American GFR(CKD) >90 (>60 ml/min/1.73 sqM)
[2024-09-04] MEDS: DORNASE ALFA 5 MG in SODIUM CHLORIDE 0.9% 50 ML IRRIGATION ONE (10:47)
[2024-09-04] MEDS: ALTEPLASE 10 MG in SODIUM CHLORIDE 0.9% 50 ML IRRIGATION ONE (10:47)
[2024-09-04] MEDS: VANCOMYCIN TROUGH DUE 1 EACH MISC MISCELLANE ONE (10:51)
--- NOTE | 2024-09-04 13:12 | P.PN ---
Subjective Progress Note Date: 09/04/24 Principal diagnosis: Complicated pleural effusion suspected empyema Patient is a 64-year-old male with past medical history significant for schizoaffective disorder, bipolar disorder, hyperlipidemia. Patient is a poor historian. He has a public guardian and resides at an [facility]. I am seeing this patient in new consultation today 08/31/2024 following rapid response called earlier this morning for hypotension and tachycardia. Patient actually brought into the emergency department yesterday afternoon from by EMS. He was confused. Complaining of abdominal/chest pain. Patient was hypotensive, tachycardic, tachypneic, and febrile. He was fluid bolused with a total of 2 L of normal saline and 2 L of lactated Ringer's. Normal saline continues at 130 mL/hr. Previously, started on a Cardizem infusion, but then became hypotensive. Heart rate recorded as high as 156 bpm. Cardizem infusion has since been discontinued. He was also given 25 mg of metoprolol. Now, patient is less tachycardic and remains hypotensive. Recommending the patient be started on norepinephrine infusion for blood pressure support and transferred to the intensive care unit. Previously started on antibiotics in the form of Zosyn and vancomycin. Following a rapid response, patient was transferred to the intensive care unit. He is in a moderate amount of distress. Tachypneic breathing in 30s to 40s. On 3 L/min nasal cannula. He has since been started on norepinephrine which is infusing at 0.03 mcg/kg/min. Current blood pressure 117/79 mmHg. Heart rhythm appears sinus tachycardia on bedside monitor, with a rate of 109 bpm. Abdomen is firm and distended. Does not appear particularly tender. No nausea or vomiting. CT of chest, abdomen, pelvis remarkable for large fecal bolus and fecal impaction. Also, large right pleural effusion with compressive atelectasis. Labs including a CBC with a WBC count of 40.4, hemoglobin 13.5, platelets 322. CMP: Sodium 133, potassium 4.2, chloride 105, serum bicarb 20, BUN 23, creatinine 0.73, glucose 118. LFTs not elevated. Total bilirubin 3.6. Lactic was 2.6 and is down to 0.9. Serial troponins less than 0.012 x 2. EKG: sinus tachycardia, rate 148 bpm. NT proBNP 457. Urinalysis fairly unremarkable. Patient was seen today on 09/01/2024, patient remains in the ICU, on 4 L nasal cannula, continues to have significant drainage of serosanguineous pleural effusion, patient has been receiving lytic therapy for his likely pleural effusion so far drained 3.7 L since the pigtail catheter placement. Patient remains on cefepime and vancomycin, he is requiring a bit of norepinephrine at 0.05 mcg/kg/min and that being titrated hopefully will be discontinued today IV fluid is 0.9 normal saline at 100 cc/h and he will receive fluid bolus. Patient remains constipated, bloated, supposed to have colonoscopy today. WBC count is 13.5 hemoglobin 8.6 electrolytes are normal BUN is 24 creatinine 0.62 pleural effusion cultures are negative so far but the pleural effusion is quite exudative with protein of more than 3600 and LDH 1210. Patient was seen today on 09/02/2024, remains in the ICU, continues to have intermittent episodes of shortness of breath, anxiety, remains constipated until earlier today he was given lactulose and SS enema then he had a significant bowel movement. Patient felt much better after his bowel movement. Remains on Precedex for agitation 0.5 mcg/kg/h he is also on norepinephrine at 0.07 and he is receiving fluids and fluid boluses. Antibiotics hernandez remains on Vanco and cefepime. Blood pressure remains marginal requiring norepinephrine, I am recommending today possibly a PICC line placement as the patient may need to be on antibiotics for a long period of time. Cultures of the right pleural effusion remains nondiagnostic patient continues to receive lytic therapy, and chest x-ray continues to show improvement. His abdominal films continue to show dilated bowel loops. But hopefully that will get better as he had a large bowel movement earlier today. Labs today show WBC count of 9.8 hemoglobin 9.4 electrolytes are normal renal profile is normal bicarb is 19. Seen today on 09/03/2024, patient remains in the ICU, marginal at best patient remains on nasal cannula at 2 L, continues to have significant drainage/output from his right sided pigtail catheter. Remains on lytic therapy for loculated pleural effusion remains on antibiotics, patient continues to have intermittent episodes of constipation, still receiving lactulose and as enemas. His abdomen is less distended, patient did have few bowel movements yesterday. And he does not seem to be in any distress today. WBC count is 6.05 hemoglobin is 8 electrolytes are normal renal profile is normal Patient was seen today on 09/04/2024, patient remains in the ICU, steadily improving, better today compared to the last few days. Patient seems to be less restless, less agitated, comfortable, he had few bowel movements already in the last couple of days. He is on IV fluid 0.9 normal saline at 100 cc/h and I cut it down to 50 remains empirically on cefepime and vancomycin for his empyema patient again is having good bowel movements. Yesterday he had to be placed on BiPAP 12/25/50% today he is on a nasal cannula. WBC count is 8.6 hemoglobin 8.3 electrolytes are normal except for slightly low potassium of 3.3 renal profile is normal. Magnesium is 1.8. Cultures remain negative from the pleural effusion. Objective - Vital Signs Vital signs: Vital Signs Temp 98.1 F 09/04/24 09:00 Pulse 104 H 09/04/24 11:00 Resp 13 09/04/24 11:00 BP 101/60 09/04/24 11:00 Pulse Ox 99 09/04/24 11:00 FiO2 50 09/01/24 15:00 Intake & Output 09/03/24 09/04/24 09/04/24 18:59 06:59 18:59 Intake Total 2488 8238.947 0059 Output Total 2055 900 415 Balance 433 264.502 865 Weight 95.2 kg Intake: IV 1498 1100 790 Cefepime 2 gm In Sodium 100 200 Chloride 0.9% 100 ml @ 25 mls/hr IVPB Q8H [facility] Rx#: [id number] Sodium Chloride 0.9% 1, 400 300 290 000 ml @ 50 mls/hr IV . Q20H [facility] Rx#:[id number] Vancomycin 1,500 mg In 998 600 500 Sodium Chloride 0.9% 500 ml 500 ml @ 167 mls/hr IVPB Q8H [facility] Rx#: [id number] Intake, IV Titration 64.502 Amount Dexmedetomidine/0.9% NaCl 64.502 (Pmx) 400 mcg In Empty Bag 1 bag @ 0.2 MCG/KG/HR 4.423 mls/hr IV .[id number] [facility] Rx#:[id number] Oral 990 490 Output: Chest Tube Drainage 1300 200 200 Pleural Catheter Right 1300 200 200 Posterior Chest Urine 755 700 215 Other: Voiding Method Indwelling Catheter Indwelling Catheter Indwelling Catheter # Bowel Movements 2 - Exam GENERAL EXAM: Anxious, 64-year-old male,, in no distress on 2 L nasal cannula O2 sat is 99% HEAD: Normocephalic and atraumatic EYES: Normal reaction of pupils, equal size. NOSE: Clear with pink turbinates. THROAT: No erythema or exudates. Poor dentition. NECK: No masses, no JVD. CHEST: No chest wall deformity. LUNGS: Equal air entry with diminished right basilar lung sounds. Right-sided chest tube is noted/pigtail catheter CVS: S1 and S2 normal with no audible murmur, regular rhythm. Intermittently tachycardic ABDOMEN: Abdomen is slightly distended and firm, and active bowel sounds, no appreciated organomegaly, no guarding or rigidity. SKIN: No rashes CENTRAL NERVOUS SYSTEM: Calm, confused/baseline. No gross focal deficits otherwise. EXTREMITIES: No clubbing edema or cyanosis - Labs CBC & Chem 7: 09/04/24 05:32 09/04/24 09:45 Labs: Abnormal Lab Results - Last 24 Hours (Table) 09/04/24 09/04/24 09/04/24 Range/Units 05:32 05:32 09:45 RBC 3.13 L (4.40-5.60) 10*6/uL Hgb 8.3 L (13.0-17.0) g/dL Hct 26.5 L (39.6-50.0) % MCH 26.5 L (27.0-32.0) pg MCHC 31.3 L (32.0-37.0) g/dL Immature Gran # 0.05 H (0.00-0.04) 10*3/uL Monocytes # 1.07 H (0.20-1.00) 10*3/uL Potassium 3.3 L (3.5-5.1) mmol/L Chloride 108 H (98-107) mmol/L BUN 8 L (9-20) mg/dL Creatinine 0.43 L 0.45 L (0.66-1.25) mg/dL Glucose 109 H (74-99) mg/dL Calcium 7.9 L (8.4-10.2) mg/dL Microbiology - Last 24 Hours (Table) 08/31/24 11:40 Gram Stain - Final Pleural Fluid Body Fluid Culture - Final Assessment and Plan Assessment: Impression: Complicated right-sided pleural effusion with associated compressive atelectasis, status post pigtail catheter placement on 08/31/2024, fluid is exudative and cultures are negative so far patient is still receiving lytic therapy for loculated pleural effusion Acute hypoxemic respiratory failure, currently on 3 L/min nasal cannula, secondary to above Obstipation, improving Hypotension and shock, suspect sepsis/septic shock, resolved Sinus tachycardia Acute leukocytosis SIRS/sepsis criteria met History of schizoaffective disorder, bipolar disorder History of hyperlipidemia Constipation/obstipation seems to have resolved today.. Recommendation: Will transfer the patient out of the ICU to a medical surgical floor Continue IV fluids Continue laxatives as needed Continue antibiotics for presumptive empyema Continue pigtail catheter to chest wall suction and continue lytic therapy, as per thoracic on the case. Continue IV fluids and monitor daily labs Prognosis remains guarded Will continue to follow Time with Patient: Less than 30
--- NOTE | 2024-09-04 13:43 | P.PN ---
Subjective Progress Note Date: 09/04/24 This is a 64-year-old male with history of developmental delay, anemia, anxiety/bipolar/depression/schizoaffective disorder. Patient has a legal guardian and resides in a retirement. He comes into the hospital because of chest pain and elevated heart rate. Patient is a poor historian and has been minimally verbal. He is currently in the intensive care unit. He has a pigtail catheter in place chest x-ray today showing the bibasilar infiltrates greater on the right with a improving right sided pleural effusion. Patient also has NG tube in place. He had fecal impaction which was surgically treated. He is now having bowel movements. Blood work today reveals a white blood cell count 9.0, hemoglobin 9.4, sodium of 140 potassium 4.1, BUN of 17 creatinine 0.56 and a magnesium level of 1.9. Patient has been febrile today with a Tmax of 100.8 he is tachycardic heart rate of 135. He is being followed closely by infectious disease and remains on a combination of IV cefepime and IV vancomycin. Patient has received an instillation of alteplase and dornase today through the pigtail catheter. 09/03/2024 Patient evaluated today in the intensive care unit. He continues on combination of IV cefepime and IV vancomycin. Pigtail catheter remains in place. Patient has received lytic installation again this morning. Chest x-ray reveals bilateral pleural effusions right greater than left. Labs today reveal a white blood cell count of 6.05, hemoglobin 8.0, sodium of 139 potassium 3.7, BUN of 12 creatinine of 0.47, calcium level of 7.6. Cultures from the pleural fluid remain negative so far. He is having episodes of tachpnea and tachycardia. Noted to have a weak cough and difficulty clearing secretions. 09/04/2024 Patient remains in the intensive care unit. He is being moved to the medical floor. His mentation has improve today. He is able to tell me his name and birthday. He currently has a pigtail catheter in place because of this right sided pleural effusion/empyema. Patient received lytic instillation today with dornase and alteplase. He has had 1.2 L of drainage from the pleural space in the last 24 hours. His chest x-ray today reveals an interval decrease in the right pleural effusion with persistent bilateral pleural effusions which are greater in the left with cardiomegaly. His labs today reveal a white blood cell count of 8.66, hemoglobin 8.3, sodium 137, potassium 3.3, BUN of 8 creatinine 0.43 and magnesium of 1.8. His viral scan was negative. He has intermittent low-grade fever. Heart rate is 110 normal sinus rhythm. Per nursing he was able to cough a bit deeper today and was able to cough up a significant amount of sputum. NG tube discontinued. Unable to complete a review of systems secondary to patient's mentation PHYSICAL EXAMINATION: GENERAL: The patient is alert and oriented x2, not in any acute distress. Well developed, well nourished. HEENT: Pupils are round and equally reacting to light. EOMI. No scleral icterus. No conjunctival pallor. Normocephalic, atraumatic. No pharyngeal erythema. No thyromegaly. CARDIOVASCULAR: S1 and S2 present. No murmurs, rubs, or gallops. Tachycardic. PULMONARY: Coarse congested ronchi ABDOMEN: Soft, nontender, nondistended, normoactive bowel sounds. No palpable organomegaly.pigtail catheter in place. MUSCULOSKELETAL: No joint swelling or deformity. EXTREMITIES: No cyanosis, clubbing, or pedal edema. NEUROLOGICAL: Gross neurological examination did not reveal any focal deficits. Diffuse weakness. SKIN: No rashes. Assessment Right sided pleural effusion/empyema status post pigtail catheter Septic shock requiring vasopressor support current Acute hypoxemic respiratory failure secondary to above Sinus tachycardia Leukocytosis , improved Fecal impaction, resolved Anxiety/bipolar/depression/schizoaffective disorder Cognitive delay GI prophylaxis DVT prophylaxis Full Code Plan Patient will be downgraded and moved out of the ICU. Continue pigtail catheter CT surgery following and patient received lytics today again Chest tube remains to suction Continue IV antibiotics per ID Continue cardiac telemetry Normal saline at 100mls/hr Patient has been weaned off precedex. Has been resumed on all home medications Monitor electrolytes and renal function The impression and plan of care has been dictated by Hazel Waite Nurse Practitioner as directed. Dr. Brayden MD I have performed a history and physical examination and medical decision making of this patient, discussed the same with the dictator, and agree with the dictators assessment and plan as written, documented as a scribe. Based on total visit time, I have performed more than 50% of this visit. Objective - Vital Signs Vital signs: Vital Signs Temp 98.9 F 09/03/24 20:00 Pulse 112 H 09/04/24 07:00 Resp 16 09/04/24 07:00 BP 100/64 09/04/24 07:00 Pulse Ox 96 09/04/24 08:41 FiO2 50 09/01/24 15:00 Intake & Output 09/03/24 09/04/24 09/04/24 18:59 06:59 18:59 Intake Total 2488 1164.502 Output Total 2055 900 50 Balance 433 264.502 -50 Weight 95.2 kg Intake: IV 1498 1100 Cefepime 2 gm In Sodium 100 200 Chloride 0.9% 100 ml @ 25 mls/hr IVPB Q8H [facility] Rx#: [id number] Sodium Chloride 0.9% 1, 400 300 000 ml @ 100 mls/hr IV . Q10H [facility] Rx#:[id number] Vancomycin 1,500 mg In 998 600 Sodium Chloride 0.9% 500 ml 500 ml @ 167 mls/hr IVPB Q8H [facility] Rx#: [id number] Intake, IV Titration 64.502 Amount Dexmedetomidine/0.9% NaCl 64.502 (Pmx) 400 mcg In Empty Bag 1 bag @ 0.2 MCG/KG/HR 4.423 mls/hr IV .[id number] [facility] Rx#:[id number] Oral 990 Output: Chest Tube Drainage 1300 200 Pleural Catheter Right 1300 200 Posterior Chest Urine 755 700 50 Other: Voiding Method Indwelling Catheter Indwelling Catheter # Bowel Movements 2 - Labs CBC & Chem 7: 09/04/24 05:32 09/04/24 09:45 Labs: Abnormal Lab Results - Last 24 Hours (Table) 09/04/24 09/04/24 Range/Units 05:32 05:32 RBC 3.13 L (4.40-5.60) 10*6/uL Hgb 8.3 L (13.0-17.0) g/dL Hct 26.5 L (39.6-50.0) % MCH 26.5 L (27.0-32.0) pg MCHC 31.3 L (32.0-37.0) g/dL Immature Gran # 0.05 H (0.00-0.04) 10*3/uL Monocytes # 1.07 H (0.20-1.00) 10*3/uL Potassium 3.3 L (3.5-5.1) mmol/L Chloride 108 H (98-107) mmol/L BUN 8 L (9-20) mg/dL Creatinine 0.43 L (0.66-1.25) mg/dL Glucose 109 H (74-99) mg/dL Calcium 7.9 L (8.4-10.2) mg/dL Microbiology - Last 24 Hours (Table) 08/31/24 11:40 Gram Stain - Final Pleural Fluid Body Fluid Culture - Final Assessment and Plan Time with Patient: Less than 30
--- NOTE | 2024-09-04 15:37 | P.PN ---
Subjective Progress Note Date: 09/04/24 Principal diagnosis: Reason for follow-up is pneumonia/empyema/effusion Patient is a 64-year-old male with a past medical history significant for coronary disease ,HLD, schizophrenia, cognitive deficits, and pneumonia. Patient has been brought to the hospital concerning for increasing shortness of breath and cough did have a CT with a large right-sided effusion status post chest tube placement. On today's evaluation that is 09/04/2024, Patient is afebrile patient is currently on room air and denies having any shortness of breath, the patient denies chest pain or worsening cough no abdominal pain or diarrhea has been reported. Patient white count is 8.6, creatinine 0.43, blood and pleural fluid culture have been negative Objective - Vital Signs Vital signs: Vital Signs Temp 98.1 F 09/04/24 09:00 Pulse 104 H 09/04/24 11:00 Resp 14 09/04/24 14:00 BP 101/60 09/04/24 11:00 Pulse Ox 99 09/04/24 11:00 FiO2 50 09/01/24 15:00 Intake & Output 09/03/24 09/04/24 09/04/24 18:59 06:59 18:59 Intake Total 2488 6643.743 2463 Output Total 2055 900 415 Balance 433 264.502 865 Weight 95.2 kg Intake: IV 1498 1100 790 Cefepime 2 gm In Sodium 100 200 Chloride 0.9% 100 ml @ 25 mls/hr IVPB Q8H [facility] Rx#: [id number] Sodium Chloride 0.9% 1, 400 300 290 000 ml @ 50 mls/hr IV . Q20H [facility] Rx#:[id number] Vancomycin 1,500 mg In 998 600 500 Sodium Chloride 0.9% 500 ml 500 ml @ 167 mls/hr IVPB Q8H [facility] Rx#: [id number] Intake, IV Titration 64.502 Amount Dexmedetomidine/0.9% NaCl 64.502 (Pmx) 400 mcg In Empty Bag 1 bag @ 0.2 MCG/KG/HR 4.423 mls/hr IV .[id number] [facility] Rx#:[id number] Oral 990 490 Output: Chest Tube Drainage 1300 200 200 Pleural Catheter Right 1300 200 200 Posterior Chest Urine 755 700 215 Other: Voiding Method Indwelling Catheter Indwelling Catheter Indwelling Catheter # Bowel Movements 2 - Exam GENERAL DESCRIPTION: An elderly male up in bed in no distress RESPIRATORY SYSTEM: Unlabored breathing , coarse breath sounds bilaterally HEART: S1 S2 regular rate and rhythm , ABDOMEN: Soft , no tenderness EXTREMITIES: No edema feet - Labs CBC & Chem 7: 09/04/24 05:32 09/04/24 09:45 Labs: Abnormal Lab Results - Last 24 Hours (Table) 09/04/24 09/04/24 09/04/24 Range/Units 05:32 05:32 09:45 RBC 3.13 L (4.40-5.60) 10*6/uL Hgb 8.3 L (13.0-17.0) g/dL Hct 26.5 L (39.6-50.0) % MCH 26.5 L (27.0-32.0) pg MCHC 31.3 L (32.0-37.0) g/dL Immature Gran # 0.05 H (0.00-0.04) 10*3/uL Monocytes # 1.07 H (0.20-1.00) 10*3/uL Potassium 3.3 L (3.5-5.1) mmol/L Chloride 108 H (98-107) mmol/L BUN 8 L (9-20) mg/dL Creatinine 0.43 L 0.45 L (0.66-1.25) mg/dL Glucose 109 H (74-99) mg/dL Calcium 7.9 L (8.4-10.2) mg/dL Microbiology - Last 24 Hours (Table) 08/31/24 11:40 Gram Stain - Final Pleural Fluid Body Fluid Culture - Final Assessment and Plan (1) Pneumonia Current Visit: Yes Status: Acute Code(s): J18.9 - PNEUMONIA, UNSPECIFIED ORGANISM SNOMED Code(s): 671657630 (2) Sepsis Current Visit: Yes Status: Acute Code(s): A41.9 - SEPSIS, UNSPECIFIED ORGANISM SNOMED Code(s): 35252208 Plan: 1patient presented hospital with sepsis in this patient who did have fever tachycardia hypotension elevated white count meeting criteria for SIRS/sepsis source likely complicated pneumonia right-sided with large effusion and question of parapneumonic effusion/empyema in this patient who is facility resident will need to cover for resistant gram-positive as well as gram-negative pathogen 2-patient is status post IR placement of a chest tube and fluid has been sent for Gram stain and culture 3-patient white count normalized culture have been negative for any resistant pathogen 4patient will be continued with cefepime however discontinue vancomycin and monitor clinical course closely Dictation was produced using [employer] dictation software. please excuse any grammatical, word or spelling errors. Time with Patient: Less than 30
[2024-09-04] MEDS ORDERED: ZINC OXIDE PASTE (Z-GUARD) 1 APPLIC TOPICAL PRN (18:45)
[2024-09-05 05:16] LABS: ALT 6 U/L (4-49); AST 19 U/L (17-59); African American GFR (CKD) >90 (>60 ml/min/1.73 sqM); Albumin 1.7 g/dL (3.5-5.0); Alkaline Phosphatase 43 U/L (38-126); Anion Gap 4 mmol/L; Blood Urea Nitrogen 6 mg/dL (9-20); Calcium 7.5 mg/dL (8.4-10.2); Carbon Dioxide 26 mmol/L (22-30); Chloride 107 mmol/L (98-107); Glucose 91 mg/dL (74-99); Magnesium 1.8 mg/dL (1.6-2.3); Non-African American GFR(CKD) >90 (>60 ml/min/1.73 sqM); Potassium 3.1 mmol/L (3.5-5.1); Sodium 137 mmol/L (137-145); Total Bilirubin 0.8 mg/dL (0.2-1.3); Total Protein 3.5 g/dL (6.3-8.2)
[2024-09-05] MEDS: MAGNESIUM SULFATE-D5W PMX 1 GM in DEXTROSE/WATER 1 100ML.BAG IVPB ONE (05:28)
[2024-09-05] MEDS: POTASSIUM CHLORIDE ER 20 MEQ TAB.ER PO SCH (05:28)
--- NOTE | 2024-09-05 07:22 | P.PN ---
Subjective Progress Note Date: 09/05/24 Principal diagnosis: Large right-sided pleural effusion, pneumonia, sepsis, and acute hypoxic respiratory failure. Past medical history significant for coronary artery disease, hyperlipidemia, anemia, schizophrenia, anxiety, depression, cognitive deficits, speech impediment, is a lifetime non-smoker and pneumonia. POD #5 ultrasound-guided chest tube insertion performed by interventional radiology. The patient was seen and examined this morning sitting up in bed on the cardiac stepdown unit in no acute distress. Currently sinus tach, blood pressure stable, currently on room air with oxygen saturation in the mid 90s. Right sided pigtail remains present, fifth dose of lytics instilled yesterday with 700 mL in the last 24 hours. CXR, labs reviewed. Objective - Vital Signs Vital signs: Vital Signs Temp 98 F 09/04/24 23:10 Pulse 105 H 09/05/24 03:30 Resp 18 09/05/24 03:30 BP 105/60 09/05/24 03:30 Pulse Ox 94 L 09/05/24 03:30 FiO2 50 09/01/24 15:00 Intake & Output 09/04/24 09/05/24 09/05/24 18:59 06:59 18:59 Intake Total 1820 60 Output Total 640 1013 Balance 1180 -953 Weight 99 kg Intake: IV 790 60 Invasive Line 3 20 Invasive Line 4 20 Invasive Line 6 20 Sodium Chloride 0.9% 1, 290 000 ml @ 50 mls/hr IV . Q20H [facility] Rx#:[id number] Vancomycin 1,500 mg In 500 Sodium Chloride 0.9% 500 ml 500 ml @ 167 mls/hr IVPB Q8H [facility] Rx#: [id number] Oral 1030 Output: Chest Tube Drainage 200 513 Pleural Catheter Right 200 513 Posterior Chest Urine 440 500 Other: Voiding Method Indwelling Catheter Indwelling Catheter # Bowel Movements 1 - Exam CONSTITUTIONAL: Appears calm, cooperative RESPIRATORY: Lungs sounds diminished in the bases. Respirations even, non labored. Currently on room air with oxygen saturation 94% CARDIOVASCULAR: S1, S2 present. Regular rate and rhythm, sinus tach on telemetry. Palpable peripheral pulses bilaterally. No edema present. No calf pain or tenderness noted. SCDs present. GASTROINTESTINAL: Abdomen soft, nontender, nondistended. Active bowel sounds present 4 quadrants. Positive bowel movement this morning x 7 yesterday GENITOURINARY: [place] present draining clear yellow urine, output 940 mL in the last 24 hours INTEGUMENTARY: Skin is warm and dry NEUROLOGIC: Cranial nerves II through XII intact MUSKULOSKELETAL: Able to move all extremities, strength equal bilaterally PSYCHIATRIC: Alert and oriented to person place INVASIVE LINES AND TUBES: Right pigtail catheter present to continuous wall suction, intermittent tiny air leak present, 60 mL output overnight, 700 mL in the last 24 hours - Allied health notes Allied health notes reviewed: nursing - Labs CBC & Chem 7: 09/04/24 05:32 09/05/24 04:19 Labs: Abnormal Lab Results - Last 24 Hours (Table) 09/04/24 09/05/24 Range/Units 09:45 04:19 Potassium 3.1 L (3.5-5.1) mmol/L BUN 6 L (9-20) mg/dL Creatinine 0.45 L 0.45 L (0.66-1.25) mg/dL Calcium 7.5 L (8.4-10.2) mg/dL Total Protein 3.5 L (6.3-8.2) g/dL Albumin 1.7 L (3.5-5.0) g/dL Microbiology - Last 24 Hours (Table) 08/30/24 16:55 Blood Culture - Final Blood 08/31/24 11:40 Gram Stain - Final Pleural Fluid Body Fluid Culture - Final - Imaging and Cardiology Chest x-ray: image reviewed Assessment and Plan Assessment: Large right-sided pleural effusion, status postplacement of pigtail catheter by interventional radiology Pneumonia Sepsis (tachycardia, hypotension, leukocytosis) Acute hypoxic respiratory failure Shortness of breath, secondary to above History of CAD HLD Schizophrenia Cognitive deficits Pneumonia Plan: Will instill 6th dose alteplase/dornase through his pigtail catheter today, continue to instill lytics as long as patient has significant output Continue to monitor strict output from the right pigtail catheter No surgical intervention at this point Encourage use of incentive spirometry 10 times every hour while awake as tolerated. Medical management of other comorbidities per internal medicine, pulmonary/critical care medicine, infectious disease and general surgery. Continue to monitor daily chest x-rays. More recommendations to follow based on patient's clinical course.
--- NOTE | 2024-09-05 08:10 | XR ---
EXAMINATION TYPE: XR chest 1V portable DATE OF EXAM: 09/05/2024 6:36 AM COMPARISON: 09/04/2024 CLINICAL INDICATION: Male, 64 years old with history of Empyema, pneumothorax TECHNIQUE: XR chest 1V portable view(s) obtained. FINDINGS: The heart size is normal. The pulmonary vasculature is normal. Right lower lobe infiltrate is present. A right fluid collection is present. Drainage catheter remain s present. No pneumothorax is evident. IMPRESSION: 1. Stable right lower lobe infiltrate and fluid with drainage catheter. [facility], , 09/05/2024 8:07 AM
[2024-09-05] MEDS: DORNASE ALFA 5 MG in SODIUM CHLORIDE 0.9% 50 ML IRRIGATION ONE (08:54)
[2024-09-05] MEDS: ALTEPLASE 10 MG in SODIUM CHLORIDE 0.9% 50 ML IRRIGATION ONE (08:54)
[2024-09-05] MEDS: MAGNESIUM SULFATE-D5W PMX 1 GM in DEXTROSE/WATER 1 100ML.BAG IVPB SCH (10:33)
[2024-09-05] MEDS: POTASSIUM CHLORIDE ER 20 MEQ TAB.ER PO ONE (10:34)
--- NOTE | 2024-09-05 10:56 | P.PN ---
Subjective Progress Note Date: 09/05/24 SURGICAL PROGRESS NOTE CHIEF COMPLAINT: Chest pain HISTORY OF PRESENT ILLNESS: Patient is status post flex sigmoidoscopy for disimpaction yesterday on 09/01/24. Patient on the cardiac floor. Patient had 4 bowel movements yesterday. He is tolerating regular diet no nausea or vomiting. Patient followed by cardiothoracic team regarding pleural effusion with chest tube and receiving alteplase/dornase through pigtail catheter. PHYSICAL EXAM: VITAL SIGNS: Reviewed. GENERAL: in no acute distress. HEENT: No sclera icterus. Extraocular movements grossly intact. Moist buccal mucosa. Head is atraumatic, normocephalic. ABDOMEN: Softer. Mildly distended. Nontender ASSESSMENT: 1. Fecal impaction status post flexible sigmoidoscopy with disimpaction PLAN: -Continue lactulose -Continue chopped diet -Continue supportive care Physician Religious Assistant note has been reviewed by physician. Signing provider agrees with the documented findings, assessment, and plan of care. Objective - Vital Signs Vital signs: Vital Signs Temp 98.3 F 09/05/24 08:00 Pulse 105 H 09/05/24 08:00 Resp 16 09/05/24 08:00 BP 102/66 09/05/24 08:00 Pulse Ox 92 L 09/05/24 08:00 FiO2 50 09/01/24 15:00 Intake & Output 09/04/24 09/05/24 09/05/24 18:59 06:59 18:59 Intake Total 1820 60 Output Total 640 1013 30 Balance 1180 -953 -30 Weight 99 kg Intake: IV 790 60 Invasive Line 3 20 Invasive Line 4 20 Invasive Line 6 20 Sodium Chloride 0.9% 1, 290 000 ml @ 50 mls/hr IV . Q20H [facility] Rx#:[id number] Vancomycin 1,500 mg In 500 Sodium Chloride 0.9% 500 ml 500 ml @ 167 mls/hr IVPB Q8H [facility] Rx#: [id number] Oral 1030 Output: Chest Tube Drainage 200 513 30 Pleural Catheter Right 200 513 30 Posterior Chest Urine 440 500 Other: Voiding Method Indwelling Catheter Indwelling Catheter Indwelling Catheter # Bowel Movements 1 - Labs CBC & Chem 7: 09/04/24 05:32 09/05/24 04:19 Labs: Abnormal Lab Results - Last 24 Hours (Table) 09/05/24 Range/Units 04:19 Potassium 3.1 L (3.5-5.1) mmol/L BUN 6 L (9-20) mg/dL Creatinine 0.45 L (0.66-1.25) mg/dL Calcium 7.5 L (8.4-10.2) mg/dL Total Protein 3.5 L (6.3-8.2) g/dL Albumin 1.7 L (3.5-5.0) g/dL Microbiology - Last 24 Hours (Table) 08/30/24 16:55 Blood Culture - Final Blood 08/31/24 11:40 Gram Stain - Final Pleural Fluid Body Fluid Culture - Final
--- NOTE | 2024-09-05 16:49 | P.PN ---
Subjective Progress Note Date: 09/05/24 Principal diagnosis: Sepsis, pneumonia. Patient is a 64-year-old male with past medical history significant for schizoaffective disorder, bipolar disorder, hyperlipidemia. Patient is a poor historian. He has a public guardian and resides at an [facility]. I am seeing this patient in new consultation today 08/31/2024 following rapid response called earlier this morning for hypotension and tachycardia. Patient actually brought into the emergency department yesterday afternoon from by EMS. He was confused. Complaining of abdominal/chest pain. Patient was hypotensive, tachycardic, tachypneic, and febrile. He was fluid bolused with a total of 2 L of normal saline and 2 L of lactated Ringer's. Normal saline continues at 130 mL/hr. Previously, started on a Cardizem infusion, but then became hypotensive. Heart rate recorded as high as 156 bpm. Cardizem infusion has since been discontinued. He was also given 25 mg of metoprolol. Now, patient is less tachycardic and remains hypotensive. Recommending the patient be started on norepinephrine infusion for blood pressure support and transferred to the intensive care unit. Previously started on antibiotics in the form of Zosyn and vancomycin. Following a rapid response, patient was transferred to the intensive care unit. He is in a moderate amount of distress. Tachypneic breathing in 30s to 40s. On 3 L/min nasal cannula. He has since been started on norepinephrine which is infusing at 0.03 mcg/kg/min. Current blood pressure 117/79 mmHg. Heart rhythm appears sinus tachycardia on bedside monitor, with a rate of 109 bpm. Abdomen is firm and distended. Does not appear particularly tender. No nausea or vomiting. CT of chest, abdomen, pelvis remarkable for large fecal bolus and fecal impaction. Also, large right pleural effusion with compressive atelectasis. Labs including a CBC with a WBC count of 40.4, hemoglobin 13.5, platelets 322. CMP: Sodium 133, potassium 4.2, chloride 105, serum bicarb 20, BUN 23, creatinine 0.73, glucose 118. LFTs not elevated. Total bilirubin 3.6. Lactic was 2.6 and is down to 0.9. Serial troponins less than 0.012 x 2. EKG: sinus tachycardia, rate 148 bpm. NT proBNP 457. Urinalysis fairly unremarkable. Patient was seen today on 09/01/2024, patient remains in the ICU, on 4 L nasal cannula, continues to have significant drainage of serosanguineous pleural effusion, patient has been receiving lytic therapy for his likely pleural effusion so far drained 3.7 L since the pigtail catheter placement. Patient remains on cefepime and vancomycin, he is requiring a bit of norepinephrine at 0.05 mcg/kg/min and that being titrated hopefully will be discontinued today IV fluid is 0.9 normal saline at 100 cc/h and he will receive fluid bolus. Patient remains constipated, bloated, supposed to have colonoscopy today. WBC count is 13.5 hemoglobin 8.6 electrolytes are normal BUN is 24 creatinine 0.62 pleural effusion cultures are negative so far but the pleural effusion is quite exudative with protein of more than 3600 and LDH 1210. Patient was seen today on 09/02/2024, remains in the ICU, continues to have intermittent episodes of shortness of breath, anxiety, remains constipated until earlier today he was given lactulose and SS enema then he had a significant bowel movement. Patient felt much better after his bowel movement. Remains on Precedex for agitation 0.5 mcg/kg/h he is also on norepinephrine at 0.07 and he is receiving fluids and fluid boluses. Antibiotics hernandez remains on Vanco and cefepime. Blood pressure remains marginal requiring norepinephrine, I am recommending today possibly a PICC line placement as the patient may need to be on antibiotics for a long period of time. Cultures of the right pleural effusion remains nondiagnostic patient continues to receive lytic therapy, and chest x-ray continues to show improvement. His abdominal films continue to show dilated bowel loops. But hopefully that will get better as he had a large bowel movement earlier today. Labs today show WBC count of 9.8 hemoglobin 9.4 electrolytes are normal renal profile is normal bicarb is 19. Seen today on 09/03/2024, patient remains in the ICU, marginal at best patient remains on nasal cannula at 2 L, continues to have significant drainage/output from his right sided pigtail catheter. Remains on lytic therapy for loculated pleural effusion remains on antibiotics, patient continues to have intermittent episodes of constipation, still receiving lactulose and as enemas. His abdomen is less distended, patient did have few bowel movements yesterday. And he does not seem to be in any distress today. WBC count is 6.05 hemoglobin is 8 electrolytes are normal renal profile is normal Patient was seen today on 09/04/2024, patient remains in the ICU, steadily improving, better today compared to the last few days. Patient seems to be less restless, less agitated, comfortable, he had few bowel movements already in the last couple of days. He is on IV fluid 0.9 normal saline at 100 cc/h and I cut it down to 50 remains empirically on cefepime and vancomycin for his empyema patient again is having good bowel movements. Yesterday he had to be placed on BiPAP 10/5/50% today he is on a nasal cannula. WBC count is 8.6 hemoglobin 8.3 electrolytes are normal except for slightly low potassium of 3.3 renal profile is normal. Magnesium is 1.8. Cultures remain negative from the pleural effusion. Progress note dated September 05, 2024. 64-year-old male seen today in room 362. The patient was admitted with a diagnosis of sepsis, and pneumonia. Pleural effusion was noted, and a pigtail catheter was placed on the right. He did receive tPA and alpha dornase today, administered by cardiothoracic surgery. Cultures are negative. He continues on cefepime. He is currently on room air. Current labs include a sodium 137, potassium 3.1, chlorides 107, CO2 26, BUN 6, creatinine 0.45. Glucose is 91. Calcium 7.5. Albumin 1.7. Viral screen was negative. Microbiology testing, is all negative. Chest x-ray shows a stable right lower lobe infiltrate with pigtail catheter in place. Objective - Vital Signs Vital signs: Vital Signs Temp 98.2 F 09/05/24 11:48 Pulse 102 H 09/05/24 11:48 Resp 16 09/05/24 11:48 BP 113/70 09/05/24 11:48 Pulse Ox 92 L 09/05/24 11:48 FiO2 50 09/01/24 15:00 Intake & Output 09/04/24 09/05/24 09/05/24 18:59 06:59 18:59 Intake Total 1820 60 200 Output Total 640 1013 690 Balance 1180 -953 -490 Weight 99 kg Intake: IV 790 60 Invasive Line 3 20 Invasive Line 4 20 Invasive Line 6 20 Sodium Chloride 0.9% 1, 290 000 ml @ 50 mls/hr IV . Q20H [facility] Rx#:[id number] Vancomycin 1,500 mg In 500 Sodium Chloride 0.9% 500 ml 500 ml @ 167 mls/hr IVPB Q8H [facility] Rx#: [id number] Oral 1030 200 Output: Chest Tube Drainage 200 513 190 Pleural Catheter Right 200 513 190 Posterior Chest Urine 440 500 500 Other: Voiding Method Indwelling Catheter Indwelling Catheter Indwelling Catheter # Bowel Movements 1 - Exam No acute distress, oriented 3. No acute distress, currently on room air. HEENT examination is grossly unremarkable. Mucous membranes are moist. No oral lesions. Neck supple. Full range of motion. No adenopathy thyromegaly or neck vein distention. Cardiovascular examination reveals regular rhythm rate. S1-S2 normal. No S3 or S4. No discernible murmur noted. Lungs reveal diminished breath sounds on the right. There is dullness on percussion. Chest tube i.e. pigtail catheter is noted. Abdomen soft bowel sounds are heard. No masses or tenderness. Extremities are intact. No cyanosis clubbing or edema. Skin is without rash or lesion. Neurologic examination is brief but nonfocal. - Labs CBC & Chem 7: 09/04/24 05:32 09/05/24 04:19 Labs: Abnormal Lab Results - Last 24 Hours (Table) 09/05/24 Range/Units 04:19 Potassium 3.1 L (3.5-5.1) mmol/L BUN 6 L (9-20) mg/dL Creatinine 0.45 L (0.66-1.25) mg/dL Calcium 7.5 L (8.4-10.2) mg/dL Total Protein 3.5 L (6.3-8.2) g/dL Albumin 1.7 L (3.5-5.0) g/dL Microbiology - Last 24 Hours (Table) 08/30/24 16:55 Blood Culture - Final Blood Assessment and Plan Assessment: Complicated right sided pleural effusion, with compressive atelectasis, status post pigtail catheter placement, August 31, 2024. Lytic therapy to the right pleural space, with alpha dornase and tPA. Acute hypoxemic respiratory failure, currently on room air, improved. Obstipation, improved. Hypotension and shock, resolved. Sinus tachycardia. Acute leukocytosis. SIRS/sepsis. History of schizoaffective disorder/bipolar disorder. History of hyperlipidemia. Plan: Plan dated September 05, 2024. The patient appears to be doing much better. He is currently on room air. He did receive tPA and alpha dornase of the right pleural space today. Pigtail catheter remains in place. The patient continues on cefepime. Cultures are currently negative. Labs, x-rays, and all medications are reviewed. We will continue to follow and make recommendations along the way. The patient remains a full code. Prognosis is certainly guarded. Dictation was produced using [employer] software. Please excuse any grammatical, word or spelling errors. Time with Patient: Less than 30
[2024-09-05] MEDS: ACETAMINOPHEN TAB 325 MG TAB PO PRN (19:53)
--- NOTE | 2024-09-06 02:57 | PN ---
PROGRESS NOTE DATE OF SERVICE: 09/05/2024 CHIEF COMPLAINT: Pneumonitis and sepsis with septic shock. HISTORY OF PRESENT ILLNESS: This gentleman is doing fairly well. He has been quite stable. PHYSICAL EXAMINATION: LUNGS: He has good breath sounds bilaterally with scattered rales and occasional rhonchi. CARDIAC: Unremarkable. IMPRESSION: 1. Pneumonitis. 2. Sepsis. PLAN: Continue with current program and increase activity, and start to give consideration of discharge plan. MMODL / IJN: [id number] /
--- NOTE | 2024-09-06 07:57 | P.PN ---
Subjective Progress Note Date: 09/06/24 Principal diagnosis: Large right-sided pleural effusion, pneumonia, sepsis, and acute hypoxic respiratory failure. Past medical history significant for coronary artery disease, hyperlipidemia, anemia, schizophrenia, anxiety, depression, cognitive deficits, speech impediment, is a lifetime non-smoker and pneumonia. POD #6 ultrasound-guided chest tube insertion performed by interventional radiology. The patient was seen and examined this morning sitting up in bed on the cardiac stepdown unit in no acute distress. Currently sinus rhythm, blood pressure stable, currently on room air with oxygen saturation in the mid 90s. Right sided pigtail remains present, sixth dose of lytics instilled yesterday with 500 mL in the last 24 hours. CXR, labs reviewed. Objective - Vital Signs Vital signs: Vital Signs Temp 98.6 F 09/05/24 19:40 Pulse 96 09/06/24 03:10 Resp 17 09/06/24 03:10 BP 100/61 09/06/24 03:10 Pulse Ox 93 L 09/06/24 03:10 FiO2 50 09/01/24 15:00 Intake & Output 09/05/24 09/06/24 09/06/24 18:59 06:59 18:59 Intake Total 200 620 Output Total 800 1150 Balance -600 -530 Weight 105 kg 105 kg Intake: IV 20 Invasive Line 6 20 Intake, IV Titration 600 Amount Sodium Chloride 0.9% 1, 600 000 ml @ 50 mls/hr IV . Q20H [facility] Rx#:[id number] Oral 200 Output: Chest Tube Drainage 300 100 Pleural Catheter Right 300 100 Posterior Chest Urine 500 1050 Other: Voiding Method Indwelling Catheter Indwelling Catheter # Bowel Movements 1 - Exam CONSTITUTIONAL: Appears calm, cooperative RESPIRATORY: Lungs sounds diminished in the bases. Respirations even, non labored. Currently on room air with oxygen saturation 93% CARDIOVASCULAR: S1, S2 present. Regular rate and rhythm, sinus tach on telemetry. Palpable peripheral pulses bilaterally. No edema present. No calf pain or tenderness noted. SCDs present. GASTROINTESTINAL: Abdomen soft, nontender, nondistended. Active bowel sounds present 4 quadrants. Positive bowel movement 09/05 GENITOURINARY: Salcido present draining clear yellow urine, output 1550 mL in the last 24 hours INTEGUMENTARY: Skin is warm and dry NEUROLOGIC: Cranial nerves II through XII intact MUSKULOSKELETAL: Able to move all extremities, strength equal bilaterally PSYCHIATRIC: Alert and oriented to person place INVASIVE LINES AND TUBES: Right pigtail catheter present to continuous wall suction, no air leak present, 10 mL output overnight, 500 mL in the last 24 hours - Allied health notes Allied health notes reviewed: nursing - Labs CBC & Chem 7: 09/04/24 05:32 09/05/24 04:19 Labs: Microbiology - Last 24 Hours (Table) 08/30/24 16:55 Blood Culture - Final Blood - Imaging and Cardiology Chest x-ray: image reviewed Assessment and Plan Assessment: Large right-sided pleural effusion, status postplacement of pigtail catheter by interventional radiology Pneumonia Sepsis (tachycardia, hypotension, leukocytosis) Acute hypoxic respiratory failure Shortness of breath, secondary to above History of CAD HLD Schizophrenia Cognitive deficits Pneumonia Plan: Will instill 7th dose alteplase/dornase through his pigtail catheter today, continue to instill lytics as long as patient has significant output Continue to monitor strict output from the right pigtail catheter No surgical intervention at this point Encourage use of incentive spirometry 10 times every hour while awake as tolerated. Medical management of other comorbidities per internal medicine, pulmonary/critical care medicine, infectious disease and general surgery. Continue to monitor daily chest x-rays. More recommendations to follow based on patient's clinical course.
[2024-09-06] MEDS: ALTEPLASE 10 MG in SODIUM CHLORIDE 0.9% 50 ML IRRIGATION ONE (08:13)
[2024-09-06] MEDS: DORNASE ALFA 5 MG in SODIUM CHLORIDE 0.9% 50 ML IRRIGATION ONE (08:13)
[2024-09-06 08:17] LABS: HCT 25.8 % (39.6-50.0); HGB 8.4 g/dL (13.0-17.0); MCH 26.3 pg (27.0-32.0); MCHC 32.6 g/dL (32.0-37.0); MCV 80.9 fL (80.0-97.0); Mean Platelet Volume 9.2 fL (9.5-12.2); Platelet Count 297 10*3/uL (140-440); RBC 3.19 10*6/uL (4.40-5.60); RDW 18.8 % (11.5-14.5); WBC 10.22 10*3/uL (4.50-10.00)
[2024-09-06 08:27] LABS: African American GFR (CKD) >90 (>60 ml/min/1.73 sqM); Anion Gap 2 mmol/L; Blood Urea Nitrogen 5 mg/dL (9-20); Calcium 7.3 mg/dL (8.4-10.2); Carbon Dioxide 25 mmol/L (22-30); Chloride 110 mmol/L (98-107); Glucose 107 mg/dL (74-99); Magnesium 1.9 mg/dL (1.6-2.3); Non-African American GFR(CKD) >90 (>60 ml/min/1.73 sqM); Potassium 3.6 mmol/L (3.5-5.1); Sodium 137 mmol/L (137-145)
--- NOTE | 2024-09-06 10:37 | XR ---
EXAMINATION TYPE: XR chest 1V portable DATE OF EXAM: 09/06/2024 6:41 AM COMPARISON: 09/05/2024 CLINICAL INDICATION: Male, 64 years old with history of empyema, TECHNIQUE: XR chest 1V portable view(s) obtained. FINDINGS: The heart size is enlarged. The pulmonary vasculature is prominent. Bibasilar infiltrates are present, greater on the right. This may be increasing on the right. Right sided catheter is not well visualized. IMPRESSION: 1. Right lower lobe infiltrate with prior empyema. Catheter is not well-visualized on this exam. 2. Small left lower lobe infiltrate appears stable. [facility], , 09/06/2024 10:35 AM
--- NOTE | 2024-09-06 11:09 | P.PN ---
Subjective Progress Note Date: 09/06/24 SURGICAL PROGRESS NOTE CHIEF COMPLAINT: Chest pain HISTORY OF PRESENT ILLNESS: Patient is status post flex sigmoidoscopy for disimpaction yesterday on 09/01/24. Patient denies any abdominal pain. He is h aving bowel movements. Tolerating diet. Patient followed by cardiothoracic team regarding pleural effusion with chest tube and receiving alteplase/dornase through pigtail catheter. PHYSICAL EXAM: VITAL SIGNS: Reviewed. GENERAL: in no acute distress. HEENT: No sclera icterus. Extraocular movements grossly intact. Moist buccal mucosa. Head is atraumatic, normocephalic. ABDOMEN: Softer. Mildly distended. Nontender ASSESSMENT: 1. Fecal impaction status post flexible sigmoidoscopy with disimpaction PLAN: -Continue lactulose -Continue chopped diet -Continue supportive care Physician Attendant Arcade note has been reviewed by physician. Signing provider agrees with the documented findings, assessment, and plan of care. Objective - Vital Signs Vital signs: Vital Signs Temp 98.4 F 09/06/24 08:31 Pulse 94 09/06/24 08:31 Resp 14 09/06/24 08:31 BP 110/73 09/06/24 08:31 Pulse Ox 91 L 09/06/24 08:31 FiO2 50 09/01/24 15:00 Intake & Output 09/05/24 09/06/24 09/06/24 18:59 06:59 18:59 Intake Total 200 620 150 Output Total 800 1150 Balance -600 -530 150 Weight 105 kg 105 kg Intake: IV 20 Invasive Line 6 20 Intake, IV Titration 600 Amount Sodium Chloride 0.9% 1, 600 000 ml @ 50 mls/hr IV . Q20H [facility] Rx#:[id number] Oral 200 150 Output: Chest Tube Drainage 300 100 Pleural Catheter Right 300 100 Posterior Chest Urine 500 1050 Other: Voiding Method Indwelling Catheter Indwelling Catheter Indwelling Catheter # Bowel Movements 1 - Labs CBC & Chem 7: 09/06/24 07:55 09/06/24 07:55 Labs: Abnormal Lab Results - Last 24 Hours (Table) 09/06/24 09/06/24 Range/Units 07:55 07:55 WBC 10.22 H (4.50-10.00) 10*3/uL RBC 3.19 L (4.40-5.60) 10*6/uL Hgb 8.4 L (13.0-17.0) g/dL Hct 25.8 L (39.6-50.0) % MCH 26.3 L (27.0-32.0) pg MPV 9.2 L (9.5-12.2) fL Chloride 110 H (98-107) mmol/L BUN 5 L (9-20) mg/dL Creatinine 0.47 L (0.66-1.25) mg/dL Glucose 107 H (74-99) mg/dL Calcium 7.3 L (8.4-10.2) mg/dL
--- NOTE | 2024-09-06 13:45 | P.PN ---
Subjective Progress Note Date: 09/06/24 Principal diagnosis: Sepsis, pneumonia. Patient is a 64-year-old male with past medical history significant for schizoaffective disorder, bipolar disorder, hyperlipidemia. Patient is a poor historian. He has a public guardian and resides at an [facility]. I am seeing this patient in new consultation today 08/31/2024 following rapid response called earlier this morning for hypotension and tachycardia. Patient actually brought into the emergency department yesterday afternoon from by EMS. He was confused. Complaining of abdominal/chest pain. Patient was hypotensive, tachycardic, tachypneic, and febrile. He was fluid bolused with a total of 2 L of normal saline and 2 L of lactated Ringer's. Normal saline continues at 130 mL/hr. Previously, started on a Cardizem infusion, but then became hypotensive. Heart rate recorded as high as 156 bpm. Cardizem infusion has since been discontinued. He was also given 25 mg of metoprolol. Now, patient is less tachycardic and remains hypotensive. Recommending the patient be started on norepinephrine infusion for blood pressure support and transferred to the intensive care unit. Previously started on antibiotics in the form of Zosyn and vancomycin. Following a rapid response, patient was transferred to the intensive care unit. He is in a moderate amount of distress. Tachypneic breathing in 30s to 40s. On 3 L/min nasal cannula. He has since been started on norepinephrine which is infusing at 0.03 mcg/kg/min. Current blood pressure 117/79 mmHg. Heart rhythm appears sinus tachycardia on bedside monitor, with a rate of 109 bpm. Abdomen is firm and distended. Does not appear particularly tender. No nausea or vomiting. CT of chest, abdomen, pelvis remarkable for large fecal bolus and fecal impaction. Also, large right pleural effusion with compressive atelectasis. Labs including a CBC with a WBC count of 40.4, hemoglobin 13.5, platelets 322. CMP: Sodium 133, potassium 4.2, chloride 105, serum bicarb 20, BUN 23, creatinine 0.73, glucose 118. LFTs not elevated. Total bilirubin 3.6. Lactic was 2.6 and is down to 0.9. Serial troponins less than 0.012 x 2. EKG: sinus tachycardia, rate 148 bpm. NT proBNP 457. Urinalysis fairly unremarkable. Patient was seen today on 09/01/2024, patient remains in the ICU, on 4 L nasal cannula, continues to have significant drainage of serosanguineous pleural effusion, patient has been receiving lytic therapy for his likely pleural effusion so far drained 3.7 L since the pigtail catheter placement. Patient remains on cefepime and vancomycin, he is requiring a bit of norepinephrine at 0.05 mcg/kg/min and that being titrated hopefully will be discontinued today IV fluid is 0.9 normal saline at 100 cc/h and he will receive fluid bolus. Patient remains constipated, bloated, supposed to have colonoscopy today. WBC count is 13.5 hemoglobin 8.6 electrolytes are normal BUN is 24 creatinine 0.62 pleural effusion cultures are negative so far but the pleural effusion is quite exudative with protein of more than 3600 and LDH 1210. Patient was seen today on 09/02/2024, remains in the ICU, continues to have intermittent episodes of shortness of breath, anxiety, remains constipated until earlier today he was given lactulose and SS enema then he had a significant bowel movement. Patient felt much better after his bowel movement. Remains on Precedex for agitation 0.5 mcg/kg/h he is also on norepinephrine at 0.07 and he is receiving fluids and fluid boluses. Antibiotics hernandez remains on Vanco and cefepime. Blood pressure remains marginal requiring norepinephrine, I am recommending today possibly a PICC line placement as the patient may need to be on antibiotics for a long period of time. Cultures of the right pleural effusion remains nondiagnostic patient continues to receive lytic therapy, and chest x-ray continues to show improvement. His abdominal films continue to show dilated bowel loops. But hopefully that will get better as he had a large bowel movement earlier today. Labs today show WBC count of 9.8 hemoglobin 9.4 electrolytes are normal renal profile is normal bicarb is 19. Seen today on 09/03/2024, patient remains in the ICU, marginal at best patient remains on nasal cannula at 2 L, continues to have significant drainage/output from his right sided pigtail catheter. Remains on lytic therapy for loculated pleural effusion remains on antibiotics, patient continues to have intermittent episodes of constipation, still receiving lactulose and as enemas. His abdomen is less distended, patient did have few bowel movements yesterday. And he does not seem to be in any distress today. WBC count is 6.05 hemoglobin is 8 electrolytes are normal renal profile is normal Patient was seen today on 09/04/2024, patient remains in the ICU, steadily improving, better today compared to the last few days. Patient seems to be less restless, less agitated, comfortable, he had few bowel movements already in the last couple of days. He is on IV fluid 0.9 normal saline at 100 cc/h and I cut it down to 50 remains empirically on cefepime and vancomycin for his empyema patient again is having good bowel movements. Yesterday he had to be placed on BiPAP 10/5/50% today he is on a nasal cannula. WBC count is 8.6 hemoglobin 8.3 electrolytes are normal except for slightly low potassium of 3.3 renal profile is normal. Magnesium is 1.8. Cultures remain negative from the pleural effusion. Progress note dated September 05, 2024. 64-year-old male seen today in room 362. The patient was admitted with a diagnosis of sepsis, and pneumonia. Pleural effusion was noted, and a pigtail catheter was placed on the right. He did receive tPA and alpha dornase today, administered by cardiothoracic surgery. Cultures are negative. He continues on cefepime. He is currently on room air. Current labs include a sodium 137, potassium 3.1, chlorides 107, CO2 26, BUN 6, creatinine 0.45. Glucose is 91. Calcium 7.5. Albumin 1.7. Viral screen was negative. Microbiology testing, is all negative. Chest x-ray shows a stable right lower lobe infiltrate with pigtail catheter in place. Progress note dated September 06, 2024. 64-year-old male seen today in room 362. The patient is resting comfortably in bed. He is on room air. No respiratory distress. He is awake and alert. He is getting saline at 50 cc an hour. Cardiothoracic surgery did instill tPA and alpha dornase, through his right chest tube today. Clinically, he is stable. White count 10.2, hemoglobin 8.4, hematocrit 25.8, platelet count 297,000. Sodium 137, potassium 3.6, chlorides 110, CO2 25, BUN 5, creatinine 0.47. Glucose is 107. Calcium is 7.3. Magnesium 1.9. Chest x-ray shows a right lower lobe infiltrate, which is slightly improved. Objective - Vital Signs Vital signs: Vital Signs Temp 98.4 F 09/06/24 11:23 Pulse 88 09/06/24 11:23 Resp 14 09/06/24 11:23 BP 109/71 09/06/24 11:23 Pulse Ox 94 L 09/06/24 12:28 FiO2 50 09/01/24 15:00 Intake & Output 09/05/24 09/06/24 09/06/24 18:59 06:59 18:59 Intake Total 200 620 150 Output Total 800 1150 50 Balance -600 -530 100 Weight 105 kg 105 kg Intake: IV 20 Invasive Line 6 20 Intake, IV Titration 600 Amount Sodium Chloride 0.9% 1, 600 000 ml @ 50 mls/hr IV . Q20H [facility] Rx#:[id number] Oral 200 150 Output: Chest Tube Drainage 300 100 50 Pleural Catheter Right 300 100 50 Posterior Chest Urine 500 1050 Other: Voiding Method Indwelling Catheter Indwelling Catheter Indwelling Catheter # Bowel Movements 1 - Exam No acute distress, oriented 3. No acute distress, currently on room air. HEENT examination is grossly unremarkable. Mucous membranes are moist. No oral lesions. Neck supple. Full range of motion. No adenopathy thyromegaly or neck vein distention. Cardiovascular examination reveals regular rhythm rate. S1-S2 normal. No S3 or S4. No discernible murmur noted. Lungs reveal diminished breath sounds on the right. There is dullness on percussion. Chest tube i.e. pigtail catheter is noted. Abdomen soft bowel sounds are heard. No masses or tenderness. Extremities are intact. No cyanosis clubbing or edema. Skin is without rash or lesion. Neurologic examination is brief but nonfocal. - Labs CBC & Chem 7: 09/06/24 07:55 09/06/24 07:55 Labs: Abnormal Lab Results - Last 24 Hours (Table) 09/06/24 09/06/24 Range/Units 07:55 07:55 WBC 10.22 H (4.50-10.00) 10*3/uL RBC 3.19 L (4.40-5.60) 10*6/uL Hgb 8.4 L (13.0-17.0) g/dL Hct 25.8 L (39.6-50.0) % MCH 26.3 L (27.0-32.0) pg MPV 9.2 L (9.5-12.2) fL Chloride 110 H (98-107) mmol/L BUN 5 L (9-20) mg/dL Creatinine 0.47 L (0.66-1.25) mg/dL Glucose 107 H (74-99) mg/dL Calcium 7.3 L (8.4-10.2) mg/dL Assessment and Plan Assessment: Complicated right sided pleural effusion, with compressive atelectasis, status post pigtail catheter placement, August 31, 2024. Lytic therapy to the right pleural space, with alpha dornase and tPA. Acute hypoxemic respiratory failure, currently on room air, improved. Obstipation, improved. Hypotension and shock, resolved. Sinus tachycardia. Acute leukocytosis. SIRS/sepsis. History of schizoaffective disorder/bipolar disorder. History of hyperlipidemia. Plan: Plan dated September 05, 2024. The patient appears to be doing much better. He is currently on room air. He did receive tPA and alpha dornase of the right pleural space today. Pigtail catheter remains in place. The patient continues on cefepime. Cultures are currently negative. Labs, x-rays, and all medications are reviewed. We will continue to follow and make recommendations along the way. The patient remains a full code. Prognosis is certainly guarded. Dictation was produced using [employer] software. Please excuse any grammatical, word or spelling errors. Plan dated September 06, 2024. The patient is doing relatively well. The patient is currently on room air. The patient is receiving saline at 50 cc an hour. He did receive tPA and alpha dornase via cardiothoracic surgery, through the right chest tube. He continues on antibiotic. Cultures are currently negative. All labs, x-rays, and medications are reviewed. We will continue to follow the patient, make recommendations along the way. Prognosis is certainly guarded. Dictation was produced using [employer] software. Please excuse any grammatical, word or spelling errors. Time with Patient: Less than 30
--- NOTE | 2024-09-06 16:17 | P.PN ---
Subjective Progress Note Date: 09/05/24 Principal diagnosis: Reason for follow-up is pneumonia/empyema/effusion Patient is a 64-year-old male with a past medical history significant for coronary disease ,HLD, schizophrenia, cognitive deficits, and pneumonia. Patient has been brought to the hospital concerning for increasing shortness of breath and cough did have a CT with a large right-sided effusion status post chest tube placement. On today's evaluation that is 09/05/2024, patient has been afebrile, patient is breathing comfortably and is currently on room air, patient denies having any worsening right-sided chest pain and cough, patient denies nausea vomiting or diarrhea and no abdominal pain. Patient did have a creatinine 0.45 no CBC was done today Objective - Vital Signs Vital signs: Vital Signs Temp 98.2 F 09/05/24 11:48 Pulse 102 H 09/05/24 11:48 Resp 16 09/05/24 11:48 BP 113/70 09/05/24 11:48 Pulse Ox 92 L 09/05/24 11:48 FiO2 50 09/01/24 15:00 Intake & Output 09/04/24 09/05/24 09/05/24 18:59 06:59 18:59 Intake Total 1820 60 Output Total 640 1013 190 Balance 1180 -953 -190 Weight 99 kg Intake: IV 790 60 Invasive Line 3 20 Invasive Line 4 20 Invasive Line 6 20 Sodium Chloride 0.9% 1, 290 000 ml @ 50 mls/hr IV . Q20H [facility] Rx#:[id number] Vancomycin 1,500 mg In 500 Sodium Chloride 0.9% 500 ml 500 ml @ 167 mls/hr IVPB Q8H [facility] Rx#: [id number] Oral 1030 Output: Chest Tube Drainage 200 513 190 Pleural Catheter Right 200 513 190 Posterior Chest Urine 440 500 Other: Voiding Method Indwelling Catheter Indwelling Catheter Indwelling Catheter # Bowel Movements 1 - Exam GENERAL DESCRIPTION: An elderly male up in bed in no distress RESPIRATORY SYSTEM: Unlabored breathing , coarse breath sounds bilaterally HEART: S1 S2 regular rate and rhythm , ABDOMEN: Soft , no tenderness EXTREMITIES: No edema feet - Labs CBC & Chem 7: 09/06/24 07:55 09/06/24 07:55 Labs: Abnormal Lab Results - Last 24 Hours (Table) 09/05/24 Range/Units 04:19 Potassium 3.1 L (3.5-5.1) mmol/L BUN 6 L (9-20) mg/dL Creatinine 0.45 L (0.66-1.25) mg/dL Calcium 7.5 L (8.4-10.2) mg/dL Total Protein 3.5 L (6.3-8.2) g/dL Albumin 1.7 L (3.5-5.0) g/dL Microbiology - Last 24 Hours (Table) 08/30/24 16:55 Blood Culture - Final Blood Assessment and Plan (1) Pneumonia Current Visit: Yes Status: Acute Code(s): J18.9 - PNEUMONIA, UNSPECIFIED ORGANISM SNOMED Code(s): 285815664 (2) Sepsis Current Visit: Yes Status: Acute Code(s): A41.9 - SEPSIS, UNSPECIFIED ORGANISM SNOMED Code(s): 34663268 Plan: 1patient presented hospital with sepsis in this patient who did have fever tachycardia hypotension elevated white count meeting criteria for SIRS/sepsis source likely complicated pneumonia right-sided with large effusion and question of parapneumonic effusion/empyema in this patient who is facility resident will need to cover for resistant gram-positive as well as gram-negative pathogen 2-patient is status post IR placement of a chest tube and fluid has been sent for Gram stain and culture 3-patient white count normalized culture have been negative for any resistant pathogen 4patient currently be treated with cefepime to continue antibiotic clinical course closely Dictation was produced using [employer] dictation software. please excuse any grammatical, word or spelling errors. Time with Patient: Less than 30
--- NOTE | 2024-09-06 16:18 | P.PN ---
Subjective Progress Note Date: 09/06/24 Principal diagnosis: Reason for follow-up is pneumonia/empyema/effusion Patient is a 64-year-old male with a past medical history significant for coronary disease ,HLD, schizophrenia, cognitive deficits, and pneumonia. Patient has been brought to the hospital concerning for increasing shortness of breath and cough did have a CT with a large right-sided effusion status post chest tube placement. On today's evaluation that is 09/06/2024, Patient is afebrile this morning patient denies having any worsening right-sided chest pain shortness of breath or cough, the patient is currently on room air, patient denies any abdominal pain no diarrhea no nausea no vomiting. Patient white count is 10.22 creatinine 0.47 culture remains to be negative Objective - Vital Signs Vital signs: Vital Signs Temp 97.5 F L 09/06/24 15:54 Pulse 90 09/06/24 15:54 Resp 14 09/06/24 15:54 BP 124/77 09/06/24 15:54 Pulse Ox 96 09/06/24 15:54 FiO2 50 09/01/24 15:00 Intake & Output 09/05/24 09/06/24 09/06/24 18:59 06:59 18:59 Intake Total 200 620 150 Output Total 800 1150 1500 Balance -600 -530 -1350 Weight 105 kg 105 kg Intake: IV 20 Invasive Line 6 20 Intake, IV Titration 600 Amount Sodium Chloride 0.9% 1, 600 000 ml @ 50 mls/hr IV . Q20H [facility] Rx#:[id number] Oral 200 150 Output: Chest Tube Drainage 300 100 100 Pleural Catheter Right 300 100 100 Posterior Chest Urine 500 1050 1400 Other: Voiding Method Indwelling Catheter Indwelling Catheter Indwelling Catheter # Bowel Movements 1 1 - Exam GENERAL DESCRIPTION: An elderly male up in bed in no distress RESPIRATORY SYSTEM: Unlabored breathing , coarse breath sounds bilaterally HEART: S1 S2 regular rate and rhythm , ABDOMEN: Soft , no tenderness EXTREMITIES: No edema feet - Labs CBC & Chem 7: 09/06/24 07:55 09/06/24 07:55 Labs: Abnormal Lab Results - Last 24 Hours (Table) 09/06/24 09/06/24 Range/Units 07:55 07:55 WBC 10.22 H (4.50-10.00) 10*3/uL RBC 3.19 L (4.40-5.60) 10*6/uL Hgb 8.4 L (13.0-17.0) g/dL Hct 25.8 L (39.6-50.0) % MCH 26.3 L (27.0-32.0) pg MPV 9.2 L (9.5-12.2) fL Chloride 110 H (98-107) mmol/L BUN 5 L (9-20) mg/dL Creatinine 0.47 L (0.66-1.25) mg/dL Glucose 107 H (74-99) mg/dL Calcium 7.3 L (8.4-10.2) mg/dL Assessment and Plan (1) Pneumonia Current Visit: Yes Status: Acute Code(s): J18.9 - PNEUMONIA, UNSPECIFIED ORGANISM SNOMED Code(s): 718853201 (2) Sepsis Current Visit: Yes Status: Acute Code(s): A41.9 - SEPSIS, UNSPECIFIED ORGANISM SNOMED Code(s): 10276052 Plan: 1patient presented hospital with sepsis in this patient who did have fever tachycardia hypotension elevated white count meeting criteria for SIRS/sepsis source likely complicated pneumonia right-sided with large effusion and question of parapneumonic effusion/empyema in this patient who is facility resident will need to cover for resistant gram-positive as well as gram-negative pathogen 2-patient is status post IR placement of a chest tube and fluid has been sent for Gram stain and culture 3-patient white count normalized culture have been negative for any resistant pathogen 4patient antibiotic to be switched over to Rocephin 2 g daily and transition to oral antibiotic on discharge discontinue cefepime Dictation was produced using [employer] dictation software. please excuse any grammatical, word or spelling errors. Time with Patient: Less than 30
[2024-09-06 20:46] LABS: Glucose,Whole Blood 97 mg/dL (70-110)
--- NOTE | 2024-09-06 23:03 | PN ---
PROGRESS NOTE DATE OF SERVICE: 09/06/2024 CHIEF COMPLAINT: Sepsis and pneumonia. HISTORY OF PRESENT ILLNESS: This gentleman seems to be doing fairly well. He cannot communicate effectively. PHYSICAL EXAMINATION: LUNGS: He has breath sounds on both sides. CHEST: Still chest tube in the right chest. CARDIAC: Normal. IMPRESSION: 1. Right lower lobe pneumonitis with effusion or empyema. 2. Sepsis. 3. Mental debility. PLAN: Continue to follow during his inpatient management and discharge planning will have to be started and could be a potential problem. MMODL / IJN: [id number] /
[2024-09-07] MEDS: ALTEPLASE 10 MG in SODIUM CHLORIDE 0.9% 50 ML IRRIGATION ONE (01:00)
--- NOTE | 2024-09-07 08:12 | CT ---
EXAMINATION TYPE: CT chest wo con DATE OF EXAM: 09/07/2024 7:42 AM COMPARISON: None. CLINICAL INDICATION: Male, 64 years old with history of Evaluate effusion on the right lung, RIGHT CAITLIN NG EFFUSION TECHNIQUE: Axial images were obtained at 5 mm thick sections. Reconstructed images are reviewed on [employer] computer in the coronal plane. Contrast used: mL of , (none if empty) Oral contrast used: (none if empty) CT DLP: 502.1 mGycm, Automated exposure control for dose reduction was used. FINDINGS: Portion of the thyroid visualized is normal. Bilateral small pleural effusions are present. Adjacent compressive atelectasis is evident. There is a catheter on the right posterior lateral lung base. There is a focal infiltrate anterior left lung. Series 205 image 21. Correlate for pneumonia. No enlarged mediastinal or hilar adenopathy is evident. The ascending aorta diameter at the level o f the main pulmonary artery is 3. cm. The main pulmonary artery diameter at the bifurcation is 3.6 c m. No significant coronary artery calcifications. Limited CT sections are obtained through the upper abdomen. Clinical consideration for splenomegaly. Punctate nonobstructing renal stones in the mid lateral left kidney. COMPARISON: The small left pleural effusion and interval finding. The right pleural fluid collection is significantly diminished in volume. IMPRESSION: 1. Diminished size with small residual right pleural fluid. Drainage catheter remains present. 2. Interval development of a small left pleural effusion. 3. Bilateral lower lobe infiltrates. Correlate for atelectasis. Underlying pneumonia could be conside red. 4. There is new focal infiltrate anterior left upper lung field. Correlate for pneumonia. [facility], , 09/07/2024 8:10 AM
--- NOTE | 2024-09-07 09:10 | P.PN ---
Subjective Progress Note Date: 09/07/24 Principal diagnosis: Large right-sided pleural effusion, pneumonia, sepsis, and acute hypoxic respiratory failure. Past medical history significant for coronary artery disease, hyperlipidemia, anemia, schizophrenia, anxiety, depression, cognitive deficits, speech impediment, is a lifetime non-smoker and pneumonia. POD #7 ultrasound-guided chest tube insertion performed by interventional radiology. The patient was seen and examined this morning sitting up in bed on the cardiac stepdown unit in no acute distress. Currently sinus rhythm, blood pressure stable, currently on room air with oxygen saturation in the mid 90s. Right sided pigtail remains present, seventh dose of lytics instilled yesterday with 250 mL in the last [address] reviewed. Objective - Vital Signs Vital signs: Vital Signs Temp 97.5 F L 09/07/24 04:00 Pulse 95 09/07/24 04:00 Resp 19 09/07/24 04:00 BP 97/59 09/07/24 04:00 Pulse Ox 93 L 09/07/24 08:59 FiO2 21 09/07/24 08:59 Intake & Output 09/06/24 09/07/24 09/07/24 18:59 06:59 18:59 Intake Total 150 120 Output Total 2064 920 600 Balance -1915 -920 -480 Weight 105 kg 99.5 kg Intake: Oral 150 120 Output: Chest Tube Drainage 140 20 Pleural Catheter Right 140 20 Posterior Chest Urine 1925 900 600 Other: Voiding Method Indwelling Catheter Indwelling Catheter # Bowel Movements 1 - Exam CONSTITUTIONAL: Appears calm, cooperative RESPIRATORY: Lungs sounds diminished in the bases. Respirations even, non labored. Currently on room air with oxygen saturation 92% CARDIOVASCULAR: S1, S2 present. Regular rate and rhythm, sinus rhythm on telemetry. Palpable peripheral pulses bilaterally. No edema present. No calf pain or tenderness noted. SCDs present. GASTROINTESTINAL: Abdomen soft, nontender, nondistended. Active bowel sounds present 4 quadrants. Positive bowel movement 09/06 GENITOURINARY: [place] present draining clear yellow urine, output 2825 mL in the last 24 hours INTEGUMENTARY: Skin is warm and dry NEUROLOGIC: Cranial nerves II through XII intact MUSKULOSKELETAL: Able to move all extremities, strength equal bilaterally PSYCHIATRIC: Alert and oriented to person place INVASIVE LINES AND TUBES: Right pigtail catheter present to continuous wall suction, no air leak present, 20 mL output overnight, 250 mL in the last 24 hours - Allied health notes Allied health notes reviewed: nursing - Labs CBC & Chem 7: 09/06/24 07:55 09/06/24 07:55 - Imaging and Cardiology CT scan - chest: report reviewed, image reviewed Assessment and Plan Assessment: Large right-sided pleural effusion, status postplacement of pigtail catheter by interventional radiology Pneumonia Sepsis (tachycardia, hypotension, leukocytosis) Acute hypoxic respiratory failure Shortness of breath, secondary to above History of CAD HLD Schizophrenia Cognitive deficits Pneumonia Plan: Will discuss further instillation of lytics as return has decreased and effusion on CT scan appears much improved Continue to monitor strict output from the right pigtail catheter No surgical intervention at this point Encourage use of incentive spirometry 10 times every hour while awake as tolerated. Medical management of other comorbidities per internal medicine, pulmonary/critical care medicine, infectious disease and general surgery. Continue to monitor daily chest x-rays. More recommendations to follow based on patient's clinical course.
--- NOTE | 2024-09-07 14:35 | P.PN ---
Subjective Progress Note Date: 09/07/24 Principal diagnosis: Sepsis, pneumonia. Patient is a 64-year-old male with past medical history significant for schizoaffective disorder, bipolar disorder, hyperlipidemia. Patient is a poor historian. He has a public guardian and resides at an [facility]. I am seeing this patient in new consultation today 08/31/2024 following rapid response called earlier this morning for hypotension and tachycardia. Patient actually brought into the emergency department yesterday afternoon from by EMS. He was confused. Complaining of abdominal/chest pain. Patient was hypotensive, tachycardic, tachypneic, and febrile. He was fluid bolused with a total of 2 L of normal saline and 2 L of lactated Ringer's. Normal saline continues at 130 mL/hr. Previously, started on a Cardizem infusion, but then became hypotensive. Heart rate recorded as high as 156 bpm. Cardizem infusion has since been discontinued. He was also given 25 mg of metoprolol. Now, patient is less tachycardic and remains hypotensive. Recommending the patient be started on norepinephrine infusion for blood pressure support and transferred to the intensive care unit. Previously started on antibiotics in the form of Zosyn and vancomycin. Following a rapid response, patient was transferred to the intensive care unit. He is in a moderate amount of distress. Tachypneic breathing in 30s to 40s. On 3 L/min nasal cannula. He has since been started on norepinephrine which is infusing at 0.03 mcg/kg/min. Current blood pressure 117/79 mmHg. Heart rhythm appears sinus tachycardia on bedside monitor, with a rate of 109 bpm. Abdomen is firm and distended. Does not appear particularly tender. No nausea or vomiting. CT of chest, abdomen, pelvis remarkable for large fecal bolus and fecal impaction. Also, large right pleural effusion with compressive atelectasis. Labs including a CBC with a WBC count of 40.4, hemoglobin 13.5, platelets 322. CMP: Sodium 133, potassium 4.2, chloride 105, serum bicarb 20, BUN 23, creatinine 0.73, glucose 118. LFTs not elevated. Total bilirubin 3.6. Lactic was 2.6 and is down to 0.9. Serial troponins less than 0.012 x 2. EKG: sinus tachycardia, rate 148 bpm. NT proBNP 457. Urinalysis fairly unremarkable. Patient was seen today on 09/01/2024, patient remains in the ICU, on 4 L nasal cannula, continues to have significant drainage of serosanguineous pleural effusion, patient has been receiving lytic therapy for his likely pleural effusion so far drained 3.7 L since the pigtail catheter placement. Patient remains on cefepime and vancomycin, he is requiring a bit of norepinephrine at 0.05 mcg/kg/min and that being titrated hopefully will be discontinued today IV fluid is 0.9 normal saline at 100 cc/h and he will receive fluid bolus. Patient remains constipated, bloated, supposed to have colonoscopy today. WBC count is 13.5 hemoglobin 8.6 electrolytes are normal BUN is 24 creatinine 0.62 pleural effusion cultures are negative so far but the pleural effusion is quite exudative with protein of more than 3600 and LDH 1210. Patient was seen today on 09/02/2024, remains in the ICU, continues to have intermittent episodes of shortness of breath, anxiety, remains constipated until earlier today he was given lactulose and SS enema then he had a significant bowel movement. Patient felt much better after his bowel movement. Remains on Precedex for agitation 0.5 mcg/kg/h he is also on norepinephrine at 0.07 and he is receiving fluids and fluid boluses. Antibiotics hernandez remains on Vanco and cefepime. Blood pressure remains marginal requiring norepinephrine, I am recommending today possibly a PICC line placement as the patient may need to be on antibiotics for a long period of time. Cultures of the right pleural effusion remains nondiagnostic patient continues to receive lytic therapy, and chest x-ray continues to show improvement. His abdominal films continue to show dilated bowel loops. But hopefully that will get better as he had a large bowel movement earlier today. Labs today show WBC count of 9.8 hemoglobin 9.4 electrolytes are normal renal profile is normal bicarb is 19. Seen today on 09/03/2024, patient remains in the ICU, marginal at best patient remains on nasal cannula at 2 L, continues to have significant drainage/output from his right sided pigtail catheter. Remains on lytic therapy for loculated pleural effusion remains on antibiotics, patient continues to have intermittent episodes of constipation, still receiving lactulose and as enemas. His abdomen is less distended, patient did have few bowel movements yesterday. And he does not seem to be in any distress today. WBC count is 6.05 hemoglobin is 8 electrolytes are normal renal profile is normal Patient was seen today on 09/04/2024, patient remains in the ICU, steadily improving, better today compared to the last few days. Patient seems to be less restless, less agitated, comfortable, he had few bowel movements already in the last couple of days. He is on IV fluid 0.9 normal saline at 100 cc/h and I cut it down to 50 remains empirically on cefepime and vancomycin for his empyema patient again is having good bowel movements. Yesterday he had to be placed on BiPAP 10/5/50% today he is on a nasal cannula. WBC count is 8.6 hemoglobin 8.3 electrolytes are normal except for slightly low potassium of 3.3 renal profile is normal. Magnesium is 1.8. Cultures remain negative from the pleural effusion. Progress note dated September 05, 2024. 64-year-old male seen today in room 362. The patient was admitted with a diagnosis of sepsis, and pneumonia. Pleural effusion was noted, and a pigtail catheter was placed on the right. He did receive tPA and alpha dornase today, administered by cardiothoracic surgery. Cultures are negative. He continues on cefepime. He is currently on room air. Current labs include a sodium 137, potassium 3.1, chlorides 107, CO2 26, BUN 6, creatinine 0.45. Glucose is 91. Calcium 7.5. Albumin 1.7. Viral screen was negative. Microbiology testing, is all negative. Chest x-ray shows a stable right lower lobe infiltrate with pigtail catheter in place. Progress note dated September 06, 2024. 64-year-old male seen today in room 362. The patient is resting comfortably in bed. He is on room air. No respiratory distress. He is awake and alert. He is getting saline at 50 cc an hour. Cardiothoracic surgery did instill tPA and alpha dornase, through his right chest tube today. Clinically, he is stable. White count 10.2, hemoglobin 8.4, hematocrit 25.8, platelet count 297,000. Sodium 137, potassium 3.6, chlorides 110, CO2 25, BUN 5, creatinine 0.47. Glucose is 107. Calcium is 7.3. Magnesium 1.9. Chest x-ray shows a right lower lobe infiltrate, which is slightly improved. Progress note dated September 07, 2024. 64-year-old male seen today in room 362. The patient continues on room air. T he patient is also getting saline at 50 cc an hour. The patient did not get any tPA or alpha dornase today. CT scan of the chest was improved. Appreciate input by cardiothoracic surgery. No new labs today. The patient appears stable. He is awake and alert. No respiratory difficulty noted. Objective - Vital Signs Vital signs: Vital Signs Temp 98.1 F 09/07/24 12:07 Pulse 90 09/07/24 12:07 Resp 16 09/07/24 12:07 BP 101/62 09/07/24 12:07 Pulse Ox 94 L 09/07/24 12:07 FiO2 21 09/07/24 08:59 Intake & Output 09/06/24 09/07/24 09/07/24 18:59 06:59 18:59 Intake Total 150 120 Output Total 2064 920 1150 Balance -1914 -0 -0 Weight 105 kg 99.5 kg Intake: Oral 150 120 Output: Chest Tube Drainage 140 20 0 Pleural Catheter Right 140 20 0 Posterior Chest Urine 1185 916 [id number] Other: Voiding Method Indwelling Catheter Indwelling Catheter Indwelling Catheter # Bowel Movements 1 - Exam No acute distress, oriented 3. No acute distress, currently on room air. HEENT examination is grossly unremarkable. Mucous membranes are moist. No oral lesions. Neck supple. Full range of motion. No adenopathy thyromegaly or neck vein distention. Cardiovascular examination reveals regular rhythm rate. S1-S2 normal. No S3 or S4. No discernible murmur noted. Lungs reveal diminished breath sounds on the right. There is dullness on percussion. Chest tube i.e. pigtail catheter is noted. Abdomen soft bowel sounds are heard. No masses or tenderness. Extremities are intact. No cyanosis clubbing or edema. Skin is without rash or lesion. Neurologic examination is brief but nonfocal. - Labs CBC & Chem 7: 09/06/24 07:55 09/06/24 07:55 Assessment and Plan Assessment: Complicated right sided pleural effusion, with compressive atelectasis, status post pigtail catheter placement, August 31, 2024. Lytic therapy to the right pleural space, with alpha dornase and tPA. Acute hypoxemic respiratory failure, currently on room air, improved. Obstipation, improved. Hypotension and shock, resolved. Sinus tachycardia. Acute leukocytosis. SIRS/sepsis. History of schizoaffective disorder/bipolar disorder. History of hyperlipidemia. Plan: Plan dated September 05, 2024. The patient appears to be doing much better. He is currently on room air. He did receive tPA and alpha dornase of the right pleural space today. Pigtail catheter remains in place. The patient continues on cefepime. Cultures are currently negative. Labs, x-rays, and all medications are reviewed. We will continue to follow and make recommendations along the way. The patient remains a full code. Prognosis is certainly guarded. Dictation was produced using [employer] software. Please excuse any grammatical, word or spelling errors. Plan dated September 06, 2024. The patient is doing relatively well. The patient is currently on room air. The patient is receiving saline at 50 cc an hour. He did receive tPA and alpha dornase via cardiothoracic surgery, through the right chest tube. He continues on antibiotic. Cultures are currently negative. All labs, x-rays, and med ications are reviewed. We will continue to follow the patient, make recommendations along the way. Prognosis is certainly guarded. Dictation was produced using [employer] software. Please excuse any grammatical, word or spelling errors. Plan dated September 07, 2024. The patient is doing well. The patient did not receive any tPA or alpha dornase today, through his right sided chest tube. Appreciate input by cardiothoracic surgery. The patient remains on room air. The patient is getting saline at 50 cc an hour. Labs, x-rays, and medications are reviewed. We will continue to follow make recommendations. He continues on antibiotics. Prognosis is guarded. He remains a full code. Dictation was produced using [employer] software. Please excuse any grammatical, word or spelling errors. Time with Patient: Less than 30
[2024-09-07] MEDS: DORNASE ALFA 5 MG in SODIUM CHLORIDE 0.9% 50 ML IRRIGATION ONE (17:46)
--- NOTE | 2024-09-07 22:58 | P.PN ---
Subjective Progress Note Date: 09/07/24 Principal diagnosis: Reason for follow-up is pneumonia/empyema/effusion Patient is a 64-year-old male with a past medical history significant for coronary disease ,HLD, schizophrenia, cognitive deficits, and pneumonia. Patient has been brought to the hospital concerning for increasing shortness of breath and cough did have a CT with a large right-sided effusion status post chest tube placement. On today's evaluation that is 09/07/2024,the patient denies any fever or any chills, patient is breathing comfortably on room air, the patient denies chest pain shortness of breath and no significant cough, patient denies abdominal pain, no nausea vomiting or diarrhea. No new lab has been obtained today culture remains to be negative Objective - Vital Signs Vital signs: Vital Signs Temp 98.1 F 09/07/24 12:07 Pulse 90 09/07/24 12:07 Resp 16 09/07/24 12:07 BP 101/62 09/07/24 12:07 Pulse Ox 94 L 09/07/24 12:07 FiO2 21 09/07/24 08:59 Intake & Output 09/06/24 09/07/24 09/07/24 18:59 06:59 18:59 Intake Total 150 120 Output Total 2064 920 1150 Balance -1915 -0 -1030 Weight 105 kg 99.5 kg Intake: Oral 150 120 Output: Chest Tube Drainage 140 20 0 Pleural Catheter Right 140 20 0 Posterior Chest Urine 9085 [id number] [id number] Other: Voiding Method Indwelling Catheter Indwelling Catheter Indwelling Catheter # Bowel Movements 1 - Exam GENERAL DESCRIPTION: An elderly male up in bed in no distress RESPIRATORY SYSTEM: Unlabored breathing , coarse breath sounds bilaterally HEART: S1 S2 regular rate and rhythm , ABDOMEN: Soft , no tenderness EXTREMITIES: No edema feet - Labs CBC & Chem 7: 09/06/24 07:55 09/06/24 07:55 Assessment and Plan (1) Pneumonia Current Visit: Yes Status: Acute Code(s): J18.9 - PNEUMONIA, UNSPECIFIED ORGANISM SNOMED Code(s): 546414205 (2) Sepsis Current Visit: Yes Status: Acute Code(s): A41.9 - SEPSIS, UNSPECIFIED ORGANISM SNOMED Code(s): 22298546 Plan: 1patient presented hospital with sepsis in this patient who did have fever tachycardia hypotension elevated white count meeting criteria for SIRS/sepsis source likely complicated pneumonia right-sided with large effusion and question of parapneumonic effusion/empyema in this patient who is facility resident will need to cover for resistant gram-positive as well as gram-negative pathogen 2-patient is status post IR placement of a chest tube and fluid has been sent for Gram stain and culture 3-patient white count normalized culture have been negative for any resistant pathogen 4patient currently being treated Rocephin 2 g daily and plan to transition to oral antibiotic on discharge, continue supportive care Dictation was produced using [employer] dictation software. please excuse any grammatical, word or spelling errors. Time with Patient: Less than 30
--- NOTE | 2024-09-08 04:36 | PN ---
PROGRESS NOTE CHIEF COMPLAINT: Right-sided pneumonia with pleural effusion with history of sepsis. HISTORY OF PRESENT ILLNESS: The gentleman continues to do fairly well. Fluid is diminishing. He remains moderately communicative. PHYSICAL EXAMINATION: CARDIAC: Unremarkable. VITAL SIGNS: Blood pressure is stable now. CHEST: Breath sounds are heard bilaterally. IMPRESSION: 1. Right lower lobe pneumonia with pleural effusion. 2. Constipation. 3. Mental debility. PLAN: No change in program and continue with post ICU course. Start to look at a discharge plan. MMODL / IJN: [id number] /
--- NOTE | 2024-09-08 05:24 | PN ---
PROGRESS NOTE DATE OF SERVICE: 09/07/2024 SUBJECTIVE: Surgical service following in regard to fecal impaction. The patient is having bowel movements. Denies any abdominal pain. Tolerating diet. Has chest tube still in place. PHYSICAL EXAM: ABDOMEN: Soft and nontender. ASSESSMENT: Fecal impaction. PLAN: Continue bowel regimen. The patient is having bowel movement. MMODL / IJN: [id number] /
--- NOTE | 2024-09-08 07:35 | XR ---
EXAMINATION TYPE: XR chest 1V portable DATE OF EXAM: 09/08/2024 6:48 AM COMPARISON: 09/06/2024 CLINICAL INDICATION: Male, 64 years old with history of Right pleural effusion, TECHNIQUE: XR chest 1V portable view(s) obtained. FINDINGS: The heart size is normal. The pulmonary vasculature is somewhat prominent. Right lower lobe infiltrate is present. A small right pleural effusion is present. Minimal left pleur al effusion is developing IMPRESSION: 1. Bilateral pleural effusions with right lower lobe infiltrate. Correlate for atelectasis or pneumon ia. Continued follow-up is recommended. [facility], , 09/08/2024 7:33 AM
--- NOTE | 2024-09-08 08:00 | P.PN ---
Subjective Progress Note Date: 09/08/24 Principal diagnosis: Large right-sided pleural effusion, pneumonia, sepsis, and acute hypoxic respiratory failure. Past medical history significant for coronary artery disease, hyperlipidemia, anemia, schizophrenia, anxiety, depression, cognitive deficits, speech impediment, is a lifetime non-smoker and pneumonia. POD #8 ultrasound-guided chest tube insertion performed by interventional radiology. The patient was seen and examined this morning laying in bed on the cardiac stepdown unit in no acute distress. Currently sinus rhythm, blood pressure stable, currently on room air with oxygen saturation in the mid 90s. Right sided pigtail remains present, eighth dose of lytics instilled yesterday with 300 mL in the last [address] reviewed yesterday with Dr. Savage. Objective - Vital Signs Vital signs: Vital Signs Temp 97.9 F 09/08/24 03:38 Pulse 91 09/08/24 03:38 Resp 19 09/08/24 03:38 BP 95/64 09/08/24 03:38 Pulse Ox 91 L 09/08/24 03:38 FiO2 21 09/07/24 08:59 Intake & Output 09/07/24 09/08/24 09/08/24 18:59 06:59 18:59 Intake Total 360 Output Total 1160 1160 Balance -800 -1160 Weight 92.5 kg Intake: Oral 360 Output: Chest Tube Drainage 10 310 Pleural Catheter Right 10 310 Posterior Chest Urine 1150 850 Other: Voiding Method Indwelling Catheter Indwelling Catheter - Exam CONSTITUTIONAL: Appears calm, cooperative RESPIRATORY: Lungs sounds diminished in the bases. Respirations even, non labored. Currently on room air with oxygen saturation 92% CARDIOVASCULAR: S1, S2 present. Regular rate and rhythm, sinus rhythm on telemetry. Palpable peripheral pulses bilaterally. Generalized edema present. No calf pain or tenderness noted. SCDs present. GASTROINTESTINAL: Abdomen soft, nontender, nondistended. Active bowel sounds present 4 quadrants. Positive bowel movement 09/06 GENITOURINARY: Salcido present draining clear yellow urine, output 2000 mL in the last 24 hours INTEGUMENTARY: Skin is warm and dry NEUROLOGIC: Cranial nerves II through XII intact MUSKULOSKELETAL: Able to move all extremities, strength equal bilaterally PSYCHIATRIC: Alert and oriented to person place INVASIVE LINES AND TUBES: Right pigtail catheter present to continuous wall suction, no air leak present, 160 mL output overnight, 300 mL in the last 24 trixie rs - Allied health notes Allied health notes reviewed: nursing - Labs CBC & Chem 7: 09/06/24 07:55 09/06/24 07:55 - Imaging and Cardiology Chest x-ray: image reviewed Assessment and Plan Assessment: Large right-sided pleural effusion, status postplacement of pigtail catheter by interventional radiology Pneumonia Sepsis (tachycardia, hypotension, leukocytosis) Acute hypoxic respiratory failure Shortness of breath, secondary to above History of CAD HLD Schizophrenia Cognitive deficits Pneumonia Plan: Will instill lytics again today Our plan is for right video-assisted thoracoscopy with decortication by Dr. Savage tomorrow, September 09, 2024 N.p.o. after midnight Continue to monitor strict output from the right pigtail catheter Encourage use of incentive spirometry 10 times every hour while awake as tolerat ed. Medical management of other comorbidities per internal medicine, pulmonary/critical care medicine, infectious disease and general surgery. Continue to monitor daily chest x-rays. More recommendations to follow based on patient's clinical course.
[2024-09-08 09:10] LABS: HCT 25.9 % (39.6-50.0); MCH 25.7 pg (27.0-32.0); MCHC 30.9 g/dL (32.0-37.0); MCV 83.3 fL (80.0-97.0); Mean Platelet Volume 9.4 fL (9.5-12.2); Platelet Count 262 10*3/uL (140-440); RBC 3.11 10*6/uL (4.40-5.60); RDW 20.2 % (11.5-14.5); WBC 6.12 10*3/uL (4.50-10.00)
[2024-09-08 09:26] LABS: African American GFR (CKD) >90 (>60 ml/min/1.73 sqM); Anion Gap 2 mmol/L; Blood Urea Nitrogen 8 mg/dL (9-20); Calcium 7.4 mg/dL (8.4-10.2); Carbon Dioxide 26 mmol/L (22-30); Chloride 108 mmol/L (98-107); Glucose 120 mg/dL (74-99); Non-African American GFR(CKD) >90 (>60 ml/min/1.73 sqM); Potassium 3.6 mmol/L (3.5-5.1); Sodium 136 mmol/L (137-145)
[2024-09-08 09:41] LABS: INR 1.1 (<1.2); Partial Thromboplastin Time 30.3 sec (22.0-30.0); Prothrombin Time 11.9 sec (10.0-12.5)
--- NOTE | 2024-09-08 12:24 | P.PN ---
Subjective Progress Note Date: 09/08/24 SURGICAL PROGRESS NOTE CHIEF COMPLAINT: Chest pain HISTORY OF PRESENT ILLNESS: Patient is status post flex sigmoidoscopy for disimpaction yesterday on 09/01/24. Patient denies any abdominal pain. He is h aving bowel movements. Tolerating diet. Patient followed by cardiothoracic team regarding pleural effusion with chest tube and receiving alteplase/dornase through pigtail catheter. PHYSICAL EXAM: VITAL SIGNS: Reviewed. GENERAL: in no acute distress. ABDOMEN: Soft. Nontender ASSESSMENT: 1. Fecal impaction status post flexible sigmoidoscopy with disimpaction PLAN: -Continue lactulose -Continue chopped diet -Continue supportive care Physician Coverstitch Elastic Attacher note has been reviewed by physician. Signing provider agrees with the documented findings, assessment, and plan of care. Objective - Vital Signs Vital signs: Vital Signs Temp 98.0 F 09/08/24 11:07 Pulse 81 09/08/24 11:07 Resp 20 09/08/24 11:07 BP 100/66 09/08/24 11:07 Pulse Ox 92 L 09/08/24 11:07 FiO2 21 09/07/24 08:59 Intake & Output 09/07/24 09/08/24 09/08/24 18:59 06:59 18:59 Intake Total 360 Output Total 1160 1160 330 Balance -800 -1160 -330 Weight 92.5 kg Intake: Oral 360 Output: Chest Tube Drainage 10 310 80 Pleural Catheter Right 10 310 80 Posterior Chest Urine 1150 850 250 Other: Voiding Method Indwelling Catheter Indwelling Catheter Indwelling Catheter - Labs CBC & Chem 7: 09/08/24 08:49 09/08/24 08:49 Labs: Abnormal Lab Results - Last 24 Hours (Table) 09/08/24 09/08/24 09/08/24 Range/Units 08:49 08:49 08:49 RBC 3.11 L (4.40-5.60) 10*6/uL Hgb 8.0 L (13.0-17.0) g/dL Hct 25.9 L (39.6-50.0) % MCH 25.7 L (27.0-32.0) pg MCHC 30.9 L (32.0-37.0) g/dL MPV 9.4 L (9.5-12.2) fL APTT 30.3 H (22.0-30.0) sec Sodium 136 L (137-145) mmol/L Chloride 108 H (98-107) mmol/L BUN 8 L (9-20) mg/dL Creatinine 0.51 L (0.66-1.25) mg/dL Glucose 120 H (74-99) mg/dL Calcium 7.4 L (8.4-10.2) mg/dL
--- NOTE | 2024-09-08 14:02 | P.PN ---
Subjective Progress Note Date: 09/08/24 Principal diagnosis: Sepsis, pneumonia. Patient is a 64-year-old male with past medical history significant for schizoaffective disorder, bipolar disorder, hyperlipidemia. Patient is a poor historian. He has a public guardian and resides at an [facility]. I am seeing this patient in new consultation today 08/31/2024 following rapid response called earlier this morning for hypotension and tachycardia. Patient actually brought into the emergency department yesterday afternoon from by EMS. He was confused. Complaining of abdominal/chest pain. Patient was hypotensive, tachycardic, tachypneic, and febrile. He was fluid bolused with a total of 2 L of normal saline and 2 L of lactated Ringer's. Normal saline continues at 130 mL/hr. Previously, started on a Cardizem infusion, but then became hypotensive. Heart rate recorded as high as 156 bpm. Cardizem infusion has since been discontinued. He was also given 25 mg of metoprolol. Now, patient is less tachycardic and remains hypotensive. Recommending the patient be started on norepinephrine infusion for blood pressure support and transferred to the intensive care unit. Previously started on antibiotics in the form of Zosyn and vancomycin. Following a rapid response, patient was transferred to the intensive care unit. He is in a moderate amount of distress. Tachypneic breathing in 30s to 40s. On 3 L/min nasal cannula. He has since been started on norepinephrine which is infusing at 0.03 mcg/kg/min. Current blood pressure 117/79 mmHg. Heart rhythm appears sinus tachycardia on bedside monitor, with a rate of 109 bpm. Abdomen is firm and distended. Does not appear particularly tender. No nausea or vomiting. CT of chest, abdomen, pelvis remarkable for large fecal bolus and fecal impaction. Also, large right pleural effusion with compressive atelectasis. Labs including a CBC with a WBC count of 40.4, hemoglobin 13.5, platelets 322. CMP: Sodium 133, potassium 4.2, chloride 105, serum bicarb 20, BUN 23, creatinine 0.73, glucose 118. LFTs not elevated. Total bilirubin 3.6. Lactic was 2.6 and is down to 0.9. Serial troponins less than 0.012 x 2. EKG: sinus tachycardia, rate 148 bpm. NT proBNP 457. Urinalysis fairly unremarkable. Patient was seen today on 09/01/2024, patient remains in the ICU, on 4 L nasal cannula, continues to have significant drainage of serosanguineous pleural effusion, patient has been receiving lytic therapy for his likely pleural effusion so far drained 3.7 L since the pigtail catheter placement. Patient remains on cefepime and vancomycin, he is requiring a bit of norepinephrine at 0.05 mcg/kg/min and that being titrated hopefully will be discontinued today IV fluid is 0.9 normal saline at 100 cc/h and he will receive fluid bolus. Patient remains constipated, bloated, supposed to have colonoscopy today. WBC count is 13.5 hemoglobin 8.6 electrolytes are normal BUN is 24 creatinine 0.62 pleural effusion cultures are negative so far but the pleural effusion is quite exudative with protein of more than 3600 and LDH 1210. Patient was seen today on 09/02/2024, remains in the ICU, continues to have intermittent episodes of shortness of breath, anxiety, remains constipated until earlier today he was given lactulose and SS enema then he had a significant bowel movement. Patient felt much better after his bowel movement. Remains on Precedex for agitation 0.5 mcg/kg/h he is also on norepinephrine at 0.07 and he is receiving fluids and fluid boluses. Antibiotics hernandez remains on Vanco and cefepime. Blood pressure remains marginal requiring norepinephrine, I am recommending today possibly a PICC line placement as the patient may need to be on antibiotics for a long period of time. Cultures of the right pleural effusion remains nondiagnostic patient continues to receive lytic therapy, and chest x-ray continues to show improvement. His abdominal films continue to show dilated bowel loops. But hopefully that will get better as he had a large bowel movement earlier today. Labs today show WBC count of 9.8 hemoglobin 9.4 electrolytes are normal renal profile is normal bicarb is 19. Seen today on 09/03/2024, patient remains in the ICU, marginal at best patient remains on nasal cannula at 2 L, continues to have significant drainage/output from his right sided pigtail catheter. Remains on lytic therapy for loculated pleural effusion remains on antibiotics, patient continues to have intermittent episodes of constipation, still receiving lactulose and as enemas. His abdomen is less distended, patient did have few bowel movements yesterday. And he does not seem to be in any distress today. WBC count is 6.05 hemoglobin is 8 electrolytes are normal renal profile is normal Patient was seen today on 09/04/2024, patient remains in the ICU, steadily improving, better today compared to the last few days. Patient seems to be less restless, less agitated, comfortable, he had few bowel movements already in the last couple of days. He is on IV fluid 0.9 normal saline at 100 cc/h and I cut it down to 50 remains empirically on cefepime and vancomycin for his empyema patient again is having good bowel movements. Yesterday he had to be placed on BiPAP 10/5/50% today he is on a nasal cannula. WBC count is 8.6 hemoglobin 8.3 electrolytes are normal except for slightly low potassium of 3.3 renal profile is normal. Magnesium is 1.8. Cultures remain negative from the pleural effusion. Progress note dated September 05, 2024. 64-year-old male seen today in room 362. The patient was admitted with a diagnosis of sepsis, and pneumonia. Pleural effusion was noted, and a pigtail catheter was placed on the right. He did receive tPA and alpha dornase today, administered by cardiothoracic surgery. Cultures are negative. He continues on cefepime. He is currently on room air. Current labs include a sodium 137, potassium 3.1, chlorides 107, CO2 26, BUN 6, creatinine 0.45. Glucose is 91. Calcium 7.5. Albumin 1.7. Viral screen was negative. Microbiology testing, is all negative. Chest x-ray shows a stable right lower lobe infiltrate with pigtail catheter in place. Progress note dated September 06, 2024. 64-year-old male seen today in room 362. The patient is resting comfortably in bed. He is on room air. No respiratory distress. He is awake and alert. He is getting saline at 50 cc an hour. Cardiothoracic surgery did instill tPA and alpha dornase, through his right chest tube today. Clinically, he is stable. White count 10.2, hemoglobin 8.4, hematocrit 25.8, platelet count 297,000. Sodium 137, potassium 3.6, chlorides 110, CO2 25, BUN 5, creatinine 0.47. Glucose is 107. Calcium is 7.3. Magnesium 1.9. Chest x-ray shows a right lower lobe infiltrate, which is slightly improved. Progress note dated September 07, 2024. 64-year-old male seen today in room 362. The patient continues on room air. T he patient is also getting saline at 50 cc an hour. The patient did not get any tPA or alpha dornase today. CT scan of the chest was improved. Appreciate input by cardiothoracic surgery. No new labs today. The patient appears stable. He is awake and alert. No respiratory difficulty noted. Progress note dated September 08, 2024. 64-year-old male seen today in room 362. The patient is currently on room air. No respiratory distress. He is getting saline at 50 cc an hour. The patient continues with the pigtail catheter, in the right pleural space. The patient has been getting lytic therapy, administered by cardiothoracic surgery, including tPA, and alpha dornase. Laboratory data includes a white count of 6.1, hemoglobin 8, hematocrit 25.9, platelet count 262,000. Sodium 136, potassi um 3.6, chlorides 108, CO2 26, BUN 8, creatinine 0.51. Glucose 120. Calcium is 7.4. Chest x-ray today, shows bilateral pleural effusions, with right lower lobe infiltrate, consistent with either atelectasis, and/or pneumonia. Objective - Vital Signs Vital signs: Vital Signs Temp 98.0 F 09/08/24 11:07 Pulse 81 09/08/24 13:20 Resp 20 09/08/24 11:07 BP 100/66 09/08/24 11:07 Pulse Ox 92 L 09/08/24 11:07 FiO2 21 09/07/24 08:59 Intake & Output 09/07/24 09/08/24 09/08/24 18:59 06:59 18:59 Intake Total 360 Output Total 1160 1160 330 Balance -800 -1160 -330 Weight 92.5 kg Intake: Oral 360 Output: Chest Tube Drainage 10 310 80 Pleural Catheter Right 10 310 80 Posterior Chest Urine 1150 850 250 Other: Voiding Method Indwelling Catheter Indwelling Catheter Indwelling Catheter - Exam No acute distress, oriented 3. No acute distress, currently on room air. HEENT examination is grossly unremarkable. Mucous membranes are moist. No oral lesions. Neck supple. Full range of motion. No adenopathy thyromegaly or neck vein distention. Cardiovascular examination reveals regular rhythm rate. S1-S2 normal. No S3 or S4. No discernible murmur noted. Lungs reveal diminished breath sounds on the right. There is dullness on percussion. Chest tube i.e. pigtail catheter is noted. Abdomen soft bowel sounds are heard. No masses or tenderness. Extremities are intact. No cyanosis clubbing or edema. Skin is without rash or lesion. Neurologic examination is brief but nonfocal. - Labs CBC & Chem 7: 09/08/24 08:49 09/08/24 08:49 Labs: Abnormal Lab Results - Last 24 Hours (Table) 09/08/24 09/08/24 09/08/24 Range/Units 08:49 08:49 08:49 RBC 3.11 L (4.40-5.60) 10*6/uL Hgb 8.0 L (13.0-17.0) g/dL Hct 25.9 L (39.6-50.0) % MCH 25.7 L (27.0-32.0) pg MCHC 30.9 L (32.0-37.0) g/dL MPV 9.4 L (9.5-12.2) fL APTT 30.3 H (22.0-30.0) sec Sodium 136 L (137-145) mmol/L Chloride 108 H (98-107) mmol/L BUN 8 L (9-20) mg/dL Creatinine 0.51 L (0.66-1.25) mg/dL Glucose 120 H (74-99) mg/dL Calcium 7.4 L (8.4-10.2) mg/dL Assessment and Plan Assessment: Complicated right sided pleural effusion, with compressive atelectasis, status post pigtail catheter placement, August 31, 2024. Lytic therapy to the right pleural space, with alpha dornase and tPA. Acute hypoxemic respiratory failure, currently on room air, improved. Obstipation, improved. Hypotension and shock, resolved. Sinus tachycardia. Acute leukocytosis. SIRS/sepsis. History of schizoaffective disorder/bipolar disorder. History of hyperlipidemia. Plan: Plan dated September 05, 2024. The patient appears to be doing much better. He is currently on room air. He did receive tPA and alpha dornase of the right pleural space today. Pigtail catheter remains in place. The patient continues on cefepime. Cultures are currently negative. Labs, x-rays, and all medications are reviewed. We will continue to follow and make recommendations along the way. The patient remains a full code. Prognosis is certainly guarded. Dictation was produced using [employer] software. Please excuse any grammatical, word or spelling errors. Plan dated September 06, 2024. The patient is doing relatively well. The patient is currently on room air. The patient is receiving saline at 50 cc an hour. He did receive tPA and alpha dornase via cardiothoracic surgery, through the right chest tube. He continues on antibiotic. Cultures are currently negative. All labs, x-rays, and medi cations are reviewed. We will continue to follow the patient, make recommendations along the way. Prognosis is certainly guarded. Dictation was produced using [employer] software. Please excuse any grammatical, word or spelling errors. Plan dated September 07, 2024. The patient is doing well. The patient did not receive any tPA or alpha dornase today, through his right sided chest tube. Appreciate input by cardiothoracic surgery. The patient remains on room air. The patient is getting saline at 50 cc an hour. Labs, x-rays, and medications are reviewed. We will continue to follow make recommendations. He continues on antibiotics. Prognosis is guarded. He remains a full code. Dictation was produced using [employer] software. Please excuse any grammatical, word or spelling errors. Plan dated September 08, 2024. The patient seems to be doing relatively well. He is on room air. Chest x-ray is stable. Labs, x-rays, and medications are reviewed. The patient is not hav ing any respiratory difficulty or distress. He denies any shortness of breath, cough, wheezing, chest tightness, or phlegm production. We will continue to follow the patient, make recommendations. Is not clear to me whether or not the patient did receive or did not receive lytic therapy today. We will continue to follow. Prognosis is guarded. Dictation was produced using [employer] software. Please excuse any grammatical, word or spelling errors. Time with Patient: Less than 30
[2024-09-09] MEDS: IBUPROFEN 400 MG TAB PO PRN (00:58)
--- NOTE | 2024-09-09 01:15 | PN ---
PROGRESS NOTE DATE OF SERVICE: 09/08/2024 CHIEF COMPLAINT: Sepsis, pneumonitis and right pleural effusion. HISTORY OF PRESENT ILLNESS: This gentleman seems to be stable. He is not offering any complaints. Chest demonstrates breath sounds on both sides. Chest tube still in place on the right. IMPRESSION: 1. Right lower lobe pneumonitis with pleural effusion. 2. Sepsis with septic shock. PLAN: Continue with inpatient management until the tube is able to be removed. MMODL / IJN: [id number] /
--- NOTE | 2024-09-09 10:06 | P.PN ---
Subjective Progress Note Date: 09/09/24 Patient veronica stable. There is no acute changes. He is tolerating his chopped diet. Patient continue to receive lactulose. He is stooling. Objective - Vital Signs Vital signs: Vital Signs Temp 97.8 F 09/09/24 08:30 Pulse 68 09/09/24 08:30 Resp 14 09/09/24 08:30 BP 101/63 09/09/24 08:30 Pulse Ox 93 L 09/09/24 08:30 FiO2 21 09/07/24 08:59 Intake & Output 09/08/24 09/09/24 09/09/24 18:59 06:59 18:59 Output Total 1400 575 318 Balance -1400 -575 -318 Weight 94.5 kg Output: Chest Tube Drainage 150 50 18 Pleural Catheter Right 150 50 18 Posterior Chest Urine 1250 525 300 Other: Voiding Method Indwelling Catheter Indwelling Catheter - Labs CBC & Chem 7: 09/08/24 08:49 09/08/24 08:49 Labs: Microbiology - Last 24 Hours (Table) 08/31/24 11:40 Acid Fast Bacilli Smear - Preliminary Pleural Fluid Acid Fast Bacilli Culture - Preliminary
--- NOTE | 2024-09-09 13:29 | P.PN ---
Subjective Progress Note Date: 09/09/24 Principal diagnosis: Sepsis, pneumonia. Patient is a 64-year-old male with past medical history significant for schizoaffective disorder, bipolar disorder, hyperlipidemia. Patient is a poor historian. He has a public guardian and resides at an [facility]. I am seeing this patient in new consultation today 08/31/2024 following rapid response called earlier this morning for hypotension and tachycardia. Patient actually brought into the emergency department yesterday afternoon from by EMS. He was confused. Complaining of abdominal/chest pain. Patient was hypotensive, tachycardic, tachypneic, and febrile. He was fluid bolused with a total of 2 L of normal saline and 2 L of lactated Ringer's. Normal saline continues at 130 mL/hr. Previously, started on a Cardizem infusion, but then became hypotensive. Heart rate recorded as high as 156 bpm. Cardizem infusion has since been discontinued. He was also given 25 mg of metoprolol. Now, patient is less tachycardic and remains hypotensive. Recommending the patient be started on norepinephrine infusion for blood pressure support and transferred to the intensive care unit. Previously started on antibiotics in the form of Zosyn and vancomycin. Following a rapid response, patient was transferred to the intensive care unit. He is in a moderate amount of distress. Tachypneic breathing in 30s to 40s. On 3 L/min nasal cannula. He has since been started on norepinephrine which is infusing at 0.03 mcg/kg/min. Current blood pressure 117/79 mmHg. Heart rhythm appears sinus tachycardia on bedside monitor, with a rate of 109 bpm. Abdomen is firm and distended. Does not appear particularly tender. No nausea or vomiting. CT of chest, abdomen, pelvis remarkable for large fecal bolus and fecal impaction. Also, large right pleural effusion with compressive atelectasis. Labs including a CBC with a WBC count of 40.4, hemoglobin 13.5, platelets 322. CMP: Sodium 133, potassium 4.2, chloride 105, serum bicarb 20, BUN 23, creatinine 0.73, glucose 118. LFTs not elevated. Total bilirubin 3.6. Lactic was 2.6 and is down to 0.9. Serial troponins less than 0.012 x 2. EKG: sinus tachycardia, rate 148 bpm. NT proBNP 457. Urinalysis fairly unremarkable. Patient was seen today on 09/01/2024, patient remains in the ICU, on 4 L nasal cannula, continues to have significant drainage of serosanguineous pleural effusion, patient has been receiving lytic therapy for his likely pleural effusion so far drained 3.7 L since the pigtail catheter placement. Patient remains on cefepime and vancomycin, he is requiring a bit of norepinephrine at 0.05 mcg/kg/min and that being titrated hopefully will be discontinued today IV fluid is 0.9 normal saline at 100 cc/h and he will receive fluid bolus. Patient remains constipated, bloated, supposed to have colonoscopy today. WBC count is 13.5 hemoglobin 8.6 electrolytes are normal BUN is 24 creatinine 0.62 pleural effusion cultures are negative so far but the pleural effusion is quite exudative with protein of more than 3600 and LDH 1210. Patient was seen today on 09/02/2024, remains in the ICU, continues to have intermittent episodes of shortness of breath, anxiety, remains constipated until earlier today he was given lactulose and SS enema then he had a significant bowel movement. Patient felt much better after his bowel movement. Remains on Precedex for agitation 0.5 mcg/kg/h he is also on norepinephrine at 0.07 and he is receiving fluids and fluid boluses. Antibiotics hernandez remains on Vanco and cefepime. Blood pressure remains marginal requiring norepinephrine, I am recommending today possibly a PICC line placement as the patient may need to be on antibiotics for a long period of time. Cultures of the right pleural effusion remains nondiagnostic patient continues to receive lytic therapy, and chest x-ray continues to show improvement. His abdominal films continue to show dilated bowel loops. But hopefully that will get better as he had a large bowel movement earlier today. Labs today show WBC count of 9.8 hemoglobin 9.4 electrolytes are normal renal profile is normal bicarb is 19. Seen today on 09/03/2024, patient remains in the ICU, marginal at best patient remains on nasal cannula at 2 L, continues to have significant drainage/output from his right sided pigtail catheter. Remains on lytic therapy for loculated pleural effusion remains on antibiotics, patient continues to have intermittent episodes of constipation, still receiving lactulose and as enemas. His abdomen is less distended, patient did have few bowel movements yesterday. And he does not seem to be in any distress today. WBC count is 6.05 hemoglobin is 8 electrolytes are normal renal profile is normal Patient was seen today on 09/04/2024, patient remains in the ICU, steadily improving, better today compared to the last few days. Patient seems to be less restless, less agitated, comfortable, he had few bowel movements already in the last couple of days. He is on IV fluid 0.9 normal saline at 100 cc/h and I cut it down to 50 remains empirically on cefepime and vancomycin for his empyema patient again is having good bowel movements. Yesterday he had to be placed on BiPAP 10/5/50% today he is on a nasal cannula. WBC count is 8.6 hemoglobin 8.3 electrolytes are normal except for slightly low potassium of 3.3 renal profile is normal. Magnesium is 1.8. Cultures remain negative from the pleural effusion. Progress note dated September 05, 2024. 64-year-old male seen today in room 362. The patient was admitted with a diagnosis of sepsis, and pneumonia. Pleural effusion was noted, and a pigtail catheter was placed on the right. He did receive tPA and alpha dornase today, administered by cardiothoracic surgery. Cultures are negative. He continues on cefepime. He is currently on room air. Current labs include a sodium 137, potassium 3.1, chlorides 107, CO2 26, BUN 6, creatinine 0.45. Glucose is 91. Calcium 7.5. Albumin 1.7. Viral screen was negative. Microbiology testing, is all negative. Chest x-ray shows a stable right lower lobe infiltrate with pigtail catheter in place. Progress note dated September 06, 2024. 64-year-old male seen today in room 362. The patient is resting comfortably in bed. He is on room air. No respiratory distress. He is awake and alert. He is getting saline at 50 cc an hour. Cardiothoracic surgery did instill tPA and alpha dornase, through his right chest tube today. Clinically, he is stable. White count 10.2, hemoglobin 8.4, hematocrit 25.8, platelet count 297,000. Sodium 137, potassium 3.6, chlorides 110, CO2 25, BUN 5, creatinine 0.47. Glucose is 107. Calcium is 7.3. Magnesium 1.9. Chest x-ray shows a right lower lobe infiltrate, which is slightly improved. Progress note dated September 07, 2024. 64-year-old male seen today in room 362. The patient continues on room air. T he patient is also getting saline at 50 cc an hour. The patient did not get any tPA or alpha dornase today. CT scan of the chest was improved. Appreciate input by cardiothoracic surgery. No new labs today. The patient appears stable. He is awake and alert. No respiratory difficulty noted. Progress note dated September 08, 2024. 64-year-old male seen today in room 362. The patient is currently on room air. No respiratory distress. He is getting saline at 50 cc an hour. The patient continues with the pigtail catheter, in the right pleural space. The patient has been getting lytic therapy, administered by cardiothoracic surgery, including tPA, and alpha dornase. Laboratory data includes a white count of 6.1, hemoglobin 8, hematocrit 25.9, platelet count 262,000. Sodium 136, potassi um 3.6, chlorides 108, CO2 26, BUN 8, creatinine 0.51. Glucose 120. Calcium is 7.4. Chest x-ray today, shows bilateral pleural effusions, with right lower lobe infiltrate, consistent with either atelectasis, and/or pneumonia. Progress note dated September 09, 2024. 64-year-old male seen today in room 362. He is resting comfortably in bed. He is on room air. He is getting saline at 50 cc an hour. The patient is boarded for the operating room today. It is not clear to me whether or not he will be going. He has been getting lytic therapy, with TPN alpha dornase, administered by cardiothoracic surgery. No new labs today. Labs from yesterday, have been reviewed. Objective - Vital Signs Vital signs: Vital Signs Temp 97.7 F 09/09/24 11:24 Pulse 70 09/09/24 11:24 Resp 16 09/09/24 11:24 BP 110/69 09/09/24 11:24 Pulse Ox 91 L 09/09/24 11:24 FiO2 21 09/07/24 08:59 Intake & Output 09/08/24 09/09/24 09/09/24 18:59 06:59 18:59 Output Total 9164 696 176 Balance -3737 -578 -073 Weight 94.5 kg Output: Chest Tube Drainage 150 50 18 Pleural Catheter Right 150 50 18 Posterior Chest Urine 1250 525 750 Other: Voiding Method Indwelling Catheter Indwelling Catheter - Exam No acute distress, oriented 3. No acute distress, currently on room air. HEENT examination is grossly unremarkable. Mucous membranes are moist. No oral lesions. Neck supple. Full range of motion. No adenopathy thyromegaly or neck vein distention. Cardiovascular examination reveals regular rhythm rate. S1-S2 normal. No S3 or S4. No discernible murmur noted. Lungs reveal diminished breath sounds on the right. There is dullness on percussion. Chest tube i.e. pigtail catheter is noted. Abdomen soft bowel sounds are heard. No masses or tenderness. Extremities are intact. No cyanosis clubbing or edema. Skin is without rash or lesion. Neurologic examination is brief but nonfocal. - Labs CBC & Chem 7: 09/08/24 08:49 09/08/24 08:49 Labs: Microbiology - Last 24 Hours (Table) 08/31/24 11:40 Acid Fast Bacilli Smear - Preliminary Pleural Fluid Acid Fast Bacilli Culture - Preliminary Assessment and Plan Assessment: Complicated right sided pleural effusion, with compressive atelectasis, status post pigtail catheter placement, August 31, 2024. Lytic therapy to the right pleural space, with alpha dornase and tPA. Acute hypoxemic respiratory failure, currently on room air, improved. Obstipation, improved. Hypotension and shock, resolved. Sinus tachycardia. Acute leukocytosis. SIRS/sepsis. History of schizoaffective disorder/bipolar disorder. History of hyperlipidemia. Plan: Plan dated September 05, 2024. The patient appears to be doing much better. He is currently on room air. He did receive tPA and alpha dornase of the right pleural space today. Pigtail catheter remains in place. The patient continues on cefepime. Cultures are cur rently negative. Labs, x-rays, and all medications are reviewed. We will continue to follow and make recommendations along the way. The patient remains a full code. Prognosis is certainly guarded. Dictation was produced using [employer] software. Please excuse any grammatical, word or spelling errors. Plan dated September 06, 2024. The patient is doing relatively well. The patient is currently on room air. The patient is receiving saline at 50 cc an hour. He did receive tPA and alpha dornase via cardiothoracic surgery, through the right chest tube. He continues on antibiotic. Cultures are currently negative. All labs, x-rays, and medications are reviewed. We will continue to follow the patient, make recommendations along the way. Prognosis is certainly guarded. Dictation was produced using [employer] software. Please excuse any grammatical, word or spelling errors. Plan dated September 07, 2024. The patient is doing well. The patient did not receive any tPA or alpha dornase today, through his right sided chest tube. Appreciate input by cardiothoracic surgery. The patient remains on room air. The patient is getting saline at 50 cc an hour. Labs, x-rays, and medications are reviewed. We will continue to follow make recommendations. He continues on antibiotics. Prognosis is guarded. He remains a full code. Dictation was produced using [employer] software. Please excuse any grammatical, word or spelling errors. Plan dated September 08, 2024. The patient seems to be doing relatively well. He is on room air. Chest x-ray is stable. Labs, x-rays, and medications are reviewed. The patient is not having any respiratory difficulty or distress. He denies any shortness of breath, cough, wheezing, chest tightness, or phlegm production. We will continue to follow the patient, make recommendations. Is not clear to me whether or not the patient did receive or did not receive lytic therapy today. We will continue to follow. Prognosis is guarded. Dictation was produced using [employer] software. Please excuse any grammatical, word or spelling errors. Plan dated September 09, 2024. The patient is seen today again in room 362. The patient is very comfortable. He is on room air. No respiratory difficulty or distress. He is getting saline at 50 cc an hour. He apparently is boarded for possible surgery today. I do not believe any decision has been made as yet. He has been receiving lytic therapy, with tPA, and alpha dornase, via cardiothoracic surgery. All labs, x- rays, medications are reviewed. We will continue to follow make recommendations. Prognosis is guarded. Dictation was produced using [employer] software. Please excuse any grammatical, word or spelling errors. Time with Patient: Less than 30
[2024-09-09] MEDS: ONDANSETRON 4 MG/2 ML VIAL IVP PRN (14:35)
[2024-09-09] MEDS: DEXAMETHASONE SOD PHOSPHATE 4 MG/ML 1 ML VIAL IVP STA (14:36)
[2024-09-09] MEDS: MIDAZOLAM 2 MG/2 ML VIAL IV ONE (14:53)
--- NOTE | 2024-09-09 15:26 | P.PN ---
Subjective Progress Note Date: 09/08/24 Principal diagnosis: Reason for follow-up is pneumonia/empyema/effusion Patient is a 64-year-old male with a past medical history significant for coronary disease ,HLD, schizophrenia, cognitive deficits, and pneumonia. Patient has been brought to the hospital concerning for increasing shortness of breath and cough did have a CT with a large right-sided effusion status post chest tube placement. On today's evaluation that is 09/08/2024,the patient remains to be afebrile, patient is on room air not requiring supplemental oxygen and denies any shortness of breath no chest pain or cough.Patient denies having any nausea or vomiting, no abdominal pain and no diarrhea has been reported. Patient white count 6.12 creatinine is 0.51 Objective - Vital Signs Vital signs: Vital Signs Temp 98.0 F 09/08/24 11:07 Pulse 81 09/08/24 13:20 Resp 20 09/08/24 11:07 BP 100/66 09/08/24 11:07 Pulse Ox 92 L 09/08/24 11:07 FiO2 21 09/07/24 08:59 Intake & Output 09/07/24 09/08/24 09/08/24 18:59 06:59 18:59 Intake Total 360 Output Total 1160 1160 330 Balance -800 -1160 -330 Weight 92.5 kg Intake: Oral 360 Output: Chest Tube Drainage 10 310 80 Pleural Catheter Right 10 310 80 Posterior Chest Urine 1150 850 250 Other: Voiding Method Indwelling Catheter Indwelling Catheter Indwelling Catheter - Exam GENERAL DESCRIPTION: An elderly male up in bed in no distress RESPIRATORY SYSTEM: Unlabored breathing , coarse breath sounds bilaterally HEART: S1 S2 regular rate and rhythm , ABDOMEN: Soft , no tenderness EXTREMITIES: No edema feet - Labs CBC & Chem 7: 09/08/24 08:49 09/08/24 08:49 Labs: Abnormal Lab Results - Last 24 Hours (Table) 09/08/24 09/08/24 09/08/24 Range/Units 08:49 08:49 08:49 RBC 3.11 L (4.40-5.60) 10*6/uL Hgb 8.0 L (13.0-17.0) g/dL Hct 25.9 L (39.6-50.0) % MCH 25.7 L (27.0-32.0) pg MCHC 30.9 L (32.0-37.0) g/dL MPV 9.4 L (9.5-12.2) fL APTT 30.3 H (22.0-30.0) sec Sodium 136 L (137-145) mmol/L Chloride 108 H (98-107) mmol/L BUN 8 L (9-20) mg/dL Creatinine 0.51 L (0.66-1.25) mg/dL Glucose 120 H (74-99) mg/dL Calcium 7.4 L (8.4-10.2) mg/dL Assessment and Plan (1) Pneumonia Current Visit: Yes Status: Acute Code(s): J18.9 - PNEUMONIA, UNSPECIFIED ORGANISM SNOMED Code(s): 677507220 (2) Sepsis Current Visit: Yes Status: Acute Code(s): A41.9 - SEPSIS, UNSPECIFIED ORGANISM SNOMED Code(s): 32634069 Plan: 1patient presented hospital with sepsis in this patient who did have fever tachycardia hypotension elevated white count meeting criteria for SIRS/sepsis source likely complicated pneumonia right-sided with large effusion and question of parapneumonic effusion/empyema in this patient who is facility resident will need to cover for resistant gram-positive as well as gram-negative pathogen 2-patient is status post IR placement of a chest tube and fluid has been sent for Gram stain and culture 3-patient white count normalized culture have been negative for any resistant pathogen 4patient to continue with Rocephin while inpatient apparently plan for possible thoracotomy tomorrow hopefully culture will be obtained at that point Dictation was produced using [employer] dictation software. please excuse any grammatical, word or spelling errors. Time with Patient: Less than 30
--- NOTE | 2024-09-09 15:27 | P.PN ---
Subjective Progress Note Date: 09/09/24 Principal diagnosis: Reason for follow-up is pneumonia/empyema/effusion Patient is a 64-year-old male with a past medical history significant for coronary disease ,HLD, schizophrenia, cognitive deficits, and pneumonia. Patient has been brought to the hospital concerning for increasing shortness of breath and cough did have a CT with a large right-sided effusion status post chest tube placement. On today's evaluation that is 09/09/2024, the patient continues to be afebrile, the patient is on 2 L nasal oxygen and breathing comfortably, the Pt denies having any chest pain or cough, the patient denies having any abdominal pain no vomiting or any diarrhea has been reported by the nursing staff No new lab has been obtained today chest x-ray yesterday bilateral effusion with right lower lobe infiltrate Objective - Vital Signs Vital signs: Vital Signs Temp 98.7 F 09/09/24 14:13 Pulse 81 09/09/24 15:10 Resp 16 09/09/24 15:10 BP 118/76 09/09/24 15:10 Pulse Ox 97 09/09/24 15:10 FiO2 21 09/07/24 08:59 Intake & Output 09/08/24 09/09/24 09/09/24 18:59 06:59 18:59 Output Total 0669 313 748 Balance -0258 -755 -406 Weight 94.5 kg Output: Chest Tube Drainage 150 50 18 Pleural Catheter Right 150 50 18 Posterior Chest Urine 1250 525 750 Other: Voiding Method Indwelling Catheter Indwelling Catheter Indwelling Catheter - Exam GENERAL DESCRIPTION: An elderly male up in bed in no distress RESPIRATORY SYSTEM: Unlabored breathing , coarse breath sounds bilaterally HEART: S1 S2 regular rate and rhythm , ABDOMEN: Soft , no tenderness EXTREMITIES: No edema feet - Labs CBC & Chem 7: 09/08/24 08:49 09/08/24 08:49 Labs: Microbiology - Last 24 Hours (Table) 08/31/24 11:40 Acid Fast Bacilli Smear - Preliminary Pleural Fluid Acid Fast Bacilli Culture - Preliminary Assessment and Plan (1) Pneumonia Current Visit: Yes Status: Acute Code(s): J18.9 - PNEUMONIA, UNSPECIFIED ORGANISM SNOMED Code(s): 272845568 (2) Sepsis Current Visit: Yes Status: Acute Code(s): A41.9 - SEPSIS, UNSPECIFIED ORGANISM SNOMED Code(s): 16120403 Plan: 1patient presented hospital with sepsis in this patient who did have fever tachycardia hypotension elevated white count meeting criteria for SIRS/sepsis source likely complicated pneumonia right-sided with large effusion and question of parapneumonic effusion/empyema in this patient who is facility resident will need to cover for resistant gram-positive as well as gram-negative pathogen 2-patient is status post IR placement of a chest tube and fluid has been sent for Gram stain and culture 3-patient white count normalized culture have been negative for any resistant pathogen 4patient surgical for thoracotomy this afternoon as reported by nursing staff was advised to place an order for culture at the time of surgery that will be more helpful for now continue with Rocephin Dictation was produced using [employer] dictation software. please excuse any grammatical, word or spelling errors. Time with Patient: Less than 30
--- NOTE | 2024-09-09 15:33 | P.ANPRN ---
Procedure Note - Anesthesia - Invasive Line Right Arterial Line Time Out Performed: Yes Date of Procedure: 09/09/24 Time of Procedure: 14:53 Location of Patient: PreOp Preparation: Sterile Prep Arterial Line Location: Radial Ultrasound Used: Yes Purpose - Visualization and Identification of Vasculature: Yes Image Stored and Saved: Yes Narrative: Invasive line placement per sterile protocol utilized.[email or web address]
[2024-09-09] MEDS: IV FLUID CONTINUATION 1,000 ML IV ONE (16:06)
[2024-09-09] MEDS ORDERED: LIDOCAINE 1% INJ 10MG/ML (20 ML MDV) ONE (16:06)
[2024-09-09] MEDS ORDERED: PHENYLEPHRINE 10 MG/ML VIAL ONE (16:06)
[2024-09-09] MEDS ORDERED: ePHEDrine 50 MG/ML 1 ML VIAL ONE (16:06)
[2024-09-09] MEDS ORDERED: SUCCINYLCHOLINE CHLORIDE 200 MG/10 ML VIAL IV ONE (16:06)
[2024-09-09] MEDS ORDERED: PROPOFOL 10 MG/ML 20 ML VIAL IV ONE (16:06)
[2024-09-09] MEDS ORDERED: GLYCOPYRROLATE 0.2 MG/ML 2 ML VIAL ONE (16:06)
[2024-09-09] MEDS ORDERED: ROCURONIUM 10 MG/ML (5 ML VIAL) IV ONE (16:06)
[2024-09-09] MEDS ORDERED: NEOSTIGMINE 1 MG/ML 10 ML VIAL ONE (16:06)
[2024-09-09] MEDS: LIDOCAINE 1%-EPI 1:100,000 20 ML VIAL SQ ONE (17:17)
--- NOTE | 2024-09-09 18:19 | P.OP ---
Date of Procedure: 09/09/24 Preoperative Diagnosis: Loculated right pleural effusion Postoperative Diagnosis: Loculated right pleural effusion Procedure(s) Performed: Right thoracoscopy with decortication Single level intercostal nerve block Implants: None Anesthesia: GLADYS Surgeon: Tai Savage Pathology: other (Pleural peel for permanent section) Condition: stable Disposition: PACU Indications for Procedure: Patient admitted with pneumonia and pleural effusion. He has undergone several days of lytic therapy after placement of a small bore chest catheter with moderate success but significant retained fluid and danger of lung entrapment. He presents today for thoracoscopy with decortication and removal of loculations. Operative Findings: Significant diffuse pleural adhesions and intrafissural fluid collections as well as several areas of loculation Description of Procedure: After consent was obtained, the patient was brought to the operating room where he underwent general by dual-lumen endotracheal tube anesthesia. He was placed in left lateral decubitus position and the bed was flexed to open up the right sided rib spaces. He was secured to the table with a beanbag that was evacuated and tape. We placed a Francine hugger and blanket and then he was prepped and draped in sterile fashion. He was marked and prior to incision or injection with local anesthetic a timeout was observed whereby the patient, the procedure, the side, anesthesia delivery of antibiotics/ongoing daily doses of Rocephin, personnel, and films up in the room were all confirmed. We then proceeded to inject his posterior most incision site and in doing so injected both the skin and performed an intercostal nerve block with 10 cc of local anesthetic. We then incised posteriorly and were able to access the chest cavity. We then put a Cristiano clamp and after there was no free space and we created some free space with the Cristiano clamp. In doing so there was some injury to the visceral pleura that was immediately covered with inflammatory clot. We then proceeded onto access the normal pleural space down by the diaphragm anteriorly and we extended that pleural separation through the entire chest cavity carefully so as not to further injure any of the visceral pleura. We found several pockets of fluid and some of that was semisolid and removed through the counterincision site. We then proceeded to irrigate the entire cavity with 1 L of warm saline and we suctioned out free. We then proceeded to place a 20 [place] anterior chest tube and secured in place with an Ethibond suture. It was then attached to a Pleur-evac container on -20 cc suction. He tolerated this well and was then closed with 2-0 Vicryl buried interrupted deep and 4-0 Monocryl buried interrupted for the skin. He was then rolled supine, extubated and taken to PACU in stable condition. His father was notified in the waiting room as to the conduction of the operation, findings and the patient's condition.
--- NOTE | 2024-09-09 18:55 | XR ---
EXAMINATION TYPE: XR chest 1V DATE OF EXAM: 09/09/2024 6:47 PM COMPARISON: 09/08/2024 CLINICAL INDICATION: Male, 64 years old with history of postop right vats, TECHNIQUE: XR chest 1V view(s) obtained. FINDINGS: The heart size is normal. The pulmonary vasculature is somewhat prominent. Diffuse increased lung markings at to the right lung. Some focal infiltrate is at the left mid lung. Small pleural effusions are present. Right-sided chest tube is present. Pneumothorax is not clearly identified. There is subcutaneous emph ysema along the right chest wall. IMPRESSION: 1. Diminished right-sided pleural fluid collection. 2. Developing right subcutaneous emphysema. 3. Bibasilar infiltrates. Correlate for atelectasis and pneumonia. [facility], , 09/09/2024 6:52 PM
[2024-09-09] MEDS: KETOROLAC 15 MG/ML 1 ML VIAL IVP SCH (20:10)
[2024-09-09] MEDS: DEXTROSE 5%-0.45% NACL 1,000 ML IV SCH (20:11)
[2024-09-09] MEDS: FORMOTEROL FUMARATE 20 MCG/2 ML NEBU INHALATION SCH (21:50)
--- NOTE | 2024-09-10 06:41 | XR ---
EXAMINATION TYPE: XR chest 1V DATE OF EXAM: 09/10/2024 COMPARISON: 09/09/2024 CLINICAL INDICATION: Male, 64 years old with history of post op right vats; TECHNIQUE: Single frontal view of the chest is obtained. FINDINGS: There is no change in the position of the right chest tube in the right lung apex. There is increasing subcutaneous emphysema in the right chest. PICC line terminating in the SVC/RA junction. There is no pneumothorax. There is no change in the diffuse interstitial infiltrates and partially consolidative infiltrates in the lung bases. There are stable small bilateral effusions. The osseous structures are intact. IMPRESSION: Stable bilateral marked acute cardiopulmonary disease as described above. Unchanged right chest tube and no pneumothorax. [facility], , 09/10/2024 6:39 AM
[2024-09-10 07:51] LABS: Basophils # (A) 0.02 10*3/uL (0.00-0.10); Basophils % (A) 0.2 %; Eosinophils # (A) 0.08 10*3/uL (0.04-0.35); HCT 22.1 % (39.6-50.0); Lymphocytes % (A) 14.6 %; MCH 25.7 pg (27.0-32.0); MCHC 30.8 g/dL (32.0-37.0); MCV 83.4 fL (80.0-97.0); Mean Platelet Volume 9.6 fL (9.5-12.2); Monocytes # (A) 0.78 10*3/uL (0.20-1.00); Monocytes % (A) 9.5 %; Neutrophils # (A) 6.05 10*3/uL (1.80-7.70); Neutrophils % (A) 73.8 %; Platelet Count 304 10*3/uL (140-440); RBC 2.65 10*6/uL (4.40-5.60); RDW 20.3 % (11.5-14.5)
[2024-09-10 08:07] LABS: African American GFR (CKD) >90 (>60 ml/min/1.73 sqM); Anion Gap 3 mmol/L; Blood Urea Nitrogen 10 mg/dL (9-20); Calcium 7.3 mg/dL (8.4-10.2); Carbon Dioxide 24 mmol/L (22-30); Chloride 108 mmol/L (98-107); Glucose 125 mg/dL (74-99); Non-African American GFR(CKD) >90 (>60 ml/min/1.73 sqM); Potassium 3.9 mmol/L (3.5-5.1); Sodium 135 mmol/L (137-145)
[2024-09-10 08:28] LABS: HGB 6.8 g/dL (13.0-17.0)
--- NOTE | 2024-09-10 08:35 | P.PN ---
Subjective Progress Note Date: 09/10/24 Principal diagnosis: Large right-sided pleural effusion, pneumonia, sepsis, and acute hypoxic respiratory failure. Past medical history significant for coronary artery disease, hyperlipidemia, anemia, schizophrenia, anxiety, depression, cognitive deficits, speech impediment, is a lifetime non-smoker and pneumonia. POD #10 ultrasound-guided chest tube insertion performed by interventional radiology. POD #1 right thoracoscopy with decortication, single level intercostal nerve block. The patient was seen and examined in follow-up today September 10, 2024 at his bedside on the third floor cardiac stepdown unit. He is currently laying in bed, is awake, and alert. He denies any complaints of pain or shortness of breath at this time. Right pleural chest tube remains in place to low continuous wall suction -20 cm H2O. No airleak is present. Draining thin scant serosanguineous drainage with 55 mL output in the last 8 hours and 130 mL output since surgery. Chest x-ray results reviewed. Laboratory results remain pending. Oxygen saturations are 96% on room air and the patient is unable to follow instructions for use of incentive spirometry. Objective - Vital Signs Vital signs: Vital Signs Temp 97.7 F 09/10/24 04:03 Pulse 90 09/10/24 04:03 Resp 16 09/10/24 04:03 BP 91/57 09/10/24 04:03 Pulse Ox 96 09/10/24 04:03 FiO2 21 09/07/24 08:59 Intake & Output 09/09/24 09/10/24 09/10/24 18:59 06:59 18:59 Intake Total 900 540 Output Total 1318 80 Balance -418 460 Weight 100 kg Intake: IV 900 Oral 540 Output: Chest Tube Drainage 18 80 Pleural Catheter Right 18 80 Posterior Chest Urine 1200 Estimated Blood Loss 100 Other: Voiding Method Indwelling Catheter Indwelling Catheter - Exam CONSTITUTIONAL: Appears calm, cooperative RESPIRATORY: Lungs sounds diminished in the bases. Respirations even, non labored. Currently on room air with oxygen saturation 96% CARDIOVASCULAR: S1, S2 present. Regular rate and rhythm, sinus rhythm on telemetry. Palpable peripheral pulses bilaterally. Generalized edema present. No calf pain or tenderness noted. SCDs present. GASTROINTESTINAL: Abdomen soft, nontender, nondistended. Active bowel sounds present 4 quadrants. GENITOURINARY: Salcido present draining clear yellow urine. INTEGUMENTARY: Skin is warm and dry NEUROLOGIC: Cranial nerves II through XII intact MUSKULOSKELETAL: Able to move all extremities, strength equal bilaterally PSYCHIATRIC: Alert and oriented to person place INVASIVE LINES AND TUBES: Right pleural chest tube present to continuous wall suction -20 cm H2O, no air leak present, 55 mL output overnight, 130 mL since surgery. - Allied health notes Allied health notes reviewed: nursing - Labs CBC & Chem 7: 09/08/24 08:49 09/10/24 06:57 Labs: Abnormal Lab Results - Last 24 Hours (Table) 09/10/24 Range/Units 06:57 Sodium 135 L (137-145) mmol/L Chloride 108 H (98-107) mmol/L Creatinine 0.60 L (0.66-1.25) mg/dL Glucose 125 H (74-99) mg/dL Calcium 7.3 L (8.4-10.2) mg/dL Microbiology - Last 24 Hours (Table) 08/31/24 11:40 Fungal Culture - Preliminary Pleural Fluid - Imaging and Cardiology Chest x-ray: report reviewed, image reviewed Assessment and Plan Assessment: Large right-sided pleural effusion, status postplacement of pigtail catheter by interventional radiology, status post right video-assisted thoracoscopy with decortication Pneumonia Sepsis (tachycardia, hypotension, leukocytosis) Acute hypoxic respiratory failure Shortness of breath, secondary to above History of CAD HLD Schizophrenia Cognitive deficits Pneumonia Plan: We will place his right pleural chest tube to waterseal. Continue to monitor strict output from the right pleural chest tube. Encourage use of incentive spirometry 10 times every hour while awake as tolerated. Needs instructions on use, at this time unable to follow instructions on use. Medical management of other comorbidities per internal medicine, pulmonary/critical care medicine, infectious disease and general surgery. Continue to monitor daily chest x-rays. More recommendations to follow based on patient's clinical course. Time with Patient: Less than 30
--- NOTE | 2024-09-10 11:19 | P.PN ---
Subjective Progress Note Date: 09/10/24 Principal diagnosis: Sepsis, pneumonia. Patient is a 64-year-old male with past medical history significant for schizoaffective disorder, bipolar disorder, hyperlipidemia. Patient is a poor historian. He has a public guardian and resides at an [facility]. I am seeing this patient in new consultation today 08/31/2024 following rapid response called earlier this morning for hypotension and tachycardia. Patient actually brought into the emergency department yesterday afternoon from by EMS. He was confused. Complaining of abdominal/chest pain. Patient was hypotensive, tachycardic, tachypneic, and febrile. He was fluid bolused with a total of 2 L of normal saline and 2 L of lactated Ringer's. Normal saline continues at 130 mL/hr. Previously, started on a Cardizem infusion, but then became hypotensive. Heart rate recorded as high as 156 bpm. Cardizem infusion has since been discontinued. He was also given 25 mg of metoprolol. Now, patient is less tachycardic and remains hypotensive. Recommending the patient be started on norepinephrine infusion for blood pressure support and transferred to the intensive care unit. Previously started on antibiotics in the form of Zosyn and vancomycin. Following a rapid response, patient was transferred to the intensive care unit. He is in a moderate amount of distress. Tachypneic breathing in 30s to 40s. On 3 L/min nasal cannula. He has since been started on norepinephrine which is infusing at 0.03 mcg/kg/min. Current blood pressure 117/79 mmHg. Heart rhythm appears sinus tachycardia on bedside monitor, with a rate of 109 bpm. Abdomen is firm and distended. Does not appear particularly tender. No nausea or vomiting. CT of chest, abdomen, pelvis remarkable for large fecal bolus and fecal impaction. Also, large right pleural effusion with compressive atelectasis. Labs including a CBC with a WBC count of 40.4, hemoglobin 13.5, platelets 322. CMP: Sodium 133, potassium 4.2, chloride 105, serum bicarb 20, BUN 23, creatinine 0.73, glucose 118. LFTs not elevated. Total bilirubin 3.6. Lactic was 2.6 and is down to 0.9. Serial troponins less than 0.012 x 2. EKG: sinus tachycardia, rate 148 bpm. NT proBNP 457. Urinalysis fairly unremarkable. Patient was seen today on 09/01/2024, patient remains in the ICU, on 4 L nasal cannula, continues to have significant drainage of serosanguineous pleural effusion, patient has been receiving lytic therapy for his likely pleural effusion so far drained 3.7 L since the pigtail catheter placement. Patient remains on cefepime and vancomycin, he is requiring a bit of norepinephrine at 0.05 mcg/kg/min and that being titrated hopefully will be discontinued today IV fluid is 0.9 normal saline at 100 cc/h and he will receive fluid bolus. Patient remains constipated, bloated, supposed to have colonoscopy today. WBC count is 13.5 hemoglobin 8.6 electrolytes are normal BUN is 24 creatinine 0.62 pleural effusion cultures are negative so far but the pleural effusion is quite exudative with protein of more than 3600 and LDH 1210. Patient was seen today on 09/02/2024, remains in the ICU, continues to have intermittent episodes of shortness of breath, anxiety, remains constipated until earlier today he was given lactulose and SS enema then he had a significant bowel movement. Patient felt much better after his bowel movement. Remains on Precedex for agitation 0.5 mcg/kg/h he is also on norepinephrine at 0.07 and he is receiving fluids and fluid boluses. Antibiotics hernandez remains on Vanco and cefepime. Blood pressure remains marginal requiring norepinephrine, I am recommending today possibly a PICC line placement as the patient may need to be on antibiotics for a long period of time. Cultures of the right pleural effusion remains nondiagnostic patient continues to receive lytic therapy, and chest x-ray continues to show improvement. His abdominal films continue to show dilated bowel loops. But hopefully that will get better as he had a large bowel movement earlier today. Labs today show WBC count of 9.8 hemoglobin 9.4 electrolytes are normal renal profile is normal bicarb is 19. Seen today on 09/03/2024, patient remains in the ICU, marginal at best patient remains on nasal cannula at 2 L, continues to have significant drainage/output from his right sided pigtail catheter. Remains on lytic therapy for loculated pleural effusion remains on antibiotics, patient continues to have intermittent episodes of constipation, still receiving lactulose and as enemas. His abdomen is less distended, patient did have few bowel movements yesterday. And he does not seem to be in any distress today. WBC count is 6.05 hemoglobin is 8 electrolytes are normal renal profile is normal Patient was seen today on 09/04/2024, patient remains in the ICU, steadily improving, better today compared to the last few days. Patient seems to be less restless, less agitated, comfortable, he had few bowel movements already in the last couple of days. He is on IV fluid 0.9 normal saline at 100 cc/h and I cut it down to 50 remains empirically on cefepime and vancomycin for his empyema patient again is having good bowel movements. Yesterday he had to be placed on BiPAP 10/5/50% today he is on a nasal cannula. WBC count is 8.6 hemoglobin 8.3 electrolytes are normal except for slightly low potassium of 3.3 renal profile is normal. Magnesium is 1.8. Cultures remain negative from the pleural effusion. Progress note dated September 05, 2024. 64-year-old male seen today in room 362. The patient was admitted with a diagnosis of sepsis, and pneumonia. Pleural effusion was noted, and a pigtail catheter was placed on the right. He did receive tPA and alpha dornase today, administered by cardiothoracic surgery. Cultures are negative. He continues on cefepime. He is currently on room air. Current labs include a sodium 137, potassium 3.1, chlorides 107, CO2 26, BUN 6, creatinine 0.45. Glucose is 91. Calcium 7.5. Albumin 1.7. Viral screen was negative. Microbiology testing, is all negative. Chest x-ray shows a stable right lower lobe infiltrate with pigtail catheter in place. Progress note dated September 06, 2024. 64-year-old male seen today in room 362. The patient is resting comfortably in bed. He is on room air. No respiratory distress. He is awake and alert. He is getting saline at 50 cc an hour. Cardiothoracic surgery did instill tPA and alpha dornase, through his right chest tube today. Clinically, he is stable. White count 10.2, hemoglobin 8.4, hematocrit 25.8, platelet count 297,000. Sodium 137, potassium 3.6, chlorides 110, CO2 25, BUN 5, creatinine 0.47. Glucose is 107. Calcium is 7.3. Magnesium 1.9. Chest x-ray shows a right lower lobe infiltrate, which is slightly improved. Progress note dated September 07, 2024. 64-year-old male seen today in room 362. The patient continues on room air. T he patient is also getting saline at 50 cc an hour. The patient did not get any tPA or alpha dornase today. CT scan of the chest was improved. Appreciate input by cardiothoracic surgery. No new labs today. The patient appears stable. He is awake and alert. No respiratory difficulty noted. Progress note dated September 08, 2024. 64-year-old male seen today in room 362. The patient is currently on room air. No respiratory distress. He is getting saline at 50 cc an hour. The patient continues with the pigtail catheter, in the right pleural space. The patient has been getting lytic therapy, administered by cardiothoracic surgery, including tPA, and alpha dornase. Laboratory data includes a white count of 6.1, hemoglobin 8, hematocrit 25.9, platelet count 262,000. Sodium 136, potassi um 3.6, chlorides 108, CO2 26, BUN 8, creatinine 0.51. Glucose 120. Calcium is 7.4. Chest x-ray today, shows bilateral pleural effusions, with right lower lobe infiltrate, consistent with either atelectasis, and/or pneumonia. Progress note dated September 09, 2024. 64-year-old male seen today in room 362. He is resting comfortably in bed. He is on room air. He is getting saline at 50 cc an hour. The patient is boarded for the operating room today. It is not clear to me whether or not he will be going. He has been getting lytic therapy, with TPN alpha dornase, administered by cardiothoracic surgery. No new labs today. Labs from yesterday, have been reviewed. Progress note dated September 10, 2024. 64-year-old male seen today in room 362. He had surgery yesterday, today is postoperative day #1. He is resting comfortably in bed. The patient is currently on 3 L. He is not receiving any IV fluids. He has a right sided chest tube, which is to waterseal. Current labs include a white count of 8.2, hemoglobin 6.8, hematocrit 23.1, platelet count 304,000. Sodium 135, potassium 3.9, chlorides 108, CO2 24, BUN 10, creatinine 0.6. Glucose 125. Calcium 7.3. Chest x-rays reviewed. There is no pneumothorax. Objective - Vital Signs Vital signs: Vital Signs Temp 98.3 F 09/10/24 09:44 Pulse 88 09/10/24 09:44 Resp 14 09/10/24 09:44 BP 88/53 09/10/24 09:44 Pulse Ox 95 09/10/24 09:44 FiO2 21 09/07/24 08:59 Intake & Output 09/09/24 09/10/24 09/10/24 18:59 06:59 18:59 Intake Total 900 540 Output Total 1318 80 300 Balance -418 460 -300 Weight 100 kg Intake: IV 900 Oral 540 Output: Chest Tube Drainage 18 80 0 Pleural Catheter Right 18 80 0 Posterior Chest Urine 1200 300 Estimated Blood Loss 100 Other: Voiding Method Indwelling Catheter Indwelling Catheter - Exam No acute distress, oriented 3. No acute distress, currently on 3 L. HEENT examination is grossly unremarkable. Mucous membranes are moist. No oral lesions. Neck supple. Full range of motion. No adenopathy thyromegaly or neck vein distention. Cardiovascular examination reveals regular rhythm rate. S1-S2 normal. No S3 or S4. No discernible murmur noted. Lungs reveal diminished breath sounds on the right. There is dullness on percussion. 20 Czech, right sided chest tube is noted. Abdomen soft bowel sounds are heard. No masses or tenderness. Extremities are intact. No cyanosis clubbing or edema. Skin is without rash or lesion. Neurologic examination is brief but nonfocal. - Labs CBC & Chem 7: 09/10/24 06:57 09/10/24 06:57 Labs: Abnormal Lab Results - Last 24 Hours (Table) 09/08/24 09/10/24 09/10/24 Range/Units 08:49 06:57 06:57 RBC 2.65 L (4.40-5.60) 10*6/uL Hgb 6.8 L* (13.0-17.0) g/dL Hct 22.1 L (39.6-50.0) % MCH 25.7 L (27.0-32.0) pg MCHC 30.8 L (32.0-37.0) g/dL Immature Gran # 0.07 H (0.00-0.04) 10*3/uL Sodium 135 L (137-145) mmol/L Chloride 108 H (98-107) mmol/L Creatinine 0.60 L (0.66-1.25) mg/dL Glucose 125 H (74-99) mg/dL Calcium 7.3 L (8.4-10.2) mg/dL Crossmatch See Detail Microbiology - Last 24 Hours (Table) 08/31/24 11:40 Fungal Culture - Preliminary Pleural Fluid Assessment and Plan Assessment: Complicated right sided pleural effusion, with compressive atelectasis, status post pigtail catheter placement, August 31, 2024. Postoperative day #1, right thoracoscopy with decortication, and single level intercostal nerve block. Lytic therapy to the right pleural space, with alpha dornase and tPA. Acute hypoxemic respiratory failure, currently on room air, improved. Obstipation, improved. Hypotension and shock, resolved. Sinus tachycardia. Acute leukocytosis. SIRS/sepsis. History of schizoaffective disorder/bipolar disorder. History of hyperlipidemia. Plan: Plan dated September 05, 2024. The patient appears to be doing much better. He is currently on room air. He did receive tPA and alpha dornase of the right pleural space today. Pigtail catheter remains in place. The patient continues on cefepime. Cultures are currently negative. Labs, x-rays, and all medications are reviewed. We will continue to follow and make recommendations along the way. The patient remains a full code. Prognosis is certainly guarded. Dictation was produced using [employer] software. Please excuse any grammatical, word or spelling errors. Plan dated September 06, 2024. The patient is doing relatively well. The patient is currently on room air. The patient is receiving saline at 50 cc an hour. He did receive tPA and alpha dornase via cardiothoracic surgery, through the right chest tube. He continues on antibiotic. Cultures are currently negative. All labs, x-rays, and medications are reviewed. We will continue to follow the patient, make patrica mmendations along the way. Prognosis is certainly guarded. Dictation was produced using [employer] software. Please excuse any grammatical, word or spelling errors. Plan dated September 07, 2024. The patient is doing well. The patient did not receive any tPA or alpha dornase today, through his right sided chest tube. Appreciate input by cardiothoracic surgery. The patient remains on room air. The patient is getting saline at 50 cc an hour. Labs, x-rays, and medications are reviewed. We will continue to follow make recommendations. He continues on antibiotics. Prognosis is guarded . He remains a full code. Dictation was produced using [employer] software. Please excuse any grammatical, word or spelling errors. Plan dated September 08, 2024. The patient seems to be doing relatively well. He is on room air. Chest x-ray is stable. Labs, x-rays, and medications are reviewed. The patient is not having any respiratory difficulty or distress. He denies any shortness of breath, cough, wheezing, chest tightness, or phlegm production. We will continue to follow the patient, make recommendations. Is not clear to me whether or not the patient did receive or did not receive lytic therapy today. We will continue to follow. Prognosis is guarded. Dictation was produced using [employer] software. Please excuse any grammatical, word or spelling errors. Plan dated September 09, 2024. The patient is seen today again in room 362. The patient is very comfortable. He is on room air. No respiratory difficulty or distress. He is getting saline at 50 cc an hour. He apparently is boarded for possible surgery today. I do not believe any decision has been made as yet. He has been receiving lytic therapy, with tPA, and alpha dornase, via cardiothoracic surgery. All labs, x- rays, medications are reviewed. We will continue to follow make recommendations. Prognosis is guarded. Dictation was produced using [employer] software. Please excuse any grammatical, word or spelling errors. Plan dated September 10, 2024. The patient is seen today in room 362. The patient appears to be doing relatively well. Right-sided chest tube was noted. He is currently on 3 L of oxygen. Not receiving any IV fluids. The patient had surgery yesterday. Today is postoperative day #1. We will continue to follow. Prognosis is guarded. Labs, x-rays, and medications are reviewed. Dictation was produced using [employer] software. Please excuse any grammatical, word or spelling errors. Time with Patient: Less than 30
--- NOTE | 2024-09-10 14:38 | P.PN ---
Subjective Progress Note Date: 09/10/24 Principal diagnosis: Reason for follow-up is pneumonia/empyema/effusion Patient is a 64-year-old male with a past medical history significant for coronary disease ,HLD, schizophrenia, cognitive deficits, and pneumonia. Patient has been brought to the hospital concerning for increasing shortness of breath and cough did have a CT with a large right-sided effusion status post chest tube placement.Patient is status post right thoracoscopy and decortication and chest tube placement completed on 09/09/2024 no OR cultures On today's evaluation that is 09/11/2023, patient did have a temperature of 98.3 F this morning and denies having any chills, patient is on 3 L currently oxygen and breathing comfortably no chest pain or cough, the patient did not have any nausea vomiting abdominal pain or any diarrhea. Patient white count is 8.20, creatinine 0.60 Objective - Vital Signs Vital signs: Vital Signs Temp 97.5 F L 09/10/24 12:50 Pulse 85 09/10/24 12:50 Resp 16 09/10/24 12:50 BP 92/53 09/10/24 12:50 Pulse Ox 99 09/10/24 12:50 FiO2 21 09/07/24 08:59 Intake & Output 09/09/24 09/10/24 09/10/24 18:59 06:59 18:59 Intake Total 900 540 0 Output Total 1318 80 300 Balance -418 460 -300 Weight 100 kg Intake: IV 900 Oral 540 Blood Product 0 Rc As-1 Unit 0 [id number] Output: Chest Tube Drainage 18 80 0 Pleural Catheter Right 18 80 0 Posterior Chest Urine 1200 300 Estimated Blood Loss 100 Other: Voiding Method Indwelling Catheter Indwelling Catheter - Exam GENERAL DESCRIPTION: An elderly male up in bed in no distress RESPIRATORY SYSTEM: Unlabored breathing , coarse breath sounds bilaterally HEART: S1 S2 regular rate and rhythm , ABDOMEN: Soft , no tenderness EXTREMITIES: No edema feet - Labs CBC & Chem 7: 09/10/24 06:57 09/10/24 06:57 Labs: Abnormal Lab Results - Last 24 Hours (Table) 09/08/24 09/10/24 09/10/24 Range/Units 08:49 06:57 06:57 RBC 2.65 L (4.40-5.60) 10*6/uL Hgb 6.8 L* (13.0-17.0) g/dL Hct 22.1 L (39.6-50.0) % MCH 25.7 L (27.0-32.0) pg MCHC 30.8 L (32.0-37.0) g/dL Immature Gran # 0.07 H (0.00-0.04) 10*3/uL Sodium 135 L (137-145) mmol/L Chloride 108 H (98-107) mmol/L Creatinine 0.60 L (0.66-1.25) mg/dL Glucose 125 H (74-99) mg/dL Calcium 7.3 L (8.4-10.2) mg/dL Crossmatch See Detail Microbiology - Last 24 Hours (Table) 08/31/24 11:40 Fungal Culture - Preliminary Pleural Fluid Assessment and Plan (1) Pneumonia Current Visit: Yes Status: Acute Code(s): J18.9 - PNEUMONIA, UNSPECIFIED ORGANISM SNOMED Code(s): 016881840 (2) Sepsis Current Visit: Yes Status: Acute Code(s): A41.9 - SEPSIS, UNSPECIFIED ORGANISM SNOMED Code(s): 09102213 Plan: 1patient presented hospital with sepsis in this patient who did have fever tachycardia hypotension elevated white count meeting criteria for SIRS/sepsis source likely complicated pneumonia right-sided with large effusion and question of parapneumonic effusion/empyema in this patient who is facility resident will need to cover for resistant gram-positive as well as gram-negative pathogen 2-patient is status post IR placement of a chest tube and fluid culture have been negative patient subsequently had persistent effusion and status post right thoracoscopy decortication and chest tube placement by CT surgery on 09/09/2024 no cultures were done 3-patient to continue with Rocephin and monitor clinical course closely Dictation was produced using [employer] dictation software. please excuse any grammatical, word or spelling errors. Time with Patient: Less than 30
--- NOTE | 2024-09-11 06:55 | XR ---
EXAMINATION TYPE: XR chest 1V portable DATE OF EXAM: 09/11/2024 COMPARISON: 09/10/2024 CLINICAL INDICATION: Male, 64 years old with history of Status post right VATS with decortication; TECHNIQUE: Single frontal view of the chest is obtained. FINDINGS: No change in the position of the right chest tube tip of which is in the right lung apex. T here is no pneumothorax. The bilateral interstitial infiltrates and moderate retrocardiac opacity is unchanged. There is no change in the subcutaneous emphysema in the right lateral chest wall. IMPRESSION: No significant interval change. [facility], , 09/11/2024 6:53 AM
--- NOTE | 2024-09-11 07:46 | P.PN ---
Subjective Progress Note Date: 09/11/24 Principal diagnosis: Large right-sided pleural effusion, pneumonia, sepsis, and acute hypoxic respiratory failure. Past medical history significant for coronary artery disease, hyperlipidemia, anemia, schizophrenia, anxiety, depression, cognitive deficits, speech impediment, is a lifetime non-smoker and pneumonia. POD #11 ultrasound-guided chest tube insertion performed by interventional radiology. POD #2 right thoracoscopy with decortication, single level intercostal nerve block. The patient was seen and examined in follow-up today September 11, 2024 at his bedside on the third floor cardiac stepdown unit. He is currently laying in bed, is awake, and alert. He denies any complaints of pain or shortness of breath at this time. Oxygen saturations are 95% on room air and the patient is unable to follow instructions for use of incentive spirometry. Right pleural chest tube remains in place to waterseal. No airleak is present. Draining thin scant serosanguineous drainage with 10 mL output in the last 8 hours and 20 mL output in the last 24 hours. Chest x-ray results reviewed. Objective - Vital Signs Vital signs: Vital Signs Temp 97.9 F 09/11/24 05:00 Pulse 67 09/11/24 05:00 Resp 16 09/11/24 05:00 BP 94/55 09/11/24 05:00 Pulse Ox 95 09/11/24 05:00 FiO2 21 09/07/24 08:59 Intake & Output 09/10/24 09/11/24 09/11/24 18:59 06:59 18:59 Intake Total 910 Output Total 300 110 Balance 610 -110 Weight 96 kg Intake: Oral 600 Blood Product 310 Rc As-1 Unit 310 [id number] Output: Chest Tube Drainage 0 10 Pleural Catheter Right 0 10 Posterior Chest Urine 300 100 Other: Voiding Method Indwelling Catheter Indwelling Catheter - Exam CONSTITUTIONAL: Appears calm, cooperative RESPIRATORY: Lungs sounds diminished in the bases, right greater than left. Respirations symmetrical, non labored. Currently on room air with oxygen saturation 95% CARDIOVASCULAR: S1, S2 present. Regular rate and rhythm, sinus rhythm on telemetry, heart rate 71 bpm. Palpable peripheral pulses bilaterally. No calf pain or tenderness noted. SCDs present. GASTROINTESTINAL: Abdomen soft, nontender, nondistended. Active bowel sounds present 4 quadrants. GENITOURINARY: Salcido present draining clear fuentes urine. INTEGUMENTARY: Skin is warm and dry. No clubbing or cyanosis is present. Right thoracic chest incisions clean, dry and intact. NEUROLOGIC: No focal deficits. MUSKULOSKELETAL: Able to move all extremities, strength equal bilaterally PSYCHIATRIC: Alert and oriented to person place INVASIVE LINES AND TUBES: Right pleural chest tube present to waterseal, no air leak present, 10 mL output overnight, 20 mL in the last 24 hours. - Allied health notes Allied health notes reviewed: nursing - Labs CBC & Chem 7: 09/10/24 06:57 09/10/24 06:57 Labs: Abnormal Lab Results - Last 24 Hours (Table) 09/08/24 09/10/24 09/10/24 Range/Units 08:49 06:57 06:57 RBC 2.65 L (4.40-5.60) 10*6/uL Hgb 6.8 L* (13.0-17.0) g/dL Hct 22.1 L (39.6-50.0) % MCH 25.7 L (27.0-32.0) pg MCHC 30.8 L (32.0-37.0) g/dL Immature Gran # 0.07 H (0.00-0.04) 10*3/uL Sodium 135 L (137-145) mmol/L Chloride 108 H (98-107) mmol/L Creatinine 0.60 L (0.66-1.25) mg/dL Glucose 125 H (74-99) mg/dL Calcium 7.3 L (8.4-10.2) mg/dL Crossmatch See Detail - Imaging and Cardiology Chest x-ray: report reviewed, image reviewed Assessment and Plan Assessment: Large right-sided pleural effusion, status postplacement of pigtail catheter by interventional radiology, status post right video-assisted thoracoscopy with decortication Pneumonia Sepsis (tachycardia, hypotension, leukocytosis) Acute hypoxic respiratory failure Shortness of breath, secondary to above History of CAD HLD Schizophrenia Cognitive deficits Pneumonia Plan: We will keep right pleural chest tube in place to waterseal. Continue to monitor strict output from the right pleural chest tube. Encourage use of incentive spirometry 10 times every hour while awake as tolerated. Needs instructions on use, at this time unable to follow instructions on use. Medical management of other comorbidities per internal medicine, pulmonary/critical care medicine, infectious disease and general surgery. Continue to monitor daily chest x-rays. More recommendations to follow based on patient's clinical course. Time with Patient: Less than 30
[2024-09-11 08:11] LABS: HCT 22.9 % (39.6-50.0); HGB 7.1 g/dL (13.0-17.0); MCH 25.8 pg (27.0-32.0); MCV 83.3 fL (80.0-97.0); Mean Platelet Volume 9.2 fL (9.5-12.2); Platelet Count 240 10*3/uL (140-440); RBC 2.75 10*6/uL (4.40-5.60); RDW 19.6 % (11.5-14.5); WBC 5.75 10*3/uL (4.50-10.00)
[2024-09-11 08:25] LABS: ALT <6 U/L (4-49); AST 22 U/L (17-59); African American GFR (CKD) >90 (>60 ml/min/1.73 sqM); Albumin 1.6 g/dL (3.5-5.0); Alkaline Phosphatase 50 U/L (38-126); Anion Gap 1 mmol/L; Blood Urea Nitrogen 10 mg/dL (9-20); Calcium 7.4 mg/dL (8.4-10.2); Carbon Dioxide 26 mmol/L (22-30); Chloride 110 mmol/L (98-107); Glucose 79 mg/dL (74-99); Non-African American GFR(CKD) >90 (>60 ml/min/1.73 sqM); Potassium 3.9 mmol/L (3.5-5.1); Sodium 137 mmol/L (137-145); Total Bilirubin 0.7 mg/dL (0.2-1.3); Total Protein 3.4 g/dL (6.3-8.2)
--- NOTE | 2024-09-11 08:57 | P.PN ---
Subjective Progress Note Date: 09/11/24 Patient remains clinically unchanged. His abdomen is soft. He is tolerating diet. He is stooling. Objective - Vital Signs Vital signs: Vital Signs Temp 97.9 F 09/11/24 05:00 Pulse 92 09/11/24 08:19 Resp 16 09/11/24 05:00 BP 94/55 09/11/24 05:00 Pulse Ox 94 L 09/11/24 08:08 FiO2 21 09/07/24 08:59 Intake & Output 09/10/24 09/11/24 09/11/24 18:59 06:59 18:59 Intake Total 910 236 Output Total 300 110 Balance 610 -110 236 Weight 96 kg Intake: Oral 600 236 Blood Product 310 Rc As-1 Unit 310 [id number] Output: Chest Tube Drainage 0 10 Pleural Catheter Right 0 10 Posterior Chest Urine 300 100 Other: Voiding Method Indwelling Catheter Indwelling Catheter - Labs CBC & Chem 7: 09/11/24 07:35 09/11/24 07:35 Labs: Abnormal Lab Results - Last 24 Hours (Table) 09/08/24 09/11/24 09/11/24 Range/Units 08:49 07:35 07:35 RBC 2.75 L (4.40-5.60) 10*6/uL Hgb 7.1 L (13.0-17.0) g/dL Hct 22.9 L (39.6-50.0) % MCH 25.8 L (27.0-32.0) pg MCHC 31.0 L (32.0-37.0) g/dL MPV 9.2 L (9.5-12.2) fL Chloride 110 H (98-107) mmol/L Creatinine 0.61 L (0.66-1.25) mg/dL Calcium 7.4 L (8.4-10.2) mg/dL Total Protein 3.4 L (6.3-8.2) g/dL Albumin 1.6 L (3.5-5.0) g/dL Crossmatch See Detail
--- NOTE | 2024-09-11 11:35 | P.PN ---
Subjective Progress Note Date: 09/11/24 Principal diagnosis: Sepsis, pneumonia. Patient is a 64-year-old male with past medical history significant for schizoaffective disorder, bipolar disorder, hyperlipidemia. Patient is a poor historian. He has a public guardian and resides at an [facility]. I am seeing this patient in new consultation today 08/31/2024 following rapid response called earlier this morning for hypotension and tachycardia. Patient actually brought into the emergency department yesterday afternoon from by EMS. He was confused. Complaining of abdominal/chest pain. Patient was hypotensive, tachycardic, tachypneic, and febrile. He was fluid bolused with a total of 2 L of normal saline and 2 L of lactated Ringer's. Normal saline continues at 130 mL/hr. Previously, started on a Cardizem infusion, but then became hypotensive. Heart rate recorded as high as 156 bpm. Cardizem infusion has since been discontinued. He was also given 25 mg of metoprolol. Now, patient is less tachycardic and remains hypotensive. Recommending the patient be started on norepinephrine infusion for blood pressure support and transferred to the intensive care unit. Previously started on antibiotics in the form of Zosyn and vancomycin. Following a rapid response, patient was transferred to the intensive care unit. He is in a moderate amount of distress. Tachypneic breathing in 30s to 40s. On 3 L/min nasal cannula. He has since been started on norepinephrine which is infusing at 0.03 mcg/kg/min. Current blood pressure 117/79 mmHg. Heart rhythm appears sinus tachycardia on bedside monitor, with a rate of 109 bpm. Abdomen is firm and distended. Does not appear particularly tender. No nausea or vomiting. CT of chest, abdomen, pelvis remarkable for large fecal bolus and fecal impaction. Also, large right pleural effusion with compressive atelectasis. Labs including a CBC with a WBC count of 40.4, hemoglobin 13.5, platelets 322. CMP: Sodium 133, potassium 4.2, chloride 105, serum bicarb 20, BUN 23, creatinine 0.73, glucose 118. LFTs not elevated. Total bilirubin 3.6. Lactic was 2.6 and is down to 0.9. Serial troponins less than 0.012 x 2. EKG: sinus tachycardia, rate 148 bpm. NT proBNP 457. Urinalysis fairly unremarkable. Patient was seen today on 09/01/2024, patient remains in the ICU, on 4 L nasal cannula, continues to have significant drainage of serosanguineous pleural effusion, patient has been receiving lytic therapy for his likely pleural effusion so far drained 3.7 L since the pigtail catheter placement. Patient remains on cefepime and vancomycin, he is requiring a bit of norepinephrine at 0.05 mcg/kg/min and that being titrated hopefully will be discontinued today IV fluid is 0.9 normal saline at 100 cc/h and he will receive fluid bolus. Patient remains constipated, bloated, supposed to have colonoscopy today. WBC count is 13.5 hemoglobin 8.6 electrolytes are normal BUN is 24 creatinine 0.62 pleural effusion cultures are negative so far but the pleural effusion is quite exudative with protein of more than 3600 and LDH 1210. Patient was seen today on 09/02/2024, remains in the ICU, continues to have intermittent episodes of shortness of breath, anxiety, remains constipated until earlier today he was given lactulose and SS enema then he had a significant bowel movement. Patient felt much better after his bowel movement. Remains on Precedex for agitation 0.5 mcg/kg/h he is also on norepinephrine at 0.07 and he is receiving fluids and fluid boluses. Antibiotics hernandez remains on Vanco and cefepime. Blood pressure remains marginal requiring norepinephrine, I am recommending today possibly a PICC line placement as the patient may need to be on antibiotics for a long period of time. Cultures of the right pleural effusion remains nondiagnostic patient continues to receive lytic therapy, and chest x-ray continues to show improvement. His abdominal films continue to show dilated bowel loops. But hopefully that will get better as he had a large bowel movement earlier today. Labs today show WBC count of 9.8 hemoglobin 9.4 electrolytes are normal renal profile is normal bicarb is 19. Seen today on 09/03/2024, patient remains in the ICU, marginal at best patient remains on nasal cannula at 2 L, continues to have significant drainage/output from his right sided pigtail catheter. Remains on lytic therapy for loculated pleural effusion remains on antibiotics, patient continues to have intermittent episodes of constipation, still receiving lactulose and as enemas. His abdomen is less distended, patient did have few bowel movements yesterday. And he does not seem to be in any distress today. WBC count is 6.05 hemoglobin is 8 electrolytes are normal renal profile is normal Patient was seen today on 09/04/2024, patient remains in the ICU, steadily improving, better today compared to the last few days. Patient seems to be less restless, less agitated, comfortable, he had few bowel movements already in the last couple of days. He is on IV fluid 0.9 normal saline at 100 cc/h and I cut it down to 50 remains empirically on cefepime and vancomycin for his empyema patient again is having good bowel movements. Yesterday he had to be placed on BiPAP 10/5/50% today he is on a nasal cannula. WBC count is 8.6 hemoglobin 8.3 electrolytes are normal except for slightly low potassium of 3.3 renal profile is normal. Magnesium is 1.8. Cultures remain negative from the pleural effusion. Progress note dated September 05, 2024. 64-year-old male seen today in room 362. The patient was admitted with a diagnosis of sepsis, and pneumonia. Pleural effusion was noted, and a pigtail catheter was placed on the right. He did receive tPA and alpha dornase today, administered by cardiothoracic surgery. Cultures are negative. He continues on cefepime. He is currently on room air. Current labs include a sodium 137, potassium 3.1, chlorides 107, CO2 26, BUN 6, creatinine 0.45. Glucose is 91. Calcium 7.5. Albumin 1.7. Viral screen was negative. Microbiology testing, is all negative. Chest x-ray shows a stable right lower lobe infiltrate with pigtail catheter in place. Progress note dated September 06, 2024. 64-year-old male seen today in room 362. The patient is resting comfortably in bed. He is on room air. No respiratory distress. He is awake and alert. He is getting saline at 50 cc an hour. Cardiothoracic surgery did instill tPA and alpha dornase, through his right chest tube today. Clinically, he is stable. White count 10.2, hemoglobin 8.4, hematocrit 25.8, platelet count 297,000. Sodium 137, potassium 3.6, chlorides 110, CO2 25, BUN 5, creatinine 0.47. Glucose is 107. Calcium is 7.3. Magnesium 1.9. Chest x-ray shows a right lower lobe infiltrate, which is slightly improved. Progress note dated September 07, 2024. 64-year-old male seen today in room 362. The patient continues on room air. T he patient is also getting saline at 50 cc an hour. The patient did not get any tPA or alpha dornase today. CT scan of the chest was improved. Appreciate input by cardiothoracic surgery. No new labs today. The patient appears stable. He is awake and alert. No respiratory difficulty noted. Progress note dated September 08, 2024. 64-year-old male seen today in room 362. The patient is currently on room air. No respiratory distress. He is getting saline at 50 cc an hour. The patient continues with the pigtail catheter, in the right pleural space. The patient has been getting lytic therapy, administered by cardiothoracic surgery, including tPA, and alpha dornase. Laboratory data includes a white count of 6.1, hemoglobin 8, hematocrit 25.9, platelet count 262,000. Sodium 136, potassi um 3.6, chlorides 108, CO2 26, BUN 8, creatinine 0.51. Glucose 120. Calcium is 7.4. Chest x-ray today, shows bilateral pleural effusions, with right lower lobe infiltrate, consistent with either atelectasis, and/or pneumonia. Progress note dated September 09, 2024. 64-year-old male seen today in room 362. He is resting comfortably in bed. He is on room air. He is getting saline at 50 cc an hour. The patient is boarded for the operating room today. It is not clear to me whether or not he will be going. He has been getting lytic therapy, with TPN alpha dornase, administered by cardiothoracic surgery. No new labs today. Labs from yesterday, have been reviewed. Progress note dated September 10, 2024. 64-year-old male seen today in room 362. He had surgery yesterday, today is postoperative day #1. He is resting comfortably in bed. The patient is currently on 3 L. He is not receiving any IV fluids. He has a right sided chest tube, which is to waterseal. Current labs include a white count of 8.2, hemoglobin 6.8, hematocrit 23.1, platelet count 304,000. Sodium 135, potassium 3.9, chlorides 108, CO2 24, BUN 10, creatinine 0.6. Glucose 125. Calcium 7.3. Chest x-rays reviewed. There is no pneumothorax. Progress note dated September 11, 2024. 64-year-old male seen in room 362. He is resting comfortably in bed. He is on room air. He is getting fluids KVO. He is postoperative day #2. He had an uneventful night according to the nurses. White count was 5.75, hemoglobin 7.1, hematocrit 22.9, and platelet count 240,000. Sodium 137, potassium 3.9, chlorides 110, CO2 26, BUN 10, creatinine 0.61. Albumin was 1.6. Chest x-ray shows no significant change. Objective - Vital Signs Vital signs: Vital Signs Temp 97.9 F 09/11/24 09:43 Pulse 67 09/11/24 09:43 Resp 14 09/11/24 09:43 BP 102/60 09/11/24 09:43 Pulse Ox 95 09/11/24 09:43 FiO2 21 09/07/24 08:59 Intake & Output 09/10/24 09/11/24 09/11/24 18:59 06:59 18:59 Intake Total 910 236 Output Total 300 110 Balance 610 -110 236 Weight 96 kg Intake: Oral 600 236 Blood Product 310 Rc As-1 Unit 310 [id number] Output: Chest Tube Drainage 0 10 Pleural Catheter Right 0 10 Posterior Chest Urine 300 100 Other: Voiding Method Indwelling Catheter Indwelling Catheter Indwelling Catheter - Exam No acute distress, oriented 3. No acute distress, currently on room air. HEENT examination is grossly unremarkable. Mucous membranes are moist. No oral lesions. Neck supple. Full range of motion. No adenopathy thyromegaly or neck vein distention. Cardiovascular examination reveals regular rhythm rate. S1-S2 normal. No S3 or S4. No discernible murmur noted. Lungs reveal diminished breath sounds on the right. There is dullness on percussion. 20 Armenian, right sided chest tube is noted. Abdomen soft bowel sounds are heard. No masses or tenderness. Extremities are intact. No cyanosis clubbing or edema. Skin is without rash or lesion. Neurologic examination is brief but nonfocal. - Labs CBC & Chem 7: 09/11/24 07:35 09/11/24 07:35 Labs: Abnormal Lab Results - Last 24 Hours (Table) 09/08/24 09/11/2409/11/25 Range/Units 08:49 07:35 07:35 RBC 2.75 L (4.40-5.60) 10*6/uL Hgb 7.1 L (13.0-17.0) g/dL Hct 22.9 L (39.6-50.0) % MCH 25.8 L (27.0-32.0) pg MCHC 31.0 L (32.0-37.0) g/dL MPV 9.2 L (9.5-12.2) fL Chloride 110 H (98-107) mmol/L Creatinine 0.61 L (0.66-1.25) mg/dL Calcium 7.4 L (8.4-10.2) mg/dL Total Protein 3.4 L (6.3-8.2) g/dL Albumin 1.6 L (3.5-5.0) g/dL Crossmatch See Detail Assessment and Plan Assessment: Complicated right sided pleural effusion, with compressive atelectasis, status post pigtail catheter placement, August 31, 2024. Postoperative day #2, right thoracoscopy with decortication, and single level intercostal nerve block. Lytic therapy to the right pleural space, with alpha dornase and tPA. Acute hypoxemic respiratory failure, currently on room air, improved. Obstipation, improved. Hypotension and shock, resolved. Sinus tachycardia. Acute leukocytosis. SIRS/sepsis. History of schizoaffective disorder/bipolar disorder. History of hyperlipidemia. Plan: Plan dated September 05, 2024. The patient appears to be doing much better. He is currently on room air. He did receive tPA and alpha dornase of the right pleural space today. Pigtail catheter remains in place. The patient continues on cefepime. Cultures are currently negative. Labs, x-rays, and all medications are reviewed. We will continue to follow and make recommendations along the way. The patient remains a full code. Prognosis is certainly guarded. Dictation was produced using Bannoation software. Please excuse any grammatical, word or spelling errors. Plan dated September 06, 2024. The patient is doing relatively well. The patient is currently on room air. The patient is receiving saline at 50 cc an hour. He did receive tPA and alpha dornase via cardiothoracic surgery, through the right chest tube. He continues on antibiotic. Cultures are currently negative. All labs, x-rays, and medications are reviewed. We will continue to follow the patient, make recommendations along the way. Prognosis is certainly guarded. Dictation was produced using [employer]Booking software. Please excuse any grammatical, word or spelling errors. Plan dated September 07, 2024. The patient is doing well. The patient did not receive any tPA or alpha dornase today, through his right sided chest tube. Appreciate input by cardiothoracic surgery. The patient remains on room air. The patient is getting saline at 50 cc an hour. Labs, x-rays, and medications are reviewed. We will continue to follow make recommendations. He continues on antibiotics. Prognosis is guarded. He remains a full code. Dictation was produced using GBooking software. Please excuse any grammatical, word or spelling errors. Plan dated September 08, 2024. The patient seems to be doing relatively well. He is on room air. Chest x-ray is stable. Labs, x-rays, and medications are reviewed. The patient is not having any respiratory difficulty or distress. He denies any shortness of breath, cough, wheezing, chest tightness, or phlegm production. We will continue to follow the patient, make recommendations. Is not clear to me whether or not the patient did receive or did not receive lytic therapy today. We will continue to follow. Prognosis is guarded. Dictation was produced using [employer]Book[employer] software. Please excuse any grammatical, word or spelling errors. Plan dated September 09, 2024. The patient is seen today again in room 362. The patient is very comfortable. He is on room air. No respiratory difficulty or distress. He is getting saline at 50 cc an hour. He apparently is boarded for possible surgery today. I do not believe any decision has been made as yet. He has been receiving lytic therapy, with tPA, and alpha dornase, via cardiothoracic surgery. All labs, x- rays, medications are reviewed. We will continue to follow make recommendations. Prognosis is guarded. Dictation was produced using [employer]Book[employer] software. Please excuse any grammatical, word or spelling errors. Plan dated September 10, 2024. The patient is seen today in room 362. The patient appears to be doing relatively well. Right-sided chest tube was noted. He is currently on 3 L of oxygen. Not receiving any IV fluids. The patient had surgery yesterday. Today is postoperative day #1. We will continue to follow. Prognosis is guarded. Labs, x-rays, and medications are reviewed. Dictation was produced using [employer]Book[employer] software. Please excuse any grammatical, word or spelling errors. Plan dated September 11, 2024. The patient is seen today in room 362. He is resting comfortably in bed. He is awake and alert. He is on room air. He is getting fluids, KVO. Today's postoperative day #2. He has no specific complaints. All labs, x-rays, medications are reviewed. We will continue to follow. Prognosis is guarded. Dictation was produced using [employer]Book[employer] software. Please excuse any gra mmatical, word or spelling errors. Time with Patient: Less than 30
--- NOTE | 2024-09-11 16:19 | P.PN ---
Subjective Progress Note Date: 09/11/24 Principal diagnosis: Reason for follow-up is pneumonia/empyema/effusion Patient is a 64-year-old male with a past medical history significant for coronary disease ,HLD, schizophrenia, cognitive deficits, and pneumonia. Patient has been brought to the hospital concerning for increasing shortness of breath and cough did have a CT with a large right-sided effusion status post chest tube placement.Patient is status post right thoracoscopy and decortication and chest tube placement completed on 09/09/2024 no OR cultures On today's evaluation that is 09/11/2024, Patient is afebrile patient is currently on room air and denies having any shortness of breath, the patient denies any chest pain or cough, the patient denies any nausea vomiting did not have any abdominal pain and no diarrhea. Patient white count is 5.75, creatinine 0.61 Objective - Vital Signs Vital signs: Vital Signs Temp 97.8 F 09/11/24 12:06 Pulse 80 09/11/24 12:06 Resp 14 09/11/24 12:06 BP 128/75 09/11/24 12:06 Pulse Ox 95 09/11/24 12:06 FiO2 21 09/07/24 08:59 Intake & Output 09/10/24 09/11/24 09/11/24 18:59 06:59 18:59 Intake Total 910 458 Output Total 300 110 610 Balance 610 -110 -152 Weight 96 kg Intake: Oral 600 458 Blood Product 310 Rc As-1 Unit 310 [id number] Output: Chest Tube Drainage 0 10 10 Pleural Catheter Right 0 10 10 Posterior Chest Urine 300 100 600 Other: Voiding Method Indwelling Catheter Indwelling Catheter Indwelling Catheter - Exam GENERAL DESCRIPTION: An elderly male up in bed in no distress RESPIRATORY SYSTEM: Unlabored breathing , coarse breath sounds bilaterally HEART: S1 S2 regular rate and rhythm , ABDOMEN: Soft , no tenderness EXTREMITIES: No edema feet - Labs CBC & Chem 7: 09/11/24 07:35 09/11/24 07:35 Labs: Abnormal Lab Results - Last 24 Hours (Table) 09/11/24 09/11/24 Range/Units 07:35 07:35 RBC 2.75 L (4.40-5.60) 10*6/uL Hgb 7.1 L (13.0-17.0) g/dL Hct 22.9 L (39.6-50.0) % MCH 25.8 L (27.0-32.0) pg MCHC 31.0 L (32.0-37.0) g/dL MPV 9.2 L (9.5-12.2) fL Chloride 110 H (98-107) mmol/L Creatinine 0.61 L (0.66-1.25) mg/dL Calcium 7.4 L (8.4-10.2) mg/dL Total Protein 3.4 L (6.3-8.2) g/dL Albumin 1.6 L (3.5-5.0) g/dL Assessment and Plan (1) Pneumonia Current Visit: Yes Status: Acute Code(s): J18.9 - PNEUMONIA, UNSPECIFIED ORGANISM SNOMED Code(s): 862957665 (2) Sepsis Current Visit: Yes Status: Acute Code(s): A41.9 - SEPSIS, UNSPECIFIED ORGANISM SNOMED Code(s): 56270365 Plan: 1patient presented hospital with sepsis in this patient who did have fever tachycardia hypotension elevated white count meeting criteria for SIRS/sepsis source likely complicated pneumonia right-sided with large effusion and question of parapneumonic effusion/empyema in this patient who is facility resident will need to cover for resistant gram-positive as well as gram-negative pathogen 2-patient is status post IR placement of a chest tube and fluid culture have been negative patient subsequently had persistent effusion and status post right thoracoscopy decortication and chest tube placement by CT surgery on 09/09/2024 no cultures were done 3-patient remains to be afebrile white count has been normal we will treat with Rocephin and monitor clinical course closely Dictation was produced using [employer] dictation software. please excuse any grammatical, word or spelling errors. Time with Patient: Less than 30
[2024-09-11] MEDS: MAGNESIUM HYDROXIDE 2,400 MG/30 ML CUP PO PRN (21:05)
--- NOTE | 2024-09-11 23:39 | PN ---
PROGRESS NOTE DATE OF SERVICE: 09/09/2024 CHIEF COMPLAINT: Sepsis and right-sided pneumonitis with effusion. HISTORY OF PRESENT ILLNESS: This gentleman is about the same. He remains stable. He still has accumulation of fluid on the right with persistent chest tube pain. PHYSICAL EXAMINATION: VITAL SIGNS: Normal. LUNGS: Breath sounds are heard bilaterally. CARDIAC: Normal. IMPRESSION: 1. Right lower lobe pneumonitis with effusion. 2. Sepsis. PLAN: Chest tube drainage continues. He may be going for a VATS procedure. MMODL / IJN: [id number] /
--- NOTE | 2024-09-11 23:59 | PN ---
PROGRESS NOTE CHIEF COMPLAINT: Pneumonitis and sepsis. HISTORY OF PRESENT ILLNESS: This gentleman is doing just about the same. Chest tube still in place. PHYSICAL EXAMINATION: VITAL SIGNS: Normal. White count is coming down. CHEST: Clear. IMPRESSION: 1. Right-sided pneumonitis with pleural effusion. 2. Sepsis and septic shock, resolved. PLAN: No changes in program. Chest tube remains in place and he continues on IV antibiotics. MMODL / IJN: [id number] /
--- NOTE | 2024-09-12 00:21 | PN ---
PROGRESS NOTE CHIEF COMPLAINT: Pneumonitis and sepsis. HISTORY OF PRESENT ILLNESS: This gentleman is doing fairly well. Chest tube is still in place. He is not very communicative. PHYSICAL EXAMINATION: VITAL SIGNS: Normal. CHEST: Clear. CARDIAC: Normal. ABDOMEN: Soft and nontender. IMPRESSION: Right-sided pneumonitis with pneumothorax and sepsis. PLAN: No change in his management from my perspective today and continue to follow. MMODL / IJN: [id number] /
[2024-09-12 07:25] LABS: HCT 26.3 % (39.6-50.0); HGB 8.1 g/dL (13.0-17.0); MCH 26.1 pg (27.0-32.0); MCHC 30.8 g/dL (32.0-37.0); MCV 84.8 fL (80.0-97.0); Mean Platelet Volume 9.4 fL (9.5-12.2); Platelet Count 232 10*3/uL (140-440); WBC 6.82 10*3/uL (4.50-10.00)
--- NOTE | 2024-09-12 07:29 | P.PN ---
Subjective Progress Note Date: 09/12/24 Principal diagnosis: Large right-sided pleural effusion, pneumonia, sepsis, and acute hypoxic respiratory failure. Past medical history significant for coronary artery disease, hyperlipidemia, anemia, schizophrenia, anxiety, depression, cognitive deficits, speech impediment, is a lifetime non-smoker and pneumonia. POD #12 ultrasound-guided chest tube insertion performed by interventional radiology. POD #3 right thoracoscopy with decortication, single level intercostal nerve block. The patient was seen and examined in follow-up today September 12, 2024 at his bedside on the third floor cardiac stepdown unit. He is currently laying in bed, is awake, and alert. He denies any complaints of shortness of breath or pain at this time. Oxygen saturations are 92% on room air and he is unable to follow directions to use his incentive spirometry. Right pleural chest tube remains in place to waterseal. No airleak is present. Draining thin serosanguineous drainage with 20 mL output in the last 24 hours. Remote telemetry showing normal sinus rhythm heart rate 77 bpm. He remains hemodynamically stable and is currently on no inotropic or pressor support. Chest x-ray and laboratory results reviewed. Objective - Vital Signs Vital signs: Vital Signs Temp 97.7 F 09/12/24 03:33 Pulse 75 09/12/24 03:33 Resp 16 09/12/24 03:33 BP 115/72 09/12/24 03:33 Pulse Ox 92 L 09/12/24 03:33 FiO2 21 09/07/24 08:59 Intake & Output 09/11/24 09/12/24 09/12/24 18:59 06:59 18:59 Intake Total 558 Output Total 610 1025 Balance -52 -1025 Weight 95.5 kg Intake: Oral 558 Output: Chest Tube Drainage 10 0 Pleural Catheter Right 10 0 Posterior Chest Urine 600 1025 Other: Voiding Method Indwelling Catheter Indwelling Catheter # Bowel Movements 1 - Exam CONSTITUTIONAL: Appears calm, cooperative RESPIRATORY: Lungs sounds diminished in the bases, right greater than left. Respirations symmetrical, non labored. Currently on room air with oxygen saturation 92% CARDIOVASCULAR: S1, S2 present. Regular rate and rhythm, sinus rhythm on telemetry, heart rate 77 bpm. Palpable peripheral pulses bilaterally. No calf pain or tenderness noted. SCDs present. GASTROINTESTINAL: Abdomen soft, nontender, nondistended. Active bowel sounds present 4 quadrants. Bowel movement yesterday September 11, 2024 GENITOURINARY: Salcido present draining clear fuentes urine. Urine output 1025 milliliters in the last 8 hours. INTEGUMENTARY: Skin is warm and dry. No clubbing or cyanosis is present. Right thoracic chest incisions clean, dry and intact. NEUROLOGIC: No focal deficits. MUSKULOSKELETAL: Able to move all extremities, strength equal bilaterally PSYCHIATRIC: Alert and oriented to person place INVASIVE LINES AND TUBES: Right pleural chest tube present to waterseal, no air leak present, 20 mL thin serosanguineous drainage in the last 24 hours. - Allied health notes Allied health notes reviewed: nursing - Labs CBC & Chem 7: 09/11/24 07:35 09/11/24 07:35 Labs: Abnormal Lab Results - Last 24 Hours (Table) 09/11/24 09/11/24 Range/Units 07:35 07:35 RBC 2.75 L (4.40-5.60) 10*6/uL Hgb 7.1 L (13.0-17.0) g/dL Hct 22.9 L (39.6-50.0) % MCH 25.8 L (27.0-32.0) pg MCHC 31.0 L (32.0-37.0) g/dL MPV 9.2 L (9.5-12.2) fL Chloride 110 H (98-107) mmol/L Creatinine 0.61 L (0.66-1.25) mg/dL Calcium 7.4 L (8.4-10.2) mg/dL Total Protein 3.4 L (6.3-8.2) g/dL Albumin 1.6 L (3.5-5.0) g/dL - Imaging and Cardiology Chest x-ray: report reviewed, image reviewed Assessment and Plan Assessment: Large right-sided pleural effusion, status postplacement of pigtail catheter by interventional radiology, status post right video-assisted thoracoscopy with decortication Pneumonia Sepsis (tachycardia, hypotension, leukocytosis) Acute hypoxic respiratory failure Shortness of breath, secondary to above History of CAD HLD Schizophrenia Cognitive deficits Pneumonia Plan: We will likely remove his right pleural chest tube today. Encourage nutrition. Encourage use of incentive spirometry 10 times every hour while awake as tolerated. Needs instructions on use, at this time unable to follow instructions on use. Medical management of other comorbidities per internal medicine, pulmonary/critical care medicine, infectious disease and general surgery. Continue to monitor daily chest x-rays. More recommendations to follow based on patient's clinical course. Time with Patient: Less than 30
--- NOTE | 2024-09-12 07:37 | XR ---
EXAMINATION TYPE: XR chest 1V portable DATE OF EXAM: 09/12/2024 7:01 AM COMPARISON: 09/11/2024 CLINICAL INDICATION: Male, 64 years old with history of Status post right VATS with decortication, , FINDINGS: Heart remains mildly enlarged. Perihilar and patchy bilateral airspace opacities persist especially i n the mid and lower lungs. Small bilateral pleural effusions persist. Subcutaneous emphysema along th e right chest wall extending to the right base of the neck. Right-sided chest tube remains in place. Old right-sided rib fracture deformities. No appreciable pneumothorax. Left PICC tip into the right a trium. IMPRESSION: 1. Relatively similar findings of right-sided chest tube in place and right-sided subcutaneous emphys jose. No appreciable pneumothorax. 2. Mild cardiomegaly with perihilar and patchy mid and lower lung airspace opacities with small pleur al effusions persist. [facility], Workstation: [facility], 09/12/2024 7:35 AM
--- NOTE | 2024-09-12 10:59 | P.PN ---
Subjective Progress Note Date: 09/12/24 SURGICAL PROGRESS NOTE CHIEF COMPLAINT: Chest pain HISTORY OF PRESENT ILLNESS: Patient is status post flex sigmoidoscopy for disimpaction on 09/01/24. Patient denies any abdominal pain. He is having bowel movements. Tolerating diet. PHYSICAL EXAM: VITAL SIGNS: Reviewed. GENERAL: in no acute distress. ABDOMEN: Soft. Nontender ASSESSMENT: 1. Fecal impaction status post flexible sigmoidoscopy with disimpaction PLAN: -Patient having bowel movements and tolerating diet -Continue a good bowel regimen Physician Game Programer note has been reviewed by physician. Signing provider agrees with the documented findings, assessment, and plan of care. Objective - Vital Signs Vital signs: Vital Signs Temp 97.7 F 09/12/24 03:33 Pulse 70 09/12/24 08:00 Resp 18 09/12/24 08:00 BP 119/66 09/12/24 07:57 Pulse Ox 94 L 09/12/24 07:57 FiO2 21 09/07/24 08:59 Intake & Output 09/11/24 09/12/24 09/12/24 18:59 06:59 18:59 Intake Total 558 Output Total 610 1025 1300 Balance -52 -1025 -1300 Weight 95.5 kg Intake: Oral 558 Output: Chest Tube Drainage 10 0 Pleural Catheter Right 10 0 Posterior Chest Urine 600 1025 1300 Other: Voiding Method Indwelling Catheter Indwelling Catheter Indwelling Catheter # Bowel Movements 1 - Labs CBC & Chem 7: 09/12/24 07:12 09/11/24 07:35 Labs: Abnormal Lab Results - Last 24 Hours (Table) 09/12/24 09/12/24 Range/Units 07:12 07:12 RBC 3.10 L (4.40-5.60) 10*6/uL Hgb 8.1 L (13.0-17.0) g/dL Hct 26.3 L (39.6-50.0) % MCH 26.1 L (27.0-32.0) pg MCHC 30.8 L (32.0-37.0) g/dL MPV 9.4 L (9.5-12.2) fL Prealbumin 9.1 L (18.0-42.0) mg/dL
--- NOTE | 2024-09-12 17:06 | PN ---
PROGRESS NOTE DATE OF SERVICE: 09/07/2024 SUBJECTIVE: Surgical service following in regard to fecal impaction. The patient is having bowel movements. Denies any abdominal pain. Tolerating diet. Has chest tube still in place. PHYSICAL EXAM: ABDOMEN: Soft and nontender. ASSESSMENT: Fecal impaction. PLAN: Continue bowel regimen. The patient is having bowel movement. MMODL / IJN: [id number] /
--- NOTE | 2024-09-12 18:19 | P.PN ---
Subjective Progress Note Date: 09/12/24 On 09/12/2024, the patient is being seen for a follow-up. The patient is doing extremely well and the patient is currently on room air oxygen. Denies having any specific complaints. No respiratory difficulties and the patient resting comfortably in bed. The patient is post op day #3 following a right t horacoscopy and decortication and single level intercostal nerve block. Comorbidities include coronary artery disease, hyperlipidemia, anemia, schizophrenia/anxiety/depression. The right-sided chest tube is still in place and output is minimal at this point in time in order of 20 cc over the past 24 hours. Cardiac rhythm is sinus. The patient remains hemodynamically stable. Chest x-ray was reviewed and the patient has demonstrated no acute abnormalities. The patient has relatively similar findings on the right side with right-sided chest tube in place and there is minimal motor subcutaneous emphysema there is also mild cardiomegaly and perihilar patchy pulmonary infiltrates in addition to infiltrate in the mid and the lower lung luna. The patient is hemodynamically stable. All of the cultures have been negative. Objective - Vital Signs Vital signs: Vital Signs Temp 97.7 F 09/12/24 03:33 Pulse 70 09/12/24 12:49 Resp 18 09/12/24 12:49 BP 119/66 09/12/24 07:57 Pulse Ox 94 L 09/12/24 07:57 FiO2 21 09/07/24 08:59 Intake & Output 09/11/24 09/12/24 09/12/24 18:59 06:59 18:59 Intake Total 558 Output Total 610 1025 1300 Balance -52 -1025 -1300 Weight 95.5 kg Intake: Oral 558 Output: Chest Tube Drainage 10 0 Pleural Catheter Right 10 0 Posterior Chest Urine 600 1025 1300 Other: Voiding Method Indwelling Catheter Indwelling Catheter Indwelling Catheter # Bowel Movements 1 - Exam CONSTITUTIONAL: Appears calm, cooperative RESPIRATORY: Lungs sounds diminished in the bases, right greater than left. Respirations symmetrical, non labored. Currently on room air with oxygen saturation 92% CARDIOVASCULAR: S1, S2 present. Regular rate and rhythm, sinus rhythm on telemetry, heart rate 77 bpm. Palpable peripheral pulses bilaterally. No calf pain or tenderness noted. SCDs present. GASTROINTESTINAL: Abdomen soft, nontender, nondistended. Active bowel sounds present 4 quadrants. Bowel movement yesterday September 11, 2024 GENITOURINARY: Salcido present draining clear fuentes urine. Urine output 1025 milliliters in the last 8 hours. INTEGUMENTARY: Skin is warm and dry. No clubbing or cyanosis is present. Right thoracic chest incisions clean, dry and intact. NEUROLOGIC: No focal deficits. MUSKULOSKELETAL: Able to move all extremities, strength equal bilaterally PSYCHIATRIC: Alert and oriented to person place INVASIVE LINES AND TUBES: Right pleural chest tube present to waterseal, no air leak present, 20 mL thin serosanguineous drainage in the last 24 hours. - Labs CBC & Chem 7: 09/12/24 07:12 09/11/24 07:35 Labs: Abnormal Lab Results - Last 24 Hours (Table) 09/12/24 09/12/24 Range/Units 07:12 07:12 RBC 3.10 L (4.40-5.60) 10*6/uL Hgb 8.1 L (13.0-17.0) g/dL Hct 26.3 L (39.6-50.0) % MCH 26.1 L (27.0-32.0) pg MCHC 30.8 L (32.0-37.0) g/dL MPV 9.4 L (9.5-12.2) fL Prealbumin 9.1 L (18.0-42.0) mg/dL Assessment and Plan Plan: Complicated right sided parapneumonic loculated pleural effusion, with compressive atelectasis and the patient is status post right thoracoscopy and decortication and single nerve level intercostal block and the patient is postop day #3. The right-sided chest tube remains in place. Output is minimal and the patient has no evidence of air leak or pneumothorax. Right perihilar and right lower lobe pulmonary filtration Acute hypoxemic respiratory failure, currently on room air, improved. Obstipation, improved. Hypotension and shock, resolved. Sinus tachycardia. Acute leukocytosis, improved SIRS/sepsis. History of schizoaffective disorder/bipolar disorder. History of hyperlipidemia. Plan: This patient is doing well and the patient is currently on room air oxygen Continue IV Rocephin Monitor the output from the chest tube and consider removing the chest tube in the next 24 hours specially if the chest tube output remains minimal. Incentive spirometer Hemodynamically stable Subcu heparin for DVT prophylaxis Dilaudid for pain control [place] for pain control resume home medications and will continue to follow make further recommendations based on progress. Overall condition is stable. Time with Patient: Greater than 30
--- NOTE | 2024-09-13 07:38 | XR ---
EXAMINATION TYPE: XR chest 1V portable DATE OF EXAM: 09/13/2024 7:09 AM COMPARISON: 09/12/2024 CLINICAL INDICATION: Male, 64 years old with history of Status post chest tube removal, , FINDINGS: Heart mildly enlarged. Interstitial density shows slight improvement with some persistence on the rig ht. Small right pleural effusion remains with patchy right basilar opacity. Interval removal of a rig ht-sided chest tube. No appreciable pneumothorax. Subcutaneous emphysema remains along the right side of the chest and right base of the neck. Left PICC tip within the right atrium. IMPRESSION: 1. Interval removal of the right-sided chest tube. No appreciable pneumothorax. 2. Right-sided rib fracture deformities with ongoing small right pleural effusion and patchy opacity at the right lower lung. 3. Interstitial changes persist but are improving. [facility], , 09/13/2024 7:36 AM
--- NOTE | 2024-09-13 08:20 | P.PN ---
Subjective Progress Note Date: 09/13/24 Principal diagnosis: Large right-sided pleural effusion, pneumonia, sepsis, and acute hypoxic respiratory failure. Past medical history significant for coronary artery disease, hyperlipidemia, anemia, schizophrenia, anxiety, depression, cognitive deficits, speech impediment, is a lifetime non-smoker and pneumonia. POD #13 ultrasound-guided chest tube insertion performed by interventional radiology. POD #4 right thoracoscopy with decortication, single level intercostal nerve block. The patient was seen and examined in follow-up today September 13, 2024 at his bedside on the third floor cardiac stepdown unit. He is currently laying in bed, is awake, and alert. He denies any complaints of shortness of breath or pain at this time. Oxygen saturations are 95% on room air and he is unable to follow directions to use his incentive spirometry. Right pleural chest tube was removed yesterday September 12, 2024 without incident. He remains hemodynamically stable and is currently on no inotropic or pressor support. Chest x-ray and laboratory results reviewed. Objective - Vital Signs Vital signs: Vital Signs Temp 98.2 F 09/13/24 03:48 Pulse 76 09/13/24 06:41 Resp 18 09/13/24 03:48 BP 101/63 09/13/24 03:48 Pulse Ox 94 L 09/13/24 03:48 FiO2 21 09/07/24 08:59 Intake & Output 09/12/24 09/13/24 09/13/24 18:59 06:59 18:59 Output Total 3150 1275 Balance -3150 -1275 Weight 93.5 kg Output: Urine 3150 1275 Other: Voiding Method Indwelling Catheter Indwelling Catheter - Exam CONSTITUTIONAL: Appears calm, cooperative RESPIRATORY: Lungs sounds diminished in the bases, right greater than left. Respirations symmetrical, non labored. Currently on room air with oxygen saturation 95% CARDIOVASCULAR: S1, S2 present. Regular rate and rhythm, sinus rhythm on telemetry. Palpable peripheral pulses bilaterally. No calf pain or tenderness noted. SCDs present. GASTROINTESTINAL: Abdomen soft, nontender, nondistended. Active bowel sounds present 4 quadrants. Bowel movement yesterday September 11, 2024 GENITOURINARY: Salcido present draining clear fuentes urine. Urine output 500 milliliters in the last 8 hours. INTEGUMENTARY: Skin is warm and dry. No clubbing or cyanosis is present. Right thoracic chest incisions clean, dry and intact. NEUROLOGIC: No focal deficits. MUSKULOSKELETAL: Able to move all extremities, strength equal bilaterally PSYCHIATRIC: Alert and oriented to person place - Allied health notes Allied health notes reviewed: nursing - Labs CBC & Chem 7: 09/12/24 07:12 09/11/24 07:35 Labs: Abnormal Lab Results - Last 24 Hours (Table) 09/12/24 Range/Units 07:12 Prealbumin 9.1 L (18.0-42.0) mg/dL - Imaging and Cardiology Chest x-ray: report reviewed, image reviewed Assessment and Plan Assessment: Large right-sided pleural effusion, status postplacement of pigtail catheter by interventional radiology, status post right video-assisted thoracoscopy with decortication Pneumonia Sepsis (tachycardia, hypotension, leukocytosis) Acute hypoxic respiratory failure Shortness of breath, secondary to above History of CAD HLD Schizophrenia Cognitive deficits Pneumonia Plan: The patient's chest tube was removed without incident yesterday September 12, 2024. Encourage nutrition. Encourage use of incentive spirometry 10 times every hour while awake as tolerated. Needs instructions on use, at this time unable to follow instructions on use. Medical management of other comorbidities per internal medicine, pulmonary/critical care medicine, infectious disease and general surgery. Continue to monitor daily chest x-rays. We will continue to follow the patient on an as-needed basis, please reconsult for further cardiothoracic surgery needs. Time with Patient: Less than 30
--- NOTE | 2024-09-13 11:13 | P.PN ---
Subjective Progress Note Date: 09/13/24 SURGICAL PROGRESS NOTE CHIEF COMPLAINT: Chest pain HISTORY OF PRESENT ILLNESS: Patient is status post flex sigmoidoscopy for disimpaction on 09/01/24. Patient denies any abdominal pain. Last bowel moveme nt charted 09/11. Patient had chest tube removed yesterday. PHYSICAL EXAM: VITAL SIGNS: Reviewed. GENERAL: in no acute distress. ABDOMEN: Soft. Nontender ASSESSMENT: 1. Fecal impaction status post flexible sigmoidoscopy with disimpaction PLAN: - Continue a good bowel regimen - Continue lactulose Physician Rubber Roller Grinder note has been reviewed by physician. Signing provider agrees with the documented findings, assessment, and plan of care. Objective - Vital Signs Vital signs: Vital Signs Temp 97.7 F 09/13/24 08:00 Pulse 72 09/13/24 08:00 Resp 18 09/13/24 08:00 BP 117/74 09/13/24 08:00 Pulse Ox 96 09/13/24 08:00 FiO2 21 09/07/24 08:59 Intake & Output 09/12/24 09/13/24 09/13/24 18:59 06:59 18:59 Intake Total 480 Output Total 3150 1275 500 Balance -3150 -1275 -20 Weight 93.5 kg Intake: Oral 480 Output: Urine 3150 1275 500 Other: Voiding Method Indwelling Catheter Indwelling Catheter Indwelling Catheter - Labs CBC & Chem 7: 09/12/24 07:12 09/11/24 07:35
[2024-09-13 15:20] VITALS: BMI 27.9
--- NOTE | 2024-09-13 16:41 | P.PN ---
Subjective Progress Note Date: 09/12/24 Principal diagnosis: Reason for follow-up is pneumonia/empyema/effusion Patient is a 64-year-old male with a past medical history significant for coronary disease ,HLD, schizophrenia, cognitive deficits, and pneumonia. Patient has been brought to the hospital concerning for increasing shortness of breath and cough did have a CT with a large right-sided effusion status post chest tube placement.Patient is status post right thoracoscopy and decortication and chest tube placement completed on 09/09/2024 no OR cultures On today's evaluation that is 09/12/2024, patient has been afebrile, patient is breathing comfortably and is currently on room air, patient denies having any chest pain and cough, patient denies nausea vomiting or diarrhea and no abdominal pain. Patient white count 6.82 creatinine 0.61 Objective - Vital Signs Vital signs: Vital Signs Temp 97.7 F 09/12/24 03:33 Pulse 70 09/12/24 12:49 Resp 18 09/12/24 12:49 BP 119/66 09/12/24 07:57 Pulse Ox 94 L 09/12/24 07:57 FiO2 21 09/07/24 08:59 Intake & Output 09/11/24 09/12/24 09/12/24 18:59 06:59 18:59 Intake Total 558 Output Total 610 1025 1300 Balance -52 -1025 -1300 Weight 95.5 kg Intake: Oral 558 Output: Chest Tube Drainage 10 0 Pleural Catheter Right 10 0 Posterior Chest Urine 600 1025 1300 Other: Voiding Method Indwelling Catheter Indwelling Catheter Indwelling Catheter # Bowel Movements 1 - Exam GENERAL DESCRIPTION: An elderly male up in bed in no distress RESPIRATORY SYSTEM: Unlabored breathing , coarse breath sounds bilaterally HEART: S1 S2 regular rate and rhythm , ABDOMEN: Soft , no tenderness EXTREMITIES: No edema feet - Labs CBC & Chem 7: 09/12/24 07:12 09/11/24 07:35 Labs: Abnormal Lab Results - Last 24 Hours (Table) 09/12/24 09/12/24 Range/Units 07:12 07:12 RBC 3.10 L (4.40-5.60) 10*6/uL Hgb 8.1 L (13.0-17.0) g/dL Hct 26.3 L (39.6-50.0) % MCH 26.1 L (27.0-32.0) pg MCHC 30.8 L (32.0-37.0) g/dL MPV 9.4 L (9.5-12.2) fL Prealbumin 9.1 L (18.0-42.0) mg/dL Assessment and Plan (1) Pneumonia Current Visit: Yes Status: Acute Code(s): J18.9 - PNEUMONIA, UNSPECIFIED ORGANISM SNOMED Code(s): 000268933 (2) Sepsis Current Visit: Yes Status: Acute Code(s): A41.9 - SEPSIS, UNSPECIFIED ORGANISM SNOMED Code(s): 42376365 Plan: 1patient presented hospital with sepsis in this patient who did have fever tachycardia hypotension elevated white count meeting criteria for SIRS/sepsis source likely complicated pneumonia right-sided with large effusion and question of parapneumonic effusion/empyema in this patient who is facility resident will need to cover for resistant gram-positive as well as gram-negative pathogen 2-patient is status post IR placement of a chest tube and fluid culture have been negative patient subsequently had persistent effusion and status post right thoracoscopy decortication and chest tube placement by CT surgery on 09/09/2024 no cultures were done 3-patient remains to be afebrile white count has been normal 4currently being treated with Rocephin and monitor clinical course closely Dictation was produced using [employer] dictation software. please excuse any grammatical, word or spelling errors. Time with Patient: Less than 30
--- NOTE | 2024-09-13 16:42 | P.PN ---
Subjective Progress Note Date: 09/13/24 Principal diagnosis: Reason for follow-up is pneumonia/empyema/effusion Patient is a 64-year-old male with a past medical history significant for coronary disease ,HLD, schizophrenia, cognitive deficits, and pneumonia. Patient has been brought to the hospital concerning for increasing shortness of breath and cough did have a CT with a large right-sided effusion status post chest tube placement.Patient is status post right thoracoscopy and decortication and chest tube placement completed on 09/09/2024 no OR cultures.Patient right- sided chest tube has been discontinued on 09/12/2024 On today's evaluation that is 09/13/2024, Patient is afebrile this morning patient denies having any chest pain shortness of breath or cough, the patient is currently on room air, patient denies any abdominal pain no diarrhea no nausea no vomiting. No new lab was obtained today Objective - Vital Signs Vital signs: Vital Signs Temp 97.9 F 09/13/24 16:00 Pulse 70 09/13/24 16:00 Resp 18 09/13/24 16:00 BP 124/74 09/13/24 16:00 Pulse Ox 95 09/13/24 16:00 FiO2 21 09/07/24 08:59 Intake & Output 09/12/24 09/13/24 09/13/24 18:59 06:59 18:59 Intake Total 1140 Output Total 3150 1275 1675 Balance -3150 -1275 -535 Weight 93.5 kg 93.5 kg Intake: Oral 1140 Output: Urine 3150 1275 1675 Other: Voiding Method Indwelling Catheter Indwelling Catheter Indwelling Catheter - Exam GENERAL DESCRIPTION: An elderly male up in bed in no distress RESPIRATORY SYSTEM: Unlabored breathing , coarse breath sounds bilaterally HEART: S1 S2 regular rate and rhythm , ABDOMEN: Soft , no tenderness EXTREMITIES: No edema feet - Labs CBC & Chem 7: 09/12/24 07:12 09/11/24 07:35 Assessment and Plan (1) Pneumonia Current Visit: Yes Status: Acute Code(s): J18.9 - PNEUMONIA, UNSPECIFIED ORGANISM SNOMED Code(s): 482293839 (2) Sepsis Current Visit: Yes Status: Acute Code(s): A41.9 - SEPSIS, UNSPECIFIED ORGANISM SNOMED Code(s): 03363368 Plan: 1patient presented hospital with sepsis in this patient who did have fever tachycardia hypotension elevated white count meeting criteria for SIRS/sepsis source likely complicated pneumonia right-sided with large effusion and question of parapneumonic effusion/empyema in this patient who is facility resident will need to cover for resistant gram-positive as well as gram-negative pathogen 2-patient is status post IR placement of a chest tube and fluid culture have been negative patient subsequently had persistent effusion and status post right thoracoscopy decortication and chest tube placement by CT surgery on 09/09/2024 no cultures were done 3-patient remains to be afebrile white count has been normal, we will continue to treat the patient with Rocephin while in patient will continue supportive care Dictation was produced using [employer] dictation software. please excuse any grammatical, word or spelling errors. Time with Patient: Less than 30
--- NOTE | 2024-09-13 21:32 | P.PN ---
Subjective Progress Note Date: 09/13/24 On 09/12/2024, the patient is being seen for a follow-up. The patient is doing extremely well and the patient is currently on room air oxygen. Denies having any specific complaints. No respiratory difficulties and the patient resting comfortably in bed. The patient is post op day #3 following a right t horacoscopy and decortication and single level intercostal nerve block. Comorbidities include coronary artery disease, hyperlipidemia, anemia, schizophrenia/anxiety/depression. The right-sided chest tube is still in place and output is minimal at this point in time in order of 20 cc over the past 24 hours. Cardiac rhythm is sinus. The patient remains hemodynamically stable. Chest x-ray was reviewed and the patient has demonstrated no acute abnormalities. The patient has relatively similar findings on the right side with right-sided chest tube in place and there is minimal motor subcutaneous emphysema there is also mild cardiomegaly and perihilar patchy pulmonary infiltrates in addition to infiltrate in the mid and the lower lung luna. The patient is hemodynamically stable. All of the cultures have been negative. On 09/13/2024, the patient is being seen for a follow-up. Patient is resting comfortably in bed and the patient remains on room air oxygen. The patient is postop day #4 following a right thoracoscopy and decortication. Denies having any specific complaints. No respiratory difficulties. No chest pain. No significant shortness of breath. Doppler from the right-sided chest tube was minimal at this chest tube was removed. A follow-up chest x-ray was done and it shows no evidence of a pneumothorax and the patient's chest x-ray revealed a small right-sided pleural effusion and patchy opacity in the right lower lobe and interstitial changes persist but they are improving. The patient remains on IV Rocephin. Rest of the medications remain unchanged. Afebrile. Hemodynamically stable. The labs from yesterday was noted. No new labs are available from today. Using the incentive spirometer. Tolerating diet with no nausea vomiting or emesis. No other complaints otherwise. Objective - Vital Signs Vital signs: Vital Signs Temp 97.7 F 09/13/24 08:00 Pulse 70 09/13/24 11:38 Resp 17 09/13/24 11:38 BP 116/71 09/13/24 11:38 Pulse Ox 94 L 09/13/24 11:38 FiO2 21 09/07/24 08:59 Intake & Output 09/12/24 09/13/24 09/13/24 18:59 06:59 18:59 Intake Total 480 Output Total 3150 1275 975 Balance -3150 -1275 -495 Weight 93.5 kg Intake: Oral 480 Output: Urine 3150 1275 975 Other: Voiding Method Indwelling Catheter Indwelling Catheter Indwelling Catheter - Exam CONSTITUTIONAL: Appears calm, cooperative RESPIRATORY: Lungs sounds diminished in the bases, right greater than left. Respirations symmetrical, non labored. Currently on room air with oxygen saturation 95% CARDIOVASCULAR: S1, S2 present. Regular rate and rhythm, sinus rhythm on telemetry. Palpable peripheral pulses bilaterally. No calf pain or tenderness noted. SCDs present. GASTROINTESTINAL: Abdomen soft, nontender, nondistended. Active bowel sounds present 4 quadrants. Bowel movement yesterday September 11, 2024 GENITOURINARY: Salcido present draining clear fuentes urine. Urine output 500 milliliters in the last 8 hours. INTEGUMENTARY: Skin is warm and dry. No clubbing or cyanosis is present. Right thoracic chest incisions clean, dry and intact. NEUROLOGIC: No focal deficits. MUSKULOSKELETAL: Able to move all extremities, strength equal bilaterally PSYCHIATRIC: Alert and oriented to person place - Labs CBC & Chem 7: 09/12/24 07:12 09/11/24 07:35 Assessment and Plan Plan: Complicated right sided parapneumonic loculated pleural effusion, with compressive atelectasis and the patient is status post right thoracoscopy and decortication and single nerve level intercostal block and the patient is postop day # 4. The right-sided chest tube was removed. Chest x-ray shows persistent opacification of the right lung base. No evidence of any pneumothorax. No sizable pleural effusion. Right perihilar and right lower lobe pulmonary filtration, remains on IV Rocephin Acute hypoxemic respiratory failure, currently on room air, improved. Obstipation, improved. Hypotension and shock, resolved. Sinus tachycardia. Acute leukocytosis, improved SIRS/sepsis. History of schizoaffective disorder/bipolar disorder. History of hyperlipidemia. Plan: This patient is doing well and the patient is currently on room air oxygen Continue IV Rocephin Right-sided chest tubes were removed Incentive spirometer Hemodynamically stable Subcu heparin for DVT prophylaxis Dilaudid for pain control [place] for pain control Overall condition is stable.
--- NOTE | 2024-09-14 03:09 | PN ---
PROGRESS NOTE DATE OF SERVICE: 09/12/2024 CHIEF COMPLAINT: Right lower lobe pneumonitis with sepsis and pleural effusion. HISTORY OF PRESENT ILLNESS: This gentleman is improving. He is respiring on his own. Chest tube still in place. PHYSICAL EXAMINATION: RESPIRATORY: Chest demonstrates improved breath sounds on the right side. CARDIAC: Normal. ABDOMEN: Soft, nontender. IMPRESSION: Bronchial pneumonia with right pleural effusion. PLAN: Continue to progress activity and chest tube may be coming out in the next day or two. MMODL / IJN: [id number] /
--- NOTE | 2024-09-14 03:53 | PN ---
PROGRESS NOTE CHIEF COMPLAINT: Right lower lobe pneumonitis with pleural effusion. HISTORY OF PRESENT ILLNESS: This gentleman is stable. He seems a little bit more alert and communicative. Catheter has been removed from the chest. PHYSICAL EXAMINATION: RESPIRATORY: Breath sounds are heard bilaterally. CARDIAC: Normal. ABDOMEN: Soft and nontender. IMPRESSION: Right lower lobe pneumonitis with sepsis and right pleural effusion. PLAN: Increase activity and start to consider where he will go after the hospital. MMODL / IJN: [id number] /
--- NOTE | 2024-09-14 10:50 | P.PN ---
Subjective Progress Note Date: 09/14/24 SURGICAL PROGRESS NOTE CHIEF COMPLAINT: Chest pain HISTORY OF PRESENT ILLNESS: Patient is status post flex sigmoidoscopy for disimpaction on 09/01/24. Patient denies any abdominal pain. Patient had bowel movement yesterday. PHYSICAL EXAM: VITAL SIGNS: Reviewed. GENERAL: in no acute distress. ABDOMEN: Soft. Nontender ASSESSMENT: 1. Fecal impaction status post flexible sigmoidoscopy with disimpaction PLAN: - Continue a good bowel regimen - Surgical service will sign off. Please call with any questions or concerns [employer] Control Operators Supervisor note has been reviewed by physician. Signing provider agrees with the documented findings, assessment, and plan of care. Objective - Vital Signs Vital signs: Vital Signs Temp 98.2 F 09/14/24 08:00 Pulse 72 09/14/24 09:13 Resp 18 09/14/24 08:00 BP 118/74 09/14/24 08:00 Pulse Ox 94 L 09/14/24 08:00 FiO2 21 09/07/24 08:59 Intake & Output 09/13/24 09/14/24 09/14/24 18:59 06:59 18:59 Intake Total 1258 540 240 Output Total 1974 1200 450 Balance -717 -660 -210 Weight 93.5 kg 94 kg Intake: Oral 1258 540 240 Output: Urine 1974 1200 450 Other: Voiding Method Indwelling Catheter Indwelling Catheter Indwelling Catheter # Bowel Movements 1 - Labs CBC & Chem 7: 09/12/24 07:12 09/11/24 07:35
--- NOTE | 2024-09-14 20:28 | P.PN ---
Subjective Progress Note Date: 09/14/24 On 09/12/2024, the patient is being seen for a follow-up. The patient is doing extremely well and the patient is currently on room air oxygen. Denies having any specific complaints. No respiratory difficulties and the patient resting comfortably in bed. The patient is post op day #3 following a right t horacoscopy and decortication and single level intercostal nerve block. Comorbidities include coronary artery disease, hyperlipidemia, anemia, schizophrenia/anxiety/depression. The right-sided chest tube is still in place and output is minimal at this point in time in order of 20 cc over the past 24 hours. Cardiac rhythm is sinus. The patient remains hemodynamically stable. Chest x-ray was reviewed and the patient has demonstrated no acute abnormalities. The patient has relatively similar findings on the right side with right-sided chest tube in place and there is minimal motor subcutaneous emphysema there is also mild cardiomegaly and perihilar patchy pulmonary infiltrates in addition to infiltrate in the mid and the lower lung luna. The patient is hemodynamically stable. All of the cultures have been negative. On 09/13/2024, the patient is being seen for a follow-up. Patient is resting comfortably in bed and the patient remains on room air oxygen. The patient is postop day #4 following a right thoracoscopy and decortication. Denies having any specific complaints. No respiratory difficulties. No chest pain. No significant shortness of breath. Doppler from the right-sided chest tube was minimal at this chest tube was removed. A follow-up chest x-ray was done and it shows no evidence of a pneumothorax and the patient's chest x-ray revealed a small right-sided pleural effusion and patchy opacity in the right lower lobe and interstitial changes persist but they are improving. The patient remains on IV Rocephin. Rest of the medications remain unchanged. Afebrile. Hemodynamically stable. The labs from yesterday was noted. No new labs are available from today. Using the incentive spirometer. Tolerating diet with no nausea vomiting or emesis. No other complaints otherwise. 09/14/2024, the patient is being seen for a follow-up. The patient is resting comfortably in bed. No specific complaints. No major respiratory difficulties and the patient remains on room air oxygen. The white cell count is 6.8 with a hemoglobin 8.1. No other labs are available and chemistry from yesterday was essentially within normal limits. Remains on IV Rocephin. Medications remain unchanged. The patient is a poor historian. He provides limited history. Harveye helariana, he denies having any specific complaints. He is having bowel movements. He is post op day #5 following a telescopic right lung decortication and single level intercostal nerve block. No cough. No sputum production. No pleurisy or hemoptysis. Objective - Vital Signs Vital signs: Vital Signs Temp 98.2 F 09/14/24 08:00 Pulse 72 09/14/24 09:13 Resp 18 09/14/24 13:16 BP 118/74 09/14/24 08:00 Pulse Ox 94 L 09/14/24 08:00 FiO2 21 09/07/24 08:59 Intake & Output 09/13/24 09/14/24 09/14/24 18:59 06:59 18:59 Intake Total 1258 540 240 Output Total 1974 1200 450 Balance -717 -660 -210 Weight 93.5 kg 94 kg Intake: Oral 1258 540 240 Output: Urine 1974 1200 450 Other: Voiding Method Indwelling Catheter Indwelling Catheter Indwelling Catheter # Bowel Movements 1 - Exam CONSTITUTIONAL: Appears calm, cooperative RESPIRATORY: Lungs sounds diminished in the bases, right greater than left. Respirations symmetrical, non labored. Currently on room air with oxygen saturation 95% CARDIOVASCULAR: S1, S2 present. Regular rate and rhythm, sinus rhythm on telemetry. Palpable peripheral pulses bilaterally. No calf pain or tenderness noted. SCDs present. GASTROINTESTINAL: Abdomen soft, nontender, nondistended. Active bowel sounds present 4 quadrants. Bowel movement yesterday September 11, 2024 GENITOURINARY: Salcido present draining clear fuentes urine. Urine output 500 milliliters in the last 8 hours. INTEGUMENTARY: Skin is warm and dry. No clubbing or cyanosis is present. Right thoracic chest incisions clean, dry and intact. NEUROLOGIC: No focal deficits. MUSKULOSKELETAL: Able to move all extremities, strength equal bilaterally PSYCHIATRIC: Alert and oriented to person place - Labs CBC & Chem 7: 09/12/24 07:12 09/11/24 07:35 Assessment and Plan Plan: Complicated right sided parapneumonic loculated pleural effusion, with compressive atelectasis and the patient is status post right thoracoscopy and decortication and single nerve level intercostal block and the patient is postop day # 5. The right-sided chest tube was removed. Chest x-ray shows persistent opacification of the right lung base. No evidence of any pneumothorax. No sizable pleural effusion. Right perihilar and right lower lobe pulmonary filtration, remains on IV Rocephin Acute hypoxemic respiratory failure, currently on room air, improved. Obstipation, improved. Hypotension and shock, resolved. Sinus tachycardia, improved Acute leukocytosis, improved SIRS/sepsis, recovered History of schizoaffective disorder/bipolar disorder. History of hyperlipidemia. Plan: This patient is doing well and the patient is currently on room air oxygen Continue IV Rocephin, transition to oral antibiotics per ID. Right-sided chest tubes were removed Incentive spirometer Hemodynamically stable Subcu heparin for DVT prophylaxis Dilaudid for pain control [place] for pain control Overall condition is stable. Discharge planning is in progress.
--- NOTE | 2024-09-14 22:50 | PN ---
PROGRESS NOTE CHIEF COMPLAINT: Sepsis with right lower lobe pneumonitis and effusion. HISTORY OF PRESENT ILLNESS: This gentleman continues to slowly improve. Chest tube is out and he has been afebrile. PHYSICAL EXAMINATION: RESPIRATORY: Breath sounds are diminished at the right base, but otherwise they are heard throughout. CARDIAC: Normal. ABDOMEN: Soft and nontender. IMPRESSION: 1. Acute respiratory failure. 2. Sepsis. 3. Septic shock. 4. Right pleural effusion. 5. Right lower lobe pneumonitis. PLAN: Continue with increasing activity and start to work on a discharge plan. MMODL / IJN: [id number] /
--- NOTE | 2024-09-15 16:25 | P.PN ---
Subjective Progress Note Date: 09/14/24 Principal diagnosis: Reason for follow-up is pneumonia/empyema/effusion Patient is a 64-year-old male with a past medical history significant for coronary disease ,HLD, schizophrenia, cognitive deficits, and pneumonia. Patient has been brought to the hospital concerning for increasing shortness of breath and cough did have a CT with a large right-sided effusion status post chest tube placement.Patient is status post right thoracoscopy and decortication and chest tube placement completed on 09/09/2024 no OR cultures.Patient right- sided chest tube has been discontinued on 09/12/2024 On today's evaluation that is 09/14/2024,the patient denies any fever or any chills, patient is breathing comfortably on room air, the patient denies chest pain shortness of breath and no significant cough, patient denies abdominal pain, no nausea vomiting or diarrhea. Patient did not have a lab draw today Objective - Vital Signs Vital signs: Vital Signs Temp 98.2 F 09/14/24 08:00 Pulse 72 09/14/24 09:13 Resp 18 09/14/24 13:16 BP 118/74 09/14/24 08:00 Pulse Ox 94 L 09/14/24 08:00 FiO2 21 09/07/24 08:59 Intake & Output 09/13/24 09/14/24 09/14/24 18:59 06:59 18:59 Intake Total 1258 540 240 Output Total 1974 1200 450 Balance -717 -660 -210 Weight 93.5 kg 94 kg Intake: Oral 1258 540 240 Output: Urine 1974 1200 450 Other: Voiding Method Indwelling Catheter Indwelling Catheter Indwelling Catheter # Bowel Movements 1 - Exam GENERAL DESCRIPTION: An elderly male up in bed in no distress RESPIRATORY SYSTEM: Unlabored breathing , coarse breath sounds bilaterally HEART: S1 S2 regular rate and rhythm , ABDOMEN: Soft , no tenderness EXTREMITIES: No edema feet - Labs CBC & Chem 7: 09/12/24 07:12 09/11/24 07:35 Assessment and Plan (1) Pneumonia Current Visit: Yes Status: Acute Code(s): J18.9 - PNEUMONIA, UNSPECIFIED ORGANISM SNOMED Code(s): 975247614 (2) Sepsis Current Visit: Yes Status: Acute Code(s): A41.9 - SEPSIS, UNSPECIFIED ORGANISM SNOMED Code(s): 85373087 Plan: 1patient presented hospital with sepsis in this patient who did have fever tachycardia hypotension elevated white count meeting criteria for SIRS/sepsis source likely complicated pneumonia right-sided with large effusion and question of parapneumonic effusion/empyema in this patient who is facility resident will need to cover for resistant gram-positive as well as gram-negative pathogen 2-patient is status post IR placement of a chest tube and fluid culture have been negative patient subsequently had persistent effusion and status post right thoracoscopy decortication and chest tube placement by CT surgery on 09/09/2024 no cultures were done 3-patient remains to be afebrile white count has been normal, patient did have a PICC line placement has we will continue the patient on IV Rocephin for another 10 days Dictation was produced using [employer] dictation software. please excuse any grammatical, word or spelling errors. Time with Patient: Less than 30
--- NOTE | 2024-09-15 16:26 | P.PN ---
Subjective Progress Note Date: 09/15/24 Principal diagnosis: Reason for follow-up is pneumonia/empyema/effusion Patient is a 64-year-old male with a past medical history significant for coronary disease ,HLD, schizophrenia, cognitive deficits, and pneumonia. Patient has been brought to the hospital concerning for increasing shortness of breath and cough did have a CT with a large right-sided effusion status post chest tube placement.Patient is status post right thoracoscopy and decortication and chest tube placement completed on 09/09/2024 no OR cultures.Patient right- sided chest tube has been discontinued on 09/12/2024 On today's evaluation that is 09/15/2024,the patient remains to be afebrile, patient is on room air not requiring supplemental oxygen and denies any shortness of breath no chest pain or cough.Patient denies having any nausea or vomiting, no abdominal pain and no diarrhea has been reported. No new labs drawn Objective - Vital Signs Vital signs: Vital Signs Temp 98.3 F 09/15/24 08:43 Pulse 70 09/15/24 12:14 Resp 18 09/15/24 12:14 BP 98/57 09/15/24 12:14 Pulse Ox 94 L 09/15/24 12:14 FiO2 21 09/07/24 08:59 Intake & Output 09/14/24 09/15/24 09/15/24 18:59 06:59 18:59 Intake Total 358 610 Output Total 2175 2150 725 Balance -1817 -0 -115 Weight 92 kg Intake: IV 10 Invasive Line 7 10 Oral 358 600 Output: Urine 2175 2150 725 Other: Voiding Method Indwelling Catheter Indwelling Catheter Indwelling Catheter - Exam GENERAL DESCRIPTION: An elderly male up in bed in no distress RESPIRATORY SYSTEM: Unlabored breathing , coarse breath sounds bilaterally HEART: S1 S2 regular rate and rhythm , ABDOMEN: Soft , no tenderness EXTREMITIES: No edema feet - Labs CBC & Chem 7: 09/12/24 07:12 09/11/24 07:35 Assessment and Plan (1) Pneumonia Current Visit: Yes Status: Acute Code(s): J18.9 - PNEUMONIA, UNSPECIFIED ORGANISM SNOMED Code(s): 554825844 (2) Sepsis Current Visit: Yes Status: Acute Code(s): A41.9 - SEPSIS, UNSPECIFIED ORGANISM SNOMED Code(s): 99455302 Plan: 1patient presented hospital with sepsis in this patient who did have fever tachycardia hypotension elevated white count meeting criteria for SIRS/sepsis source likely complicated pneumonia right-sided with large effusion and question of parapneumonic effusion/empyema in this patient who is facility resident will need to cover for resistant gram-positive as well as gram-negative pathogen 2-patient is status post IR placement of a chest tube and fluid culture have been negative patient subsequently had persistent effusion and status post right thoracoscopy decortication and chest tube placement by CT surgery on 09/09/2024 no cultures were done 3-patient remains to be afebrile white count has been normal, 4patient currently being treated with IV Rocephin to continue for short course on discharge currently waiting for placement Dictation was produced using [employer] dictation software. please excuse any grammatical, word or spelling errors. Time with Patient: Less than 30
[2024-09-15 16:30] VITALS: RESP 16
--- NOTE | 2024-09-15 18:00 | P.PN ---
Subjective Progress Note Date: 09/15/24 On 09/12/2024, the patient is being seen for a follow-up. The patient is doing extremely well and the patient is currently on room air oxygen. Denies having any specific complaints. No respiratory difficulties and the patient resting comfortably in bed. The patient is post op day #3 following a right t horacoscopy and decortication and single level intercostal nerve block. Comorbidities include coronary artery disease, hyperlipidemia, anemia, schizophrenia/anxiety/depression. The right-sided chest tube is still in place and output is minimal at this point in time in order of 20 cc over the past 24 hours. Cardiac rhythm is sinus. The patient remains hemodynamically stable. Chest x-ray was reviewed and the patient has demonstrated no acute abnormalities. The patient has relatively similar findings on the right side with right-sided chest tube in place and there is minimal motor subcutaneous emphysema there is also mild cardiomegaly and perihilar patchy pulmonary infiltrates in addition to infiltrate in the mid and the lower lung luna. The patient is hemodynamically stable. All of the cultures have been negative. On 09/13/2024, the patient is being seen for a follow-up. Patient is resting comfortably in bed and the patient remains on room air oxygen. The patient is postop day #4 following a right thoracoscopy and decortication. Denies having any specific complaints. No respiratory difficulties. No chest pain. No significant shortness of breath. Doppler from the right-sided chest tube was minimal at this chest tube was removed. A follow-up chest x-ray was done and it shows no evidence of a pneumothorax and the patient's chest x-ray revealed a small right-sided pleural effusion and patchy opacity in the right lower lobe and interstitial changes persist but they are improving. The patient remains on IV Rocephin. Rest of the medications remain unchanged. Afebrile. Hemodynamically stable. The labs from yesterday was noted. No new labs are available from today. Using the incentive spirometer. Tolerating diet with no nausea vomiting or emesis. No other complaints otherwise. 09/14/2024, the patient is being seen for a follow-up. The patient is resting comfortably in bed. No specific complaints. No major respiratory difficulties and the patient remains on room air oxygen. The white cell count is 6.8 with a hemoglobin 8.1. No other labs are available and chemistry from yesterday was essentially within normal limits. Remains on IV Rocephin. Medications remain unchanged. The patient is a poor historian. He provides limited history. Elsa rodriguez, he denies having any specific complaints. He is having bowel movements. He is post op day #5 following a telescopic right lung decortication and single level intercostal nerve block. No cough. No sputum production. No pleurisy or hemoptysis. On 09/15/2024, the patient is being seen for a follow-up. The patient is resting comfortably in bed. The patient denies having any new complaints. Awaiting discharge. Afebrile. Remains on IV Rocephin. Hemodynamically stable. No recent labs from today. Awaiting discharge and placement. The patient is post right thoracoscopy decortication and all of the cultures have been negative. Objective - Vital Signs Vital signs: Vital Signs Temp 98.3 F 09/15/24 08:43 Pulse 68 09/15/24 09:33 Resp 16 09/15/24 08:43 BP 97/62 09/15/24 08:43 Pulse Ox 96 09/15/24 09:25 FiO2 21 09/07/24 08:59 Intake & Output 09/14/24 09/15/24 09/15/24 18:59 06:59 18:59 Intake Total 358 370 Output Total 2175 2150 725 Balance -7 -2149 -355 Weight 92 kg Intake: IV 10 Invasive Line 7 10 Oral 358 360 Output: Urine 5 2150 725 Other: Voiding Method Indwelling Catheter Indwelling Catheter Indwelling Catheter - Exam CONSTITUTIONAL: Appears calm, cooperative RESPIRATORY: Lungs sounds diminished in the bases, right greater than left. Respirations symmetrical, non labored. Currently on room air with oxygen saturation 95% CARDIOVASCULAR: S1, S2 present. Regular rate and rhythm, sinus rhythm on telemetry. Palpable peripheral pulses bilaterally. No calf pain or tenderness noted. SCDs present. GASTROINTESTINAL: Abdomen soft, nontender, nondistended. Active bowel sounds present 4 quadrants. Bowel movement yesterday September 11, 2024 GENITOURINARY: Salcido present draining clear fuentes urine. Urine output 500 milliliters in the last 8 hours. INTEGUMENTARY: Skin is warm and dry. No clubbing or cyanosis is present. Right thoracic chest incisions clean, dry and intact. NEUROLOGIC: No focal deficits. MUSKULOSKELETAL: Able to move all extremities, strength equal bilaterally PSYCHIATRIC: Alert and oriented to person place - Labs CBC & Chem 7: 09/12/24 07:12 09/11/24 07:35 Assessment and Plan Plan: Complicated right sided parapneumonic loculated pleural effusion, with compressive atelectasis and the patient is status post right thoracoscopy and decortication and single nerve level intercostal block and the patient is postop day # 6. The right-sided chest tube was removed. Chest x-ray shows persistent opacification of the right lung base. No evidence of any pneumothorax. No sizable pleural effusion. Right perihilar and right lower lobe pulmonary filtration, remains on IV Rocephin Acute hypoxemic respiratory failure, currently on room air, improved. Obstipation, improved. Hypotension and shock, resolved. Sinus tachycardia, improved Acute leukocytosis, improved SIRS/sepsis, recovered History of schizoaffective disorder/bipolar disorder. History of hyperlipidemia. Plan: This patient is doing well and the patient is currently on room air oxygen, clinically stable and the patient is awaiting placement/discharge Continue IV Rocephin, transition to oral antibiotics per ID. Right-sided chest tubes were removed Incentive spirometer Hemodynamically stable Subcu heparin for DVT prophylaxis Dilaudid for pain control [place] for pain control Overall condition is stable. Discharge planning is in progress.
--- NOTE | 2024-09-15 23:27 | PN ---
PROGRESS NOTE CHIEF COMPLAINT: Status post septic shock with pneumonitis. HISTORY OF PRESENT ILLNESS: This gentleman continues to slowly improve. He has been afebrile. PHYSICAL EXAMINATION: LUNGS: Breath sounds are heard bilaterally. CARDIAC: Normal. ABDOMEN: Soft, nontender. IMPRESSION: 1. Septic shock. 2. Right lower lobe pneumonitis with effusion. 3. Mental debility. PLAN: Probably home soon. Discharge location is unclear. MMODL / IJN: [id number] /
[2024-09-16 08:55] VITALS: TEMP 97.5
[2024-09-16] MEDS: traMADol 50 MG TAB PO PRN (09:10)
[2024-09-16 12:33] VITALS: BP 104/65; PULSE 70
--- NOTE | 2024-09-16 16:33 | P.PN ---
Subjective Progress Note Date: 09/16/24 Principal diagnosis: Reason for follow-up is pneumonia/empyema/effusion Patient is a 64-year-old male with a past medical history significant for coronary disease ,HLD, schizophrenia, cognitive deficits, and pneumonia. Patient has been brought to the hospital concerning for increasing shortness of breath and cough did have a CT with a large right-sided effusion status post chest tube placement.Patient is status post right thoracoscopy and decortication and chest tube placement completed on 09/09/2024 no OR cultures.Patient right- sided chest tube has been discontinued on 09/12/2024 On today's evaluation that is 09/16/2024, the patient continues to be afebrile, the patient is on room air and breathing comfortably, the Pt denies having any chest pain or cough, the patient denies having any abdominal pain no vomiting or any diarrhea has been reported by the nursing staff. No new labs has been obtained today culture have been negative Objective - Vital Signs Vital signs: Vital Signs Temp 97.5 F L 09/16/24 08:54 Pulse 70 09/16/24 12:32 Resp 16 09/16/24 12:32 BP 104/65 09/16/24 12:32 Pulse Ox 96 09/16/24 12:32 FiO2 21 09/07/24 08:59 Intake & Output 09/15/24 09/16/24 09/16/24 18:59 06:59 18:59 Intake Total 1150 100 Output Total 7383 784 8368 Balance -023 -416 -1250 Weight 92.1 kg Intake: IV 10 Invasive Line 7 10 Oral 1140 100 Output: Urine 1742 700 2511 Other: Voiding Method Indwelling Catheter Indwelling Catheter Indwelling Catheter - Exam GENERAL DESCRIPTION: An elderly male up in bed in no distress RESPIRATORY SYSTEM: Unlabored breathing , coarse breath sounds bilaterally HEART: S1 S2 regular rate and rhythm , ABDOMEN: Soft , no tenderness EXTREMITIES: No edema feet - Labs CBC & Chem 7: 09/12/24 07:12 09/11/24 07:35 Labs: Microbiology - Last 24 Hours (Table) 08/31/24 11:40 Acid Fast Bacilli Smear - Preliminary Pleural Fluid Acid Fast Bacilli Culture - Preliminary Assessment and Plan (1) Pneumonia Status: Acute Code(s): J18.9 - PNEUMONIA, UNSPECIFIED ORGANISM SNOMED Code(s): 623967274 (2) Sepsis Status: Acute Code(s): A41.9 - SEPSIS, UNSPECIFIED ORGANISM SNOMED Code(s): 32357937 Plan: 1patient presented hospital with sepsis in this patient who did have fever tachycardia hypotension elevated white count meeting criteria for SIRS/sepsis source likely complicated pneumonia right-sided with large effusion and question of parapneumonic effusion/empyema in this patient who is facility resident will need to cover for resistant gram-positive as well as gram-negative pathogen 2-patient is status post IR placement of a chest tube and fluid culture have been negative patient subsequently had persistent effusion and status post right thoracoscopy decortication and chest tube placement by CT surgery on 09/09/2024 no cultures were done 3-patient remains to be afebrile white count has been normal, 4patient currently waiting for placement plan is to continue with IV Rocephin for about 7 to 10 days on discharge Dictation was produced using [employer] dictation software. please excuse any grammatical, word or spelling errors. Time with Patient: Less than 30
--- NOTE | 2024-09-16 17:23 | DS ---
DISCHARGE SUMMARY CHIEF COMPLAINT: Fever, hypotension and septic shock. HISTORY OF PRESENT ILLNESS AND PHYSICAL EXAMINATION: Details of this man's history and physical can be found in the initial workup. LABORATORY STUDIES: While he is in the hospital he had laboratory studies, details of which can be found in the laboratory section of his chart. COURSE IN THE HOSPITAL: After admission, he was placed on bedrest, started on intravenous fluids and treated for septic shock. He slowly responded. Blood pressure became more stabilized. Subsequently, he was found to have a right pleural effusion and chest tube was placed. He remained in the intensive care unit for several days. He was then eventually transferred to [facility] where he slowly improved and the chest tube was able to be removed. Finally, Infectious Disease and Pulmonology felt that he was cleared, had to leave the hospital. He will go back tomorrow with [place]. FINAL DIAGNOSES: 1. Right lower lobe pneumonitis. 2. Right-sided pleural effusion. 3. Septic shock. 4. Mental debility and schizophrenia. OPERATIONS: Insertion of chest tube. CONSULTATIONS: Infectious Disease and Intensive Medicine. MMODL / IJN: [id number] /
--- NOTE | 2024-09-16 18:50 | P.PN ---
Subjective Progress Note Date: 09/16/24 On 09/12/2024, the patient is being seen for a follow-up. The patient is doing extremely well and the patient is currently on room air oxygen. Denies having any specific complaints. No respiratory difficulties and the patient resting comfortably in bed. The patient is post op day #3 following a right t horacoscopy and decortication and single level intercostal nerve block. Comorbidities include coronary artery disease, hyperlipidemia, anemia, schizophrenia/anxiety/depression. The right-sided chest tube is still in place and output is minimal at this point in time in order of 20 cc over the past 24 hours. Cardiac rhythm is sinus. The patient remains hemodynamically stable. Chest x-ray was reviewed and the patient has demonstrated no acute abnormalities. The patient has relatively similar findings on the right side with right-sided chest tube in place and there is minimal motor subcutaneous emphysema there is also mild cardiomegaly and perihilar patchy pulmonary infiltrates in addition to infiltrate in the mid and the lower lung luna. The patient is hemodynamically stable. All of the cultures have been negative. On 09/13/2024, the patient is being seen for a follow-up. Patient is resting comfortably in bed and the patient remains on room air oxygen. The patient is postop day #4 following a right thoracoscopy and decortication. Denies having any specific complaints. No respiratory difficulties. No chest pain. No significant shortness of breath. Doppler from the right-sided chest tube was minimal at this chest tube was removed. A follow-up chest x-ray was done and it shows no evidence of a pneumothorax and the patient's chest x-ray revealed a small right-sided pleural effusion and patchy opacity in the right lower lobe and interstitial changes persist but they are improving. The patient remains on IV Rocephin. Rest of the medications remain unchanged. Afebrile. Hemodynamically stable. The labs from yesterday was noted. No new labs are available from today. Using the incentive spirometer. Tolerating diet with no nausea vomiting or emesis. No other complaints otherwise. 09/14/2024, the patient is being seen for a follow-up. The patient is resting comfortably in bed. No specific complaints. No major respiratory difficulties and the patient remains on room air oxygen. The white cell count is 6.8 with a hemoglobin 8.1. No other labs are available and chemistry from yesterday was essentially within normal limits. Remains on IV Rocephin. Medications remain unchanged. The patient is a poor historian. He provides limited history. Elsa rodriguez, he denies having any specific complaints. He is having bowel movements. He is post op day #5 following a telescopic right lung decortication and single level intercostal nerve block. No cough. No sputum production. No pleurisy or hemoptysis. On 09/15/2024, the patient is being seen for a follow-up. The patient is resting comfortably in bed. The patient denies having any new complaints. Awaiting discharge. Afebrile. Remains on IV Rocephin. Hemodynamically stable. No recent labs from today. Awaiting discharge and placement. The patient is post right thoracoscopy decortication and all of the cultures have been negative. On 09/16/2024, the patient is being seen for a follow-up. The patient is doing well. No specific complaints. Resting comfortably in bed. The patient is post right thoracoscopy and decortication that was done on 09/09/2024. The right side chest tube has been removed and the patient has been on room air oxygen. No specific complaints. Arrangements are being made to discharge this patient home. The patient is to continue IV Rocephin for a total of 10 days postdischarge. No other significant events otherwise for now. Resting comfortably in bed. No labs from today. Objective - Vital Signs Vital signs: Vital Signs Temp 97.5 F L 09/16/24 08:54 Pulse 73 09/16/24 08:54 Resp 16 09/16/24 08:54 BP 95/56 09/16/24 08:54 Pulse Ox 95 09/16/24 08:54 FiO2 21 09/07/24 08:59 Intake & Output 09/15/24 09/16/24 09/16/24 18:59 06:59 18:59 Intake Total 1150 100 Output Total 1725 875 600 Balance -575 -875 -500 Weight 92.1 kg Intake: IV 10 Invasive Line 7 10 Oral 1140 100 Output: Urine 1725 875 600 Other: Voiding Method Indwelling Catheter Indwelling Catheter Indwelling Catheter - Exam CONSTITUTIONAL: Appears calm, cooperative RESPIRATORY: Lungs sounds diminished in the bases, right greater than left. Respirations symmetrical, non labored. Currently on room air with oxygen saturation 95% CARDIOVASCULAR: S1, S2 present. Regular rate and rhythm, sinus rhythm on telemetry. Palpable peripheral pulses bilaterally. No calf pain or tenderness noted. SCDs present. GASTROINTESTINAL: Abdomen soft, nontender, nondistended. Active bowel sounds present 4 quadrants. Bowel movement yesterday September 11, 2024 GENITOURINARY: Salcido present draining clear fuentes urine. Urine output 500 milliliters in the last 8 hours. INTEGUMENTARY: Skin is warm and dry. No clubbing or cyanosis is present. Right thoracic chest incisions clean, dry and intact. NEUROLOGIC: No focal deficits. MUSKULOSKELETAL: Able to move all extremities, strength equal bilaterally PSYCHIATRIC: Alert and oriented to person place - Labs CBC & Chem 7: 09/12/24 07:12 09/11/24 07:35 Labs: Microbiology - Last 24 Hours (Table) 08/31/24 11:40 Acid Fast Bacilli Smear - Preliminary Pleural Fluid Acid Fast Bacilli Culture - Preliminary Assessment and Plan Plan: Complicated right sided parapneumonic loculated pleural effusion, with compressive atelectasis and the patient is status post right thoracoscopy and decortication and single nerve level intercostal block and the patient is postop day # 6. The right-sided chest tube was removed. Chest x-ray shows persistent opacification of the right lung base. No evidence of any pneumothorax. No sizable pleural effusion. Right perihilar and right lower lobe pulmonary filtration, remains on IV Rocephin Acute hypoxemic respiratory failure, currently on room air, improved. Obstipation, improved. Hypotension and shock, resolved. Sinus tachycardia, improved Acute leukocytosis, improved SIRS/sepsis, recovered History of schizoaffective disorder/bipolar disorder. History of hyperlipidemia. Plan: This patient is doing well and the patient is currently on room air oxygen, clinically stable To be discharged and complete a 10-day course of IV Rocephin on outpatient basis Respiratory status is stable Incentive spirometer Hemodynamically stable Subcu heparin for DVT prophylaxis [place] for pain control Overall condition is stable. Discharge planning is in progress.
== END 2024-09-16 15:59 | DRG 853 ==
LOC: EC 15:34 → 3SCARD 17:57 → 2SICU 08-31 05:14 → 3SCARD 09-04 12:38
PROVIDERS: ADMIT Family Medicine; ATTEND Family Medicine
PROC: 3E033RZ Introduction of Antiarrhythmic into Peripheral Vein, Percutaneous Approach (ICD-10-PCS; 2024-08-30)
PROC: 0W9930Z Drainage of Right Pleural Cavity with Drainage Device, Percutaneous Approach (ICD-10-PCS; 2024-08-31)
PROC: 3E1 Administration, Physiological Systems and Anatomical Regions, Irrigation (ICD-10-PCS; 2024-08-31)
PROC: 3E033XZ Introduction of Vasopressor into Peripheral Vein, Percutaneous Approach (ICD-10-PCS; 2024-08-31)
PROC: 0D9670Z Drainage of Stomach with Drainage Device, Via Natural or Artificial Opening (ICD-10-PCS; 2024-08-31)
PROC: 0DCP8ZZ Extirpation of Matter from Rectum, Via Natural or Artificial Opening Endoscopic (ICD-10-PCS; 2024-09-01)
PROC: 5A09357 Assistance with Respiratory Ventilation, Less than 24 Consecutive Hours, Continuous Positive Airway Pressure (ICD-10-PCS; 2024-09-01)
PROC: 05HC33Z Insertion of Infusion Device into Left Basilic Vein, Percutaneous Approach (ICD-10-PCS; 2024-09-06)
PROC: 0BNK4ZZ Release Right Lung, Percutaneous Endoscopic Approach (ICD-10-PCS; principal; 2024-09-09 16:15)
PROC: 30233N1 Transfusion of Nonautologous Red Blood Cells into Peripheral Vein, Percutaneous Approach (ICD-10-PCS; 2024-09-10)
DX: A41.9 Sepsis, unspecified organism (principal); J18.0 Bronchopneumonia, unspecified organism; J86.9 Pyothorax without fistula; J96.01 Acute respiratory failure with hypoxia; R65.21 Severe sepsis with septic shock; J90 Pleural effusion, not elsewhere classified; F03.94 Unspecified dementia, unspecified severity, with anxiety; F25.9 Schizoaffective disorder, unspecified; D64.9 Anemia, unspecified; F03.93 Unspecified dementia, unspecified severity, with mood disturbance; J98.11 Atelectasis; F31.9 Bipolar disorder, unspecified; K56.41 Fecal impaction; I25.10 Atherosclerotic heart disease of native coronary artery without angina pectoris; R00.0 Tachycardia, unspecified; E78.5 Hyperlipidemia, unspecified; Z79.899 Other long term (current) drug therapy; R25.1 Tremor, unspecified; R47.9 Unspecified speech disturbances; R62.50 Unspecified lack of expected normal physiological development in childhood; Z87.01 Personal history of pneumonia (recurrent)
CPT/HCPCS: 32551; 36415; 36573; 45330; 51702; 71045; 71046; 71250; 71260; 74177; 76604; 76942; 80048; 80053; 80202; 81001; 82150; 82565; 82945; 83605; 83615; 83690; 83735; 83880; 84100; 84134; 84145; 84155; 84157; 84484; 85025; 85027; 85610; 85730; 86850; 86900; 86901; 86920; 87040; 87070; 87102; 87116; 87205; 87206; 87636; 88108; 88305; 89050; 93005; 93306; 94640; 94660; 94760; 96365; 96366; 96367; 96368; 96375; 99291